=== PATIENT | male | born 1940 | race Caucasian/White ===

== ENCOUNTER → 2018-03-09 11:28 | Outpatient (CLI) | payer MEDICARE, OTHER, SELFPAY ==
--- NOTE | 2018-03-09 | DI.CT.S_ITS ---
PROCEDURE: CT LUMBAR SPINE WO CON INDICATIONS: LOW BACK PAIN TECHNIQUE: Noncontrast 3 mm thick sections acquired from the T12 level to the sacrum. Sagittal and coronal reformats were constructed. For radiation dose reduction, the following was used: automated exposure control. COMPARISON: [facility], CR, CHEST 2 VIEW, 05/06/2017, 9:57. [facility], CT, IVP (ABD & PEL WWO CONTRAST), 02/16/2016, 11:33. [facility], CT, ABDOMEN/PELVIS WITHOUT CONTRAST, 02/20/2009, 19:28. [facility], CR, L-SPINE 2-3 VIEWS, 02/20/2009, 16:19. FINDINGS: Image quality: Excellent. Bones: No acute vertebral body compression fractures. No suspicious lytic or blastic bony lesions. No pars defects. Mild retrolisthesis is seen at the L1-L2 level and at the L2-L3 level. There is minimal anterolisthesis seen at L4-L5. T12-L1: The disc height is relatively well-preserved. Bridging anterior osteophytes are seen anteriorly. Mild generalized disc bulge is seen. No significant neural foraminal or central canal narrowing are seen. L1-L2: Moderate loss of disc height is seen. Endplate irregularity and sclerosis can be seen. Bridging osteophytes are seen anteriorly. Moderate disc bulge is seen at this level. There is moderate to severe bilateral neural foraminal narrowing seen and moderate to severe central canal narrowing present. L2-L3: Mild to moderate loss of disc height is seen. Moderate disc bulge is seen, which is eccentric to the right. Mild facet joint hypertrophy is seen. There is moderate to severe bilateral neural foraminal narrowing seen and moderate to severe central canal narrowing present. L3-L4: The disc height is relatively well-preserved. Moderate disc bulge is seen, which is eccentric to the right. Bridging anterior osteophytes can be seen. Mild facet joint hypertrophy is seen. Moderate to severe bilateral neural foraminal narrowing is seen. Moderate to severe central canal narrowing is seen at this level. L4-L5: The disc height is relatively well-preserved. Bridging anterior osteophytes are seen. Moderate disc bulge is seen, which is eccentric to the left. Prominent facet hypertrophy is seen. There is at least moderate bilateral neural foraminal narrowing seen. Moderate to severe central canal narrowing is seen at this level. L5-S1: Moderate to severe loss of disc height is seen at this level. Mild disc bulge is seen. Moderate facet joint hypertrophy is seen. [id number] bilateral neural foraminal narrowing is seen. The central canal is widely patent. Soft tissues: No retroperitoneal masses or hematomas. Visualized aorta is normal in caliber. A pacer lead can be seen on the director of operations for therapy image. IMPRESSION: Prominent degenerative changes are seen, including moderate to severe central canal narrowing at L1-L2, L2-L3, L3-L4, and L4-L5. Moderate to severe bilateral neural foraminal narrowing is seen at L1-L2, L2-L3, and L3-L4. Dictated by: Chay Jones M.D. on 03/09/2018 at 11:53 Approved by: Chay Jones M.D. on 03/09/2018 at 12:01
== END ==
PROVIDERS: Family Provider Family Medicine; PCP Family Medicine; Visit Provider Physical Medicine & Rehabilitation Pain Medicine
DX: M48.061 Spinal stenosis, lumbar region without neurogenic claudication (principal); M99.73 Connective tissue and disc stenosis of intervertebral foramina of lumbar region
CPT/HCPCS: 72131

== ENCOUNTER 2018-07-14 17:53 | Emergency (ER) | payer MEDICARE, OTHER, SELFPAY ==
[2018-07-14 17:58] VITALS: BP 165/90; PULSE 65; RESP 12; O2SAT 96
--- NOTE | 2018-07-14 18:25 | ED_ITS ---
HPI - Male Genitourinary <Ellie Gunn PA-C - Last Filed: 07/14/18 21:35> General Chief complaint: Urogenital-Male Stated complaint: BLOOD IN URINE Time Seen by Provider: 07/14/18 18:05 Source: patient Mode of arrival: ambulatory Limitations: no limitations History of Present Illness HPI Narrative: This 77 year old gentleman comes to ED with complaints of hematuria today. He states that this has happened 3 times today. 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 He states that when this occurs, he will pass some clots, then the urine clears. Last happened 6 months ago. Today however, he went to urinate and felt like micturition was slow and he had to strain a little bit, then able to urinate but it turned from yellow to red tinged to pure red at the end of the stream. He states that he feels otherwise normal. He denies any dysuria, frequency, or urgency. He denies any flank pain. He denies any nausea, vomiting, or fever. He does take warfarin and denies any other new bleeding or bruising or any other acute symptoms today. He states last INR was 2.8 a couple of weeks ago Related Data Home Medications Medication Instructions Recorded Confirmed omega 5-sws-nmf-fish oil [Fish Oil] 3,000 mg PO BID #0 05/05/17 Previous Rx's Medication Instructions Recorded cephalexin [Keflex] 500 mg PO QID 5 Days #0 cap 07/23/16 tamsulosin [Flomax] 0.4 mg PO QDAY 7 Days #0 cap 07/23/16 dibucaine [Nupercainal] 56.7 gm RC PRN PRN #1 tube 12/22/16 hydrocodone-acetaminophen [[place]] 1 tab PO Q6HP PRN #14 tab 12/22/16 ciprofloxacin HCl 250 mg PO Q12H #6 tab 07/14/18 Allergies Allergy/AdvReac Type Severity Reaction Status Date / Time No Known Allergies Allergy Verified 07/14/18 18:01 Exam <Ellie Gunn PA-C - Last Filed: 07/14/18 21:35> Narrative Exam Narrative: GENERAL APPEARANCE: Patient sitting comfortably, in no distress. LUNGS: Clear to auscultation bilaterally. HEART: Rate and rhythm regular without murmur, normal S1 and S2, no S3 or S4. ABDOMEN: Soft, NT, ND, +BS x 4 quadrants, no CVAT. EXTREMITIES: Mild pitting noted with venous stasis skin changes bilaterally DERM: No eccymoses noted Initial Vital Signs Initial Vital Signs: Vital Signs Pulse Rate 65 07/14/18 17:58 Respiratory Rate 12 07/14/18 17:58 Blood Pressure 165/90 H 07/14/18 17:58 Pulse Oximetry 96 07/14/18 17:58 <Eliu Lawrence MD - Last Filed: 07/14/18 23:21> Initial Vital Signs Initial Vital Signs: Vital Signs Pulse Rate 65 07/14/18 17:58 Respiratory Rate 12 07/14/18 17:58 Blood Pressure 165/90 H 07/14/18 17:58 Pulse Oximetry 96 07/14/18 17:58 Course <Ellie Gunn PA-C - Last Filed: 07/14/18 21:35> Additional Information: Patient is feeling well. We discussed treating for infection (he has taken Cipro multiple times previously for his urology procedures and no SEs) while awaiting urine cx results. Discussed importance of f/u even if gross hematuria resolves and he is agreeable (will f/u with urology or PCP for repeat UA, advised imaging and repeat cystoscopy may be indicated as well). He will return if any acute changes in the interim Orders Ordered: ED Orders 07/14/18 18:40 Urinalysis and Microscopic Stat Urine Culture Stat 07/14/18 19:00 Hemoglobin and Hematocrit Stat Prothrombin Time INR Stat Vital Signs - 8 hr 07/14/18 17:58 07/14/18 19:47 Pulse Rate 65 68 Respiratory Rate 12 22 Blood Pressure 165/90 H 178/89 H Pulse Oximetry 96 97 <Eliu Lawrence MD - Last Filed: 07/14/18 23:21> Orders Ordered: ED Orders 07/14/18 18:40 Urinalysis and Microscopic Stat Urine Culture Stat 07/14/18 19:00 Hemoglobin and Hematocrit Stat Prothrombin Time INR Stat Vital Signs - 8 hr 07/14/18 17:58 07/14/18 19:47 Pulse Rate 65 68 Respiratory Rate 12 22 Blood Pressure 165/90 H 178/89 H Pulse Oximetry 96 97 MDM - Male Genitourinary <Ellie Gunn PA-C - Last Filed: 07/14/18 21:35> Lab Data Attestation: I reviewed the patient's lab results. Result diagrams: 07/14/18 19:00 Lab Results 07/14/18 07/14/18 07/14/18 Range/Units 18:40 19:00 19:00 Hgb 14.5 (13.5-17.5) g/dL Hct 42.5 (41-53) % PT 25.6 H (10.1-12.7) SECONDS INR 2.3 H (0.9-1.3) Urine Color Red Urine Appearance Turbid Urine pH 7.0 (4.5-8.0) Ur Specific [place] 1.015 (1.000-1.035) Urine Protein 3+ H (Negative) Urine Glucose (UA) Negative (Normal) g/dL Urine Ketones Negative (NEGATIVE) Urine Occult Blood 3+ H (Negative) Urine Nitrate Negative (Negative) Urine Bilirubin Negative (NEGATIVE) Urine Urobilinogen 1.0 (0.2) E.U./dL Ur Leukocyte Esterase Trace H (NEGATIVE) Urine RBC >100/hpf (0-5/HPF) Urine WBC 5-10/hpf H (0-5/HPF) Urine Bacteria None seen (None) Ur Culture Indicated? Specimen cultured Micro UA Comment Not Reportable <Eliu Lawrence MD - Last Filed: 07/14/18 23:21> Lab Data Lab Results 07/14/18 07/14/18 07/14/18 Range/Units 18:40 19:00 19:00 Hgb 14.5 (13.5-17.5) g/dL Hct 42.5 (41-53) % PT 25.6 H (10.1-12.7) SECONDS INR 2.3 H (0.9-1.3) Urine Color Red Urine Appearance Turbid Urine pH 7.0 (4.5-8.0) Ur Specific [place] 1.015 (1.000-1.035) Urine Protein 3+ H (Negative) Urine Glucose (UA) Negative (Normal) g/dL Urine Ketones Negative (NEGATIVE) Urine Occult Blood 3+ H (Negative) Urine Nitrate Negative (Negative) Urine Bilirubin Negative (NEGATIVE) Urine Urobilinogen 1.0 (0.2) E.U./dL Ur Leukocyte Esterase Trace H (NEGATIVE) Urine RBC >100/hpf (0-5/HPF) Urine WBC 5-10/hpf H (0-5/HPF) Urine Bacteria None seen (None) Ur Culture Indicated? Specimen cultured Micro UA Comment Not Reportable Discharge Plan Departure Patient Disposition: Home Clinical Impression: Hematuria Discharge Date/Time: 07/14/18 19:50 Interventions: ED Discharge Assessment Last Done: 07/14/18 19:47 Instructions: DI for Hematuria Activity Restrictions/Additional Instructions: please return as we talked about if you have any acutely worsening symptoms such as pain, fever, nausea or vomiting, or feeling weak or dizzy. Otherwise, please start the antibiotic as it will take 2 or 3 days for your final urine cultures to come back and we want to treat you for infection in the interim in case that is the cause of your bleeding.. Please follow-up with your urologist or PCP next week to recheck this as he will need further testing if the bleeding has not resolved. Prescriptions: New ciprofloxacin HCl 250 mg tablet 250 mg PO Q12H Qty: 6 RF: 0 No Action tamsulosin [Flomax] 0.4 MG capsule,extended release 24hr 0.4 mg PO QDAY 7 Days Qty: 0 RF: 0 cephalexin [Keflex] 500 MG capsule 500 mg PO QID 5 Days Qty: 0 RF: 0 hydrocodone-acetaminophen [[place]] 10 MG/325 MG tablet 1 tab PO Q6HP PRNQty: 14 RF: 0 dibucaine [Nupercainal] 56.7 GM ointment 56.7 gm RC PRN PRNQty: 1 RF: 0 omega 9-obg-qms-fish oil [Fish Oil] 1,000 MG capsule 3,000 mg PO BID Qty: 0 RF: 0 Referrals: Rosa Isela Connors MD [Non-Staff] - Eliu Guzman MD [Primary Care Provider] - <Eliu Lawrence MD - Last Filed: 07/14/18 23:21> Cosign ED Attending Cosscoobyature Attestation: I was present in the ER at the time of this patient's evaluation. I was available for verbal consultation or to see the patient directly if needed. I agree with the assessment and treatment plan.
[2018-07-14 18:48] LABS: Bacteria Urine None Seen
[2018-07-14 18:58] LABS: Appearance Urine UA TURBID; Bilirubin Urine UA NEGATIVE (NEGATIVE); Color Urine UA RED; Glucose Urine UA NEGATIVE (Normal); Ketones Urine UA NEGATIVE (NEGATIVE); Leukocyte Esterase Urine UA TRACE (NEGATIVE); Nitrite Urine UA Negative (Negative); Occult Blood Urine UA 3+ (Negative); Protein Urine UA 3+ (Negative); Specific Gravity Urine UA 1.015 (1.000-1.035)
[2018-07-14 19:07] LABS: Culture Indicated Urine Specimen Cultured; RBC Urine >100/HPF (0-5/HPF); WBC Urine 5-10/HPF (0-5/HPF)
[2018-07-14 19:20] LABS: Hematocrit 42.5 % (41-53); Hemoglobin 14.5 g/dL (13.5-17.5); INR 2.3 (0.9-1.3); Prothrombin Time 25.6 SECONDS (10.1-12.7)
[2018-07-14 19:47] VITALS: BP 178/89; PULSE 68; RESP 22; O2SAT 97
== END 2018-07-14 19:50 | disposition home or self-care (01) ==
PROVIDERS: Emergency Provider Internal Medicine; Family Provider Family Medicine; PCP Family Medicine
DX: R31.9 Hematuria, unspecified (principal)
CPT/HCPCS: 36415; 51798; 81001; 85014; 85018; 85610; 87086; 99283

== ENCOUNTER → 2018-11-09 10:18 | Outpatient (CLI) | payer MEDICARE, OTHER, SELFPAY ==
[2018-11-09 10:54] LABS: Appearance Urine UA TURBID; Color Urine UA RED
[2018-11-09 10:55] LABS: Bacteria Urine Occasional (0-1); RBC Urine >100/HPF (0-5/HPF); WBC Urine 10-30/HPF (0-5/HPF)
[2018-11-09 10:56] LABS: Culture Indicated Urine Specimen Cultured
== END ==
PROVIDERS: Family Provider Family Medicine; PCP Family Medicine; Visit Provider Urology
DX: R31.0 Gross hematuria (principal)
CPT/HCPCS: 81001; 87086

== ENCOUNTER → 2019-01-01 12:21 | Outpatient (CLI) | payer MEDICARE, OTHER, SELFPAY ==
[2019-01-01 13:02] LABS: Alanine Aminotransferase 25 IU/L (21-72); Albumin 4.2 g/dL (3.5-5.0); Albumin Globulin Ratio 1.1 (1.0-2.8); Alkaline Phosphatase 122 U/L (38-126); Aspartate Aminotransferase 24 IU/L (17-59); BUN Creatinine Ratio 15.6 (6-22); Bilirubin Total 0.6 mg/dL (0.2-1.3); Blood Urea Nitrogen 14 mg/dL (9-20); Calcium 9.2 mg/dL (8.4-10.2); Carbon Dioxide 31 mmol/L (22-32); Chloride 101 mmol/L (98-107); Cholesterol 137 mg/dL (140-199); Estimated Glomerular Filt Rate > 60.0 mL/min (>60); Globulin 3.8 g/dL (1.7-4.1); Glucose 82 mg/dL (80-110); HDL Cholesterol 34 mg/dL (40-60); HEMOLYSIS < 15 (0-50); LDL Cholesterol Calculated 72 mg/dL (<100); Magnesium 2.3 mg/dL (1.6-2.3); Potassium 4.4 mmol/L (3.4-5.1); Sodium 140 mmol/L (137-145); Triglycerides 157 mg/dL (35-150)
[2019-01-01 13:41] LABS: Digoxin 0.8 ng/mL (0.8-2.0)
== END ==
PROVIDERS: Family Provider Family Medicine; PCP Family Medicine; Visit Provider Specialist
DX: E78.2 Mixed hyperlipidemia (principal); I48.2 Chronic atrial fibrillation
CPT/HCPCS: 36415; 80053; 80061; 80162; 83735

== ENCOUNTER → 2019-10-02 08:03 | Outpatient (CLI) | payer MEDICARE, OTHER, SELFPAY ==
[2019-10-02 09:24] LABS: Digoxin 0.9 ng/mL (0.8-2.0)
[2019-10-02 09:26] LABS: Alanine Aminotransferase 23 IU/L (<50); Albumin 4.3 g/dL (3.5-5.0); Albumin Globulin Ratio 1.4 (1.0-2.8); Alkaline Phosphatase 81 U/L (38-126); Aspartate Aminotransferase 29 IU/L (17-59); BUN Creatinine Ratio 18.9 (6-22); Bilirubin Total 0.7 mg/dL (0.2-1.3); Blood Urea Nitrogen 17 mg/dL (9-20); Calcium 9.4 mg/dL (8.4-10.2); Carbon Dioxide 30 mmol/L (22-32); Chloride 103 mmol/L (98-107); Estimated Glomerular Filt Rate > 60.0 mL/min (>60); Globulin 3.1 g/dL (1.7-4.1); Glucose 105 mg/dL (80-110); HEMOLYSIS < 15 (0-50); Magnesium 2.3 mg/dL (1.6-2.3); Potassium 4.7 mmol/L (3.4-5.1); Sodium 139 mmol/L (137-145); Total Protein 7.4 g/dL (6.3-8.2)
[2019-10-05 09:46] LABS: Lipoprofile NMR SEE SEPERATE REPORT
== END ==
PROVIDERS: Family Provider Family Medicine; PCP Family Medicine; Visit Provider Specialist
DX: I48.20 Chronic atrial fibrillation, unspecified (principal); E78.2 Mixed hyperlipidemia
CPT/HCPCS: 36415; 80053; 80162; 83704; 83735

== ENCOUNTER → 2020-04-02 08:31 | Outpatient (CLI) | payer MEDICARE, OTHER, SELFPAY ==
--- NOTE | 2020-04-02 | DI.ECHO.S_ITS ---
[place]---------+ [facility] +---------+ : : [address] : : : : [id number] : : : : Phone: [phone]+ Echocardiogram Report + + :Name: EDIE BARNES Study Date: 04/02/2020 Height: 74 in : :[facility] Weight: 304 lb : : Gender: Male BSA: 2.6 m2 : :: 1940 Age: 79 yrs BP: 118/74 mmHg: :Reason For Study: Disorders of arteries and arteriols : :Ordering Physician: Albaro : :Berto Performed By: Ana Lilia Miller : :Referring: ALBARO PHAM : + + Interpretation Summary Left ventricular systolic function remains normal with an estimated ejection fraction of 60 to 65% without any obvious focal abnormalities and appears unchanged from previous. There continues to be mild LVH, more prominent in the interventricular septum. Diastolic function cannot be assessed but there is no obvious significant change from the previous exam. The right ventricle grossly appears normal and unchanged. Right ventricular systolic pressures cannot be estimated but CVP is likely around 3 mmHg. There is severe biatrial enlargement although the left atrium has decreased in size while the right atrium has significantly increased in size. There is no significant valvular abnormality identified. The aortic root is mildly dilated and the ascending aorta is moderately enlarged but both are unchanged from the previous exam when they measured 4.4 cm, and 4.2 cm, respectively. The patient was in atrial fibrillation with heart rates in the 75-95 bpm range which is considerably faster compared to the previous study. Procedure: A two-dimensional transthoracic echocardiogram with color flow and Doppler was performed. Images from the parasternal window were difficult to obtain and are suboptimal in quality. The study quality was technically difficult. The patient was in atrial fibrillation with heart rates between 74- 93 bpm during the exam. The patient had occasional PVCs during the exam. This is considerably faster compared to the previous study. Left Ventricle: The estimated left ventricular end diastolic volume is 93 ml. The left ventricle is grossly normal size. There is mild-moderate concentric left ventricular hypertrophy. There is moderate proximal septal thickening noted. Left ventricular systolic function is normal without focal wall motion abnormalities. The ejection fraction is estimated to be 60-65%. Diastolic function could not be accurately assessed due to atrial fibrillation. There has been no significant change since the previous study. Right Ventricle: The right ventricle is not well visualized. The right ventricle grossly appears normal in size with probable normal systolic function. This is unchanged compared to the previous study. There is a pacemaker lead in the right ventricle. Atria: There is severe biatrial enlargement. The left atrium has significantly decreased in size since the prior echo exam. The right atrium has significantly increased in size since the prior echo exam. There is no Doppler evidence for an interatrial shunt. Mitral Valve: There is mild mitral annular calcification. The mitral valve leaflets appear mildly thickened, but open well. There is trace mitral regurgitation. This is unchanged compared to the previous study. Aortic Valve: The aortic valve is trileaflet. The aortic valve is slightly calcified. The aortic valve opens well. There is no aortic valve stenosis. No aortic regurgitation is present. Tricuspid Valve: The tricuspid valve is not well visualized, but is grossly normal. There is trace tricuspid regurgitation. Pulmonary artery pressures cannot be estimated because of the lack of a measurable TR jet velocity but the IVC suggests a CVP of around 3 mmHg. There has been no significant change since the previous study. Pulmonic Valve: The pulmonic valve is not well visualized. There is no pulmonic valvular regurgitation. There is no significant valvular heart disease. Great Vessels: The aortic root is mildly dilated. The ascending aorta is moderately enlarged. This is unchanged compared to the previous study. The IVC is of normal diameter and collapses greater than 50% with a sniff. This suggests a low right atrial pressure of 3 mm Hg. Pericardium/ Pleura There is no pericardial effusion. There is no pleural effusion. MMode/2D Measurements & Calculations LVIDd: 5.7 cm LVOT diam: 2.3 cm LVIDs: 3.7 cm Ao root diam: 4.3 cm FS: 34.2 % asc Aorta Diam: 4.2 cm EPSS: 0.64 cm IVSd: 1.4 cm LVPWd: 1.2 cm LV finnegan. diameter/BSA (cm/m^2): 2.2 LV sys. diameter/BSA (cm/m^2): 1.4 LA A2 area: 35.9 cm2 RA long axis: 7.8 cm LA A4 area: 37.6 cm2 RA area: 38.1 cm2 LA length (vol): 7.9 cm RA vol: 158.4 ml LA vol: 145.2 ml RA : 61.0 ml/m2 LA vol index: 55.9 ml/m2 IVC diam: 2.1 cm RVD1 (basal): 3.6 cm TAPSE: 2.8 cm Doppler Measurements & Calculations Ao V2 max: 122.4 cm/sec LVOT Max Jose: 105.3 cm/sec Ao V2 mean: 78.2 cm/sec LV V1 max P.4 mmHg Ao max P.0 mmHg LV V1 VTI: 19.2 cm Ao mean P.9 mmHg JACINDA(I,D): 3.7 cm2 Ao V2 VTI: 21.6 cm JACINDA(V,D): 3.6 cm2 sev ratio: 0.89 JACINDA indexed to BSA (cm^2/m^2): 1.4 MV E max jose: 101.9 cm/sec SV(LVOT): 79.4 ml MV A max jose: 0.57 cm/sec MV E/A: 177.9 Med Peak E' Jose: 6.1 cm/sec E/E' med: 16.7 Lat Peak E' Jose: 12.1 cm/sec E/E' lat: 8.4 E/e' average: 12.6 MV dec time: 0.18 sec Reading Physician:PM
[2020-04-02 09:39] LABS: Alanine Aminotransferase 13 IU/L (<50); Albumin 4.1 g/dL (3.5-5.0); Albumin Globulin Ratio 1.3 (1.0-2.8); Alkaline Phosphatase 95 U/L (38-126); Aspartate Aminotransferase 24 IU/L (17-59); BUN Creatinine Ratio 16.7 (6-22); Bilirubin Total 0.5 mg/dL (0.2-1.3); Blood Urea Nitrogen 15 mg/dL (9-20); Carbon Dioxide 32 mmol/L (22-32); Chloride 100 mmol/L (98-107); Estimated Glomerular Filt Rate > 60.0 mL/min (>60); Globulin 3.1 g/dL (1.7-4.1); Glucose 90 mg/dL (80-110); HEMOLYSIS < 15 (0-50); Magnesium 2.2 mg/dL (1.6-2.3); Potassium 4.2 mmol/L (3.4-5.1); Sodium 137 mmol/L (137-145); Total Protein 7.2 g/dL (6.3-8.2)
[2020-04-06 08:36] LABS: Cholesterol, Total 126 mg/dL (100-199); HDL-Cholesterol 52 mg/dL (>39); HDL-Particle (Total) 23.7 umol/L (>=30.5); Historical Reading Comment: (.); LDL Particle 602 nmol/L (<1000); LDL Size 20.9 nm (>20.5); LDL-Cholsterol 54 mg/dL (0-99); LP-IR Score 43 (<=45); Small LDL- Particle <90 nmol/L (<=527); Triglycerides 102 mg/dL (0-149)
== END ==
PROVIDERS: Family Provider Family Medicine; PCP Family Medicine; Referring Provider Specialist; Visit Provider Specialist
DX: I77.810 Thoracic aortic ectasia (principal); I77.89 Other specified disorders of arteries and arterioles; I48.20 Chronic atrial fibrillation, unspecified; E78.2 Mixed hyperlipidemia; Z95.0 Presence of cardiac pacemaker
CPT/HCPCS: 36415; 80053; 80061; 83704; 83735; 93306

== ENCOUNTER 2020-10-25 08:29 | Emergency (ER) | payer MEDICARE, OTHER, SELFPAY ==
[2020-10-25 09:00] VITALS: BP 137/90; PULSE 59; RESP 18; TEMP 36.7; O2SAT 99
--- NOTE | 2020-10-25 09:15 | ED_ITS ---
HPI - Male Genitourinary General Chief complaint: Urogenital-Male Stated complaint: catheter placed yesterday is clogged Time Seen by Provider: 10/25/20 09:00 Source: patient Mode of arrival: Family Vehicle Limitations: no limitations History of Present Illness HPI Narrative: The patient is a 80-year-old male who had a urology procedure yesterday with Dr. Escobedo, he is unsure what procedure it was, presents today has his catheter was clogged. He appears to have some serosanguineous fluid and multiple blood clots in his Baez catheter bag. He has no abdominal pain. He denies any blood thinners or antiplatelet medications. He states that it has never been clear and has been bloody since yesterday. He denies any dizziness lightheadedness or shortness of breath Onset (ago): day(s) Duration: constant Related Data Home Medications Medication Instructions Recorded Confirmed omega 8-tbu-cxa-fish oil [Fish Oil] 3,000 mg PO BID #0 05/05/17 05/02/19 Respironics Dreamstation CPAP #1 ea 05/02/19 05/02/19 Previous Rx's Medication Instructions Recorded cephalexin [Keflex] 500 mg PO QID 5 Days #0 cap 07/23/16 tamsulosin [Flomax] 0.4 mg PO QDAY 7 Days #0 cap 07/23/16 dibucaine [Nupercainal] 56.7 gm RC PRN PRN #1 tube 12/22/16 hydrocodone-acetaminophen [[place]] 1 tab PO Q6HP PRN #14 tab 12/22/16 ciprofloxacin HCl 250 mg PO Q12H #6 tab 07/14/18 Allergies Allergy/AdvReac Type Severity Reaction Status Date / Time No Known Allergies Allergy Verified 10/25/20 09:06 Review of Systems Review of Systems Narrative: GENERAL: Denies chills,fever HEENT: Denies throat pain RESPIRATORY: Denies dyspnea, cough, wheezing CARDIOVASCULAR: Denies chest pain, palpitations GASTROINTESTINAL: Denies nausea, vomiting : See HPI MUSCULOSKELETAL: Denies extremity pain, injury SKIN: No rash, no laceration, no pruritus NEUROLOGIC: Denies weakness, dizziness, headache, numbness 8 point review of systems is negative except for those stated above and HPI Patient History Social History (Reviewed 12/19/20 @ 09:30 by FISH Spence Smoking Status: Former smoker alcohol intake: current Smoking Status: Former smoker Substance Use Type: marijuana Exam Initial Vital Signs Initial Vital Signs: Vital Signs Temperature 98.1 F 10/25/20 09:00 Pulse Rate 59 L 10/25/20 09:00 Respiratory Rate 18 10/25/20 09:00 Blood Pressure 137/90 10/25/20 09:00 Pulse Oximetry 99 10/25/20 09:00 GENERAL: Alert well-appearing 80-year-old male CARDIOVASCULAR: peripheral pulses in tact, cap refill <2 sec RESPIRATORY: No respiratory distress, speaks in full sentences without difficulty : Serosanguineous dark blood in Baez catheter with multiple blood clots noted EXTREMITIES: Normal range of motion, no clubbing or edema. Neurovascularly intact NEUROLOGICAL: Cranial nerves II through XII grossly intact. Normal gait and speech. SKIN: Warm, dry, no petechiae, no rashes or lesions. Course Orders Ordered: ED Orders 10/25/20 10:00 Complete Blood Count AUTO DIFF Stat 10/25/20 10:10 UA Complete [Urinalysis and Microscopic] Stat Urine Culture Stat Vital Signs Vital signs: Vital Signs - 8 hr 10/25/20 09:00 10/25/20 11:40 Temperature 98.1 F Pulse Rate 59 L 62 Respiratory Rate 18 Blood Pressure 137/90 133/80 Pulse Oximetry 99 99 MDM - Male Genitourinary Lab Data Attestation: I reviewed the patient's lab results. Result diagrams: 10/25/20 10:00 Labs: Lab Results 10/25/20 10/25/20 Range/Units 10:00 10:10 WBC 6.0 (4.5-11.0) X10^3/uL RBC 4.56 (4.5-5.9) X10^6/uL Hgb 14.5 (13.5-17.5) g/dL Hct 44.1 (41-53) % MCV 96.8 (80-100) fL MCH 31.9 (26-34) PG MCHC 33.0 (30-36) % RDW 15.2 H (11.6-14.8) % Plt Count 110 L (150-400) X10^3/uL Neut % (Auto) 76.6 H (50-75) % Lymph % (Auto) 13.8 L (25-40) % [place] % (Auto) 9.2 (3-14) % Eos % (Auto) 0.0 L (2-4) % Baso % (Auto) 0.4 (0-2) % Neut # (Auto) 4600 (0113-5250) /uL Lymph # (Auto) 800 L (4551-0451) /uL [place] # (Auto) 600 (0-900) /uL Eos # (Auto) 0 (0-450) /uL Baso # (Auto) 0 (0-100) /uL Urine Color Red Urine Appearance Cloudy Urine pH 6.5 (4.5-8.0) Ur Specific [place] 1.015 (1.000-1.035) Urine Protein 3+ H (Negative) Urine Glucose (UA) Trace H (Negative) g/dL Urine Ketones Trace H (NEGATIVE) Urine Occult Blood 3+ H (Negative) Urine Nitrate Positive (Negative) Urine Bilirubin Negative (NEGATIVE) Urine Urobilinogen 1.0 (0.2) E.U./dL Ur Leukocyte Esterase 1+ H (NEGATIVE) Urine RBC >100/hpf H (0-5/HPF) Urine WBC 10-30/hpf H (0-5/HPF) Amorphous Sediment 1+ Urine Bacteria Moderate (10-30) H (None) Urine Mucus 1+ H (Negative) Ur Culture Indicated? Specimen cultured MDM Narrative Medical decision making narrative: 10:15am Dr. Hopper, states patient actually had a your asked P and Baez catheter was placed for urinary retention postoperatively. Is aware that there is serosanguineous fluid and multiple blood clots recommends removing the Baez catheter to see if he can urinate. Baez catheter removed patient urinated afterwards. Return as needed. Discharge Plan Departure Patient Disposition: Home Clinical Impression: Hematuria Qualifiers: Hematuria type: gross Qualified Code(s): R31.0 - Gross hematuria Instructions: DI for Hematuria Activity Restrictions/Additional Instructions: *You have been diagnosed with hematuria *What to do: You will continue to urinate out blood clots and blood. If you are unable to urinate or have increasing abdominal pain and not urinating please return to the ER *Continue to take medications as directed *Follow up with your primary care provider in 2-3 days *Return to ER if you should have inability to urinate, gross or dark blood or any new, worsening or concerning symptoms Prescriptions: No Action tamsulosin [Flomax] 0.4 MG capsule,extended release 24hr 0.4 mg PO QDAY 7 Days Qty: 0 RF: 0 cephalexin [Keflex] 500 MG capsule 500 mg PO QID 5 Days Qty: 0 RF: 0 hydrocodone-acetaminophen [[place]] 10 MG/325 MG tablet 1 tab PO Q6HP PRNQty: 14 RF: 0 dibucaine [Nupercainal] 56.7 GM ointment 56.7 gm RC PRN PRNQty: 1 RF: 0 omega 1-xxt-jqi-fish oil [Fish Oil] 1,000 MG capsule 3,000 mg PO BID Qty: 0 RF: 0 ciprofloxacin HCl 250 mg tablet 250 mg PO Q12H Qty: 6 RF: 0 (DME) Respironics Dreamstation CPAP Qty: 1 RF: 0 Referrals: Rosa Isela Connors MD [Non-Staff] - Eliu Guzman MD [Primary Care Provider] -
--- NOTE | 2020-10-25 09:49 | PC.NURSE ---
reports catheter bag drain is clogged and is backing up to his bladder. Bag drain squeezed, flexed and tapped on to dislodge a clot. 1000ml bloody urine removed from bag. catheter flushed with sterile water, patient stated he can feel the cold water going into his bladder. 100ml infused and freely drains right back out. several flushes were made, urine remains red tinged. Provider aware. Lab in route to draw CBC.
[2020-10-25 10:12] LABS: Add Manual Diff / Slide Review NO; Basophils Absolute Auto 0 /uL (0-100); Basophils Percent Auto 0.4 % (0-2); Eosinophils Absolute Auto 0 /uL (0-450); Hematocrit 44.1 % (41-53); Hemoglobin 14.5 g/dL (13.5-17.5); Lymphocytes Absolute Auto 800 /uL (1100-4500); Lymphocytes Percent Auto 13.8 % (25-40); Mean Corpuscular Hemoglobin 31.9 PG (26-34); Mean Corpuscular Volume 96.8 fL (80-100); Monocytes Absolute Auto 600 /uL (0-900); Monocytes Percent Auto 9.2 % (3-14); Neutrophils Absolute Auto 4600 /uL (1500-7000); Neutrophils Percent Auto 76.6 % (50-75); Platelet Count 110 X10^3/uL (150-400); Red Blood Cell Count 4.56 X10^6/uL (4.5-5.9); Red Cell Distribution Width 15.2 % (11.6-14.8)
[2020-10-25 10:30] LABS: Appearance Urine UA CLOUDY; Bilirubin Urine UA NEGATIVE (NEGATIVE); Color Urine UA RED; Glucose Urine UA TRACE g/dL (Negative); Ketones Urine UA TRACE (NEGATIVE); Leukocyte Esterase Urine UA 1+ (NEGATIVE); Nitrite Urine UA POSITIVE (Negative); Occult Blood Urine UA 3+ (Negative); Protein Urine UA 3+ (Negative); Specific Gravity Urine UA 1.015 (1.000-1.035); pH Urine UA 6.5 (4.5-8.0)
[2020-10-25 10:34] LABS: Amorphous Sediment Urine 1+; Bacteria Urine Moderate (10-30); RBC Urine >100/HPF (0-5/HPF); WBC Urine 10-30/HPF (0-5/HPF)
[2020-10-25 10:35] LABS: Culture Indicated Urine Specimen Cultured; Mucus Urine 1+ (Negative)
--- NOTE | 2020-10-25 11:12 | PC.NURSE ---
srivastava catheter removed. Patient tolerated well. Patient provided ice water.
--- NOTE | 2020-10-25 11:39 | PC.NURSE ---
patient drank 1L icewater. 200ml urine output, pink tinged.
[2020-10-25 11:40] VITALS: BP 133/80; PULSE 62; O2SAT 99
== END 2020-10-25 11:41 | disposition home or self-care (01) ==
PROVIDERS: Emergency Provider Emergency Medicine; Family Provider Family Medicine; PCP Family Medicine
DX: R31.0 Gross hematuria (principal); T85.9XXA Unspecified complication of internal prosthetic device, implant and graft, initial encounter
CPT/HCPCS: 36415; 81001; 85025; 87086; 99282

== ENCOUNTER → 2021-05-06 08:03 | Outpatient (CLI) | payer MEDICARE, OTHER, SELFPAY ==
[2021-05-06 10:01] LABS: Alanine Aminotransferase 11 IU/L (<50); Albumin 3.8 g/dL (3.5-5.0); Albumin Globulin Ratio 1.3 (1.0-2.8); Alkaline Phosphatase 151 U/L (38-126); Aspartate Aminotransferase 22 IU/L (17-59); BUN Creatinine Ratio 18.8 (6-22); Bilirubin Total 0.7 mg/dL (0.2-1.3); Blood Urea Nitrogen 16 mg/dL (9-20); Carbon Dioxide 30 mmol/L (22-32); Chloride 103 mmol/L (98-107); Estimated Glomerular Filt Rate > 60.0 mL/min (>60); Globulin 2.9 g/dL (1.7-4.1); Glucose 85 mg/dL (80-110); HEMOLYSIS < 15 (0-50); Magnesium 2.1 mg/dL (1.6-2.3); Potassium 4.2 mmol/L (3.4-5.1); Sodium 139 mmol/L (137-145); Total Protein 6.7 g/dL (6.3-8.2)
[2021-05-08 16:07] LABS: Cholesterol, Total 116 mg/dL (100-199); HDL-Cholesterol 43 mg/dL (>39); LDL Particle 515 nmol/L (<1000); LDL Size 21.1 nm (>20.5); LDL-Cholsterol 53 mg/dL (0-99); LP-IR Score <25 (<=45); Small LDL- Particle <90 nmol/L (<=527); Triglycerides 108 mg/dL (0-149)
== END ==
PROVIDERS: Family Provider Family Medicine; PCP Family Medicine; Referring Provider Specialist; Visit Provider Specialist
DX: E78.2 Mixed hyperlipidemia (principal); I48.20 Chronic atrial fibrillation, unspecified
CPT/HCPCS: 36415; 80053; 80061; 83704; 83735

== ENCOUNTER 2021-05-27 14:32 | Emergency (ER) | payer MEDICARE, OTHER, SELFPAY ==
[2021-05-27] VITALS (37 sets, daily range): BP systolic 89–211; BP diastolic 60–121; PULSE 77–109; RESP 10–24; TEMP 36.4; O2SAT 90–99; BMI 38.2
--- NOTE | 2021-05-27 15:20 | DI.CT.S_ITS ---
PROCEDURE: CT CERVICAL SPINE WO CON INDICATIONS: fall TECHNIQUE: Noncontrast 3 mm thick sections acquired from the skull base to the T4 level. Sagittal and coronal reformats were then constructed. For radiation dose reduction, the following was used: automated exposure control, adjustment of mA and/or kV according to patient size. COMPARISON: None. FINDINGS: Image quality: Excellent. Bones: No fractures or dislocations. Visualized superior ribs are intact. Severe cervical spondylosis. Multilevel disc height loss and uncovertebral joint hypertrophy. Bilateral bony foraminal narrowing at C4-C5 and C5-C6. Reversal of normal lordotic curve of the cervical spine is likely chronic. Soft tissues: Prevertebral soft tissues are normal in thickness. No paravertebral hematomas. No apical pneumothoraces. IMPRESSION: 1. No evidence of acute cervical fracture or dislocation. 2. Severe cervical spondylosis. Dictated by: Evan Phipps M.D. on 05/27/2021 at 15:22 Approved by: Evan Phipps M.D. on 05/27/2021 at 15:25
--- NOTE | 2021-05-27 15:20 | DI.CT.S_ITS ---
PROCEDURE: CT HEAD/BRAIN WO CON INDICATIONS: fall on coumadin TECHNIQUE: Noncontrast 4.5 mm thick angled axial sections acquired from the foramen magnum to the vertex, with coronal and sagittal reformats. For radiation dose reduction, the following was used: automated exposure control, adjustment of mA and/or kV according to patient size. COMPARISON: None. FINDINGS: Image quality: Excellent. CSF spaces: Basal cisterns are patent. No extra-axial fluid collections. The ventricles are symmetric in size and shape. Brain: No intracranial bleeds or masses. There is cerebral volume loss for age, with resultant ventricular and sulcal prominence. There are periventricular and deep white matter chronic small vessel ischemic changes. There is intracranial internal carotid artery atherosclerosis. Skull and face: Right posterior parietal scalp hematoma and swelling is seen. Calvarium and visualized facial bones appear intact, without suspicious lesions. Sinuses: Visualized sinuses and mastoids are clear. IMPRESSION: 1. No CT evidence of acute intracranial bleed, midline shift or mass effect. 2. Right posterior parietal scalp hematoma and swelling. No acute skull fracture. 3. Parenchymal volume loss and moderate white matter chronic small vessel ischemic changes. Dictated by: Santiago Waters M.D. on 05/27/2021 at 15:25 Approved by: Santiago Waters M.D. on 05/27/2021 at 15:26
--- NOTE | 2021-05-27 15:20 | DI.CT.S_ITS ---
PROCEDURE: CT PEL WO CON INDICATIONS: right hip pain TECHNIQUE: Noncontrast 3 mm axial sections acquired through the bony pelvis, with coronal and sagittal reformatting. COMPARISON: None. FINDINGS: Image quality: Excellent. Bones: Patient is status post right total hip arthroplasty. Acute comminuted periprosthetic fracture adjacent to femoral stem of the right hip prosthesis is seen with anterior and posterior displacement of fractured fragments. Patient is status post right total knee arthroplasty without evidence of fracture or dislocation. No evidence of right knee hardware loosening or failure. Pelvic ring is intact. Left hip joint osteoarthritic changes are seen. No evidence of avascular necrosis of femoral head. Soft tissues: Asymmetric enlargement of right iliacus muscle is seen. Asymmetrically enlarged left pelvic floor muscles as well as anterior right upper thigh muscle is seen surrounding femoral shaft. Finding is suggestive of intramuscular hematoma. IMPRESSION: 1. Acute comminuted periprosthetic fracture involving proximal right femoral shaft as above. 2. Large intramuscular hematoma involving left iliacus muscle, left pelvic floor muscle and anterior left upper to mid thigh muscles. Dictated by: Santiago Waters M.D. on 05/27/2021 at 15:32 Approved by: Santiago Waters M.D. on 05/27/2021 at 15:38
[2021-05-27 15:24] LABS: Add Manual Diff / Slide Review NO; Basophils Absolute Auto 0 /uL (0-100); Basophils Percent Auto 0.6 % (0-2); Eosinophils Absolute Auto 100 /uL (0-450); Eosinophils Percent Auto 2.5 % (2-4); Hematocrit 43.8 % (41-53); Hemoglobin 14.4 g/dL (13.5-17.5); Lymphocytes Absolute Auto 1400 /uL (1100-4500); Lymphocytes Percent Auto 27.1 % (25-40); Mean Corpuscular HGB Conc 32.9 % (30-36); Mean Corpuscular Hemoglobin 30.4 PG (26-34); Mean Corpuscular Volume 92.6 fL (80-100); Monocytes Absolute Auto 500 /uL (0-900); Monocytes Percent Auto 10.1 % (3-14); Neutrophils Absolute Auto 3100 /uL (1500-7000); Neutrophils Percent Auto 59.7 % (50-75); Platelet Count 133 X10^3/uL (150-400); Red Blood Cell Count 4.73 X10^6/uL (4.5-5.9); Red Cell Distribution Width 15.4 % (11.6-14.8); White Blood Cell Count 5.2 X10^3/uL (4.5-11.0)
[2021-05-27 15:25] LABS: INR 4.1 (0.9-1.3); Prothrombin Time 48.3 SECONDS (10.1-12.7)
[2021-05-27] MEDS: HYDROMORPHONE 0.5 MG INJ IV (15:27)
[2021-05-27 15:32] LABS: Alanine Aminotransferase 14 IU/L (<50); Albumin 3.9 g/dL (3.5-5.0); Albumin Globulin Ratio 1.1 (1.0-2.8); Alkaline Phosphatase 157 U/L (38-126); Aspartate Aminotransferase 26 IU/L (17-59); BUN Creatinine Ratio 23.1 (6-22); Bilirubin Total 0.6 mg/dL (0.2-1.3); Blood Urea Nitrogen 18 mg/dL (9-20); Calcium 9.3 mg/dL (8.4-10.2); Carbon Dioxide 29 mmol/L (22-32); Chloride 104 mmol/L (98-107); Estimated Glomerular Filt Rate > 60.0 mL/min (>60); Globulin 3.4 g/dL (1.7-4.1); Glucose 115 mg/dL (80-110); HEMOLYSIS < 15 (0-50); Potassium 4.4 mmol/L (3.4-5.1); Sodium 137 mmol/L (137-145); Total Protein 7.3 g/dL (6.3-8.2)
--- NOTE | 2021-05-27 16:08 | ED_ITS ---
HPI - Fall <Genevieve Torres DO - Last Filed: 05/29/21 06:58> General Chief Complaint: Fall Stated Complaint: Modified Trauma Time Seen by Provider: 05/27/21 14:39 Source: patient and EMS Mode of arrival: EMS History of Present Illness HPI Narrative: Patient is an 80-year-old male who has a history of atrial fibrillation sleep apnea is my hypertension hyperlipidemia presenting with ground level fall. He states that he was walking from his porch to the inside of his house when he felt his right hip go out and fell to the ground. He did hit his head he has an obvious head laceration and hematoma with bleeding. He does not think that he lost consciousness is. He denies any nausea vomiting numbness tingling or weakness. His biggest complaint is his right leg. It hurts extremely bad to move it. He is able to move his toes. He was given ketamine by EMS. He denies any neck pain or any other injuries. Related Data Home Medications Medication Instructions Recorded Confirmed Respironics Dreamstation CPAP #1 ea 05/02/19 05/27/21 carvedilol 25 mg tablet 25 mg PO BID 05/27/21 05/27/21 duloxetine 60 mg capsule,delayed 60 mg PO DAILY 05/27/21 05/27/21 release rosuvastatin 20 mg tablet (Crestor) 20 mg PO DAILY 05/27/21 05/27/21 warfarin 10 mg tablet 10 mg PO DAILY 05/27/21 05/27/21 Previous Rx's Medication Instructions Recorded tamsulosin 0.4 mg capsule (Flomax) 0.4 mg PO QDAY 7 Days #0 cap 07/23/16 Allergies Allergy/AdvReac Type Severity Reaction Status Date / Time No Known Allergies Allergy Verified 10/25/20 09:06 Review of Systems <Genevieve Torres DO - Last Filed: 05/29/21 06:58> Review of Systems Narrative: GENERAL: Denies chills, fatigue, malaise, fever, sweats, travel HEENT: Denies sinus pain, ear pain, sore throat, difficulty swallowing, neck pain RESPIRATORY: Denies dyspnea, cough, wheezing, hemoptysis, sputum. CARDIOVASCULAR: Denies chest pain, palpitations, orthopnea, edema GASTROINTESTINAL: Denies nausea, vomiting, abdominal pain, diarrhea, constipation, melena. : Denies dysuria, frequency, incontinence, hematuria, urinary retention, flank pain. MUSCULOSKELETAL: See HPI SKIN: Head laceration, hematoma NEUROLOGIC: Denies weakness, dizziness, headache, numbness, change in speech, confusion PSYCHIATRIC: No concerning psychosocial issues. 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 Social History Smoking Status: Former smoker alcohol intake: current (2 glasses wine nightly with dinner) Smoking Status: Former smoker Substance Use Type: marijuana Exam <Genevieve Torres DO - Last Filed: 05/29/21 06:58> Initial Vital Signs Initial Vital Signs: Vital Signs Temperature 97.6 F 05/27/21 14:40 Pulse Rate 89 05/27/21 14:40 Respiratory Rate 16 05/27/21 14:40 Blood Pressure 133/97 H 05/27/21 14:40 Pulse Oximetry 92 05/27/21 14:40 GENERAL: Alert 80-year-old male HEENT: Head right posterior hematoma with 4 cm laceration,EOMI, pupils reactive, face symmetric, [moist] mucous membranes NECK: No vertebral tenderness or step-offs full range of motion CARDIOVASCULAR: Regular rate and rhythm without murmurs, rubs or gallops. RESPIRATORY: Breath sounds equal bilaterally, no wheezes rales or rhonchi. ABDOMEN: Soft, nontender. Normoactive bowel sounds all 4 quadrants. No guarding or rebound. EXTREMITIES: Normal range of motion, no clubbing or edema. Neurovascularly i ntact Right hip itself is actually non tender complaining of knee and mid thigh pain. Currently right knee is flexed he has extreme pain while straightening but distal pedal pulse is intact. Once pain medication is given patient is able to straighten out leg but thigh continues to her. NEUROLOGICAL: Alert and oriented x4.Normal gait and speech. Cranial nerves II through XII grossly intact. [Good [id number], good [id number], strength equal bilaterally, no dysarthria or aphasia, sensation in tact to soft touch bilaterally, no visual changes, no facial droop] SKIN: Warm, dry, no laceration, no petechiae, no rashes or lesions. <Radha Montalvo DO - Last Filed: 06/08/21 08:54> Initial Vital Signs Initial Vital Signs: Vital Signs Temperature 97.6 F 05/27/21 14:40 Pulse Rate 89 05/27/21 14:40 Respiratory Rate 16 05/27/21 14:40 Blood Pressure 133/97 H 05/27/21 14:40 Pulse Oximetry 92 05/27/21 14:40 <Suzanna Correa MD - Last Filed: 05/28/21 20:27> Initial Vital Signs Initial Vital Signs: Vital Signs Temperature 97.6 F 05/27/21 14:40 Pulse Rate 89 05/27/21 14:40 Respiratory Rate 16 05/27/21 14:40 Blood Pressure 133/97 H 05/27/21 14:40 Pulse Oximetry 92 05/27/21 14:40 Course <Genevieve Torres DO - Last Filed: 05/29/21 06:58> Orders Ordered: Discontinued Medications Carvedilol (Carvedilol 12.5 Mg Tablet) 25 mg PO NOW ONE Stop: 05/27/21 19:38 Last Admin: 05/27/21 20:17 Dose: 25 mg Documented by: BECKY Carvedilol (Carvedilol 12.5 Mg Tablet) 25 mg PO BID [facility] Last Admin: 05/28/21 10:22 Dose: 25 mg Documented by: LANCE Carvedilol (Carvedilol 12.5 Mg Tablet) 25 mg PO BID [facility] Last Admin: 05/28/21 14:44 Dose: Not Given Documented by: DEEDEE Docusate Sodium (Docusate 100 Mg Capsule) 100 mg PO DAILY [facility] Last Admin: 05/28/21 08:42 Dose: 100 mg Documented by: BTONER Hydromorphone HCl (Hydromorphone 0.5 Mg Inj) 0.5 mg IV NOW ONE Stop: 05/27/21 15:20 Last Admin: 05/27/21 15:27 Dose: 0.5 mg Documented by: BECKY Hydromorphone HCl (Hydromorphone 1 Mg Inj) 1 mg IV NOW ONE Stop: 05/27/21 16:39 Last Admin: 05/27/21 16:44 Dose: 1 mg Documented by: MICHAEL Hydromorphone HCl (Hydromorphone 1 Mg Inj) 1 mg IV NOW ONE Stop: 05/27/21 18:40 Last Admin: 05/27/21 18:50 Dose: 1 mg Documented by: SONIAOR Hydromorphone HCl (Hydromorphone 1 Mg Inj) 1 mg IV Q2HR PRN PRN Reason: Pain, Severe (7-10) Last Admin: 05/28/21 13:03 Dose: 1 mg Documented by: PAWAN Hydromorphone HCl (Hydromorphone 1 Mg Inj) 1 mg IV NOW ONE Stop: 05/28/21 14:29 Last Admin: 05/28/21 14:58 Dose: 1 mg Documented by: DEEDEE Oxycodone HCl (Oxycodone Ir 5 Mg Tablet) 10 mg PO Q4HR PRN PRN Reason: pain Last Admin: 05/27/21 23:32 Dose: 10 mg Documented by: SUDHIR Oxycodone/Acetaminophen (Oxycodone/Acetaminophen 5/325 Tablet) 1 tab PO Q4HR PRN PRN Reason: pain Last Admin: 05/28/21 08:42 Dose: 1 tab Documented by: PAWAN Oxycodone/Acetaminophen (Oxycodone/Acetaminophen 5/325 Tablet) 2 tab PO NOW ONE Stop: 05/28/21 14:29 Last Admin: 05/28/21 14:57 Dose: 2 tab Documented by: DEEDEE Phytonadione (Phytonadione (Vit K1) 5 Mg Tablet) 5 mg PO NOW ONE Stop: 05/27/21 18:41 Last Admin: 05/27/21 18:51 Dose: 5 mg Documented by: BECKY Phytonadione (Phytonadione (Vit K1) 5 Mg Tablet) 5 mg PO NOW ONE Stop: 05/28/21 12:55 Last Admin: 05/28/21 13:16 Dose: 5 mg Documented by: PAWAN Tamsulosin HCl (Tamsulosin 0.4 Mg Capsule) 0.4 mg PO DAILY [facility] Last Admin: 05/28/21 13:03 Dose: 0.4 mg Documented by: PAWAN Vital Signs Vital signs: Vital Signs - 8 hr 05/28/21 12:30 05/28/21 12:49 05/28/21 13:00 Pulse Rate 96 H 90 104 H Respiratory Rate 16 17 34 H Blood Pressure 105/68 Pulse Oximetry 94 94 87 L 05/28/21 13:30 05/28/21 14:00 05/28/21 14:30 Pulse Rate 96 H 101 H 113 H Respiratory Rate 15 25 H 19 Blood Pressure Pulse Oximetry 92 05/28/21 14:54 05/28/21 15:00 05/28/21 15:01 Pulse Rate 102 H 93 H 97 H Respiratory Rate 18 14 32 H Blood Pressure 83/51 L 85/68 L Pulse Oximetry 05/28/21 15:03 Pulse Rate 96 H Respiratory Rate 14 Blood Pressure 96/75 Pulse Oximetry <Radha Montalvo, - Last Filed: 06/08/21 08:54> Orders Ordered: Discontinued Medications Carvedilol (Carvedilol 12.5 Mg Tablet) 25 mg PO NOW ONE Stop: 05/27/21 19:38 Last Admin: 05/27/21 20:17 Dose: 25 mg Documented by: BECKY Carvedilol (Carvedilol 12.5 Mg Tablet) 25 mg PO BID [facility] Last Admin: 05/28/21 10:22 Dose: 25 mg Documented by: LANCE Carvedilol (Carvedilol 12.5 Mg Tablet) 25 mg PO BID [facility] Last Admin: 05/28/21 14:44 Dose: Not Given Documented by: DEEDEE Docusate Sodium (Docusate 100 Mg Capsule) 100 mg PO DAILY [facility] Last Admin: 05/28/21 08:42 Dose: 100 mg Documented by: PAWAN Hydromorphone HCl (Hydromorphone 0.5 Mg Inj) 0.5 mg IV NOW ONE Stop: 05/27/21 15:20 Last Admin: 05/27/21 15:27 Dose: 0.5 mg Documented by: BECKY Hydromorphone HCl (Hydromorphone 1 Mg Inj) 1 mg IV NOW ONE Stop: 05/27/21 16:39 Last Admin: 05/27/21 16:44 Dose: 1 mg Documented by: MICHAEL Hydromorphone HCl (Hydromorphone 1 Mg Inj) 1 mg IV NOW ONE Stop: 05/27/21 18:40 Last Admin: 05/27/21 18:50 Dose: 1 mg Documented by: BECKY Hydromorphone HCl (Hydromorphone 1 Mg Inj) 1 mg IV Q2HR PRN PRN Reason: Pain, Severe (7-10) Last Admin: 05/28/21 13:03 Dose: 1 mg Documented by: PAWAN Hydromorphone HCl (Hydromorphone 1 Mg Inj) 1 mg IV NOW ONE Stop: 05/28/21 14:29 Last Admin: 05/28/21 14:58 Dose: 1 mg Documented by: DEEDEE Oxycodone HCl (Oxycodone Ir 5 Mg Tablet) 10 mg PO Q4HR PRN PRN Reason: pain Last Admin: 05/27/21 23:32 Dose: 10 mg Documented by: SUDHIR Oxycodone/Acetaminophen (Oxycodone/Acetaminophen 5/325 Tablet) 1 tab PO Q4HR PRN PRN Reason: pain Last Admin: 05/28/21 08:42 Dose: 1 tab Documented by: PAWAN Oxycodone/Acetaminophen (Oxycodone/Acetaminophen 5/325 Tablet) 2 tab PO NOW ONE Stop: 05/28/21 14:29 Last Admin: 05/28/21 14:57 Dose: 2 tab Documented by: DEEDEE Phytonadione (Phytonadione (Vit K1) 5 Mg Tablet) 5 mg PO NOW ONE Stop: 05/27/21 18:41 Last Admin: 05/27/21 18:51 Dose: 5 mg Documented by: BECKY Phytonadione (Phytonadione (Vit K1) 5 Mg Tablet) 5 mg PO NOW ONE Stop: 05/28/21 12:55 Last Admin: 05/28/21 13:16 Dose: 5 mg Documented by: PAWAN Tamsulosin HCl (Tamsulosin 0.4 Mg Capsule) 0.4 mg PO DAILY [facility] Last Admin: 05/28/21 13:03 Dose: 0.4 mg Documented by: BTONER Reevaluation(s) Reevaluation #1: Patient seen and evaluated by myself. Overnight patient had 1 episode where he was mildly confused at about 4:00 a.m. in the morning. He thought he heard his family outside the room. After turning on lytes and having discussion with patient he seems alert and oriented. He has his CPAP with nasal cannula in place. Patient fairly well pain controlled at this time. He does have a little bit of a headache. He denies any other issues currently. Patient's INR was supratherapeutic at 4.1 and he received vitamin K. Patient has repeat CBC, BMP and INR ordered for the morning. Patient head CT was negative, he does have a periprosthetic fracture this was reviewed with Orthopedic surgery by Dr. Torres with Dr. Weber. Patient will need some specialty orthopedic care we are unable to provide and [facility] was contacted. They did speak with Orthopedic surgery, Dr. Kingsley who was going to discuss with orthopedic group to verify if they can take the patient, and we are waiting for possible bed placement. Patient signed out to Dr. Correa this morning while working on disposition/placement. Vital Signs Vital signs: Vital Signs - 8 hr 05/28/21 12:30 05/28/21 12:49 05/28/21 13:00 Pulse Rate 96 H 90 104 H Respiratory Rate 16 17 34 H Blood Pressure 105/68 Pulse Oximetry 94 94 87 L 05/28/21 13:30 05/28/21 14:00 05/28/21 14:30 Pulse Rate 96 H 101 H 113 H Respiratory Rate 15 25 H 19 Blood Pressure Pulse Oximetry 92 05/28/21 14:54 05/28/21 15:00 05/28/21 15:01 Pulse Rate 102 H 93 H 97 H Respiratory Rate 18 14 32 H Blood Pressure 83/51 L 85/68 L Pulse Oximetry 05/28/21 15:03 Pulse Rate 96 H Respiratory Rate 14 Blood Pressure 96/75 Pulse Oximetry <Suzanna Correa MD - Last Filed: 05/28/21 20:27> Orders Ordered: Discontinued Medications Carvedilol (Carvedilol 12.5 Mg Tablet) 25 mg PO NOW ONE Stop: 05/27/21 19:38 Last Admin: 05/27/21 20:17 Dose: 25 mg Documented by: BECKY Carvedilol (Carvedilol 12.5 Mg Tablet) 25 mg PO BID [facility] Last Admin: 05/28/21 10:22 Dose: 25 mg Documented by: LANCE Carvedilol (Carvedilol 12.5 Mg Tablet) 25 mg PO BID [facility] Last Admin: 05/28/21 14:44 Dose: Not Given Documented by: DEEDEE Docusate Sodium (Docusate 100 Mg Capsule) 100 mg PO DAILY [facility] Last Admin: 05/28/21 08:42 Dose: 100 mg Documented by: PAWAN Hydromorphone HCl (Hydromorphone 0.5 Mg Inj) 0.5 mg IV NOW ONE Stop: 05/27/21 15:20 Last Admin: 05/27/21 15:27 Dose: 0.5 mg Documented by: BECKY Hydromorphone HCl (Hydromorphone 1 Mg Inj) 1 mg IV NOW ONE Stop: 05/27/21 16:39 Last Admin: 05/27/21 16:44 Dose: 1 mg Documented by: MICHAEL Hydromorphone HCl (Hydromorphone 1 Mg Inj) 1 mg IV NOW ONE Stop: 05/27/21 18:40 Last Admin: 05/27/21 18:50 Dose: 1 mg Documented by: BECKY Hydromorphone HCl (Hydromorphone 1 Mg Inj) 1 mg IV Q2HR PRN PRN Reason: Pain, Severe (7-10) Last Admin: 05/28/21 13:03 Dose: 1 mg Documented by: DIMASONESebastián Hydromorphone HCl (Hydromorphone 1 Mg Inj) 1 mg IV NOW ONE Stop: 05/28/21 14:29 Last Admin: 05/28/21 14:58 Dose: 1 mg Documented by: DEEDEE Oxycodone HCl (Oxycodone Ir 5 Mg Tablet) 10 mg PO Q4HR PRN PRN Reason: pain Last Admin: 05/27/21 23:32 Dose: 10 mg Documented by: SUDHIR Oxycodone/Acetaminophen (Oxycodone/Acetaminophen 5/325 Tablet) 1 tab PO Q4HR PRN PRN Reason: pain Last Admin: 05/28/21 08:42 Dose: 1 tab Documented by: PAWAN Oxycodone/Acetaminophen (Oxycodone/Acetaminophen 5/325 Tablet) 2 tab PO NOW ONE Stop: 05/28/21 14:29 Last Admin: 05/28/21 14:57 Dose: 2 tab Documented by: DEEDEE Phytonadione (Phytonadione (Vit K1) 5 Mg Tablet) 5 mg PO NOW ONE Stop: 05/27/21 18:41 Last Admin: 05/27/21 18:51 Dose: 5 mg Documented by: BECKY Phytonadione (Phytonadione (Vit K1) 5 Mg Tablet) 5 mg PO NOW ONE Stop: 05/28/21 12:55 Last Admin: 05/28/21 13:16 Dose: 5 mg Documented by: PAWAN Tamsulosin HCl (Tamsulosin 0.4 Mg Capsule) 0.4 mg PO DAILY [facility] Last Admin: 05/28/21 13:03 Dose: 0.4 mg Documented by: PAWAN Vital Signs Vital signs: Vital Signs - 8 hr 05/28/21 12:30 05/28/21 12:49 05/28/21 13:00 Pulse Rate 96 H 90 104 H Respiratory Rate 16 17 34 H Blood Pressure 105/68 Pulse Oximetry 94 94 87 L 05/28/21 13:30 05/28/21 14:00 05/28/21 14:30 Pulse Rate 96 H 101 H 113 H Respiratory Rate 15 25 H 19 Blood Pressure Pulse Oximetry 92 05/28/21 14:54 05/28/21 15:00 05/28/21 15:01 Pulse Rate 102 H 93 H 97 H Respiratory Rate 18 14 32 H Blood Pressure 83/51 L 85/68 L Pulse Oximetry 05/28/21 15:03 Pulse Rate 96 H Respiratory Rate 14 Blood Pressure 96/75 Pulse Oximetry MDM - Fall <Genevieve Torres DO - Last Filed: 05/29/21 06:58> Lab Data Result diagrams: 05/28/21 07:01 05/28/21 07:01 Labs: Lab Results 05/27/21 05/27/21 05/27/21 Range/Units 14:30 14:30 14:30 WBC 5.2 (4.5-11.0) X10^3/uL RBC 4.73 (4.5-5.9) X10^6/uL Hgb 14.4 (13.5-17.5) g/dL Hct 43.8 (41-53) % MCV 92.6 (80-100) fL MCH 30.4 (26-34) PG MCHC 32.9 (30-36) % RDW 15.4 H (11.6-14.8) % Plt Count 133 L (150-400) X10^3/uL Neut % (Auto) 59.7 (50-75) % Lymph % (Auto) 27.1 (25-40) % [place] % (Auto) 10.1 (3-14) % Eos % (Auto) 2.5 (2-4) % Baso % (Auto) 0.6 (0-2) % Neut # (Auto) 3100 (1536-9380) /uL Lymph # (Auto) 1400 (9558-2239) /uL [place] # (Auto) 500 (0-900) /uL Eos # (Auto) 100 (0-450) /uL Baso # (Auto) 0 (0-100) /uL PT 48.3 H (10.1-12.7) SECONDS INR 4.1 H (0.9-1.3) Sodium 137 (137-145) mmol/L Potassium 4.4 (3.4-5.1) mmol/L Chloride 104 (98-107) mmol/L Carbon Dioxide 29 (22-32) mmol/L BUN 18 (9-20) mg/dL Creatinine 0.78 (0.66-1.25) mg/dL Estimated GFR > 60.0 (>60) mL/min BUN/Creatinine Ratio 23.1 H (6-22) Glucose 115 H (80-110) mg/dL Calcium 9.3 (8.4-10.2) mg/dL Total Bilirubin 0.6 (0.2-1.3) mg/dL AST 26 (17-59) IU/L ALT 14 (<50) IU/L Alkaline Phosphatase 157 H (38-126) U/L Total Protein 7.3 (6.3-8.2) g/dL Albumin 3.9 (3.5-5.0) g/dL Globulin 3.4 (1.7-4.1) g/dL Albumin/Globulin Ratio 1.1 (1.0-2.8) SARS-CoV-2 (PCR) (Negative) Hep Bs Antigen (NEGATIVE) s/c Hep Bs Antibody (.) Hepatitis C Antibody (NEGATIVE) s/c HIV 1&2 Ab/P24 Ag 4thGn (NEGATIVE) Blood Type Antibody Screen 05/27/21 05/27/21 05/27/21 Range/Units 14:30 14:30 14:30 WBC (4.5-11.0) X10^3/uL RBC (4.5-5.9) X10^6/uL Hgb (13.5-17.5) g/dL Hct (41-53) % MCV (80-100) fL MCH (26-34) PG MCHC (30-36) % RDW (11.6-14.8) % Plt Count (150-400) X10^3/uL Neut % (Auto) (50-75) % Lymph % (Auto) (25-40) % [place] % (Auto) (3-14) % Eos % (Auto) (2-4) % Baso % (Auto) (0-2) % Neut # (Auto) (2811-4687) /uL Lymph # (Auto) (2951-1817) /uL [place] # (Auto) (0-900) /uL Eos # (Auto) (0-450) /uL Baso # (Auto) (0-100) /uL PT (10.1-12.7) SECONDS INR (0.9-1.3) Sodium (137-145) mmol/L Potassium (3.4-5.1) mmol/L Chloride (98-107) mmol/L Carbon Dioxide (22-32) mmol/L BUN (9-20) mg/dL Creatinine (0.66-1.25) mg/dL Estimated GFR (>60) mL/min BUN/Creatinine Ratio (6-22) Glucose (80-110) mg/dL Calcium (8.4-10.2) mg/dL Total Bilirubin (0.2-1.3) mg/dL AST (17-59) IU/L ALT 14 (<50) IU/L Alkaline Phosphatase (38-126) U/L Total Protein (6.3-8.2) g/dL Albumin (3.5-5.0) g/dL Globulin (1.7-4.1) g/dL Albumin/Globulin Ratio (1.0-2.8) SARS-CoV-2 (PCR) (Negative) Hep Bs Antigen Negative (NEGATIVE) s/c Hep Bs Antibody Non reactive (.) Hepatitis C Antibody Negative (NEGATIVE) s/c HIV 1&2 Ab/P24 Ag 4thGn Negative (NEGATIVE) Blood Type Antibody Screen 05/27/21 05/27/21 05/27/21 Range/Units 16:30 16:30 16:32 WBC (4.5-11.0) X10^3/uL RBC (4.5-5.9) X10^6/uL Hgb (13.5-17.5) g/dL Hct (41-53) % MCV (80-100) fL MCH (26-34) PG MCHC (30-36) % RDW (11.6-14.8) % Plt Count (150-400) X10^3/uL Neut % (Auto) (50-75) % Lymph % (Auto) (25-40) % [place] % (Auto) (3-14) % Eos % (Auto) (2-4) % Baso % (Auto) (0-2) % Neut # (Auto) (5823-0071) /uL Lymph # (Auto) (1101-8193) /uL [place] # (Auto) (0-900) /uL Eos # (Auto) (0-450) /uL Baso # (Auto) (0-100) /uL PT (10.1-12.7) SECONDS INR (0.9-1.3) Sodium (137-145) mmol/L Potassium (3.4-5.1) mmol/L Chloride (98-107) mmol/L Carbon Dioxide (22-32) mmol/L BUN (9-20) mg/dL Creatinine (0.66-1.25) mg/dL Estimated GFR (>60) mL/min BUN/Creatinine Ratio (6-22) Glucose (80-110) mg/dL Calcium (8.4-10.2) mg/dL Total Bilirubin (0.2-1.3) mg/dL AST (17-59) IU/L ALT (<50) IU/L Alkaline Phosphatase (38-126) U/L Total Protein (6.3-8.2) g/dL Albumin (3.5-5.0) g/dL Globulin (1.7-4.1) g/dL Albumin/Globulin Ratio (1.0-2.8) SARS-CoV-2 (PCR) Negative Negative (Negative) Hep Bs Antigen (NEGATIVE) s/c Hep Bs Antibody (.) Hepatitis C Antibody (NEGATIVE) s/c HIV 1&2 Ab/P24 Ag 4thGn (NEGATIVE) Blood Type B Positive Antibody Screen Negative 05/28/21 05/28/21 05/28/21 Range/Units 07:01 07:01 07:01 WBC 7.7 (4.5-11.0) X10^3/uL RBC 3.73 L (4.5-5.9) X10^6/uL Hgb 11.3 L (13.5-17.5) g/dL Hct 34.6 L (41-53) % MCV 92.6 (80-100) fL MCH 30.4 (26-34) PG MCHC 32.8 (30-36) % RDW 15.2 H (11.6-14.8) % Plt Count 127 L (150-400) X10^3/uL Neut % (Auto) 63.5 (50-75) % Lymph % (Auto) 21.0 L (25-40) % [place] % (Auto) 14.1 H (3-14) % Eos % (Auto) 0.6 L (2-4) % Baso % (Auto) 0.8 (0-2) % Neut # (Auto) 4900 (5826-1040) /uL Lymph # (Auto) 1600 (7708-2100) /uL [place] # (Auto) 1100 H (0-900) /uL Eos # (Auto) 0 (0-450) /uL Baso # (Auto) 100 (0-100) /uL PT 47.9 H (10.1-12.7) SECONDS INR 4.1 H (0.9-1.3) Sodium 135 L (137-145) mmol/L Potassium 4.6 (3.4-5.1) mmol/L Chloride 104 (98-107) mmol/L Carbon Dioxide 26 (22-32) mmol/L BUN 21 H (9-20) mg/dL Creatinine 0.91 (0.66-1.25) mg/dL Estimated GFR > 60.0 (>60) mL/min BUN/Creatinine Ratio 23.1 H (6-22) Glucose 111 H (80-110) mg/dL Calcium 8.6 (8.4-10.2) mg/dL Total Bilirubin (0.2-1.3) mg/dL AST (17-59) IU/L ALT (<50) IU/L Alkaline Phosphatase (38-126) U/L Total Protein (6.3-8.2) g/dL Albumin (3.5-5.0) g/dL Globulin (1.7-4.1) g/dL Albumin/Globulin Ratio (1.0-2.8) SARS-CoV-2 (PCR) (Negative) Hep Bs Antigen (NEGATIVE) s/c Hep Bs Antibody (.) Hepatitis C Antibody (NEGATIVE) s/c HIV 1&2 Ab/P24 Ag 4thGn (NEGATIVE) Blood Type Antibody Screen Imaging Data CT scan - head: Radiologist's Impression: PROCEDURE: CT HEAD/BRAIN WO CON INDICATIONS: fall on coumadin TECHNIQUE: Noncontrast 4.5 mm thick angled axial sections acquired from the foramen magnum to the vertex, with coronal and sagittal reformats. For radiation dose reduction, the following was used: automated exposure control, adjustment of mA and/or kV according to patient size. COMPARISON: None. FINDINGS: Image quality: Excellent. CSF spaces: Basal cisterns are patent. No extra-axial fluid collections. The ventricles are symmetric in size and shape. Brain: No intracranial bleeds or masses. There is cerebral volume loss for age, with resultant ventricular and sulcal prominence. There are periventricular and deep white matter chronic small vessel ischemic changes. There is intracranial internal carotid artery atherosclerosis. Skull and face: Right posterior parietal scalp hematoma and swelling is seen. Calvarium and visualized facial bones appear intact, without suspicious lesions. Sinuses: Visualized sinuses and mastoids are clear. IMPRESSION: 1. No CT evidence of acute intracranial bleed, midline shift or mass effect. 2. Right posterior parietal scalp hematoma and swelling. No acute skull fracture. 3. Parenchymal volume loss and moderate white matter chronic small vessel ischemic changes. Dictated by: Santiago Waters M.D. on 05/27/2021 at 15:25 CT - cervical spine: Radiologist's Impression: PROCEDURE: CT CERVICAL SPINE WO CON INDICATIONS: fall TECHNIQUE: Noncontrast 3 mm thick sections acquired from the skull base to the T4 level. Sagittal and coronal reformats were then constructed. For radiation dose reduction, the following was used: automated exposure control, adjustment of mA and/or kV according to patient size. COMPARISON: None. FINDINGS: Image quality: Excellent. Bones: No fractures or dislocations. Visualized superior ribs are intact. Severe cervical spondylosis. Multilevel disc height loss and uncovertebral joint hypertrophy. Bilateral bony foraminal narrowing at C4-C5 and C5-C6. Reversal of normal lordotic curve of the cervical spine is likely chronic. Soft tissues: Prevertebral soft tissues are normal in thickness. No paravertebral hematomas. No apical pneumothoraces. IMPRESSION: 1. No evidence of acute cervical fracture or dislocation. 2. Severe cervical spondylosis. Dictated by: Evan Phipps M.D. on 05/27/2021 at 15:22 CT pelvis: Radiologist's Impression: PROCEDURE: CT PEL WO CON INDICATIONS: right hip pain TECHNIQUE: Noncontrast 3 mm axial sections acquired through the bony pelvis, with coronal and sagittal reformatting. COMPARISON: None. FINDINGS: Image quality: Excellent. Bones: Patient is status post right total hip arthroplasty. Acute comminuted periprosthetic fracture adjacent to femoral stem of the right hip prosthesis is seen with anterior and posterior displacement of fractured fragments. Patient is status post right total knee arthroplasty without evidence of fracture or dislocation. No evidence of right knee hardware loosening or failure. Pelvic ring is intact. Left hip joint osteoarthritic changes are seen. No evidence of avascular necrosis of femoral head. Soft tissues: Asymmetric enlargement of right iliacus muscle is seen. Asymmetrically enlarged left pelvic floor muscles as well as anterior right upper thigh muscle is seen surrounding femoral shaft. Finding is suggestive of intramuscular hematoma. IMPRESSION: 1. Acute comminuted periprosthetic fracture involving proximal right femoral shaft as above. 2. Large intramuscular hematoma involving left iliacus muscle, left pelvic floor muscle and anterior left upper to mid thigh muscles. Dictated by: Santiago Waters M.D. on 05/27/2021 at 15:32 Extremity x-ray #1: Radiologist's Impression: PROCEDURE: XR FEMUR RT MIN 2V INDICATIONS: fracture TECHNIQUE: Two views of the femur were acquired. COMPARISON: None. FINDINGS: Bones: Moderately displaced spiral fracture around the femoral component of the right hip prosthesis. The visible portions of the right pelvis appear intact. The hip joint is congruent. There is a knee arthroplasty and the knee joint is grossly congruent. Soft tissues: No suspicious soft tissue calcifications or masses. IMPRESSION: 1. Spiral periprosthetic fracture of the proximal femur. 2. No hip or knee joint dislocation. Dictated by: Liz Irwin M.D. on 05/27/2021 at 20:35 Extremity x-ray #2: Radiologist's Impression: PROCEDURE: XR KNEE RT 1TO2V INDICATIONS: femur fracture TECHNIQUE: Two views of the knee were acquired. COMPARISON: [facility], , KNEE 3V RIGHT, 12/25/2009, 10:03. FINDINGS: Bones: On the two given views, right knee arthroplasty components appear in grossly appropriate location. The joint is relatively congruent. Soft tissues:. No suspicious soft tissue calcifications. IMPRESSION: 1. No definite periprosthetic fracture. 2. Grossly congruent knee joint given two suboptimally positioned views. Dictated by: Liz Irwin M.D. on 05/27/2021 at 20:34 Approved by: Liz Irwin M.D. on 05/27/2021 at 20:35 [place] Narrative Medical decision making narrative: Patient initially and quite a bit of pain is to get x-rays already on CT table for his head so CT of his pelvis and right lower extremity were done. Confirmation of periprosthetic fracture. 1608 Dr. Franks, at this time he will check with all of his partners to see if anyone is available for repair however he is unable to repair it. 1800-Dr. Weber returned call, unfortunately no partners are agreeable or able to repair the fracture recommends transfer [facility] and [facility] had been consulted 192 Dr. Kingsley, updated on patient's symptoms test results and orthopedic recommendations at our facility. At this time he would like to speak personally with Orthopedics to come up with an appropriate plan for the patient. 2010 orthopedic surgeons have discussed. Unfortunately I do not believe the [facility] is going to have an available bed soon. The the entire [facility] is very tight on bedside. Dr. Weber continues to state that he is unable to repair it at this hospital. will be checking with his partners to see if they are able to repair it as he is unable to repair himself as well. Waiting to hear back from [facility] to see if anyone is there to repair this patient's fracture. Patient's pain is currently controlled by dilaudid. He has been given vitamin K to help reverse his INR. I suspect patient will be boarding in the emergency department for some time. Significant bed shortage in the entire [facility] all surrounding hospitals are currently full. Patient signed out to Dr. Montalvo for further management 1250pm 05/28/01 Returned call from [facility] double [facility] transfer center. Dr Kingsley has confirmation that 1 of his partners is able to operate on this gentleman with surgery anticipated on Tuesday. He will need to be transferred to [facility] in [place]. We are currently waiting for bed availability there. If there is a moderate weight, will admit to our hospitalist service for medical management with transfer once bed is available again in anticipation of surgery on Tuesday. Pain is adequately controlled at this point. INR is 4.1. Additional vitamin K will be given. Will make sure all of his regular medications are ordered at this point Patient is updated on all plans and questions are answered 2:20pm Norberto Sands has agreed to a trauma/ER to ER transfer for this gentleman. I have spoken with Dr. Gonzalez, trauma surgeon and , orthopedic surgeon has reviewed films and has agreed that he can help with surgical intervention. Care is reviewed with ER Dr. Anita Koo and transfer will be arranged. Patient has been in the emergency department over 24 hours due to bed availability at accepting facilities. He has been receiving his home medications including carvedilol and tamsulosin. Duloxetine and Crestor have been held. Coumadin has not been given and he has received 2 doses of oral rigo min K. Initial INR was 4.1 and is unchanged this morning. Initial hemoglobin is 14.4 and currently is 11.3 with a involving the left iliacus muscle, left pelvic floor muscle and anterior left upper to mid thigh muscles. He remains hemodynamically stable with significant pain in the leg and hip with any movement. Will arrange for ALS transfer from [facility] to [facility] ER with anticipation of admission for orthopedic intervention. <Radha Montalvo, DO - Last Filed: 06/08/21 08:54> Lab Data Labs: Lab Results 05/27/21 05/27/21 05/27/21 Range/Units 14:30 14:30 14:30 WBC 5.2 (4.5-11.0) X10^3/uL RBC 4.73 (4.5-5.9) X10^6/uL Hgb 14.4 (13.5-17.5) g/dL Hct 43.8 (41-53) % MCV 92.6 (80-100) fL MCH 30.4 (26-34) PG MCHC 32.9 (30-36) % RDW 15.4 H (11.6-14.8) % Plt Count 133 L (150-400) X10^3/uL Neut % (Auto) 59.7 (50-75) % Lymph % (Auto) 27.1 (25-40) % [place] % (Auto) 10.1 (3-14) % Eos % (Auto) 2.5 (2-4) % Baso % (Auto) 0.6 (0-2) % Neut # (Auto) 3100 (4541-7689) /uL Lymph # (Auto) 1400 (7789-2134) /uL [place] # (Auto) 500 (0-900) /uL Eos # (Auto) 100 (0-450) /uL Baso # (Auto) 0 (0-100) /uL PT 48.3 H (10.1-12.7) SECONDS INR 4.1 H (0.9-1.3) Sodium 137 (137-145) mmol/L Potassium 4.4 (3.4-5.1) mmol/L Chloride 104 (98-107) mmol/L Carbon Dioxide 29 (22-32) mmol/L BUN 18 (9-20) mg/dL Creatinine 0.78 (0.66-1.25) mg/dL Estimated GFR > 60.0 (>60) mL/min BUN/Creatinine Ratio 23.1 H (6-22) Glucose 115 H (80-110) mg/dL Calcium 9.3 (8.4-10.2) mg/dL Total Bilirubin 0.6 (0.2-1.3) mg/dL AST 26 (17-59) IU/L ALT 14 (<50) IU/L Alkaline Phosphatase 157 H (38-126) U/L Total Protein 7.3 (6.3-8.2) g/dL Albumin 3.9 (3.5-5.0) g/dL Globulin 3.4 (1.7-4.1) g/dL Albumin/Globulin Ratio 1.1 (1.0-2.8) SARS-CoV-2 (PCR) (Negative) Hep Bs Antigen (NEGATIVE) s/c Hep Bs Antibody (.) Hepatitis C Antibody (NEGATIVE) s/c HIV 1&2 Ab/P24 Ag 4thGn (NEGATIVE) Blood Type Antibody Screen 05/27/21 05/27/21 05/27/21 Range/Units 14:30 14:30 14:30 WBC (4.5-11.0) X10^3/uL RBC (4.5-5.9) X10^6/uL Hgb (13.5-17.5) g/dL Hct (41-53) % MCV (80-100) fL MCH (26-34) PG MCHC (30-36) % RDW (11.6-14.8) % Plt Count (150-400) X10^3/uL Neut % (Auto) (50-75) % Lymph % (Auto) (25-40) % [place] % (Auto) (3-14) % Eos % (Auto) (2-4) % Baso % (Auto) (0-2) % Neut # (Auto) (7465-4428) /uL Lymph # (Auto) (3080-5260) /uL [place] # (Auto) (0-900) /uL Eos # (Auto) (0-450) /uL Baso # (Auto) (0-100) /uL PT (10.1-12.7) SECONDS INR (0.9-1.3) Sodium (137-145) mmol/L Potassium (3.4-5.1) mmol/L Chloride (98-107) mmol/L Carbon Dioxide (22-32) mmol/L BUN (9-20) mg/dL Creatinine (0.66-1.25) mg/dL Estimated GFR (>60) mL/min BUN/Creatinine Ratio (6-22) Glucose (80-110) mg/dL Calcium (8.4-10.2) mg/dL Total Bilirubin (0.2-1.3) mg/dL AST (17-59) IU/L ALT 14 (<50) IU/L Alkaline Phosphatase (38-126) U/L Total Protein (6.3-8.2) g/dL Albumin (3.5-5.0) g/dL Globulin (1.7-4.1) g/dL Albumin/Globulin Ratio (1.0-2.8) SARS-CoV-2 (PCR) (Negative) Hep Bs Antigen Negative (NEGATIVE) s/c Hep Bs Antibody Non reactive (.) Hepatitis C Antibody Negative (NEGATIVE) s/c HIV 1&2 Ab/P24 Ag 4thGn Negative (NEGATIVE) Blood Type Antibody Screen 05/27/21 05/27/21 05/27/21 Range/Units 16:30 16:30 16:32 WBC (4.5-11.0) X10^3/uL RBC (4.5-5.9) X10^6/uL Hgb (13.5-17.5) g/dL Hct (41-53) % MCV (80-100) fL MCH (26-34) PG MCHC (30-36) % RDW (11.6-14.8) % Plt Count (150-400) X10^3/uL Neut % (Auto) (50-75) % Lymph % (Auto) (25-40) % [place] % (Auto) (3-14) % Eos % (Auto) (2-4) % Baso % (Auto) (0-2) % Neut # (Auto) (2406-5408) /uL Lymph # (Auto) (9646-5030) /uL [place] # (Auto) (0-900) /uL Eos # (Auto) (0-450) /uL Baso # (Auto) (0-100) /uL PT (10.1-12.7) SECONDS INR (0.9-1.3) Sodium (137-145) mmol/L Potassium (3.4-5.1) mmol/L Chloride (98-107) mmol/L Carbon Dioxide (22-32) mmol/L BUN (9-20) mg/dL Creatinine (0.66-1.25) mg/dL Estimated GFR (>60) mL/min BUN/Creatinine Ratio (6-22) Glucose (80-110) mg/dL Calcium (8.4-10.2) mg/dL Total Bilirubin (0.2-1.3) mg/dL AST (17-59) IU/L ALT (<50) IU/L Alkaline Phosphatase (38-126) U/L Total Protein (6.3-8.2) g/dL Albumin (3.5-5.0) g/dL Globulin (1.7-4.1) g/dL Albumin/Globulin Ratio (1.0-2.8) SARS-CoV-2 (PCR) Negative Negative (Negative) Hep Bs Antigen (NEGATIVE) s/c Hep Bs Antibody (.) Hepatitis C Antibody (NEGATIVE) s/c HIV 1&2 Ab/P24 Ag 4thGn (NEGATIVE) Blood Type B Positive Antibody Screen Negative 05/28/21 05/28/21 05/28/21 Range/Units 07:01 07:01 07:01 WBC 7.7 (4.5-11.0) X10^3/uL RBC 3.73 L (4.5-5.9) X10^6/uL Hgb 11.3 L (13.5-17.5) g/dL Hct 34.6 L (41-53) % MCV 92.6 (80-100) fL MCH 30.4 (26-34) PG MCHC 32.8 (30-36) % RDW 15.2 H (11.6-14.8) % Plt Count 127 L (150-400) X10^3/uL Neut % (Auto) 63.5 (50-75) % Lymph % (Auto) 21.0 L (25-40) % [place] % (Auto) 14.1 H (3-14) % Eos % (Auto) 0.6 L (2-4) % Baso % (Auto) 0.8 (0-2) % Neut # (Auto) 4900 (5325-0760) /uL Lymph # (Auto) 1600 (1067-0064) /uL [place] # (Auto) 1100 H (0-900) /uL Eos # (Auto) 0 (0-450) /uL Baso # (Auto) 100 (0-100) /uL PT 47.9 H (10.1-12.7) SECONDS INR 4.1 H (0.9-1.3) Sodium 135 L (137-145) mmol/L Potassium 4.6 (3.4-5.1) mmol/L Chloride 104 (98-107) mmol/L Carbon Dioxide 26 (22-32) mmol/L BUN 21 H (9-20) mg/dL Creatinine 0.91 (0.66-1.25) mg/dL Estimated GFR > 60.0 (>60) mL/min BUN/Creatinine Ratio 23.1 H (6-22) Glucose 111 H (80-110) mg/dL Calcium 8.6 (8.4-10.2) mg/dL Total Bilirubin (0.2-1.3) mg/dL AST (17-59) IU/L ALT (<50) IU/L Alkaline Phosphatase (38-126) U/L Total Protein (6.3-8.2) g/dL Albumin (3.5-5.0) g/dL Globulin (1.7-4.1) g/dL Albumin/Globulin Ratio (1.0-2.8) SARS-CoV-2 (PCR) (Negative) Hep Bs Antigen (NEGATIVE) s/c Hep Bs Antibody (.) Hepatitis C Antibody (NEGATIVE) s/c HIV 1&2 Ab/P24 Ag 4thGn (NEGATIVE) Blood Type Antibody Screen <Suzanna Correa MD - Last Filed: 05/28/21 20:27> Lab Data Labs: Lab Results 05/27/21 05/27/21 05/27/21 Range/Units 14:30 14:30 14:30 WBC 5.2 (4.5-11.0) X10^3/uL RBC 4.73 (4.5-5.9) X10^6/uL Hgb 14.4 (13.5-17.5) g/dL Hct 43.8 (41-53) % MCV 92.6 (80-100) fL MCH 30.4 (26-34) PG MCHC 32.9 (30-36) % RDW 15.4 H (11.6-14.8) % Plt Count 133 L (150-400) X10^3/uL Neut % (Auto) 59.7 (50-75) % Lymph % (Auto) 27.1 (25-40) % [place] % (Auto) 10.1 (3-14) % Eos % (Auto) 2.5 (2-4) % Baso % (Auto) 0.6 (0-2) % Neut # (Auto) 3100 (1436-1223) /uL Lymph # (Auto) 1400 (2880-6284) /uL [place] # (Auto) 500 (0-900) /uL Eos # (Auto) 100 (0-450) /uL Baso # (Auto) 0 (0-100) /uL PT 48.3 H (10.1-12.7) SECONDS INR 4.1 H (0.9-1.3) Sodium 137 (137-145) mmol/L Potassium 4.4 (3.4-5.1) mmol/L Chloride 104 (98-107) mmol/L Carbon Dioxide 29 (22-32) mmol/L BUN 18 (9-20) mg/dL Creatinine 0.78 (0.66-1.25) mg/dL Estimated GFR > 60.0 (>60) mL/min BUN/Creatinine Ratio 23.1 H (6-22) Glucose 115 H (80-110) mg/dL Calcium 9.3 (8.4-10.2) mg/dL Total Bilirubin 0.6 (0.2-1.3) mg/dL AST 26 (17-59) IU/L ALT 14 (<50) IU/L Alkaline Phosphatase 157 H (38-126) U/L Total Protein 7.3 (6.3-8.2) g/dL Albumin 3.9 (3.5-5.0) g/dL Globulin 3.4 (1.7-4.1) g/dL Albumin/Globulin Ratio 1.1 (1.0-2.8) SARS-CoV-2 (PCR) (Negative) Hep Bs Antigen (NEGATIVE) s/c Hep Bs Antibody (.) Hepatitis C Antibody (NEGATIVE) s/c HIV 1&2 Ab/P24 Ag 4thGn (NEGATIVE) Blood Type Antibody Screen 05/27/21 05/27/21 05/27/21 Range/Units 14:30 14:30 14:30 WBC (4.5-11.0) X10^3/uL RBC (4.5-5.9) X10^6/uL Hgb (13.5-17.5) g/dL Hct (41-53) % MCV (80-100) fL MCH (26-34) PG MCHC (30-36) % RDW (11.6-14.8) % Plt Count (150-400) X10^3/uL Neut % (Auto) (50-75) % Lymph % (Auto) (25-40) % [place] % (Auto) (3-14) % Eos % (Auto) (2-4) % Baso % (Auto) (0-2) % Neut # (Auto) (5808-3920) /uL Lymph # (Auto) (4970-9323) /uL [place] # (Auto) (0-900) /uL Eos # (Auto) (0-450) /uL Baso # (Auto) (0-100) /uL PT (10.1-12.7) SECONDS INR (0.9-1.3) Sodium (137-145) mmol/L Potassium (3.4-5.1) mmol/L Chloride (98-107) mmol/L Carbon Dioxide (22-32) mmol/L BUN (9-20) mg/dL Creatinine (0.66-1.25) mg/dL Estimated GFR (>60) mL/min BUN/Creatinine Ratio (6-22) Glucose (80-110) mg/dL Calcium (8.4-10.2) mg/dL Total Bilirubin (0.2-1.3) mg/dL AST (17-59) IU/L ALT 14 (<50) IU/L Alkaline Phosphatase (38-126) U/L Total Protein (6.3-8.2) g/dL Albumin (3.5-5.0) g/dL Globulin (1.7-4.1) g/dL Albumin/Globulin Ratio (1.0-2.8) SARS-CoV-2 (PCR) (Negative) Hep Bs Antigen Negative (NEGATIVE) s/c Hep Bs Antibody Non reactive (.) Hepatitis C Antibody Negative (NEGATIVE) s/c HIV 1&2 Ab/P24 Ag 4thGn Negative (NEGATIVE) Blood Type Antibody Screen 05/27/21 05/27/21 05/27/21 Range/Units 16:30 16:30 16:32 WBC (4.5-11.0) X10^3/uL RBC (4.5-5.9) X10^6/uL Hgb (13.5-17.5) g/dL Hct (41-53) % MCV (80-100) fL MCH (26-34) PG MCHC (30-36) % RDW (11.6-14.8) % Plt Count (150-400) X10^3/uL Neut % (Auto) (50-75) % Lymph % (Auto) (25-40) % [place] % (Auto) (3-14) % Eos % (Auto) (2-4) % Baso % (Auto) (0-2) % Neut # (Auto) (5027-7547) /uL Lymph # (Auto) (8641-7611) /uL [place] # (Auto) (0-900) /uL Eos # (Auto) (0-450) /uL Baso # (Auto) (0-100) /uL PT (10.1-12.7) SECONDS INR (0.9-1.3) Sodium (137-145) mmol/L Potassium (3.4-5.1) mmol/L Chloride (98-107) mmol/L Carbon Dioxide (22-32) mmol/L BUN (9-20) mg/dL Creatinine (0.66-1.25) mg/dL Estimated GFR (>60) mL/min BUN/Creatinine Ratio (6-22) Glucose (80-110) mg/dL Calcium (8.4-10.2) mg/dL Total Bilirubin (0.2-1.3) mg/dL AST (17-59) IU/L ALT (<50) IU/L Alkaline Phosphatase (38-126) U/L Total Protein (6.3-8.2) g/dL Albumin (3.5-5.0) g/dL Globulin (1.7-4.1) g/dL Albumin/Globulin Ratio (1.0-2.8) SARS-CoV-2 (PCR) Negative Negative (Negative) Hep Bs Antigen (NEGATIVE) s/c Hep Bs Antibody (.) Hepatitis C Antibody (NEGATIVE) s/c HIV 1&2 Ab/P24 Ag 4thGn (NEGATIVE) Blood Type B Positive Antibody Screen Negative 05/28/21 05/28/21 05/28/21 Range/Units 07:01 07:01 07:01 WBC 7.7 (4.5-11.0) X10^3/uL RBC 3.73 L (4.5-5.9) X10^6/uL Hgb 11.3 L (13.5-17.5) g/dL Hct 34.6 L (41-53) % MCV 92.6 (80-100) fL MCH 30.4 (26-34) PG MCHC 32.8 (30-36) % RDW 15.2 H (11.6-14.8) % Plt Count 127 L (150-400) X10^3/uL Neut % (Auto) 63.5 (50-75) % Lymph % (Auto) 21.0 L (25-40) % [place] % (Auto) 14.1 H (3-14) % Eos % (Auto) 0.6 L (2-4) % Baso % (Auto) 0.8 (0-2) % Neut # (Auto) 4900 (1876-5360) /uL Lymph # (Auto) 1600 (2856-2109) /uL [place] # (Auto) 1100 H (0-900) /uL Eos # (Auto) 0 (0-450) /uL Baso # (Auto) 100 (0-100) /uL PT 47.9 H (10.1-12.7) SECONDS INR 4.1 H (0.9-1.3) Sodium 135 L (137-145) mmol/L Potassium 4.6 (3.4-5.1) mmol/L Chloride 104 (98-107) mmol/L Carbon Dioxide 26 (22-32) mmol/L BUN 21 H (9-20) mg/dL Creatinine 0.91 (0.66-1.25) mg/dL Estimated GFR > 60.0 (>60) mL/min BUN/Creatinine Ratio 23.1 H (6-22) Glucose 111 H (80-110) mg/dL Calcium 8.6 (8.4-10.2) mg/dL Total Bilirubin (0.2-1.3) mg/dL AST (17-59) IU/L ALT (<50) IU/L Alkaline Phosphatase (38-126) U/L Total Protein (6.3-8.2) g/dL Albumin (3.5-5.0) g/dL Globulin (1.7-4.1) g/dL Albumin/Globulin Ratio (1.0-2.8) SARS-CoV-2 (PCR) (Negative) Hep Bs Antigen (NEGATIVE) s/c Hep Bs Antibody (.) Hepatitis C Antibody (NEGATIVE) s/c HIV 1&2 Ab/P24 Ag 4thGn (NEGATIVE) Blood Type Antibody Screen MDM Narrative Medical decision making narrative: Patient initially and quite a bit of pain is to get x-rays already on CT table for his head so CT of his pelvis and right low er extremity were done. Confirmation of periprosthetic fracture. 1608 Dr. Franks, at this time he will check with all of his partners to see if anyone is available for repair however he is unable to repair it. 1800-Dr. Weber returned call, unfortunately no partners are agreeable or able to repair the fracture recommends transfer [facility] had been consulted 1922 Dr. Kingsley, updated on patient's symptoms test results and orthopedic recommendations at our facility. At this time he would like to speak personally with Orthopedics to come up with an appropriate plan for the patient. 2009 orthopedic surgeons have discussed. Unfortunately I do not believe the [facility] is going to have an available bed soon. The the entire [facility] is very tight on bedside. Dr. Weber continues to state that he is unable to repair it at this hospital. will be checking with his partners to see if they are able to repair it as he is unable to repair himself as well. Waiting to hear back from [facility] to see if anyone is there to repair this patient's fracture. Patient's pain is currently controlled by dilaudid. He has been given vitamin K to help reverse his INR. I suspect patient will be boarding in the emergency department for some time. Patient signed out to Dr. Montalvo for further management 1250pm 05/28/01 Returned call from [facility] transfer center. Dr Kingsley has confirmation that 1 of his partners is able to operate on this gentleman with surgery anticipated on Tuesday. He will need to be transferred to [facility] in [place]. We are currently waiting for bed availability there. If there is a moderate weight, will admit to our hospitalist service for medical management with transfer once bed is available again in anticipation of surgery on Tuesday. Pain is adequately controlled at this point. INR is 4.1. Additional vitamin K will be given. Will make sure all of his regular medications are ordered at this point Patient is updated on all plans and questions are answered 2:20pm Dallas Wicho has agreed to a trauma/ER to ER transfer for this gentleman. I have spoken with Dr. Gonzalez, trauma surgeon and , orthopedic surgeon has reviewed films and has agreed that he can help with surgical intervention. Care is reviewed with ER Dr. Anita Koo and transfer will be arranged. Patient has been in the emergency department over 24 hours due to bed availability at accepting facilities. He has been receiving his home medications including carvedilol and tamsulosin. Duloxetine and Crestor have been held. Coumadin has not been given and he has received 2 doses of oral vitamin K. Initial INR was 4.1 and is unchanged this morning. Initial hem oglobin is 14.4 and currently is 11.3 with a involving the left iliacus muscle, left pelvic floor muscle and anterior left upper to mid thigh muscles. He remains hemodynamically stable with significant pain in the leg and hip with any movement. Will arrange for ALS transfer from [facility] to [facility] ER with anticipation of admission for orthopedic intervention. Discharge Plan Departure Patient Disposition: [facility] Clinical Impression: Anticoagulant effect, Acute blood loss anemia Vidya-prosthetic fracture around prosthetic hip Qualifiers: Encounter type: initial encounter Qualified Code(s): M97.8XXA - Periprosthetic fracture around other internal prosthetic joint, initial encounter Hematoma of right hip Qualifiers: Encounter type: initial encounter Qualified Code(s): S70.01XA - Contusion of right hip, initial encounter Prescriptions: No Action tamsulosin [Flomax] 0.4 MG capsule,extended release 24hr 0.4 mg PO QDAY 7 Days Qty: 0 RF: 0 carvedilol 25 mg tablet 25 mg PO BID RF: 0 warfarin 10 mg tablet 10 mg PO DAILY RF: 0 rosuvastatin [Crestor] 20 mg tablet 20 mg PO DAILY RF: 0 duloxetine 60 mg capsule,delayed release(DR/EC) 60 mg PO DAILY RF: 0 (DME) Respironics Dreamstation CPAP Qty: 1 RF: 0 Referrals: Eliu Guzman MD [Primary Care Provider] -
[2021-05-27] MEDS: HYDROMORPHONE 1 MG INJ IV ×2 (16:44→18:50)
[2021-05-27] MEDS: LIDOCAINE 1% W/EPI 30 ML (16:45)
[2021-05-27 17:04] LABS: COVID19 -Nasal RAPID Negative (Negative)
[2021-05-27 17:37] LABS: COVID19 - ADMIT (NP swab/PCR) Negative (Negative)
[2021-05-27 17:59] LABS: Alanine Aminotransferase 14 IU/L (<50)
[2021-05-27] MEDS: PHYTONADIONE (VIT K1) 5 MG TABLET PO (18:51)
[2021-05-27 19:09] LABS: HIV 1 & 2 Ab/Ag 4th Gen Combo NEGATIVE (NEGATIVE); Hep C Virus Ab w/Reflex Quant NEGATIVE s/c (NEGATIVE); Hepatitis B Surface Antigen NEGATIVE s/c (NEGATIVE)
--- NOTE | 2021-05-27 19:22 | DI.RAD.S_ITS ---
PROCEDURE: XR FEMUR RT MIN 2V INDICATIONS: fracture TECHNIQUE: Two views of the femur were acquired. COMPARISON: None. FINDINGS: Bones: Moderately displaced spiral fracture around the femoral component of the right hip prosthesis. The visible portions of the right pelvis appear intact. The hip joint is congruent. There is a knee arthroplasty and the knee joint is grossly congruent. Soft tissues: No suspicious soft tissue calcifications or masses. IMPRESSION: 1. Spiral periprosthetic fracture of the proximal femur. 2. No hip or knee joint dislocation. Dictated by: Liz Irwin M.D. on 05/27/2021 at 20:35 Approved by: Liz Irwin M.D. on 05/27/2021 at 20:37
--- NOTE | 2021-05-27 19:22 | DI.RAD.S_ITS ---
PROCEDURE: XR KNEE RT 1TO2V INDICATIONS: femur fracture TECHNIQUE: Two views of the knee were acquired. COMPARISON: [facility], , KNEE 3V RIGHT, 12/25/2009, 10:03. FINDINGS: Bones: On the two given views, right knee arthroplasty components appear in grossly appropriate location. The joint is relatively congruent. Soft tissues:. No suspicious soft tissue calcifications. IMPRESSION: 1. No definite periprosthetic fracture. 2. Grossly congruent knee joint given two suboptimally positioned views. Dictated by: Liz Irwin M.D. on 05/27/2021 at 20:34 Approved by: Liz Irwin M.D. on 05/27/2021 at 20:35
[2021-05-27] MEDS: carvediloL 12.5 MG TABLET 25 MG PO (20:17)
[2021-05-27] MEDS: OXYCODONE IR 5 MG TABLET 10 MG PO (23:32)
--- NOTE | 2021-05-27 23:46 | PC.NURSE ---
His right foot is warm and pink with distal CMS intact,cap. refill is less than 2 seconds on his right foot.
[2021-05-28] VITALS (44 sets, daily range): BP systolic 83–154; BP diastolic 51–94; PULSE 81–113; RESP 7–34; O2SAT 87–100
--- NOTE | 2021-05-28 01:09 | PC.NURSE ---
His pulse ox was on his finger,which was cold to touch,and reading in 80,s.when placed on his ear it increased to upper 90's.
--- NOTE | 2021-05-28 04:10 | PC.NURSE ---
I again asked him if he wanted or would let me place him from the gurney he was on to a more comfortable floor bed but he refused.I was however,able to convince him to let me move his hips with the lift he was on into a slightly different position.After I did this he thanked me and said that his buttocks felt a lot better now.
--- NOTE | 2021-05-28 04:34 | PC.NURSE ---
HIS RIGHT FOOT HAS CMS INTACT,DP PULSE IS STRONG.
--- NOTE | 2021-05-28 06:10 | PC.NURSE ---
Her pain came back,a #1 or #2,second nitro sl given,b/p stable.
[2021-05-28 07:12] LABS: Add Manual Diff / Slide Review NO; Basophils Absolute Auto 100 /uL (0-100); Basophils Percent Auto 0.8 % (0-2); Eosinophils Absolute Auto 0 /uL (0-450); Eosinophils Percent Auto 0.6 % (2-4); Hematocrit 34.6 % (41-53); Hemoglobin 11.3 g/dL (13.5-17.5); Lymphocytes Absolute Auto 1600 /uL (1100-4500); Mean Corpuscular HGB Conc 32.8 % (30-36); Mean Corpuscular Hemoglobin 30.4 PG (26-34); Mean Corpuscular Volume 92.6 fL (80-100); Monocytes Absolute Auto 1100 /uL (0-900); Monocytes Percent Auto 14.1 % (3-14); Neutrophils Absolute Auto 4900 /uL (1500-7000); Neutrophils Percent Auto 63.5 % (50-75); Platelet Count 127 X10^3/uL (150-400); Red Blood Cell Count 3.73 X10^6/uL (4.5-5.9); Red Cell Distribution Width 15.2 % (11.6-14.8); White Blood Cell Count 7.7 X10^3/uL (4.5-11.0)
[2021-05-28 07:21] LABS: INR 4.1 (0.9-1.3); Prothrombin Time 47.9 SECONDS (10.1-12.7)
[2021-05-28 07:51] LABS: BUN Creatinine Ratio 23.1 (6-22); Blood Urea Nitrogen 21 mg/dL (9-20); Calcium 8.6 mg/dL (8.4-10.2); Carbon Dioxide 26 mmol/L (22-32); Chloride 104 mmol/L (98-107); Estimated Glomerular Filt Rate > 60.0 mL/min (>60); Glucose 111 mg/dL (80-110); HEMOLYSIS < 15 (0-50); Potassium 4.6 mmol/L (3.4-5.1); Sodium 135 mmol/L (137-145)
[2021-05-28] MEDS: DOCUSATE 100 MG CAPSULE PO (08:42)
[2021-05-28] MEDS: OXYCODONE/ACETAMINOPHEN 5/325 TABLET 1 TAB PO (08:42)
[2021-05-28] MEDS: carvediloL 12.5 MG TABLET 25 MG PO (10:22)
--- NOTE | 2021-05-28 10:23 | PC.NURSE ---
Pt and his inquiring about the wait. i informed her that we are attempting to find a facility to transfer him to. Dr Correa aware pt/ want to speak to her.
[2021-05-28] MEDS: HYDROMORPHONE 1 MG INJ IV ×2 (13:03→14:58)
[2021-05-28] MEDS: TAMSULOSIN 0.4 MG CAPSULE PO (13:03)
[2021-05-28] MEDS: PHYTONADIONE (VIT K1) 5 MG TABLET PO (13:16)
--- NOTE | 2021-05-28 13:24 | PC.NURSE ---
received pt with cold feet. mottled toes on left foot. Excellent pedal pulse on right foot. marked pulse. palpable. head wound with lucila intact . small amount of bleeding noted. pt having severe pain in his right leg. .dilaudid given.
[2021-05-28] MEDS: OXYCODONE/ACETAMINOPHEN 5/325 TABLET 2 TAB PO (14:57)
[2021-05-29 00:07] LABS: Hepatitis B Surf Ab Qualitativ Non Reactive (.)
== END 2021-05-28 15:20 | disposition short-term general hospital (02) ==
PROVIDERS: Emergency Medicine; Emergency Provider Emergency Medicine; Family Provider Family Medicine; PCP Family Medicine
DX: M97.8XXA Periprosthetic fracture around other internal prosthetic joint, initial encounter (principal); S70.01XA Contusion of right hip, initial encounter; D62 Acute posthemorrhagic anemia; Z79.01 Long term (current) use of anticoagulants; W19.XXXA Unspecified fall, initial encounter; R51.9 Headache, unspecified; Z20.822 Contact with and (suspected) exposure to COVID-19
CPT/HCPCS: 36415; 70450; 72125; 72192; 73552; 73560; 80048; 80053; 85025; 85610; 86850; 86900; 86901; 87635; 96374; 96376; 99285; C9803; J1170

== ENCOUNTER → 2021-07-15 11:43 | Outpatient (ROUT) | payer MEDICARE, OTHER, SELFPAY ==
[2021-07-15 12:43] LABS: INR 2.2 (0.9-1.3); Prothrombin Time 24.7 SECONDS (10.1-12.7)
== END ==
PROVIDERS: Family Provider Family Medicine; PCP Family Medicine; Visit Provider Family Medicine
DX: I48.91 Unspecified atrial fibrillation (principal)
CPT/HCPCS: 85610

== ENCOUNTER → 2022-01-15 08:36 | Outpatient (CLI) | payer MEDICARE, OTHER, SELFPAY ==
[2022-01-15 10:38] LABS: Alanine Aminotransferase 20 IU/L (<50); Albumin 4.2 g/dL (3.5-5.0); Albumin Globulin Ratio 1.6 (1.0-2.8); Alkaline Phosphatase 101 U/L (38-126); Aspartate Aminotransferase 26 IU/L (17-59); BUN Creatinine Ratio 22.5 (6-22); Bilirubin Total 0.6 mg/dL (0.2-1.3); Blood Urea Nitrogen 20 mg/dL (9-20); Calcium 9.4 mg/dL (8.4-10.2); Carbon Dioxide 35 mmol/L (22-32); Chloride 103 mmol/L (98-107); Estimated Glomerular Filt Rate > 60.0 mL/min (>60); Globulin 2.7 g/dL (1.7-4.1); Glucose 90 mg/dL (80-110); HEMOLYSIS < 15 (0-50); Magnesium 2.2 mg/dL (1.6-2.3); Potassium 5.2 mmol/L (3.4-5.1); Sodium 141 mmol/L (137-145); Total Protein 6.9 g/dL (6.3-8.2)
[2022-01-17 12:08] LABS: Cholesterol, Total 144 mg/dL (100-199); HDL-Cholesterol 73 mg/dL (>39); HDL-Particle (Total) 31.3 umol/L (>=30.5); LDL Particle 649 nmol/L (<1000); LDL Size 21.6 nm (>20.5); LDL-Cholsterol 57 mg/dL (0-99); LP-IR Score 25 (<=45); Small LDL- Particle <90 nmol/L (<=527); Triglycerides 74 mg/dL (0-149)
== END ==
PROVIDERS: Family Provider Family Medicine; PCP Family Medicine; Visit Provider Specialist
DX: I48.20 Chronic atrial fibrillation, unspecified (principal); I10 Essential (primary) hypertension; E78.00 Pure hypercholesterolemia, unspecified
CPT/HCPCS: 36415; 80053; 80061; 83704; 83735

== ENCOUNTER → 2022-01-18 13:33 | Outpatient (CLI) | payer MEDICARE, OTHER, SELFPAY ==
--- NOTE | 2022-01-18 | DI.ECHO.S_ITS ---
[facility]---------+ [facility] +---------+ : : [address] [place] : : : : [id number] : : : : Phone: [phone]---------+ Echocardiogram Report + + :Name: EDIE BARNES Study Date: 01/18/2022 Height: 74.5 in: :[facility] ReadingLocation: Weight: 285 lb : : Gender: Male BSA: 2.5 m2 : :: 1940 Age: 81 yrs BP: 158/89 mmHg: :Reason For Study: HYPERTENSIVE HEART DISEASE : :Ordering Physician: VERO, : :ALBARO Performed By: Ana Lilia Miller : :Referring: ALBARO PHAM : + + Interpretation Summary Left ventricular systolic function remains normal with an estimated ejection fraction of 60 to 65% without any focal wall motion abnormality and appears unchanged from the previous exam. There continues to be mild to moderate left ventricular hypertrophy, more notable in the proximal septum which may be slightly progressive since the previous study. Left ventricular size remains normal and unchanged. Diastolic function remains challenging to assess in the setting of atrial fibrillation but is likely unchanged from the previous exam. The right ventricle appears normal in size with systolic function at the lower limits of normal and appears slightly less dynamic compared to the previous study. Right ventricular systolic pressure is estimated at 37 mmHg with a CVP of 8 mmHg which may be slightly higher compared to the previous exam. There is severe biatrial enlargement with the left atrium measuring slightly larger and the right atrium measuring slightly smaller compared to the previous study. There is mild mitral regurgitation that is slightly more prominent compared to the previous study but no other significant functional valvular abnormality. The aortic root and ascending aorta are moderately enlarged but unchanged from the previous exam. The patient remains in atrial fibrillation at 75 to 100 bpm, similar to the previous study. Procedure: A two-dimensional transthoracic echocardiogram with color flow and Doppler was performed. The study quality was technically adequate. Comparison is made with the echocardiogram of 04/02/2020. The patient was in atrial fibrillation with heart rates between 75-101 bpm during the exam. Left Ventricle: The left ventricle is normal in size. The estimated left ventricular end diastolic volume is 94 ml. There is mild-moderate concentric left ventricular hypertrophy. There is moderate proximal septal thickening noted. The ejection fraction is estimated to be 60-65%. Left ventricular systolic function appears normal without focal wall motion abnormalities. Diastolic function could not be accurately assessed due to atrial fibrillation. Right Ventricle: The right ventricle is normal size. Right ventricular systolic function is at the lower limits of normal. This is slightly less dynamic compared to the previous study. Atria: Both atria are severely dilated. The left atrium has mildly increased in size since the prior echo exam. The right atrium has mildly decreased in size since the prior echo exam. There is no Doppler evidence for an interatrial shunt. Mitral Valve: There is mild mitral annular calcification. There is mild mitral regurgitation. This is more prominent compared to the previous study. Aortic Valve: The aortic valve is not well visualized. The aortic valve is slightly calcified. There is minimally reduced leaflet mobility. There is no aortic valve stenosis. No aortic regurgitation is present. Tricuspid Valve: The tricuspid valve is normal in structure and function. There is trace tricuspid regurgitation. The right ventricular systolic pressure is estimated to be at least 37 mmHg based on an estimated right atrial pressure of 8 mm Hg. This is possibly higher compared to the previous study. Pulmonic Valve: The pulmonic valve leaflets are thin and pliable; valve motion is normal. There is trace pulmonic regurgitation. Great Vessels: The aortic root is moderately dilated. The ascending aorta is moderately enlarged. This is unchanged compared to the previous study. The IVC is dilated (diameter is greater than 2.1 cm) yet it collapses greater than 50% with a sniff. This suggests a right atrial pressure of 8 mm Hg. Pericardium/ Pleura There is no pericardial effusion. There is no pleural effusion. MMode/2D Measurements & Calculations LVIDd: 4.8 cm LVOT diam: 2.4 cm LVIDs: 3.6 cm Ao root diam: 4.4 cm FS: 26.2 % asc Aorta Diam: 4.3 cm IVSd: 1.4 cm Ao Arch Diam (Prox Trans): 2.8 cm LVPWd: 1.7 cm LV finnegan. diameter/BSA (cm/m^2): 1.9 LV sys. diameter/BSA (cm/m^2): 1.4 LA A2 area: 46.9 cm2 RA long axis: 9.1 cm LA A4 area: 46.6 cm2 RA area: 36.7 cm2 LA length (vol): 8.2 cm RA vol: 125.0 ml LA vol: 226.2 ml RA : 49.2 ml/m2 LA vol index: 89.1 ml/m2 IVC diam: 3.1 cm RVD1 (basal): 3.9 cm TAPSE: 1.7 cm Doppler Measurements & Calculations Ao V2 max: 121.7 cm/sec LVOT Max Jose: 92.7 cm/sec Ao V2 mean: 89.4 cm/sec LV V1 max P.4 mmHg Ao max P.9 mmHg LV V1 VTI: 17.6 cm Ao mean P.5 mmHg JACINDA(I,D): 3.3 cm2 Ao V2 VTI: 24.1 cm JACINDA(V,D): 3.5 cm2 sev ratio: 0.73 JACINDA indexed to BSA (cm^2/m^2): 1.3 MV E max jose: 115.6 cm/sec TR max jose: 269.8 cm/sec MV A max jose: 1.3 cm/sec TR max P.1 mmHg MV E/A: 88.7 PA V2 max: 95.3 cm/sec Med Peak E' Jose: 7.2 cm/sec PA V2 mean: 66.9 cm/sec E/E' med: 16.0 PA mean P.0 mmHg Lat Peak E' Jose: 8.9 cm/sec PA pr(Accel): 44.7 mmHg E/E' lat: 13.0 E/e' average: 14.5 MV dec time: 0.17 sec SV(LVOT): 80.3 ml Reading Physician:05:[id number] PM
== END ==
PROVIDERS: Family Provider Family Medicine; PCP Family Medicine; Referring Provider Specialist; Visit Provider Specialist
DX: I34.0 Nonrheumatic mitral (valve) insufficiency (principal); I77.810 Thoracic aortic ectasia; I77.89 Other specified disorders of arteries and arterioles; I11.9 Hypertensive heart disease without heart failure
CPT/HCPCS: 93306

== ENCOUNTER → 2022-02-08 14:06 | Outpatient (CLI) | payer MEDICARE, OTHER, SELFPAY ==
[2022-02-08 16:37] LABS: Alanine Aminotransferase 15 IU/L (<50); Albumin 3.8 g/dL (3.5-5.0); Albumin Globulin Ratio 1.3 (1.0-2.8); Alkaline Phosphatase 102 U/L (38-126); Aspartate Aminotransferase 24 IU/L (17-59); BUN Creatinine Ratio 31.4 (6-22); Blood Urea Nitrogen 27 mg/dL (9-20); Carbon Dioxide 34 mmol/L (22-32); Chloride 101 mmol/L (98-107); Estimated Glomerular Filt Rate > 60.0 mL/min (>60); Glucose 99 mg/dL (80-110); HEMOLYSIS < 15 (0-50); Magnesium 2.2 mg/dL (1.6-2.3); Sodium 140 mmol/L (137-145); Total Protein 6.8 g/dL (6.3-8.2)
== END ==
PROVIDERS: Family Provider Family Medicine; PCP Family Medicine; Referring Provider Specialist; Visit Provider Specialist
DX: I10 Essential (primary) hypertension (principal); I48.20 Chronic atrial fibrillation, unspecified; G47.33 Obstructive sleep apnea (adult) (pediatric)
CPT/HCPCS: 36415; 80053; 83735; 99213

== ENCOUNTER → 2022-04-27 11:32 | Outpatient (CLI) | payer MEDICARE, OTHER, SELFPAY ==
[2022-04-27 14:19] LABS: Alanine Aminotransferase 11 IU/L (<50); Albumin 3.7 g/dL (3.5-5.0); Albumin Globulin Ratio 1.5 (1.0-2.8); Alkaline Phosphatase 95 U/L (38-126); Aspartate Aminotransferase 19 IU/L (17-59); Bilirubin Total 0.4 mg/dL (0.2-1.3); Blood Urea Nitrogen 26 mg/dL (9-20); Calcium 8.8 mg/dL (8.4-10.2); Carbon Dioxide 33 mmol/L (22-32); Chloride 101 mmol/L (98-107); Estimated Glomerular Filt Rate > 60 mL/min (>60); Globulin 2.4 g/dL (1.7-4.1); Glucose 84 mg/dL (80-110); HEMOLYSIS < 15 (0-50); Magnesium 2.1 mg/dL (1.6-2.3); Potassium 4.2 mmol/L (3.4-5.1); Sodium 139 mmol/L (137-145); Total Protein 6.1 g/dL (6.3-8.2)
== END ==
PROVIDERS: Family Provider Family Medicine; PCP Family Medicine; Referring Provider Specialist; Visit Provider Specialist
DX: I10 Essential (primary) hypertension (principal); I48.20 Chronic atrial fibrillation, unspecified
CPT/HCPCS: 36415; 80053; 83735

== ENCOUNTER → 2022-07-14 12:19 | Outpatient (CLI) | payer MEDICARE, OTHER, SELFPAY ==
[2022-07-14 14:38] LABS: Alanine Aminotransferase 15 IU/L (<50); Albumin 4.1 g/dL (3.5-5.0); Albumin Globulin Ratio 1.2 (1.0-2.8); Alkaline Phosphatase 98 U/L (38-126); Aspartate Aminotransferase 24 IU/L (17-59); Bilirubin Total 0.7 mg/dL (0.2-1.3); Blood Urea Nitrogen 33 mg/dL (9-20); Calcium 9.2 mg/dL (8.4-10.2); Carbon Dioxide 35 mmol/L (22-32); Chloride 101 mmol/L (98-107); Cholesterol 134 mg/dL (140-199); Estimated Glomerular Filt Rate > 60 mL/min (>60); Globulin 3.3 g/dL (1.7-4.1); Glucose 89 mg/dL (80-110); HDL Cholesterol 48 mg/dL (40-60); HEMOLYSIS < 15 (0-50); LDL Cholesterol Calculated 68 mg/dL (<100); Magnesium 2.1 mg/dL (1.6-2.3); Potassium 4.3 mmol/L (3.4-5.1); Sodium 140 mmol/L (137-145); Total Protein 7.4 g/dL (6.3-8.2); Triglycerides 91 mg/dL (35-150)
== END ==
PROVIDERS: Family Provider Family Medicine; PCP Family Medicine; Referring Provider Specialist; Visit Provider Specialist
DX: I48.21 Permanent atrial fibrillation (principal); I11.9 Hypertensive heart disease without heart failure; I10 Essential (primary) hypertension; E78.00 Pure hypercholesterolemia, unspecified
CPT/HCPCS: 36415; 80053; 80061; 83735

== ENCOUNTER → 2022-09-09 16:07 | Outpatient (CLI) | payer MEDICARE, OTHER, SELFPAY ==
--- NOTE | 2022-09-09 16:10 | DI.RAD.S_ITS ---
PROCEDURE: XR CHEST 2V INDICATIONS: Acute Cough TECHNIQUE: 2 views of the chest were acquired. COMPARISON: [facility], , CHEST 2 VIEW, 05/06/2017, 9:57. FINDINGS: Surgical changes and devices: Stable appearance and positioning of single lead left cardiac pacemaker. Lungs and pleura: Lungs are clear. No pleural effusions or pneumothorax. Mediastinum: Mediastinal contours are normal. Heart size is enlarged. Bones and chest wall: Several right posterior lateral rib fractures redemonstrated. No suspicious bony abnormalities. Soft tissues appear unremarkable. IMPRESSION: No acute cardiopulmonary disease. Dictated by: Zay Ruiz [facility] Interpreted: Lauren Bedolla MD on 09/09/2022 at 16:41 Transcribed by: MIKE on 09/09/2022 at 16:42 Approved by: Lauren Bedolla M.D. on 09/09/2022 at 21:17
== END ==
PROVIDERS: Family Provider Family Medicine; PCP Family Medicine; Referring Provider Family Medicine; Visit Provider Family Medicine
DX: R05.1 Acute cough (principal)
CPT/HCPCS: 71046

== ENCOUNTER → 2022-11-15 11:22 | Outpatient (CLI) | payer MEDICARE, OTHER, SELFPAY ==
[2022-11-15 12:06] LABS: Add Manual Diff / Slide Review NO; Basophils Absolute Auto 0 /uL (0-100); Basophils Percent Auto 0.7 % (0-2); Eosinophils Absolute Auto 100 /uL (0-450); Eosinophils Percent Auto 1.5 % (2-4); Hematocrit 41.8 % (41-53); Lymphocytes Absolute Auto 900 /uL (1100-4500); Lymphocytes Percent Auto 16.2 % (25-40); Mean Corpuscular HGB Conc 33.6 % (30-36); Mean Corpuscular Hemoglobin 31.3 PG (26-34); Mean Corpuscular Volume 93.3 fL (80-100); Monocytes Absolute Auto 600 /uL (0-900); Monocytes Percent Auto 10.5 % (3-14); Neutrophils Absolute Auto 3900 /uL (1500-7000); Neutrophils Percent Auto 71.1 % (50-75); Platelet Count 113 X10^3/uL (150-400); Red Blood Cell Count 4.48 X10^6/uL (4.5-5.9); Red Cell Distribution Width 14.1 % (11.6-14.8); White Blood Cell Count 5.5 X10^3/uL (4.5-11.0)
[2022-11-15 12:17] LABS: Alanine Aminotransferase 16 IU/L (<50); Albumin 3.8 g/dL (3.5-5.0); Albumin Globulin Ratio 1.2 (1.0-2.8); Alkaline Phosphatase 111 U/L (38-126); Aspartate Aminotransferase 21 IU/L (17-59); BUN Creatinine Ratio 19.6 (6-22); Bilirubin Total 0.7 mg/dL (0.2-1.3); Blood Urea Nitrogen 20 mg/dL (9-20); Calcium 8.9 mg/dL (8.4-10.2); Carbon Dioxide 33 mmol/L (22-32); Chloride 97 mmol/L (98-107); Estimated Glomerular Filt Rate > 60 mL/min (>60); Globulin 3.2 g/dL (1.7-4.1); Glucose 104 mg/dL (80-110); HEMOLYSIS < 15 (0-50); Sodium 138 mmol/L (137-145)
[2022-11-18 08:13] LABS: Cholesterol, Total 118 mg/dL (100-199); HDL-Cholesterol 45 mg/dL (>39); HDL-Particle (Total) 23.1 umol/L (>=30.5); LDL Particle 606 nmol/L (<1000); LDL Size 20.7 nm (>20.5); LDL-Cholsterol 54 mg/dL (0-99); LP-IR Score 37 (<=45); Small LDL- Particle 261 nmol/L (<=527); Triglycerides 105 mg/dL (0-149)
== END ==
PROVIDERS: Family Provider Family Medicine; PCP Family Medicine; Referring Provider Specialist; Visit Provider Specialist
DX: I48.21 Permanent atrial fibrillation (principal); E78.00 Pure hypercholesterolemia, unspecified; I10 Essential (primary) hypertension; Z79.01 Long term (current) use of anticoagulants
CPT/HCPCS: 36415; 80053; 80061; 83704; 83735; 85025

== ENCOUNTER → 2022-11-19 14:10 | Outpatient (CLI) | payer MEDICARE, OTHER, SELFPAY | PROVIDERS: Family Provider Family Medicine; PCP Family Medicine; Referring Provider Family Medicine; Visit Provider Nurse Practitioner Family | DX: L89.893 Pressure ulcer of other site, stage 3 (principal); L53.9 Erythematous condition, unspecified; Z79.01 Long term (current) use of anticoagulants; Z74.09 Other reduced mobility | CPT/HCPCS: 11042; 99203; 99213 ==

== ENCOUNTER → 2022-11-26 09:25 | Outpatient (CLI) | payer MEDICARE, OTHER, SELFPAY | PROVIDERS: Family Provider Family Medicine; PCP Family Medicine; Referring Provider Family Medicine; Visit Provider Nurse Practitioner Family | DX: I87.2 Venous insufficiency (chronic) (peripheral) (principal); L97.522 Non-pressure chronic ulcer of other part of left foot with fat layer exposed; R60.9 Edema, unspecified; Z79.01 Long term (current) use of anticoagulants; Z99.3 Dependence on wheelchair | CPT/HCPCS: 11042 ==

== ENCOUNTER → 2022-12-03 14:01 | Outpatient (CLI) | payer MEDICARE, OTHER, SELFPAY | PROVIDERS: Family Provider Family Medicine; PCP Family Medicine; Referring Provider Family Medicine; Visit Provider Nurse Practitioner Family | DX: L97.522 Non-pressure chronic ulcer of other part of left foot with fat layer exposed (principal); I87.2 Venous insufficiency (chronic) (peripheral); Z74.09 Other reduced mobility; Z99.3 Dependence on wheelchair; Z79.01 Long term (current) use of anticoagulants; L53.9 Erythematous condition, unspecified | CPT/HCPCS: 11042 ==

== ENCOUNTER → 2022-12-10 14:08 | Outpatient (CLI) | payer MEDICARE, OTHER, SELFPAY | PROVIDERS: Family Provider Family Medicine; PCP Family Medicine; Referring Provider Family Medicine; Visit Provider Nurse Practitioner Family | DX: I87.2 Venous insufficiency (chronic) (peripheral) (principal); L97.522 Non-pressure chronic ulcer of other part of left foot with fat layer exposed; Z74.09 Other reduced mobility; R60.9 Edema, unspecified | CPT/HCPCS: 97597 ==

== ENCOUNTER → 2022-12-24 11:45 | Outpatient (CLI) | payer MEDICARE, OTHER, SELFPAY | PROVIDERS: Family Provider Family Medicine; PCP Family Medicine; Referring Provider Family Medicine; Visit Provider Nurse Practitioner Family | DX: I87.2 Venous insufficiency (chronic) (peripheral) (principal); L97.522 Non-pressure chronic ulcer of other part of left foot with fat layer exposed; R60.0 Localized edema; R23.0 Cyanosis; L53.9 Erythematous condition, unspecified; Z74.09 Other reduced mobility; Z79.01 Long term (current) use of anticoagulants | CPT/HCPCS: 11042; 99213 ==

== ENCOUNTER 2023-01-18 11:27 | Inpatient (IN) | payer MEDICARE, OTHER, SELFPAY ==
[2023-01-18] VITALS (40 sets, daily range): BP systolic 91–169; BP diastolic 53–108; PULSE 62–106; RESP 14–27; TEMP 35.9–37.4; O2SAT 87–100; BMI 42.1
--- NOTE | 2023-01-18 11:33 | DI.RAD.S_ITS ---
PROCEDURE: XR CHEST 1V INDICATIONS: suspected sepsis TECHNIQUE: One view of the chest was acquired. COMPARISON: [facility], CR, XR CHEST 2V, 09/09/2022, 16:20. FINDINGS: Surgical changes and devices: Pacemaker. Lungs and pleura: Lungs are clear. No pleural effusions or pneumothorax. Mediastinum: Mediastinal contours appear normal. Heart size is enlarged. Bones and chest wall: No suspicious bony lesions. Overlying soft tissues appear unremarkable. IMPRESSION: No acute pulmonary process. Dictated by: Lauren Bedolla M.D. on 01/18/2023 at 12:43 Approved by: Lauren Bedolla M.D. on 01/18/2023 at 12:44
[2023-01-18] MEDS: SODIUM CHLORIDE 0.9% 1,000 ML 1000 ML IV (11:59)
[2023-01-18 12:02] LABS: Add Manual Diff / Slide Review NO; Basophils Absolute Auto 0 /uL (0-100); Basophils Percent Auto 0.9 % (0-2); Eosinophils Absolute Auto 0 /uL (0-450); Eosinophils Percent Auto 0.9 % (2-4); Hematocrit 40.2 % (41-53); Hemoglobin 13.5 g/dL (13.5-17.5); Lymphocytes Absolute Auto 800 /uL (1100-4500); Lymphocytes Percent Auto 18.4 % (25-40); Mean Corpuscular HGB Conc 33.6 % (30-36); Mean Corpuscular Hemoglobin 30.7 PG (26-34); Mean Corpuscular Volume 91.5 fL (80-100); Monocytes Absolute Auto 800 /uL (0-900); Monocytes Percent Auto 18.2 % (3-14); Neutrophils Absolute Auto 2600 /uL (1500-7000); Neutrophils Percent Auto 61.6 % (50-75); Platelet Count 83 X10^3/uL (150-400); Red Blood Cell Count 4.39 X10^6/uL (4.5-5.9); Red Cell Distribution Width 15.6 % (11.6-14.8); White Blood Cell Count 4.3 X10^3/uL (4.5-11.0)
[2023-01-18 12:04] LABS: INR 1.8 (0.9-1.3); Prothrombin Time 20.3 SECONDS (10.1-12.7)
--- NOTE | 2023-01-18 12:06 | ED_ITS ---
HPI - Weakness General Chief complaint: Fever Stated complaint: Fever, SOB, Dizziness Time Seen by Provider: 01/18/23 11:59 Source: EMS Mode of arrival: EMS History of Present Illness HPI Narrative: Patient brought in by ambulance from home for complains of weakness and fever for the past couple of days. Tylenol given prior to arrival. History of atrial fibrillation on warfarin. Patient denies any pain. Discoloration of feet not new according the patient. Patient uses wheelchair to get around at home. No fall or injury. Has had a cough. Blood pressure and heart rate noted. EKG does show atrial fibrillation. Rate 67. Sepsis workup started. Antibiotics and IV fluids started. Patient primary care is Dr. Eliu Guzman. Patient denies any chest pain abdominal pain or back pain. No urinary complaints Related Data Home Medications Medication Instructions Recorded Confirmed Respironics Dreamstation CPAP #1 ea 05/02/19 01/23/23 carvedilol 25 mg tablet 37.5 mg PO BID 05/27/21 01/23/23 duloxetine 60 mg capsule,delayed 60 mg PO DAILY 05/27/21 01/23/23 release rosuvastatin 20 mg tablet (Crestor) 20 mg PO DAILY 05/27/21 01/23/23 warfarin 10 mg tablet 10 mg PO DAILY 05/27/21 01/23/23 gabapentin 300 mg capsule 300 mg PO TID 04/21/22 01/23/23 furosemide 40 mg tablet 40 mg PO DAILY 01/18/23 01/23/23 risperidone 2 mg tablet 2 mg PO BID 01/18/23 01/23/23 Previous Rx's Medication Instructions Recorded tamsulosin 0.4 mg capsule (Flomax) 0.4 mg PO QDAY 7 days #0 caps 07/23/16 cefuroxime axetil 500 mg tablet 500 mg PO BID #14 tabs 01/21/23 furosemide 20 mg tablet (Lasix) 20 mg PO DAILY #30 tabs 01/26/23 guaifenesin 600 mg tablet, 600 mg PO Q12HR PRN Cough #60 tabs 01/26/23 extended release 12 hr (Mucus Relief ER) potassium chloride 20 mEq 40 meq PO DAILYCC #30 tabs 01/26/23 tablet,extended release(part/cryst) (Klor-Con M) Allergies Allergy/AdvReac Type Severity Reaction Status Date / Time No Known Allergies Allergy Verified 10/14/22 13:44 Review of Systems Review of Systems Narrative: GENERAL: Positive chills, fatigue, malaise, fever, sweats. HEENT: negative sinus pain, ear pain, sore throat RESPIRATORY: negative dyspnea, cough CARDIOVASCULAR: negative chest pain, palpitations GASTROINTESTINAL: negative nausea, vomiting, abdominal pain : negative dysuria, frequency, hematuria MUSCULOSKELETAL: negative muscle or bony pain SKIN: negative rash, skin lesions NEUROLOGIC: negative weakness, numbness ROS Unobtainable: All systems reviewed & are unremarkable except as noted in HPI and below 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 Social History household members: spouse Smoking Status: Former smoker alcohol intake: current Smoking Status: Former smoker Substance Use Type: marijuana Exam Narrative Exam Narrative: GENERAL: in no distress, not toxic not dyspneic HEAD: Normocephalic. EYES: Pupils equal round ENT: Mucous membranes moist. NECK: Trachea midline. CARDIOVASCULAR: Irregular regular, strong bilateral carotid pulses and radial pulses RESPIRATORY: Clear to auscultation. Breath sounds equal bilaterally. No wheezes, rales, or rhonchi. GASTROINTESTINAL: Abdomen soft, non-tender abdomen soft nontender no peritoneal signs bowel sounds are present EXTREMITIES: No gross deformities. NEURO: Patient is awake alert oriented to self/name and date of . Answers appropriately.. SKIN: Warm and dry, there is chronic dusky cyanotic discoloration of the lower leg and feet bilaterally. However feet are warm and soft. PSYCH: Not anxious, is cooperative Initial Vital Signs Initial Vital Signs: Vital Signs Temperature 96.8 F L 01/18/23 11:27 Pulse Rate 106 H 01/18/23 11:27 Respiratory Rate 24 01/18/23 11:27 Blood Pressure 99/56 L 01/18/23 11:27 Pulse Oximetry 90 L 01/18/23 11:27 Oxygen Delivery Method Room Air 01/18/23 11:27 Course Orders Ordered: Discontinued Medications Acetaminophen (Acetaminophen 325 Mg Tablet) 650 mg PO Q6H PRN PRN Reason: Fever/Mild Pain (1-3) Al Hydrox/Mg Hydrox/Simethicone (Mag Hydrox/Alum/Simeth 30 Ml Udc) 30 ml PO Q6HR PRN PRN Reason: Dyspepsia Atorvastatin Calcium (Atorvastatin 20 Mg Tablet) 40 mg PO DAILY [facility] Last Admin: 01/21/23 08:56 Dose: 40 mg Documented By: Admin: 01/20/23 08:40 Dose: 40 mg Documented By: Admin: 01/19/23 09:11 Dose: 40 mg Documented By: NEVIN Bumetanide (Bumetanide 1 Mg/4 Ml Vial) 2 mg IV NOW ONE Stop: 01/20/23 09:53 Last Admin: 01/21/23 05:12 Dose: Not Given Documented By: BREA Bumetanide (Bumetanide 1 Mg/4 Ml Vial) 1 mg IV NOW ONE Stop: 01/20/23 09:53 Last Admin: 01/20/23 12:02 Dose: 1 mg Documented By: SUYAPA Carvedilol (Carvedilol 12.5 Mg Tablet) 37.5 mg PO BID [facility] Last Admin: 01/21/23 08:56 Dose: 37.5 mg Documented By: Admin: 01/20/23 20:26 Dose: 37.5 mg Documented By: Admin: 01/20/23 08:40 Dose: 37.5 mg Documented By: Admin: 01/19/23 20:27 Dose: 37.5 mg Documented By: Admin: 01/19/23 09:11 Dose: 37.5 mg Documented By: Admin: 01/18/23 20:23 Dose: 37.5 mg Documented By: TRAVIS Duloxetine HCl (Duloxetine 30 Mg Capsule) 60 mg PO DAILY [facility] Last Admin: 01/21/23 08:56 Dose: 60 mg Documented By: Admin: 01/20/23 08:40 Dose: 60 mg Documented By: Admin: 01/19/23 09:12 Dose: 60 mg Documented By: NEVIN Gabapentin (Gabapentin 300 Mg Capsule) 300 mg PO TID JOEY Last Admin: 01/21/23 08:56 Dose: 300 mg Documented By: Admin: 01/20/23 20:27 Dose: 300 mg Documented By: Admin: 01/20/23 16:37 Dose: 300 mg Documented By: Admin: 01/20/23 08:41 Dose: 300 mg Documented By: Admin: 01/19/23 20:27 Dose: 300 mg Documented By: Admin: 01/19/23 14:46 Dose: 300 mg Documented By: Admin: 01/19/23 09:12 Dose: 300 mg Documented By: Admin: 01/18/23 20:12 Dose: 300 mg Documented By: CS Sodium Chloride (Normal Saline 0.9%) 1,000 mls @ 1,000 mls/hr IV BOLUS ONE Stop: 01/18/23 12:32 Last Infusion: 01/18/23 13:04 Dose: 0 mls/hr Documented By: Admin: 01/18/23 11:59 Dose: 1,000 mls/hr Documented By: SRIKANTH Ceftriaxone Sodium 2,000 mg/ (Sodium Chloride) 100 mls @ 200 mls/hr IV NOW ONE Stop: 01/18/23 12:07 Last Infusion: 01/18/23 12:39 Dose: 0 mls/hr Documented By: Admin: 01/18/23 12:09 Dose: 200 mls/hr Documented By: SRIKANTH Sodium Chloride (Normal Saline 0.9%) 1,000 mls @ 100 mls/hr IV CONT JOEY Last Infusion: 01/20/23 06:15 Dose: 100 mls/hr Documented By: Admin: 01/20/23 06:14 Dose: 100 mls/hr Documented By: Infusion: 01/20/23 06:14 Dose: 100 mls/hr Documented By: Infusion: 01/19/23 20:30 Dose: 100 mls/hr Documented By: Admin: 01/19/23 20:27 Dose: 100 mls/hr Documented By: Infusion: 01/19/23 05:04 Dose: 100 mls/hr Documented By: Admin: 01/18/23 19:04 Dose: 100 mls/hr Documented By: NEVIN Ceftriaxone Sodium 2,000 mg/ (Sodium Chloride) 100 mls @ 200 mls/hr IV Q24H [facility] Last Infusion: 01/20/23 12:40 Dose: 200 mls/hr Documented By: Admin: 01/20/23 12:05 Dose: 200 mls/hr Documented By: Infusion: 01/19/23 12:20 Dose: 0 mls/hr Documented By: Admin: 01/19/23 11:50 Dose: 200 mls/hr Documented By: NEVIN Azithromycin 500 mg/ Dextrose 250 mls @ 250 mls/hr IV Q24H [facility] Last Admin: 01/20/23 18:24 Dose: 250 mls/hr Documented By: Infusion: 01/19/23 20:29 Dose: 0 mls/hr Documented By: Admin: 01/19/23 17:57 Dose: 250 mls/hr Documented By: Infusion: 01/19/23 00:10 Dose: 0 mls/hr Documented By: Admin: 01/18/23 20:07 Dose: 250 mls/hr Documented By: TRAVIS Lidocaine HCl (Lidocaine 2% (Glydo) 6 Ml Gel) 6 ml TOP NOW ONE Stop: 01/18/23 13:07 Last Admin: 01/18/23 13:09 Dose: 6 ml Documented By: SRIKANTH Magnesium Hydroxide (Magnesium Hydroxide 30 Ml Udc) 30 ml PO DAILY PRN PRN Reason: Constipation Naloxone HCl (Naloxone 0.4 Mg/Ml Vial) 0.2 mg IV Q2MIN PRN PRN Reason: Opiate Reversal Ondansetron HCl (Ondansetron 4 Mg Odt) 4 mg SL NOW PRN PRN Reason: Nausea And Vomiting Ondansetron HCl (Ondansetron 4 Mg/2 Ml Inj) 4 mg IV NOW PRN PRN Reason: Nausea And Vomiting Ondansetron HCl (Ondansetron 4 Mg/2 Ml Inj) 4 mg IV Q4HR PRN PRN Reason: Nausea And Vomiting Ondansetron HCl (Ondansetron 4 Mg/2 Ml Inj) 4 mg IV Q8HR PRN PRN Reason: Nausea And Vomiting Risperidone (Risperidone 1 Mg Tablet) 2 mg PO BID [facility] Last Admin: 01/21/23 08:56 Dose: 2 mg Documented By: Admin: 01/20/23 20:26 Dose: 2 mg Documented By: Admin: 01/20/23 08:41 Dose: 2 mg Documented By: Admin: 01/19/23 20:27 Dose: 2 mg Documented By: Admin: 01/19/23 09:11 Dose: 2 mg Documented By: Admin: 01/18/23 20:12 Dose: 2 mg Documented By: TRAVIS Tamsulosin HCl (Tamsulosin 0.4 Mg Capsule) 0.4 mg PO DAILY [facility] Last Admin: 01/21/23 08:56 Dose: 0.4 mg Documented By: Admin: 01/20/23 08:40 Dose: 0.4 mg Documented By: Admin: 01/19/23 09:12 Dose: 0.4 mg Documented By: NVEIN Warfarin Sodium (Warfarin 5 Mg Tablet) 10 mg PO DAILY@1700 [facility] Last Admin: 01/20/23 16:37 Dose: 10 mg Documented By: Admin: 01/19/23 17:56 Dose: 10 mg Documented By: NIK Vital Signs Vital signs: Vital Signs - 8 hr 01/18/23 11:27 01/18/23 11:38 01/18/23 11:40 Temperature 96.8 F L Pulse Rate 106 H 82 Respiratory Rate 24 22 Blood Pressure 99/56 L 91/53 L Pulse Oximetry 90 L 91 Oxygen Delivery Method Room Air Oxygen Flow Rate 01/18/23 11:40 01/18/23 11:45 01/18/23 11:46 Temperature Pulse Rate 79 64 Respiratory Rate 19 20 Blood Pressure 105/64 Pulse Oximetry 91 87 L Oxygen Delivery Method Room Air Room Air Oxygen Flow Rate 01/18/23 11:46 01/18/23 11:50 01/18/23 11:50 Temperature Pulse Rate 67 70 Respiratory Rate 20 17 Blood Pressure 101/58 L Pulse Oximetry 91 91 Oxygen Delivery Method Nasal Cannula Nasal Cannula Oxygen Flow Rate 2 2 01/18/23 11:55 01/18/23 11:55 01/18/23 12:00 Temperature Pulse Rate 74 Respiratory Rate 19 Blood Pressure 105/70 121/59 L Pulse Oximetry 91 Oxygen Delivery Method Nasal Cannula Oxygen Flow Rate 2 01/18/23 12:00 01/18/23 12:05 01/18/23 12:05 Temperature Pulse Rate 67 68 Respiratory Rate 19 20 Blood Pressure 117/56 L Pulse Oximetry 99 100 Oxygen Delivery Method Nasal Cannula Oxygen Flow Rate 3 01/18/23 12:10 01/18/23 12:10 01/18/23 12:15 Temperature Pulse Rate 65 Respiratory Rate 18 Blood Pressure 113/59 L 112/65 Pulse Oximetry 100 Oxygen Delivery Method Oxygen Flow Rate 01/18/23 12:15 01/18/23 12:20 01/18/23 12:20 Temperature 99.1 F Pulse Rate 71 68 Respiratory Rate 18 17 Blood Pressure 120/57 L Pulse Oximetry 99 98 Oxygen Delivery Method Oxygen Flow Rate 01/18/23 12:25 01/18/23 12:25 01/18/23 12:30 Temperature 99.3 F Pulse Rate 71 Respiratory Rate 17 Blood Pressure 114/57 L 113/61 Pulse Oximetry 98 Oxygen Delivery Method Oxygen Flow Rate 01/18/23 12:30 01/18/23 12:35 01/18/23 12:36 Temperature 99.3 F 99.3 F Pulse Rate 67 66 Respiratory Rate 16 16 Blood Pressure 126/58 L Pulse Oximetry 99 98 Oxygen Delivery Method Oxygen Flow Rate 01/18/23 12:36 01/18/23 12:40 01/18/23 12:40 Temperature 99.3 F 99.3 F Pulse Rate 71 71 Respiratory Rate 15 15 Blood Pressure 122/56 L Pulse Oximetry 98 98 Oxygen Delivery Method Nasal Cannula Oxygen Flow Rate 2 01/18/23 12:45 01/18/23 12:45 01/18/23 12:50 Temperature 99.3 F Pulse Rate 68 Respiratory Rate 15 Blood Pressure 107/57 L 118/57 L Pulse Oximetry 97 Oxygen Delivery Method Nasal Cannula Oxygen Flow Rate 1 01/18/23 12:50 01/18/23 12:55 01/18/23 12:55 Temperature 99.3 F 99.1 F Pulse Rate 66 69 Respiratory Rate 16 14 Blood Pressure 119/57 L Pulse Oximetry 96 96 Oxygen Delivery Method Oxygen Flow Rate 01/18/23 13:00 01/18/23 13:00 01/18/23 13:05 Temperature 99.1 F Pulse Rate 68 Respiratory Rate 16 Blood Pressure 113/56 L 120/59 L Pulse Oximetry 95 Oxygen Delivery Method Oxygen Flow Rate 01/18/23 13:05 01/18/23 13:10 01/18/23 13:10 Temperature 99.1 F 99.1 F Pulse Rate 71 70 Respiratory Rate 17 15 Blood Pressure 119/59 L Pulse Oximetry 96 96 Oxygen Delivery Method Oxygen Flow Rate 01/18/23 13:15 01/18/23 13:15 01/18/23 13:30 Temperature Pulse Rate 71 Respiratory Rate 16 Blood Pressure 127/58 L 119/60 Pulse Oximetry 95 Oxygen Delivery Method Room Air Oxygen Flow Rate 01/18/23 13:30 01/18/23 14:27 01/18/23 13:45 Temperature Pulse Rate 68 Respiratory Rate 16 Blood Pressure 136/65 Pulse Oximetry 90 L 92 Oxygen Delivery Method Nasal Cannula Oxygen Flow Rate 1 01/18/23 13:45 01/18/23 14:00 01/18/23 14:00 Temperature Pulse Rate 70 68 Respiratory Rate 15 16 Blood Pressure 131/68 Pulse Oximetry 92 92 Oxygen Delivery Method Oxygen Flow Rate 01/18/23 14:15 01/18/23 14:15 01/18/23 14:30 Temperature Pulse Rate 67 Respiratory Rate 19 Blood Pressure 142/65 H 141/70 H Pulse Oximetry 93 Oxygen Delivery Method Oxygen Flow Rate 01/18/23 14:30 Temperature Pulse Rate 65 Respiratory Rate 17 Blood Pressure Pulse Oximetry 95 Oxygen Delivery Method Nasal Cannula Oxygen Flow Rate 3 MDM - Weakness Lab Data 01/20/23 05:21 01/20/23 05:21 Labs: Lab Results 01/18/23 01/18/23 01/18/23 Range/Units 11:41 11:50 11:50 WBC 4.3 L (4.5-11.0) X10^3/uL RBC 4.39 L (4.5-5.9) X10^6/uL Hgb 13.5 (13.5-17.5) g/dL Hct 40.2 L (41-53) % MCV 91.5 (80-100) fL MCH 30.7 (26-34) PG MCHC 33.6 (30-36) % RDW 15.6 H (11.6-14.8) % Plt Count 83 L (150-400) X10^3/uL Neut % (Auto) 61.6 (50-75) % Lymph % (Auto) 18.4 L (25-40) % [place] % (Auto) 18.2 H (3-14) % Eos % (Auto) 0.9 L (2-4) % Baso % (Auto) 0.9 (0-2) % Neut # (Auto) 2600 (3011-8031) /uL Lymph # (Auto) 800 L (4586-9719) /uL [place] # (Auto) 800 (0-900) /uL Eos # (Auto) 0 (0-450) /uL Baso # (Auto) 0 (0-100) /uL PT 20.3 H (10.1-12.7) SECONDS INR 1.8 H (0.9-1.3) APTT 37 H (26-36) SECONDS ABG pH (7.35-7.45) ABG pCO2 (35-45) mmHg ABG pO2 (80-100) mmHg ABG HCO3 (23-27) mmol/L ABG Total CO2 (23-27) mmol/L ABG O2 Saturation (95-100) % ABG Base Excess (-2-3) mmol/L FiO2 Sodium (137-145) mmol/L Potassium (3.4-5.1) mmol/L Chloride (98-107) mmol/L Carbon Dioxide (22-32) mmol/L BUN (9-20) mg/dL Creatinine (0.66-1.25) mg/dL Estimated GFR (>60) mL/min BUN/Creatinine Ratio (6-22) Glucose (80-110) mg/dL Lactate (0.7-2.1) mmol/L Calcium (8.4-10.2) mg/dL Total Bilirubin (0.2-1.3) mg/dL AST (17-59) IU/L ALT (<50) IU/L Alkaline Phosphatase (38-126) U/L Total Creatine Kinase (55-170) U/L CK-MB (CK-2) CK-MB (CK-2) Rel Index Troponin I (0.01-0.034) ng/mL NT-Pro-B Natriuret Pep (<450) pg/mL Total Protein (6.3-8.2) g/dL Albumin (3.5-5.0) g/dL Globulin (1.7-4.1) g/dL Albumin/Globulin Ratio (1.0-2.8) Lipase (23-300) U/L Procalcitonin (<0.5) ng/mL Urine Color Urine Appearance Urine pH (4.5-8.0) Ur Specific [place] (1.000-1.035) Urine Protein (Negative) Urine Glucose (UA) (Negative) g/dL Urine Ketones (NEGATIVE) Urine Occult Blood (Negative) Urine Nitrate (Negative) Urine Bilirubin (NEGATIVE) Urine Urobilinogen (0.2) E.U./dL Ur Leukocyte Esterase (NEGATIVE) Urine RBC (0-5/HPF) Urine WBC (0-5/HPF) Ur Squamous Epith Cells (0-5/HPF) Urine Bacteria (None) Ur Culture Indicated? Chlamy pneumoniae PCR Not detected (Not Detect) Adenovirus (PCR) Not detected (Not Detect) B. pertussis DNA (PCR) Not detected (Not Detecte) B.parapertussis DNA PCR Not detected (Not Detecte) Coronavirus OC43 (PCR) Not detected (Not Detect) Coronavirus HKU1 (PCR) Not detected (Not Detect) Coronavirus 229E (PCR) Not detected (Not Detect) SARS-CoV-2 (PCR) Not detected (Not Detecte) Coronavirus NL63 (PCR) Not detected (Not Detect) Human Metapneumovir PCR Detected H (Not Detect) Influenza Type A (PCR) Not detected (Not Detect) Influenza Type B (PCR) Not detected (Not Detect) M. pneumoniae (PCR) Not detected (Not Detect) Parainfluenza 1 (PCR) Not detected (Not Detect) Parainfluenza 2 (PCR) Not detected (Not Detect) Parainfluenza 3 (PCR) Not detected (Not Detect) Parainfluenza 4 (PCR) Not detected (Not Detect) RSV (PCR) Not detected (Not Detect) Entero/Rhino (PCR) Not detected (Not Detect) 01/18/23 01/18/23 01/18/23 Range/Units 11:50 11:50 12:03 WBC (4.5-11.0) X10^3/uL RBC (4.5-5.9) X10^6/uL Hgb (13.5-17.5) g/dL Hct (41-53) % MCV (80-100) fL MCH (26-34) PG MCHC (30-36) % RDW (11.6-14.8) % Plt Count (150-400) X10^3/uL Neut % (Auto) (50-75) % Lymph % (Auto) (25-40) % [place] % (Auto) (3-14) % Eos % (Auto) (2-4) % Baso % (Auto) (0-2) % Neut # (Auto) (0650-5535) /uL Lymph # (Auto) (2397-0578) /uL [place] # (Auto) (0-900) /uL Eos # (Auto) (0-450) /uL Baso # (Auto) (0-100) /uL PT (10.1-12.7) SECONDS INR (0.9-1.3) APTT (26-36) SECONDS ABG pH (7.35-7.45) ABG pCO2 (35-45) mmHg ABG pO2 (80-100) mmHg ABG HCO3 (23-27) mmol/L ABG Total CO2 (23-27) mmol/L ABG O2 Saturation (95-100) % ABG Base Excess (-2-3) mmol/L FiO2 Sodium 137 (137-145) mmol/L Potassium 3.8 (3.4-5.1) mmol/L Chloride 101 (98-107) mmol/L Carbon Dioxide 30 (22-32) mmol/L BUN 22 H (9-20) mg/dL Creatinine 1.03 (0.66-1.25) mg/dL Estimated GFR > 60 (>60) mL/min BUN/Creatinine Ratio 21.4 (6-22) Glucose 99 (80-110) mg/dL Lactate 1.2 (0.7-2.1) mmol/L Calcium 8.4 (8.4-10.2) mg/dL Total Bilirubin 0.8 (0.2-1.3) mg/dL AST 22 (17-59) IU/L ALT 17 (<50) IU/L Alkaline Phosphatase 96 (38-126) U/L Total Creatine Kinase 40 L (55-170) U/L CK-MB (CK-2) TNP CK-MB (CK-2) Rel Index TNP Troponin I 0.032 (0.01-0.034) ng/mL NT-Pro-B Natriuret Pep 2950 H (<450) pg/mL Total Protein 6.6 (6.3-8.2) g/dL Albumin 3.6 (3.5-5.0) g/dL Globulin 3.0 (1.7-4.1) g/dL Albumin/Globulin Ratio 1.2 (1.0-2.8) Lipase 78 (23-300) U/L Procalcitonin 0.07 (<0.5) ng/mL Urine Color Urine Appearance Urine pH (4.5-8.0) Ur Specific [place] (1.000-1.035) Urine Protein (Negative) Urine Glucose (UA) (Negative) g/dL Urine Ketones (NEGATIVE) Urine Occult Blood (Negative) Urine Nitrate (Negative) Urine Bilirubin (NEGATIVE) Urine Urobilinogen (0.2) E.U./dL Ur Leukocyte Esterase (NEGATIVE) Urine RBC (0-5/HPF) Urine WBC (0-5/HPF) Ur Squamous Epith Cells (0-5/HPF) Urine Bacteria (None) Ur Culture Indicated? Chlamy pneumoniae PCR (Not Detect) Adenovirus (PCR) (Not Detect) B. pertussis DNA (PCR) (Not Detecte) B.parapertussis DNA PCR (Not Detecte) Coronavirus OC43 (PCR) (Not Detect) Coronavirus HKU1 (PCR) (Not Detect) Coronavirus 229E (PCR) (Not Detect) SARS-CoV-2 (PCR) (Not Detecte) Coronavirus NL63 (PCR) (Not Detect) Human Metapneumovir PCR (Not Detect) Influenza Type A (PCR) (Not Detect) Influenza Type B (PCR) (Not Detect) M. pneumoniae (PCR) (Not Detect) Parainfluenza 1 (PCR) (Not Detect) Parainfluenza 2 (PCR) (Not Detect) Parainfluenza 3 (PCR) (Not Detect) Parainfluenza 4 (PCR) (Not Detect) RSV (PCR) (Not Detect) Entero/Rhino (PCR) (Not Detect) 01/18/23 01/18/23 Range/Units 13:30 14:17 WBC (4.5-11.0) X10^3/uL RBC (4.5-5.9) X10^6/uL Hgb (13.5-17.5) g/dL Hct (41-53) % MCV (80-100) fL MCH (26-34) PG MCHC (30-36) % RDW (11.6-14.8) % Plt Count (150-400) X10^3/uL Neut % (Auto) (50-75) % Lymph % (Auto) (25-40) % [place] % (Auto) (3-14) % Eos % (Auto) (2-4) % Baso % (Auto) (0-2) % Neut # (Auto) (9690-0936) /uL Lymph # (Auto) (2527-2477) /uL [place] # (Auto) (0-900) /uL Eos # (Auto) (0-450) /uL Baso # (Auto) (0-100) /uL PT (10.1-12.7) SECONDS INR (0.9-1.3) APTT (26-36) SECONDS ABG pH 7.37 (7.35-7.45) ABG pCO2 48.7 H (35-45) mmHg ABG pO2 68 L (80-100) mmHg ABG HCO3 28 H (23-27) mmol/L ABG Total CO2 30 H (23-27) mmol/L ABG O2 Saturation 93 L (95-100) % ABG Base Excess 3.0 (-2-3) mmol/L FiO2 24 Sodium (137-145) mmol/L Potassium (3.4-5.1) mmol/L Chloride (98-107) mmol/L Carbon Dioxide (22-32) mmol/L BUN (9-20) mg/dL Creatinine (0.66-1.25) mg/dL Estimated GFR (>60) mL/min BUN/Creatinine Ratio (6-22) Glucose (80-110) mg/dL Lactate (0.7-2.1) mmol/L Calcium (8.4-10.2) mg/dL Total Bilirubin (0.2-1.3) mg/dL AST (17-59) IU/L ALT (<50) IU/L Alkaline Phosphatase (38-126) U/L Total Creatine Kinase (55-170) U/L CK-MB (CK-2) CK-MB (CK-2) Rel Index Troponin I (0.01-0.034) ng/mL NT-Pro-B Natriuret Pep (<450) pg/mL Total Protein (6.3-8.2) g/dL Albumin (3.5-5.0) g/dL Globulin (1.7-4.1) g/dL Albumin/Globulin Ratio (1.0-2.8) Lipase (23-300) U/L Procalcitonin (<0.5) ng/mL Urine Color Red Urine Appearance Sl cloudy Urine pH 6.5 (4.5-8.0) Ur Specific [place] 1.020 (1.000-1.035) Urine Protein 3+ H (Negative) Urine Glucose (UA) Negative (Negative) g/dL Urine Ketones Negative (NEGATIVE) Urine Occult Blood 3+ H (Negative) Urine Nitrate Negative (Negative) Urine Bilirubin Negative (NEGATIVE) Urine Urobilinogen 0.2 (0.2) E.U./dL Ur Leukocyte Esterase Negative (NEGATIVE) Urine RBC >100/hpf H (0-5/HPF) Urine WBC 0-1/hpf (0-5/HPF) Ur Squamous Epith Cells None seen (0-5/HPF) Urine Bacteria None seen (None) Ur Culture Indicated? Cult not indicated Chlamy pneumoniae PCR (Not Detect) Adenovirus (PCR) (Not Detect) B. pertussis DNA (PCR) (Not Detecte) B.parapertussis DNA PCR (Not Detecte) Coronavirus OC43 (PCR) (Not Detect) Coronavirus HKU1 (PCR) (Not Detect) Coronavirus 229E (PCR) (Not Detect) SARS-CoV-2 (PCR) (Not Detecte) Coronavirus NL63 (PCR) (Not Detect) Human Metapneumovir PCR (Not Detect) Influenza Type A (PCR) (Not Detect) Influenza Type B (PCR) (Not Detect) M. pneumoniae (PCR) (Not Detect) Parainfluenza 1 (PCR) (Not Detect) Parainfluenza 2 (PCR) (Not Detect) Parainfluenza 3 (PCR) (Not Detect) Parainfluenza 4 (PCR) (Not Detect) RSV (PCR) (Not Detect) Entero/Rhino (PCR) (Not Detect) Imaging Data Chest x-ray: Radiologist Impression: PROCEDURE:? XR CHEST 1V ? INDICATIONS:? suspected sepsis ? TECHNIQUE:? One view of the chest was acquired.? ? COMPARISON:? [facility], CR, XR CHEST 2V, 09/09/2022, 16:20. ? FINDINGS:? ? Surgical changes and devices:? Pacemaker. ? Lungs and pleura:? Lungs are clear.? No pleural effusions or pneumothorax.? ? Mediastinum:? Mediastinal contours appear normal.? Heart size is enlarged. ? Bones and chest wall:? No suspicious bony lesions.? Overlying soft tissues appear unremarkable.? ? IMPRESSION:? No acute pulmonary process. ? ? Dictated by: Lauren Bedolla M.D. on 01/18/2023 at 12:43 ? ? Approved by: Lauren Bedolla M.D. on 01/18/2023 at 12:44 ? MDM Narrative Medical decision making narrative: Patient brought in by ambulance from home for complains of weakness and fever for the past couple of days. Tylenol given prior to arrival. History of atrial fibrillation on warfarin. Patient denies any pain. Discoloration of feet not new according the patient. Patient uses wheelchair to get around at home. No fall or injury. Has had a cough. Blood pressure and heart rate noted. EKG does show atrial fibrillation. Rate 67. Sepsis workup started. Antibiotics and IV fluids started. Patient primary care is Dr. Eliu Guzman. Patient denies any chest pain abdominal pain or back pain. No urinary complaints After history and exam sepsis workup started CBC CMP lactic acid procalcitonin blood culture chest x-ray urinalysis Baez catheter normal saline Rocephin EKG troponin BNP [facility] CC: Weakness fever Complicating co-morbidities: CHF atrial fibrillation Data collected from: Patient Medical records reviewed: Patient not seen recently here in the past for sepsis Differential considered: Includes but not limited to sepsis UTI COVID pneumonia bacteremia Exam documented above, pertinent findings include: Clear lung sounds, awake alert oriented itself Lab Test results independently reviewed as above. Pertinent findings: WBC 4.3 hemoglobin 13 hematocrit 40 platelets 83 INR 1.8 Independently reviewed EKG as above atrial fibrillation rate [address] elevation or depression Imaging studies independently reviewed: Chest x-ray no acute process PROCEDURE:? XR CHEST 1V ? INDICATIONS:? suspected sepsis ? TECHNIQUE:? One view of the chest was acquired.? ? COMPARISON:? [facility], , XR CHEST 2V, 09/09/2022, 16:20. ? FINDINGS:? ? Surgical changes and devices:? Pacemaker. ? Lungs and pleura:? Lungs are clear.? No pleural effusions or pneumothorax.? ? Mediastinum:? Mediastinal contours appear normal.? Heart size is enlarged. ? Bones and chest wall:? No suspicious bony lesions.? Overlying soft tissues appear unremarkable.? ? IMPRESSION:? No acute pulmonary process. ? ? Dictated by: Lauren Bedolla M.D. on 01/18/2023 at 12:43 ? ? Approved by: Lauren Bedolla M.D. on 01/18/2023 at 12:44 ? Consultations: 2:[address] Guzman, primary care physician, he will admit patient. ABG is pending and understands may need ICU for BiPAP pending results Treatments: Zosyn normal saline Re-evaluations: Patient requiring 1 L nasal cannula but in no respiratory distress. Patient does agree and understand for admission. Discussion: Appropriate for admission. Patient requiring observation for probably early sepsis. Will need supplemental oxygen as well. He is protecting airway at this time. No intubation required or vasopressors. Patient did respond to IV fluids. ABG reviewed and appropriate for acute tele bed Diagnosis: Viral infection Discharge Plan Departure Patient Disposition: Admitted As Inpatient Clinical Impression: Viral infection Admit Date/Time: 01/18/23 14:31 Admit Provider: Eliu Guzman
[2023-01-18 12:07] LABS: PTT Partial Thromboplastin Tim 37 SECONDS (26-36)
[2023-01-18] MEDS: cefTRIAXone 2,000 MG in SODIUM CHLORIDE 0.9% 100 ML 200 MG IV (12:09)
[2023-01-18 12:11] LABS: Lactate (Lactic Acid) 1.2 mmol/L (0.7-2.1)
[2023-01-18 12:13] LABS: Alanine Aminotransferase 17 IU/L (<50); Albumin 3.6 g/dL (3.5-5.0); Albumin Globulin Ratio 1.2 (1.0-2.8); Alkaline Phosphatase 96 U/L (38-126); Aspartate Aminotransferase 22 IU/L (17-59); BUN Creatinine Ratio 21.4 (6-22); Bilirubin Total 0.8 mg/dL (0.2-1.3); Blood Urea Nitrogen 22 mg/dL (9-20); Calcium 8.4 mg/dL (8.4-10.2); Carbon Dioxide 30 mmol/L (22-32); Chloride 101 mmol/L (98-107); Estimated Glomerular Filt Rate > 60 mL/min (>60); Glucose 99 mg/dL (80-110); HEMOLYSIS < 15 (0-50); Lipase 78 U/L (23-300); Potassium 3.8 mmol/L (3.4-5.1); Sodium 137 mmol/L (137-145); Total Protein 6.6 g/dL (6.3-8.2)
[2023-01-18 12:26] LABS: Creatine Kinase 40 U/L (55-170)
[2023-01-18 12:31] LABS: Procalcitonin 0.07 ng/mL (<0.5)
[2023-01-18 12:40] LABS: NT-proBNP (BNP-Adult 18+) 2950 pg/mL (<450); Troponin I 0.032 ng/mL (0.01-0.034)
--- NOTE | 2023-01-18 12:49 | PC.NURSE ---
Provider aware of no urine output. No new orders.
[2023-01-18] MEDS: LIDOCAINE 2% (GLYDO) 6 ML GEL TOP (13:09)
[2023-01-18 13:16] LABS: Adenovirus Not Detected (Not Detect); B. parapertussis Not Detected (Not Detecte); Bordetella pertussis Not Detected (Not Detecte); Chlamydophila pneumoniae Not Detected (Not Detect); Coronavirus 229E Not Detected (Not Detect); Coronavirus HKU1 Not Detected (Not Detect); Coronavirus NL 63 Not Detected (Not Detect); Coronavirus OC43 Not Detected (Not Detect); Human Metapneumovirus Detected (Not Detect); Human Rhinovirus/Enterovirus Not Detected (Not Detect); Influenza A Not Detected (Not Detect); Influenza B Not Detected (Not Detect); Mycoplasma pneumoniae Not Detected (Not Detect); Parainfluenza Virus 1 Not Detected (Not Detect); Parainfluenza Virus 2 Not Detected (Not Detect); Parainfluenza Virus 3 Not Detected (Not Detect); Parainfluenza Virus 4 Not Detected (Not Detect); Respiratory Syncytial Virus Not Detected (Not Detect); SARS- CoV-2 Not Detected (Not Detecte)
--- NOTE | 2023-01-18 13:35 | PC.NURSE ---
Pt 16 fr catheter not draining, discontinued and changed to 3 way 20 fr catheter. Irrigated however continued to drain slowly. No overt clots noted. Irrigated w/ 150 cc saline and 150 cc return noted. Bladder scan noted @350 cc in bladder but draining slowly. Urine color went from bright red to light yellow / tea color. Dr. Silva and primary RN aware.
--- NOTE | 2023-01-18 13:51 | PC.NURSE ---
pt arrived to [facility] with mottled toes. 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 Reports he has had mottled toes and legs for 30 years. decrease cap. refill. confusion. Dr. Silva aware and in to evaluate patient.
[2023-01-18 14:07] LABS: Appearance Urine UA SL CLOUDY; Bilirubin Urine UA NEGATIVE (NEGATIVE); Color Urine UA RED; Glucose Urine UA NEGATIVE (Negative); Ketones Urine UA NEGATIVE (NEGATIVE); Leukocyte Esterase Urine UA NEGATIVE (NEGATIVE); Nitrite Urine UA NEGATIVE (Negative); Occult Blood Urine UA 3+ (Negative); Protein Urine UA 3+ (Negative); Urobilinogen Urine UA 0.2 E.U./dL (0.2); pH Urine UA 6.5 (4.5-8.0)
[2023-01-18 14:10] LABS: RBC Urine >100/HPF (0-5/HPF); WBC Urine 0-1/HPF (0-5/HPF)
[2023-01-18 14:11] LABS: Bacteria Urine None Seen; Culture Indicated Urine Cult Not Indicated; Squamous Epithelial Cell Urine None Seen (0-5/HPF)
[2023-01-18 14:59] LABS: PCO2 ABG 48.7 mmHg (35-45); PO2 ABG 68 mmHg (80-100); pH ABG 7.37 (7.35-7.45)
[2023-01-18 15:00] LABS: Fractionated Inspired Oxygen 24; HCO3 ABG 28 mmol/L (23-27); Oxygen Saturation ABG 93 % (95-100); TCO2 ABG 30 mmol/L (23-27)
--- NOTE | 2023-01-18 18:38 | PM.HP.1 ---
History of Present Illness History of Present Illness Date Patient Seen: 01/18/23 Time Patient Seen: 18:38 Date of Onset of Symptoms: 01/17/23 Chief complaint: Fever, SOB, Dizziness Narrative: Patient is a 82-year-old male well known to me who presents with 24 hours of fatigue and cough. Cough has been productive with green to yellow sputum. Today woke up just feeling incredibly weak. He is had no chest pain. Has had a low-grade fever. Took some Tylenol today. Had no other significant change. He is had no nausea no vomiting but has not had a really great appetite. He is had no abdominal pain. No change in urine. Patient has had a history of hematuria and does not feel like that is really been a change. Has not seen a urologist for that. Otherwise no change. Apparently has been sick recently. Otherwise no change. 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 Family & Social History Social History: household members spouse Prior Living Arrangements House Safety & Behavioral: Feels Safe in Current Yes Environment Been Physically Hurt or No Threatened By a Person Tobacco & Substance use: Smoking Status Former smoker alcohol intake current Substance Use Type marijuana Meds Home Medications and Allergies Home Medications Medication Instructions Recorded Confirmed Type tamsulosin 0.4 mg capsule (Flomax) 0.4 mg PO QDAY 7 days #0 caps 07/23/16 01/18/23 Rx Respironics Dreamstation CPAP #1 ea 05/02/19 01/18/23 History carvedilol 25 mg tablet 37.5 mg PO BID 05/27/21 01/18/23 History duloxetine 60 mg capsule,delayed 60 mg PO DAILY 05/27/21 01/18/23 History release rosuvastatin 20 mg tablet (Crestor) 20 mg PO DAILY 05/27/21 01/18/23 History warfarin 10 mg tablet 10 mg PO DAILY 05/27/21 01/18/23 History gabapentin 300 mg capsule 300 mg PO TID 04/21/22 01/18/23 History furosemide 40 mg tablet 40 mg PO DAILY 01/18/23 01/18/23 History risperidone 2 mg tablet 2 mg PO BID 01/18/23 01/18/23 History Allergies Allergy/AdvReac Type Severity Reaction Status Date / Time No Known Allergies Allergy Verified 10/14/22 13:44 Review of Systems Review of Systems Narrative: Negative except as above Exam Vital Signs (past 8 hours): - 01/18/23 11:27 01/18/23 11:38 01/18/23 11:40 Temperature 96.8 F L Pulse Rate 106 H 82 Respiratory Rate 24 22 Blood Pressure 99/56 L 91/53 L Pulse Oximetry 90 L 91 Oxygen Delivery Method Room Air Oxygen Flow Rate 01/18/23 11:40 01/18/23 11:45 01/18/23 11:46 Temperature Pulse Rate 79 64 Respiratory Rate 19 20 Blood Pressure 105/64 Pulse Oximetry 91 87 L Oxygen Delivery Method Room Air Room Air Oxygen Flow Rate 01/18/23 11:46 01/18/23 11:50 01/18/23 11:50 Temperature Pulse Rate 67 70 Respiratory Rate 20 17 Blood Pressure 101/58 L Pulse Oximetry 91 91 Oxygen Delivery Method Nasal Cannula Nasal Cannula Oxygen Flow Rate 2 2 01/18/23 11:55 01/18/23 11:55 01/18/23 12:00 Temperature Pulse Rate 74 Respiratory Rate 19 Blood Pressure 105/70 121/59 L Pulse Oximetry 91 Oxygen Delivery Method Nasal Cannula Oxygen Flow Rate 2 01/18/23 12:00 01/18/23 12:05 01/18/23 12:05 Temperature Pulse Rate 67 68 Respiratory Rate 19 20 Blood Pressure 117/56 L Pulse Oximetry 99 100 Oxygen Delivery Method Nasal Cannula Oxygen Flow Rate 3 01/18/23 12:10 01/18/23 12:10 01/18/23 12:15 Temperature Pulse Rate 65 Respiratory Rate 18 Blood Pressure 113/59 L 112/65 Pulse Oximetry 100 Oxygen Delivery Method Oxygen Flow Rate 01/18/23 12:15 01/18/23 12:20 01/18/23 12:20 Temperature 99.1 F Pulse Rate 71 68 Respiratory Rate 18 17 Blood Pressure 120/57 L Pulse Oximetry 99 98 Oxygen Delivery Method Oxygen Flow Rate 01/18/23 12:25 01/18/23 12:25 01/18/23 12:30 Temperature 99.3 F Pulse Rate 71 Respiratory Rate 17 Blood Pressure 114/57 L 113/61 Pulse Oximetry 98 Oxygen Delivery Method Oxygen Flow Rate 01/18/23 12:30 01/18/23 12:35 01/18/23 12:36 Temperature 99.3 F 99.3 F Pulse Rate 67 66 Respiratory Rate 16 16 Blood Pressure 126/58 L Pulse Oximetry 99 98 Oxygen Delivery Method Oxygen Flow Rate 01/18/23 12:36 01/18/23 12:40 01/18/23 12:40 Temperature 99.3 F 99.3 F Pulse Rate 71 71 Respiratory Rate 15 15 Blood Pressure 122/56 L Pulse Oximetry 98 98 Oxygen Delivery Method Nasal Cannula Oxygen Flow Rate 2 01/18/23 12:45 01/18/23 12:45 01/18/23 12:50 Temperature 99.3 F Pulse Rate 68 Respiratory Rate 15 Blood Pressure 107/57 L 118/57 L Pulse Oximetry 97 Oxygen Delivery Method Nasal Cannula Oxygen Flow Rate 1 01/18/23 12:50 01/18/23 12:55 01/18/23 12:55 Temperature 99.3 F 99.1 F Pulse Rate 66 69 Respiratory Rate 16 14 Blood Pressure 119/57 L Pulse Oximetry 96 96 Oxygen Delivery Method Oxygen Flow Rate 01/18/23 13:00 01/18/23 13:00 01/18/23 13:05 Temperature 99.1 F Pulse Rate 68 Respiratory Rate 16 Blood Pressure 113/56 L 120/59 L Pulse Oximetry 95 Oxygen Delivery Method Oxygen Flow Rate 01/18/23 13:05 01/18/23 13:10 01/18/23 13:10 Temperature 99.1 F 99.1 F Pulse Rate 71 70 Respiratory Rate 17 15 Blood Pressure 119/59 L Pulse Oximetry 96 96 Oxygen Delivery Method Oxygen Flow Rate 01/18/23 13:15 01/18/23 13:15 01/18/23 13:30 Temperature Pulse Rate 71 Respiratory Rate 16 Blood Pressure 127/58 L 119/60 Pulse Oximetry 95 Oxygen Delivery Method Room Air Oxygen Flow Rate 01/18/23 13:30 01/18/23 14:27 01/18/23 13:45 Temperature Pulse Rate 68 Respiratory Rate 16 Blood Pressure 136/65 Pulse Oximetry 90 L 92 Oxygen Delivery Method Nasal Cannula Oxygen Flow Rate 1 01/18/23 13:45 01/18/23 14:00 01/18/23 14:00 Temperature Pulse Rate 70 68 Respiratory Rate 15 16 Blood Pressure 131/68 Pulse Oximetry 92 92 Oxygen Delivery Method Oxygen Flow Rate 01/18/23 14:15 01/18/23 14:15 01/18/23 14:32 Temperature Pulse Rate 67 Respiratory Rate 19 Blood Pressure 142/65 H Pulse Oximetry 93 Oxygen Delivery Method Nasal Cannula Oxygen Flow Rate 3 01/18/23 14:30 01/18/23 14:30 01/18/23 14:45 Temperature Pulse Rate 65 Respiratory Rate 17 Blood Pressure 141/70 H 142/71 H Pulse Oximetry 95 Oxygen Delivery Method Nasal Cannula Oxygen Flow Rate 3 01/18/23 14:45 01/18/23 15:00 01/18/23 15:00 Temperature Pulse Rate 65 76 Respiratory Rate 18 24 Blood Pressure 153/72 H Pulse Oximetry 97 98 Oxygen Delivery Method Nasal Cannula Oxygen Flow Rate 3 01/18/23 15:15 01/18/23 15:15 01/18/23 15:30 Temperature Pulse Rate 62 Respiratory Rate 19 Blood Pressure 150/64 H 165/73 H Pulse Oximetry 97 Oxygen Delivery Method Oxygen Flow Rate 01/18/23 15:30 01/18/23 15:45 01/18/23 15:46 Temperature Pulse Rate 64 67 Respiratory Rate 17 25 H Blood Pressure 143/108 H Pulse Oximetry 98 98 Oxygen Delivery Method Oxygen Flow Rate 01/18/23 15:46 01/18/23 16:47 Temperature 96.7 F L Pulse Rate 89 76 Respiratory Rate 27 H 19 Blood Pressure 147/87 H Pulse Oximetry 98 96 Oxygen Delivery Method Oxygen Flow Rate Oxygen Delivery Method Nasal Cannula Oxygen Flow Rate 3 Narrative Exam Narrative: Sleeping but arousable elderly male lying in bed no acute respiratory distress with oxygen HEENT exam shows mucous membranes mildly dry. Neck supple without adenopathy lungs seem to be clear. Heart is irregular rhythm with normal rate. Abdomen is soft positive bowel sounds nontender. Extremities are +1 edema. They are purplish in color. But good pulses. Capillary refills difficult. Neurologic exam seems normal Objective ECG Impression: Atrial fibrillation with no acute change Labs 01/18/23 11:50 01/18/23 11:50 Labs: Laboratory Results - last 24 hr 01/18/23 01/18/23 01/18/23 11:41 11:50 11:50 WBC 4.3 L RBC 4.39 L Hgb 13.5 Hct 40.2 L MCV 91.5 MCH 30.7 MCHC 33.6 RDW 15.6 H Plt Count 83 L Neut % (Auto) 61.6 Lymph % (Auto) 18.4 L [place] % (Auto) 18.2 H Eos % (Auto) 0.9 L Baso % (Auto) 0.9 Neut # (Auto) 2600 Lymph # (Auto) 800 L [place] # (Auto) 800 Eos # (Auto) 0 Baso # (Auto) 0 PT 20.3 H INR 1.8 H APTT 37 H ABG pH ABG pCO2 ABG pO2 ABG HCO3 ABG Total CO2 ABG O2 Saturation ABG Base Excess FiO2 Sodium Potassium Chloride Carbon Dioxide BUN Creatinine Estimated GFR BUN/Creatinine Ratio Glucose Lactate Calcium Total Bilirubin AST ALT Alkaline Phosphatase Total Creatine Kinase CK-MB (CK-2) CK-MB (CK-2) Rel Index Troponin I NT-Pro-B Natriuret Pep Total Protein Albumin Globulin Albumin/Globulin Ratio Lipase Procalcitonin Urine Color Urine Appearance Urine pH Ur Specific [place] Urine Protein Urine Glucose (UA) Urine Ketones Urine Occult Blood Urine Nitrate Urine Bilirubin Urine Urobilinogen Ur Leukocyte Esterase Urine RBC Urine WBC Ur Squamous Epith Cells Urine Bacteria Ur Culture Indicated? Chlamy pneumoniae PCR Not detected Adenovirus (PCR) Not detected B. pertussis DNA (PCR) Not detected B.parapertussis DNA PCR Not detected Coronavirus OC43 (PCR) Not detected Coronavirus HKU1 (PCR) Not detected Coronavirus 229E (PCR) Not detected SARS-CoV-2 (PCR) Not detected Coronavirus NL63 (PCR) Not detected Human Metapneumovir PCR Detected H Influenza Type A (PCR) Not detected Influenza Type B (PCR) Not detected M. pneumoniae (PCR) Not detected Parainfluenza 1 (PCR) Not detected Parainfluenza 2 (PCR) Not detected Parainfluenza 3 (PCR) Not detected Parainfluenza 4 (PCR) Not detected RSV (PCR) Not detected Entero/Rhino (PCR) Not detected 01/18/23 01/18/23 01/18/23 11:50 11:50 12:03 WBC RBC Hgb Hct MCV MCH MCHC RDW Plt Count Neut % (Auto) Lymph % (Auto) [place] % (Auto) Eos % (Auto) Baso % (Auto) Neut # (Auto) Lymph # (Auto) [place] # (Auto) Eos # (Auto) Baso # (Auto) PT INR APTT ABG pH ABG pCO2 ABG pO2 ABG HCO3 ABG Total CO2 ABG O2 Saturation ABG Base Excess FiO2 Sodium 137 Potassium 3.8 Chloride 101 Carbon Dioxide 30 BUN 22 H Creatinine 1.03 Estimated GFR > 60 BUN/Creatinine Ratio 21.4 Glucose 99 Lactate 1.2 Calcium 8.4 Total Bilirubin 0.8 AST 22 ALT 17 Alkaline Phosphatase 96 Total Creatine Kinase 40 L CK-MB (CK-2) TNP CK-MB (CK-2) Rel Index TNP Troponin I 0.032 NT-Pro-B Natriuret Pep 2950 H Total Protein 6.6 Albumin 3.6 Globulin 3.0 Albumin/Globulin Ratio 1.2 Lipase 78 Procalcitonin 0.07 Urine Color Urine Appearance Urine pH Ur Specific [place] Urine Protein Urine Glucose (UA) Urine Ketones Urine Occult Blood Urine Nitrate Urine Bilirubin Urine Urobilinogen Ur Leukocyte Esterase Urine RBC Urine WBC Ur Squamous Epith Cells Urine Bacteria Ur Culture Indicated? Chlamy pneumoniae PCR Adenovirus (PCR) B. pertussis DNA (PCR) B.parapertussis DNA PCR Coronavirus OC43 (PCR) Coronavirus HKU1 (PCR) Coronavirus 229E (PCR) SARS-CoV-2 (PCR) Coronavirus NL63 (PCR) Human Metapneumovir PCR Influenza Type A (PCR) Influenza Type B (PCR) M. pneumoniae (PCR) Parainfluenza 1 (PCR) Parainfluenza 2 (PCR) Parainfluenza 3 (PCR) Parainfluenza 4 (PCR) RSV (PCR) Entero/Rhino (PCR) 01/18/23 01/18/23 13:30 14:17 WBC RBC Hgb Hct MCV MCH MCHC RDW Plt Count Neut % (Auto) Lymph % (Auto) [place] % (Auto) Eos % (Auto) Baso % (Auto) Neut # (Auto) Lymph # (Auto) [place] # (Auto) Eos # (Auto) Baso # (Auto) PT INR APTT ABG pH 7.37 ABG pCO2 48.7 H ABG pO2 68 L ABG HCO3 28 H ABG Total CO2 30 H ABG O2 Saturation 93 L ABG Base Excess 3.0 FiO2 24 Sodium Potassium Chloride Carbon Dioxide BUN Creatinine Estimated GFR BUN/Creatinine Ratio Glucose Lactate Calcium Total Bilirubin AST ALT Alkaline Phosphatase Total Creatine Kinase CK-MB (CK-2) CK-MB (CK-2) Rel Index Troponin I NT-Pro-B Natriuret Pep Total Protein Albumin Globulin Albumin/Globulin Ratio Lipase Procalcitonin Urine Color Red Urine Appearance Sl cloudy Urine pH 6.5 Ur Specific [place] 1.020 Urine Protein 3+ H Urine Glucose (UA) Negative Urine Ketones Negative Urine Occult Blood 3+ H Urine Nitrate Negative Urine Bilirubin Negative Urine Urobilinogen 0.2 Ur Leukocyte Esterase Negative Urine RBC >100/hpf H Urine WBC 0-1/hpf Ur Squamous Epith Cells None seen Urine Bacteria None seen Ur Culture Indicated? Cult not indicated Chlamy pneumoniae PCR Adenovirus (PCR) B. pertussis DNA (PCR) B.parapertussis DNA PCR Coronavirus OC43 (PCR) Coronavirus HKU1 (PCR) Coronavirus 229E (PCR) SARS-CoV-2 (PCR) Coronavirus NL63 (PCR) Human Metapneumovir PCR Influenza Type A (PCR) Influenza Type B (PCR) M. pneumoniae (PCR) Parainfluenza 1 (PCR) Parainfluenza 2 (PCR) Parainfluenza 3 (PCR) Parainfluenza 4 (PCR) RSV (PCR) Entero/Rhino (PCR) Assessment & Plan Assessment & Plan narrative: Acute Respiratory failure. Possibly secondary to virus certainly positive on screen. But no other changes. Certainly I think the patient is dry and will give some fluids. Will be judicious with this. I think could be early pneumonia with nothing showing on x-ray because of dehydration. Will begin IV antibiotics and follow from there. Re-evaluate after that. Dehydration. Otherwise I think the patient is dry. Minimal urine output. Otherwise no change. Will give fluids and follow I&Os. And re-evaluate in a.m.. Gross hematuria. Patient has not had a workup for this. Will consider CT scan once we get him stabilized. Probably tomorrow. And then will need a further follow-up depending on that.. Patient does have a history of bladder cancer could be related to that and his bleeding but needs workup. Will make sure that is related it had been in the past not been followed closely recently. Memory/cognitive changes. Been some question about early dementia. Has not been definitive diagnosed. Seems to be pretty clear today. Will follow. history of anger and we will have to follow. Has been given Risperdal as outpatient will hold for now. With his illness. Polymyalgia rheumatica. Not on treatment will follow. History of atrial fibrillation. Will continue on usual medicine and Coumadin. Obstructive sleep apnea usual treatment. Hyperlipidemia stable continue usual meds. Code status patient wishes no code. DVT prophylaxis on Coumadin Disposition. I imagine he will be here a couple days. Will have to see what happens with his O2 requirement. Hopefully that will improve over time. At this point will be happy to get him home by Tuesday 45 minutes spent total time with patient dictation evaluation of data. Time Spent With Patient Critical Care time: I spent a total of [] minutes of critical care time on this patient's care today; this time is exclusive of procedural time. Quality VTE Deep Vein Thrombosis/Pulmonary Embolism Present on Admission: No
[2023-01-18] MEDS: SODIUM CHLORIDE 0.9% 1,000 ML 100 ML IV (19:04)
[2023-01-18] MEDS: AZITHROMYCIN 500 MG in DEXTROSE 5% IN WATER 250 ML 250 MG IV (20:07)
[2023-01-18] MEDS: GABAPENTIN 300 MG CAPSULE PO (20:12)
[2023-01-18] MEDS: risperiDONE 1 MG TABLET 2 MG PO (20:12)
[2023-01-18] MEDS: carvediloL 12.5 MG TABLET 37.5 MG PO (20:23)
[2023-01-19] VITALS (11 sets, daily range): BP systolic 99–126; BP diastolic 57–72; PULSE 65–83; RESP 16–20; TEMP 35.9–37.3; O2SAT 92–98
[2023-01-19 06:26] LABS: Add Manual Diff / Slide Review NO; Basophils Absolute Auto 0 /uL (0-100); Basophils Percent Auto 0.8 % (0-2); Eosinophils Absolute Auto 0 /uL (0-450); Hematocrit 38.3 % (41-53); Hemoglobin 12.8 g/dL (13.5-17.5); Lymphocytes Absolute Auto 1000 /uL (1100-4500); Lymphocytes Percent Auto 23.2 % (25-40); Mean Corpuscular HGB Conc 33.4 % (30-36); Mean Corpuscular Hemoglobin 30.8 PG (26-34); Mean Corpuscular Volume 92.1 fL (80-100); Monocytes Absolute Auto 900 /uL (0-900); Monocytes Percent Auto 20.3 % (3-14); Neutrophils Absolute Auto 2300 /uL (1500-7000); Neutrophils Percent Auto 54.7 % (50-75); Platelet Count 83 X10^3/uL (150-400); Red Blood Cell Count 4.16 X10^6/uL (4.5-5.9); Red Cell Distribution Width 15.5 % (11.6-14.8); White Blood Cell Count 4.2 X10^3/uL (4.5-11.0)
[2023-01-19 06:28] LABS: INR 1.7 (0.9-1.3); Prothrombin Time 19.1 SECONDS (10.1-12.7)
[2023-01-19 06:55] LABS: Alanine Aminotransferase 15 IU/L (<50); Albumin 3.3 g/dL (3.5-5.0); Albumin Globulin Ratio 1.2 (1.0-2.8); Alkaline Phosphatase 91 U/L (38-126); Aspartate Aminotransferase 22 IU/L (17-59); BUN Creatinine Ratio 20.7 (6-22); Bilirubin Total 0.7 mg/dL (0.2-1.3); Blood Urea Nitrogen 19 mg/dL (9-20); Carbon Dioxide 27 mmol/L (22-32); Chloride 104 mmol/L (98-107); Estimated Glomerular Filt Rate > 60 mL/min (>60); Globulin 2.7 g/dL (1.7-4.1); Glucose 84 mg/dL (80-110); HEMOLYSIS < 15 (0-50); Potassium 3.7 mmol/L (3.4-5.1); Sodium 139 mmol/L (137-145)
[2023-01-19 07:03] LABS: NT-proBNP (BNP-Adult 18+) 2210 pg/mL (<450)
--- NOTE | 2023-01-19 08:51 | PM.PN.1 ---
Subjective Subjective Date Patient Seen: 01/19/23 Time Patient Seen: 08:52 Interval history: Patient seen in follow-up of respiratory failure. Confused this morning. Oxygen off. Sats in the 80s mid 80s 85-86. No respiratory distress no complaints no complaints of pain. Did not like having his legs in SCDs. Exam Vital Signs (past 8 hours): - 01/19/23 06:00 Temperature 97.6 F Pulse Rate 81 Respiratory Rate 20 Blood Pressure 118/57 L Pulse Oximetry 92 Oxygen Flow Rate 4 Oxygen Delivery Method Nasal Cannula Oxygen Flow Rate 4 Narrative Exam Narrative: Alert male confused in no acute distress Lungs are clear heart is regular rate and rhythm extremities without change actually look a little less red. Good pulses no tenderness neurologic exam nonfocal Objective Labs 01/19/23 05:53 01/19/23 05:53 Labs: Laboratory Results - last 24 hr 01/18/23 01/18/23 01/18/23 11:41 11:50 11:50 WBC 4.3 L RBC 4.39 L Hgb 13.5 Hct 40.2 L MCV 91.5 MCH 30.7 MCHC 33.6 RDW 15.6 H Plt Count 83 L Neut % (Auto) 61.6 Lymph % (Auto) 18.4 L Randolph % (Auto) 18.2 H Eos % (Auto) 0.9 L Baso % (Auto) 0.9 Neut # (Auto) 2600 Lymph # (Auto) 800 L Randolph # (Auto) 800 Eos # (Auto) 0 Baso # (Auto) 0 PT 20.3 H INR 1.8 H APTT 37 H ABG pH ABG pCO2 ABG pO2 ABG HCO3 ABG Total CO2 ABG O2 Saturation ABG Base Excess FiO2 Sodium Potassium Chloride Carbon Dioxide BUN Creatinine Estimated GFR BUN/Creatinine Ratio Glucose Lactate Calcium Total Bilirubin AST ALT Alkaline Phosphatase Total Creatine Kinase CK-MB (CK-2) CK-MB (CK-2) Rel Index Troponin I NT-Pro-B Natriuret Pep Total Protein Albumin Globulin Albumin/Globulin Ratio Lipase Procalcitonin Urine Color Urine Appearance Urine pH Ur Specific [place] Urine Protein Urine Glucose (UA) Urine Ketones Urine Occult Blood Urine Nitrate Urine Bilirubin Urine Urobilinogen Ur Leukocyte Esterase Urine RBC Urine WBC Ur Squamous Epith Cells Urine Bacteria Ur Culture Indicated? Chlamy pneumoniae PCR Not detected Adenovirus (PCR) Not detected B. pertussis DNA (PCR) Not detected B.parapertussis DNA PCR Not detected Coronavirus OC43 (PCR) Not detected Coronavirus HKU1 (PCR) Not detected Coronavirus 229E (PCR) Not detected SARS-CoV-2 (PCR) Not detected Coronavirus NL63 (PCR) Not detected Human Metapneumovir PCR Detected H Influenza Type A (PCR) Not detected Influenza Type B (PCR) Not detected M. pneumoniae (PCR) Not detected Parainfluenza 1 (PCR) Not detected Parainfluenza 2 (PCR) Not detected Parainfluenza 3 (PCR) Not detected Parainfluenza 4 (PCR) Not detected RSV (PCR) Not detected Entero/Rhino (PCR) Not detected 01/18/23 01/18/23 01/18/23 11:50 11:50 12:03 WBC RBC Hgb Hct MCV MCH MCHC RDW Plt Count Neut % (Auto) Lymph % (Auto) Randolph % (Auto) Eos % (Auto) Baso % (Auto) Neut # (Auto) Lymph # (Auto) Randolph # (Auto) Eos # (Auto) Baso # (Auto) PT INR APTT ABG pH ABG pCO2 ABG pO2 ABG HCO3 ABG Total CO2 ABG O2 Saturation ABG Base Excess FiO2 Sodium 137 Potassium 3.8 Chloride 101 Carbon Dioxide 30 BUN 22 H Creatinine 1.03 Estimated GFR > 60 BUN/Creatinine Ratio 21.4 Glucose 99 Lactate 1.2 Calcium 8.4 Total Bilirubin 0.8 AST 22 ALT 17 Alkaline Phosphatase 96 Total Creatine Kinase 40 L CK-MB (CK-2) TNP CK-MB (CK-2) Rel Index TNP Troponin I 0.032 NT-Pro-B Natriuret Pep 2950 H Total Protein 6.6 Albumin 3.6 Globulin 3.0 Albumin/Globulin Ratio 1.2 Lipase 78 Procalcitonin 0.07 Urine Color Urine Appearance Urine pH Ur Specific [place] Urine Protein Urine Glucose (UA) Urine Ketones Urine Occult Blood Urine Nitrate Urine Bilirubin Urine Urobilinogen Ur Leukocyte Esterase Urine RBC Urine WBC Ur Squamous Epith Cells Urine Bacteria Ur Culture Indicated? Chlamy pneumoniae PCR Adenovirus (PCR) B. pertussis DNA (PCR) B.parapertussis DNA PCR Coronavirus OC43 (PCR) Coronavirus HKU1 (PCR) Coronavirus 229E (PCR) SARS-CoV-2 (PCR) Coronavirus NL63 (PCR) Human Metapneumovir PCR Influenza Type A (PCR) Influenza Type B (PCR) M. pneumoniae (PCR) Parainfluenza 1 (PCR) Parainfluenza 2 (PCR) Parainfluenza 3 (PCR) Parainfluenza 4 (PCR) RSV (PCR) Entero/Rhino (PCR) 01/18/23 01/18/23 01/19/23 13:30 14:17 05:53 WBC 4.2 L RBC 4.16 L Hgb 12.8 L Hct 38.3 L MCV 92.1 MCH 30.8 MCHC 33.4 RDW 15.5 H Plt Count 83 L Neut % (Auto) 54.7 Lymph % (Auto) 23.2 L Randolph % (Auto) 20.3 H Eos % (Auto) 1.0 L Baso % (Auto) 0.8 Neut # (Auto) 2300 Lymph # (Auto) 1000 L Randolph # (Auto) 900 Eos # (Auto) 0 Baso # (Auto) 0 PT INR APTT ABG pH 7.37 ABG pCO2 48.7 H ABG pO2 68 L ABG HCO3 28 H ABG Total CO2 30 H ABG O2 Saturation 93 L ABG Base Excess 3.0 FiO2 24 Sodium Potassium Chloride Carbon Dioxide BUN Creatinine Estimated GFR BUN/Creatinine Ratio Glucose Lactate Calcium Total Bilirubin AST ALT Alkaline Phosphatase Total Creatine Kinase CK-MB (CK-2) CK-MB (CK-2) Rel Index Troponin I NT-Pro-B Natriuret Pep Total Protein Albumin Globulin Albumin/Globulin Ratio Lipase Procalcitonin Urine Color Red Urine Appearance Sl cloudy Urine pH 6.5 Ur Specific [place] 1.020 Urine Protein 3+ H Urine Glucose (UA) Negative Urine Ketones Negative Urine Occult Blood 3+ H Urine Nitrate Negative Urine Bilirubin Negative Urine Urobilinogen 0.2 Ur Leukocyte Esterase Negative Urine RBC >100/hpf H Urine WBC 0-1/hpf Ur Squamous Epith Cells None seen Urine Bacteria None seen Ur Culture Indicated? Cult not indicated Chlamy pneumoniae PCR Adenovirus (PCR) B. pertussis DNA (PCR) B.parapertussis DNA PCR Coronavirus OC43 (PCR) Coronavirus HKU1 (PCR) Coronavirus 229E (PCR) SARS-CoV-2 (PCR) Coronavirus NL63 (PCR) Human Metapneumovir PCR Influenza Type A (PCR) Influenza Type B (PCR) M. pneumoniae (PCR) Parainfluenza 1 (PCR) Parainfluenza 2 (PCR) Parainfluenza 3 (PCR) Parainfluenza 4 (PCR) RSV (PCR) Entero/Rhino (PCR) 01/19/23 01/19/23 05:53 05:53 WBC RBC Hgb Hct MCV MCH MCHC RDW Plt Count Neut % (Auto) Lymph % (Auto) [place] % (Auto) Eos % (Auto) Baso % (Auto) Neut # (Auto) Lymph # (Auto) Randolph # (Auto) Eos # (Auto) Baso # (Auto) PT 19.1 H INR 1.7 H APTT ABG pH ABG pCO2 ABG pO2 ABG HCO3 ABG Total CO2 ABG O2 Saturation ABG Base Excess FiO2 Sodium 139 Potassium 3.7 Chloride 104 Carbon Dioxide 27 BUN 19 Creatinine 0.92 Estimated GFR > 60 BUN/Creatinine Ratio 20.7 Glucose 84 Lactate Calcium 8.0 L Total Bilirubin 0.7 AST 22 ALT 15 Alkaline Phosphatase 91 Total Creatine Kinase CK-MB (CK-2) CK-MB (CK-2) Rel Index Troponin I NT-Pro-B Natriuret Pep 2210 H Total Protein 6.0 L Albumin 3.3 L Globulin 2.7 Albumin/Globulin Ratio 1.2 Lipase Procalcitonin Urine Color Urine Appearance Urine pH Ur Specific [place] Urine Protein Urine Glucose (UA) Urine Ketones Urine Occult Blood Urine Nitrate Urine Bilirubin Urine Urobilinogen Ur Leukocyte Esterase Urine RBC Urine WBC Ur Squamous Epith Cells Urine Bacteria Ur Culture Indicated? Chlamy pneumoniae PCR Adenovirus (PCR) B. pertussis DNA (PCR) B.parapertussis DNA PCR Coronavirus OC43 (PCR) Coronavirus HKU1 (PCR) Coronavirus 229E (PCR) SARS-CoV-2 (PCR) Coronavirus NL63 (PCR) Human Metapneumovir PCR Influenza Type A (PCR) Influenza Type B (PCR) M. pneumoniae (PCR) Parainfluenza 1 (PCR) Parainfluenza 2 (PCR) Parainfluenza 3 (PCR) Parainfluenza 4 (PCR) RSV (PCR) Entero/Rhino (PCR) [facility] Medical History Atrial fibrillation (Unknown) DDD (degenerative disc disease), lumbar (~2018) DJD (degenerative joint disease), lumbosacral (~2018) Hematuria Hip dislocation, right History of colon polyps Obesity (BMI 30-39.9) (Unknown) Obstructive sleep apnea of adult (~2006) Rectal bleeding Urinary retention UTI (urinary tract infection) Surgical History 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 Social History household members: spouse Smoking Status: Former smoker alcohol intake: current Assessment & Plan Assessment & Plan narrative: Positive blood cultures. Bacteremia versus sepsis. Patient did have acute respiratory failure, low blood pressure. Other parameters were negative for sepsis. Probable pneumonia. Should have adequate coverage at this time. Will continue current antibiotics and wait for sensitivities. Only positive in 1 blood culture. Acute respiratory failure. Still significantly low. Expect this secondary to pneumonia. On antibiotics. Will see how things recover over time. If not improving will need CT scan. Hematuria with history of bladder cancer. Will need follow-up with his urologist. At this time he seems to be doing well. Dehydration. Still I think moderately dehydrated. BNP is improved will continue mild hydration and follow. Expect discontinuation maybe tomorrow. Memory changes. Patient has progressive memory changes expect has eversion of dementia. Continue Risperdal. Seems to be stable. Atrial fibrillation stable continue Coumadin recheck INR tomorrow. Borderline. Due to medication he is on would like to hold dose current without changes. Continue SCDs. Obstructive sleep apnea no change. Code status. No code. DVT prophylaxis on Coumadin. Disposition. Will be here at least a couple more days. Have to sort out his positive go cultures. Need to get his hypoxia improved am hoping this all improves with treatment. If not will need CT scan to define make sure there isn't any other abnormality of his chest. Time Spent With Patient Critical Care time: I spent a total of [] minutes of critical care time on this patient's care today; this time is exclusive of procedural time. Quality VTE Deep Vein Thrombosis/Pulmonary Embolism Present on Admission: No
--- NOTE | 2023-01-19 09:05 | CM.DANOTE ---
Addendum entered by Camila White R.N. 01/19/23 16:00: Found out late in the day that patient is max assist of two. Spouse is opened to skilled if needed, but is willing to take him home if needed as well. Started initial referral with [facility], asked Dolores, she is in admissions today, to pass this on to April on . He is Medicare, would be eligible by Tuesday for discharge. Will pass on to meet with tomorrow to look at other facilities, or could pursue [facility]. Original Note: DCP: Case received, EMR reviewed. Did not enter room due to isolation precautions, but was able to obtain information from patient's spouse, Karen, via phone, regarding patient's baseline activity level at home. DCP assessment completed with information currently available. Patient is an 82 year old male who admitted yesterday afternoon to the care of the hospitalist team. PCP: Dr. Guzman. Payer: confirmed: Medicare/[facility]. Patient came to the hospital via ambulance secondary to having increased weakness. Notes indicate that patient uses wheel-chair per his baseline for mobility. Patient also has history of afib, and is on Warfarin. Patient was also noted to have a productive cough with green to yellow sputum. He does see a urologist for chronic hematuria. Patient was diagnosed with acute respiratory failure secondary to virus. Notes also indicate that patient has memory/cognitive changes, mantilla been question about early dementia. Spoke to patient's daughter, Karen, over the phone. Confirmed that patient and spouse both reside on [address], here in [place]. Patient is mostly in his wheel-chair. Stated that he does have some assist with showers, has a shower bench, and she assists him with dressing. She drives him to any needed appointments. Asked her if patient had ever had any home health services, and she mentioned that when he was discharged from [facility], had home health, which is the only one that goes to [facility], which [facility]. Guzman had seen patient today, indicated, positive blood cultures, bacteremia versus sepsis. Patient is continuing with Risperdal for his memory impairment. P: DCP to continue to follow. Provider did place P.T. orders, will see how he does. Patient most likely will go home when stable, can offer home health. Spouse will be here about mid day to see patient. Camila White RN/Truck Loader Discharge Planning/Care Management Advanced directive, confirm from FAMILY Start: 01/18/23 16:42 Freq: Q24H Status: Active Protocol: Document 01/18/23 16:42 CM (Rec: 01/18/23 16:44 CM [id number]) Advance Directive, confirm on record Time 16:43 Person contacted Pt Copy received No CM Discharge Assessment Start: 01/19/23 09:02 Freq: Status: Active Protocol: Document 01/19/23 09:02 VM (Rec: 01/19/23 09:05 VM [id number]) Discharge Planning Assessment Assigned Water Sponger Camila White RN/Truck Loader Advance Directives? Yes Advance Directives on File No History Provided By Patient,Medical Record Prior Living Arrangements House Household Members spouse Type of transporation used prior to Relies on Others admit Independent with ADL's No Is patient alert and oriented? To self and place Needs Assistance With Bathing,Meal Prep,Managing Medications,Home Chores / Shopping Caregiver for Another No DME Already Rented / Owned Wheelchair Comment Patient has had home health before, lives on [facility] [facility] , so [facility] be the only option. Barriers to Discharge Yes Comment Weakness and dementia Discharge Plan Home Transportation Arrangement Family Referrals Initiated Other Additional Comment Will monitor closely, does not yet have P.T. orders as of yet If patient plan is home with home health No : Has signed face to face form been completed? If patient plan is SNF: Has PASSR been No: Due to dementia, may not completed? be a skilled candidate Whiteboard Updated in Patient Room with No name and ext. # of Water Sponger Comment Patient in isolation for virus , did not enter room. Review Status In Process Next Review Type Continued Stay Review
[2023-01-19] MEDS: carvediloL 12.5 MG TABLET 37.5 MG PO ×2 (09:11→20:27)
[2023-01-19] MEDS: risperiDONE 1 MG TABLET 2 MG PO ×2 (09:11→20:27)
[2023-01-19] MEDS: ATORVASTATIN 20 MG TABLET 40 MG PO (09:11)
[2023-01-19] MEDS: DULOXETINE 30 MG CAPSULE 60 MG PO (09:12)
[2023-01-19] MEDS: GABAPENTIN 300 MG CAPSULE PO ×3 (09:12→20:27)
[2023-01-19] MEDS: TAMSULOSIN 0.4 MG CAPSULE PO (09:12)
[2023-01-19] MEDS: cefTRIAXone 2,000 MG in SODIUM CHLORIDE 0.9% 100 ML 200 MG IV (11:50)
--- NOTE | 2023-01-19 14:55 | PT.IIE ---
Current Diagnoses Acute respiratory failure, unspecified whether with hypoxia or hypercapnia (01/18/23) Surgical History (Last Reviewed 01/18/23 @ 18:40 by Eliu Guzman MD) 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 Medical History (Last Reviewed 01/18/23 @ 18:40 by Eliu Guzman MD) Atrial fibrillation (Unknown) DDD (degenerative disc disease), lumbar (~2017) DJD (degenerative joint disease), lumbosacral (~2018) Hematuria Hip dislocation, right History of colon polyps Obesity (BMI 30-39.9) (Unknown) Obstructive sleep apnea of adult (~2006) Rectal bleeding Urinary retention UTI (urinary tract infection) Physical Therapy Inpatient Evaluation/Re-Eval M1 PT/OT-IP Prior Functional Status Start: 01/19/23 13:42 Freq: NEEDED Status: Active Protocol: Document 01/19/23 14:55 DLM (Rec: 01/19/23 15:47 DL [id number]) Medical Review Prior Functional Status Medical History Reviewed Yes Diet/Fluid Consistency Regular Communication WFL, impaired memory Mobility and Gait ambulates short distances house to car with FWW, has been using the wheelchair more often at home, he has been able to transfer wheelchair to toilet using grab bar, he has an adjustable bed Activities of Daily Living and IADL's home CPAP, getting on/off toilet on his own, he also uses a urinal, he needs assist for dressing and showers, his uses a transfer assist device like the imelda steady to wheel him into the shower Prior Functional Level (Other details) his reports they have an order for a gilles but have not used one yet Social History Household Members spouse Living Arrangements House Number of Floors (Floors) One Floor Number of Stairs To Enter/Railing? ramp Home Environment Standard Height Toilet,Walk in Shower Home Equipment Front Wheel Walker,Manual Wheelchair,Shower Seat without Backrest,Hospital Bed,Grab Bars Near Toilet,Grab Bars In Shower Employment Status Retired M2 PT-IP Current Condition Start: 01/19/23 13:42 Freq: NEEDED Status: Active Protocol: Document 01/19/23 14:55 DLM (Rec: 01/19/23 15:47 DL [id number]) Physical Therapy Current Condition Current Condition Evaluation Date 01/19/23 Treatment Diagnosis PNA, metapneumovirus, weakness and gait impairment Onset Date 01/18/23 M3 PT-IP Subjective Start: 01/19/23 13:42 Freq: NEEDED Status: Active Protocol: Document 01/19/23 14:55 DLM (Rec: 01/19/23 15:47 DLM [id number]) Subjective Physical Therapy Visit Type Type Initial Evaluation Visit Start Time 14:00 Visit Stop Time 14:55 Total Visit Minutes 55 Number of OCCUPATIONAL THER Visits 0 Physical Therapy Visit Comments Patient Comments His is worried about him getting his strength back from being sick. She wants to keep him home but is open to SNF rehab if needed at discharge. Patient Goals get stronger and be able to return home Therapy Pain Assessment Pain When Pain Assessed During Mobility Pain Present Pain Present Denied Pain M4 PT-IP Mobility and Gait Start: 01/19/23 13:42 Freq: NEEDED Status: Active Protocol: Document 01/19/23 14:55 DLM (Rec: 01/19/23 15:47 DLM [id number]) PT-Bed Mobility Assessment Supine to Sit Supine to Sit Moderate Assistance,Maximum Assistance,Head of Bed Elevated,Bedrails Scooting Scooting to Edge of Bed Minimal Assistance,Moderate Assistance Scooting Up and Down in Bed Dependent PT-Transfer Assessment Sit to and From Stand Sit to and from Stand Maximum Assistance,Use of Upper Extremities Equipment Transfer Assistive Device Gait Belt,Front Wheeled Walker Transfers Transfer Destination Bedside Commode Transfer Technique Stand Pivot Transfer Ability Level of Assist 2 Person Assistance,Use of Upper Extremities Comments Mobility Comments Pt has great difficulty pushing up to standing from sitting with LE weakness. Once on his feet he can bear weight on his LE's but fatigues quickly. His trunk is very flexed in standing and he can not achieve an erect position (his reports this has been a problem at baseline). He has difficulty taking steps to complete a transfer bed to bedside commode. He had a BM on the BSC. He stood 3 times to complete getting cleaned up then the recliner was pulled up behind him. Pt left sitting up in the recliner with call light close. Pt is on 4 LPM oxygen with n.c. Gait Assessment Comments Gait Comments He was not able to progress to gait due to LE weakness and shortness of breath. Stair Climbing Assessment Comments Stair Climbing Comments no stairs at home PT-Balance Assessment Sitting Balance and Reactions Static Sitting Balance Ability Fair Dynamic Sitting Balance Ability Fair Standing Balance and Reactions Static Standing Balance Ability Fair Dynamic Standing Balance Ability Fair Device Used FWW M5 PT-IP Objective Assessments Start: 01/19/23 13:42 Freq: NEEDED Status: Active Protocol: Document 01/19/23 14:55 DLM (Rec: 01/19/23 15:47 DLM [id number]) Orientation Orientation/Cognition Level of Alertness Alert Orientation Name,Place,Situation Language Function Ability No Deficits Noted Safety Awareness Understands Safety Issues Memory Description Short Term Impaired Comments noted slow mental processing, he got confused between the bed remote vs the remote for the call button Gross Range of Motion Upper Extremity ROM Assessment Within Functional Limits Lower Extremity ROM Assessment Within Functional Limits Impairments LE edema Strength Upper Extremity Strength Assessment Bilaterally Impaired Lower Extremity Strength Assessment Bilaterally Impaired Hip needs assist to lift LE off bed Knee functional weakness sit-stand Ankle DF 4/5 Comments Strength Comments generalized weakness throughout Coordination Assessment Gross Coordination Gross Coordination WNL Sensation Assessment Sensation Gross Sensation Right LE Impaired,Left LE Impaired Sensation Description Numbness Comments Sensation Comments LE edema Muscle Tone Muscle Tone WNL Yes M6 PT-IP Treatment Start: 01/19/23 13:42 Freq: NEEDED Status: Active Protocol: Document 01/19/23 14:55 DLM (Rec: 01/19/23 15:47 DLM [id number]) Physical Therapy Treatment Exercises Exercises Ankle Pumps Education Education Provided Safety M7 PT-IP Assessment and Plan Start: 01/19/23 13:42 Freq: NEEDED Status: Active Protocol: Document 01/19/23 14:55 DLM (Rec: 01/19/23 15:47 DL [id number]) PT Summary Assessment and Plan Potential Rehabilitation Potential Good Status of Condition at Evaluation Evolving Summary Impairments ROM,Strength,Balance,Sensation ,Bed Mobility,Transfers,Gait, Activity Tolerance Assessment Summary Vinicio is alert and reports he needs to get up to have a BM. Pt needs a bariatric commode so coordinated with nursing to get him equipment. Pt was incontinent of stool while getting up. He has great difficulty getting to standing and taking steps to transfer to the bedside commode. He fatigues quickly with light activity with shortness of breath. He is on supplemental oxygen with nasal cannula. Pt left up in recliner. His arrived at the end of this visit and is open to SNF rehab at discharge if needed. She has been caring for him at home but understands he is much weaker than he was at baseline. Based on the treatment today I anticipate he will need SNF rehab to assist with his functional recovery. Will continue to assess for discharge and if he regains enough strength than he can discharge home with his and home health.Recommend OT consult. Goals Bed Mobility Goal Standby Assistance Transfer Goal Standby Assistance,Front Wheeled Walker Gait Goal Standby Assistance,Front Wheel Walker Gait Distance 50 feet Days to Meet Goals 10 Frequency of Treatment Frequency Of Treatment Once a Day Treatment Plan Physical Therapy Treatment Plan Bed Mobility Training,Transfer Training,Gait Training, Therapeutic Exercise,Balance Retraining,Discharge Planning, Neuromuscular Re-ed Precautions Other Precautions high fall risk CPAP New oxygen needs Recommendations To Nursing Amount of Assist Needed 2 Person Assist Discharge Recommendations PT Discharge Recommendations SNF Rehab Transportation Needs at Discharge Wheelchair/Cabulance
[2023-01-19] MEDS: WARFARIN 5 MG TABLET 10 MG PO (17:56)
[2023-01-19] MEDS: AZITHROMYCIN 500 MG in DEXTROSE 5% IN WATER 250 ML 250 MG IV (17:57)
[2023-01-19] MEDS: SODIUM CHLORIDE 0.9% 1,000 ML 100 ML IV (20:27)
[2023-01-20] VITALS (10 sets, daily range): BP systolic 116–144; BP diastolic 64–87; PULSE 60–72; RESP 19–22; TEMP 36.1–36.9; O2SAT 95–100; BMI 41.5
--- NOTE | 2023-01-20 02:29 | PC.NURSE ---
4 liters 02/NC 100 %, turned 02 down to 3 liters SPO2 95%. Will monitor.
[2023-01-20 05:43] LABS: Add Manual Diff / Slide Review NO; Basophils Absolute Auto 0 /uL (0-100); Basophils Percent Auto 0.5 % (0-2); Eosinophils Absolute Auto 100 /uL (0-450); Eosinophils Percent Auto 2.4 % (2-4); Hematocrit 36.7 % (41-53); Hemoglobin 12.3 g/dL (13.5-17.5); Lymphocytes Absolute Auto 1100 /uL (1100-4500); Lymphocytes Percent Auto 25.4 % (25-40); Mean Corpuscular HGB Conc 33.5 % (30-36); Mean Corpuscular Hemoglobin 30.6 PG (26-34); Mean Corpuscular Volume 91.6 fL (80-100); Monocytes Absolute Auto 800 /uL (0-900); Monocytes Percent Auto 17.9 % (3-14); Neutrophils Absolute Auto 2300 /uL (1500-7000); Neutrophils Percent Auto 53.8 % (50-75); Platelet Count 77 X10^3/uL (150-400); Red Cell Distribution Width 15.7 % (11.6-14.8); White Blood Cell Count 4.3 X10^3/uL (4.5-11.0)
[2023-01-20 05:52] LABS: Alanine Aminotransferase 17 IU/L (<50); Albumin 3.1 g/dL (3.5-5.0); Albumin Globulin Ratio 1.2 (1.0-2.8); Alkaline Phosphatase 84 U/L (38-126); Aspartate Aminotransferase 29 IU/L (17-59); BUN Creatinine Ratio 21.1 (6-22); Bilirubin Total 0.6 mg/dL (0.2-1.3); Blood Urea Nitrogen 19 mg/dL (9-20); Calcium 7.9 mg/dL (8.4-10.2); Carbon Dioxide 27 mmol/L (22-32); Chloride 104 mmol/L (98-107); Estimated Glomerular Filt Rate > 60 mL/min (>60); Globulin 2.6 g/dL (1.7-4.1); Glucose 85 mg/dL (80-110); HEMOLYSIS < 15 (0-50); Potassium 3.6 mmol/L (3.4-5.1); Sodium 135 mmol/L (137-145); Total Protein 5.7 g/dL (6.3-8.2)
[2023-01-20] MEDS: SODIUM CHLORIDE 0.9% 1,000 ML 100 ML IV (06:14)
[2023-01-20] MEDS: TAMSULOSIN 0.4 MG CAPSULE PO (08:40)
[2023-01-20] MEDS: ATORVASTATIN 20 MG TABLET 40 MG PO (08:40)
[2023-01-20] MEDS: DULOXETINE 30 MG CAPSULE 60 MG PO (08:40)
[2023-01-20] MEDS: carvediloL 12.5 MG TABLET 37.5 MG PO ×2 (08:40→20:26)
[2023-01-20] MEDS: GABAPENTIN 300 MG CAPSULE PO ×3 (08:41→20:27)
[2023-01-20] MEDS: risperiDONE 1 MG TABLET 2 MG PO ×2 (08:41→20:26)
--- NOTE | 2023-01-20 09:54 | DI.CT.S_ITS ---
PROCEDURE: CT ANGIO CHEST PE PROTOCOL INDICATIONS: acute shortness of breath TECHNIQUE: After the administration of intravenous contrast, 2 mm thick sections acquired from the pulmonary apices to the posterior costophrenic angles. 3-dimensional maximum intensity projection (MIP) coronal and sagittal reformats were then acquired through the thorax. For radiation dose reduction, the following was used: automated exposure control, adjustment of mA and/or kV according to patient size. COMPARISON: [facility], CR, XR CHEST 1V, 01/18/2023, 11:32. FINDINGS: Image quality: Good Lungs and pleura: Bilateral consolidations in the posterior segments. No drainable effusion. Scattered scarring/atelectasis Mediastinum, heart, and esophagus: No pulmonary embolism identified. Cardiomegaly and biatrial enlargement. Annular calcifications around the valves. A left chest wall pulse generator is in place, within electrode lead in right ventricle. No hiatal hernia. Prominent, non-specific lymph nodes are present that are not enlarged by size criteria. Chest wall and thyroid: Left hemithyroidectomy. Chest wall is otherwise unremarkable. Upper abdomen: Possible hepatic steatosis. Cholelithiasis. There is partially visualized air in the right collecting system, along with atrophic appearance of the right kidney. Bones: Nonacute appearing rib fractures. IMPRESSION: No pulmonary embolism. Suspected bibasilar right greater than left pneumonia, with superimposed atelectasis. In this clinical context, borderline enlarged mediastinal hilar lymph nodes may be reactive. Consider future imaging surveillance to assess for resolution. Partially visualized scarring in the right kidney, along with air in the collecting system. Correlate with any recent procedure. This is not well evaluated and only partially seen. Other findings as above. Dictated by: Daljit Handley M.D. on 01/20/2023 at 10:21 Approved by: Daljit Handley M.D. on 01/20/2023 at 10:26
--- NOTE | 2023-01-20 09:55 | P.PN_ITS ---
Subjective Subjective Interval history: CC: short of breath tachycardic with no appetite. totally wiped out no energy. requesting more oxygen up to 4L. moderate UOP last night per nursing, he looks fluid overloaded today, lung generally clear Reports he felt fine at home 4 days ago then had sudden precipitous decline - per hew spends most time in wheelchair although he is capable of ambulation Exam Vital Signs (past 8 hours): - 01/20/23 02:31 01/20/23 02:31 01/20/23 03:59 Temperature 97 F L Pulse Rate 60 Respiratory Rate 20 Blood Pressure 116/67 Pulse Oximetry 100 95 96 Oxygen Delivery Method Nasal Cannula Nasal Cannula Oxygen Flow Rate 4 3 3 01/20/23 08:00 01/20/23 08:40 01/20/23 08:42 Temperature 96.9 F L Pulse Rate 68 68 Respiratory Rate 19 Blood Pressure 134/79 134/79 Pulse Oximetry 96 95 Oxygen Delivery Method Nasal Cannula Oxygen Flow Rate 4 4 Fraction of Inspired Oxygen 36 SaO2/FiO2 Ratio 269 Oxygen Delivery Method Nasal Cannula Oxygen Flow Rate 4 Narrative Exam Narrative: exhausted alert obese male laying in bed with tv off blinds drawn Const General: well developed Nutritional Appearance: obese Resp Other: moving air ok, grossly clear to auscultation no wheezing Cardio Other: fast rate with regular rhythm dropping beats looks puffy pitting edema 2+ in ankles GI Other: soft nontender nondistended normal bowel sounds Skin Other: healing old surgical orthopedic wounds on R knee do not look infected, ROM ok Neuro General: patient alert, patient awake and patient oriented x3 Objective Labs 01/20/23 05:21 01/20/23 05:21 Labs: Laboratory Results - last 24 hr 01/20/23 01/20/23 05:21 05:21 WBC 4.3 L RBC 4.00 L Hgb 12.3 L Hct 36.7 L MCV 91.6 MCH 30.6 MCHC 33.5 RDW 15.7 H Plt Count 77 L Neut % (Auto) 53.8 Lymph % (Auto) 25.4 [place] % (Auto) 17.9 H Eos % (Auto) 2.4 Baso % (Auto) 0.5 Neut # (Auto) 2300 Lymph # (Auto) 1100 [place] # (Auto) 800 Eos # (Auto) 100 Baso # (Auto) 0 Sodium 135 L Potassium 3.6 Chloride 104 Carbon Dioxide 27 BUN 19 Creatinine 0.90 Estimated GFR > 60 BUN/Creatinine Ratio 21.1 Glucose 85 Calcium 7.9 L Total Bilirubin 0.6 AST 29 ALT 17 Alkaline Phosphatase 84 Total Protein 5.7 L Albumin 3.1 L Globulin 2.6 Albumin/Globulin Ratio 1.2 PFSH Medical History Atrial fibrillation (Unknown) DDD (degenerative disc disease), lumbar (~2018) DJD (degenerative joint disease), lumbosacral (~2018) Hematuria Hip dislocation, right History of colon polyps Obesity (BMI 30-39.9) (Unknown) Obstructive sleep apnea of adult (~2006) Rectal bleeding Urinary retention UTI (urinary tract infection) Surgical History 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 not improving will get CTA chest today looks overloaded has srivastava kidney function good let's diurese continue antibiotics roceph and zithro #hematuria in srivastava bag, hx of bladder cancer look for outpt f/u with urology seems stable kidney function good #dehydration balance hydration against diuresis #memory changes grossly oriented to day and situation today continue home meds #atrial fibrillation on coumadin continue SCDs checking INR was subtherapeutic yesterday #ELIJAH RT to manage dispo: complex patient with multiple issues requiring serious treatment. still requiring O2, maybe a little more, getting CT today, will likely be here a couple more days Code status:? No code MDM: Karen [phone] - spoke with her DVT prophylaxis: on Coumadin w/ SCDs time spent: 55 minutes Time Spent With Patient Critical Care time: I spent a total of [55] minutes of critical care time on this patient's care today; this time is exclusive of procedural time. Quality VTE Deep Vein Thrombosis/Pulmonary Embolism Present on Admission: No
--- NOTE | 2023-01-20 10:23 | PT-IP ANOTE ---
Holding physical therapy treatment this morning. Pt just back from CT. Discussed with his nurse and will wait for CT results to rule out PE before proceeding with physical therapy treatment.
--- NOTE | 2023-01-20 10:25 | OT.IPNOTE ---
Pt getting CT scan to check for possible PE and therefore to await results prior to doing OT eval.
--- NOTE | 2023-01-20 10:58 | OT.IP.EVAL ---
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 Occupational Therapy Inpatient Evaluation/Re-Eval M1 PT/OT-IP Prior Functional Status Start: 01/19/23 13:42 Freq: NEEDED Status: Active Protocol: Document 01/20/23 10:58 [facility] (Rec: 01/20/23 14:45 [facility] [id number]) Medical Review Prior Functional Status Medical History Reviewed Yes Diet/Fluid Consistency Regular Communication WFL, impaired memory Mobility and Gait ambulates short distances house to car with FWW, has been using the wheelchair more often at home, he has been able to transfer wheelchair to toilet using grab bar, he has an adjustable bed Activities of Daily Living and IADL's home CPAP, getting on/off toilet on his own, he also uses a urinal, he needs assist for mostlt lower body dressing needs and showers, his uses a transfer assist device like the imelda steady to wheel him into the shower Prior Functional Level (Other details) his reports they have an order for a gilles but have not used one yet Social History Household Members spouse Living Arrangements House Number of Floors (Floors) One Floor Number of Stairs To Enter/Railing? 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 M2 OT-IP Current Condition Start: 01/20/23 13:49 Freq: Status: Active Protocol: Document 01/20/23 10:58 [facility] (Rec: 01/20/23 14:45 [facility] [id number]) Occupational Therapy Current Condition Current Condition Evaluation Date 01/20/23 Treatment Diagnosis Acute respiratory failure Diagnosis Onset Date 01/18/23 M3 OT- IP Subjective and Pain Start: 01/20/23 13:49 Freq: Status: Active Protocol: Document 01/20/23 10:58 [facility] (Rec: 01/20/23 14:45 [facility] [id number]) OT- Subjective Occupational Therapy Visit Type Type Initial Evaluation Visit Start Time 10:58 Visit Stop Time 11:55 Total Visit Minutes 57 Occupational Therapy Visit Comments Patient Comments PT present for part of OT session , in additin to nursing. Patient/Caregiver Goals TO get better. OT Pain Assessment Pain When Pain Assessed At Rest Pain Present Pain Present Pain Reported M4 OT- IP ADL's Start: 01/20/23 13:49 Freq: Status: Active Protocol: Document 01/20/23 10:58 [facility] (Rec: 01/20/23 14:45 [facility] [id number]) OT [id number] Comments OT Self-Feeding Comments Not at meal time. OT ADL-Grooming General Evaluation Grooming Ability Standby Assistance Areas Needing Assistance Retrieving/Set-up of Grooming Items Comments OT Grooming Comments set-up of wash cloth so pt able to wash his face OT ADL-Oral Care General Eval Oral Care Ability Standby Assistance Areas of Assistance Retrieving/Set-Up of Items Comments Oral Care Comments Pt able to do while seated with BSC. OT ADL-Dressing General Eval Upper Body Dressing Ability Moderate Assistance Lower Body Dressing Ability Maximum Assistance Comments OT Dressing Comments MODA to help marimar his gown. OT ADL-Toileting General Evaluation Toileting Ability Maximum Assistance Areas Needing Assistance Manage Clothing,Perform Perineal Hygiene Comments OT Toileting Comments BSC hole opening too small for pt to be able to do in addition due to fatigue as well, pt needing MAXA/total assist for hygiene needs. OT ADL-Bathing Comments OT Bathing Comments Sponge bath more appropriate at this time. M5 OT- IP IADL's Start: 01/20/23 13:49 Freq: Status: Active Protocol: Document 01/20/23 10:58 [facility] (Rec: 01/20/23 14:45 [facility] [id number]) OT-Instrumental Activities of Daily Living Deficits IADL Deficits Identified Deficits Home Safety Awareness Awareness of Need for Assistance at Home Good Awareness Medication Management Medication Management Caregiver Administers Money Management Money Management Caregiver Provides Assistance Meal Preparation Meal Preparation Caregiver Provides Assist Stove Polisher Stove Polisher Caregiver Provides Assist M6 OT- IP Functional Cognition Start: 01/20/23 13:49 Freq: Status: Active Protocol: Document 01/20/23 10:58 [facility] (Rec: 01/20/23 14:45 [facility] [id number]) Cognitive Factors Limiting Selfcare Function Cognitive Ability Level of Alertness Alert Patient Orientation Name Attention Span Ability Capable of Focused Attention, Capable of Sustained Attention Ability to Follow Commands Able to Follow One Step Commands with Increased Time, Able to Follow One Step Commands with Repetition Memory Description Short Term Impaired Cognitive Comments Cognitive Assessment Comments Pt is pleasant and able to follow commands for ADL and mobility needs. pt a little slow to process directions and follow commands. OT- Vision and Hearing OT- Vision Assessment Visual Acuity Glasses For Reading M7 OT- IP Mobility and Balance Start: 01/20/23 13:49 Freq: Status: Active Protocol: Document 01/20/23 10:58 [facility] (Rec: 01/20/23 14:45 [facility] [id number]) OT- Bed Mobility Assessment Supine to Sit Supine to Sit Assist Moderate Assistance Sit to Supine Sit to Supine Assist Moderate Assistance OT-Transfer Assessment Sit to and From Stand Sit to and from Stand Minimal Assistance,Moderate Assistance,2 Person Assistance Transfers Transfer Ability Minimal Assistance,2 Person Assistance Technique Transfer Destination Bed,Bedside Commode,Chair Transfer Technique Stand Step Pivot Devices Transfer Assistive Devices Gait Belt,Front Wheeled Walker Comments Mobility Comments Pt needing two person assist for transfers, vc for safety, hand and feet placement and occasional assist to keep the FWW closer to him. OT- Balance Assessment Sitting Balance and Reactions Static Sitting Balance Ability Fair Dynamic Sitting Balance Ability Fair Standing Balance and Reactions Static Standing Balance Ability Fair Dynamic Standing Balance Ability Fair M8 OT- IP Objective Assessments Start: 01/20/23 13:49 Freq: Status: Active Protocol: Document 01/20/23 10:58 [facility] (Rec: 01/20/23 14:45 [facility] [id number]) OT Gross Range of Motion Upper Extremity Range of Motion Assessment Bilaterally Impaired ROM Impairments Pt has flexed posture and decreased AROM for his shoulders. OT Strength Comments Strength Comments BUE elbow to distal 4/5 OT- Coordination Assessment Upper Extremity Finger to Nose Test Within Functional Limits M9 OT- IP Assessment and Plan Start: 01/20/23 13:49 Freq: Status: Active Protocol: Document 01/20/23 10:58 [facility] (Rec: 01/20/23 14:45 [facility] [id number]) OT Summary Assessment and Plan Potential Rehabilitation Potential Good Analytic Complexity at Evaluation Moderate Summary OT Impairments Strength,Balance,Functional Cognition,Functional Mobility, Self-Feeding,Grooming, Toileting,Toilet Transfers, Shower Transfers,Activity Tolerance Progress Towards Goals Slow Progress due to Medical Issues,Slow Progress due to Activity Tolerance Assessment Summary Pt MOD complexity and main barriers are decreased balance , activity tolerance and now needing two person assist for ADL and mobility needs. Pt will greatly benefit from skilled rehab. Goals Self-Feeding Goal Independent Grooming Goal Independent Toileting Goal Minimal Assistance Toilet Transfer Goal Minimal Assistance Shower Transfer Goal Minimal Assistance Days to Meet Goals 20 Frequency of Treatment Frequency Of Treatment Once a Day Treatment Plan OT Treatment Plan ADL Training,Functional Mobility,Patient/Family Education,Discharge Planning Discharge Recommendations OT Discharge Recommendations SNF Rehab Transportation Needs at Discharge Wheelchair/Cabulance
--- NOTE | 2023-01-20 10:58 | OT.IP.EVAL ---
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 Occupational Therapy Inpatient Evaluation/Re-Eval M1 PT/OT-IP Prior Functional Status Start: 01/19/23 13:42 Freq: NEEDED Status: Active Protocol: Document 01/20/23 10:58 [facility] (Rec: 01/20/23 14:45 [facility] [id number]) Medical Review Prior Functional Status Medical History Reviewed Yes Diet/Fluid Consistency Regular Communication WFL, impaired memory Mobility and Gait ambulates short distances house to car with FWW, has been using the wheelchair more often at home, he has been able to transfer wheelchair to toilet using grab bar, he has an adjustable bed Activities of Daily Living and IADL's home CPAP, getting on/off toilet on his own, he also uses a urinal, he needs assist for mostly lower body dressing needs and showers, his uses a transfer assist device like the imelda steady to wheel him into the shower Prior Functional Level (Other details) his reports they have an order for a gilles but have not used one yet Social History Household Members spouse Living Arrangements House Number of Floors (Floors) One Floor Number of Stairs To Enter/Railing? 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 M2 OT-IP Current Condition Start: 01/20/23 13:49 Freq: Status: Active Protocol: Document 01/20/23 10:58 [facility] (Rec: 01/20/23 14:45 [facility] [id number]) Occupational Therapy Current Condition Current Condition Evaluation Date 01/20/23 Treatment Diagnosis Acute respiratory failure Diagnosis Onset Date 01/18/23 M3 OT- IP Subjective and Pain Start: 01/20/23 13:49 Freq: Status: Active Protocol: Document 01/20/23 10:58 [facility] (Rec: 01/20/23 14:45 [facility] [id number]) OT- Subjective Occupational Therapy Visit Type Type Initial Evaluation Visit Start Time 10:58 Visit Stop Time 11:55 Total Visit Minutes 57 Occupational Therapy Visit Comments Patient Comments PT present for part of OT session , in addition to nursing. Patient/Caregiver Goals TO get better. OT Pain Assessment Pain When Pain Assessed At Rest Pain Present Pain Present Pain Reported M4 OT- IP ADL's Start: 01/20/23 13:49 Freq: Status: Active Protocol: Document 01/20/23 10:58 [facility] (Rec: 01/20/23 14:45 [facility] [id number]) OT [id number] Comments OT Self-Feeding Comments Not at meal time. OT ADL-Grooming General Evaluation Grooming Ability Standby Assistance Areas Needing Assistance Retrieving/Set-up of Grooming Items Comments OT Grooming Comments set-up of wash cloth so pt able to wash his face OT ADL-Oral Care General Eval Oral Care Ability Standby Assistance Areas of Assistance Retrieving/Set-Up of Items Comments Oral Care Comments Pt able to do while seated with BSC. OT ADL-Dressing General Eval Upper Body Dressing Ability Moderate Assistance Lower Body Dressing Ability Maximum Assistance Comments OT Dressing Comments MODA to help marimar his gown. OT ADL-Toileting General Evaluation Toileting Ability Maximum Assistance Areas Needing Assistance Manage Clothing,Perform Perineal Hygiene Comments OT Toileting Comments BSC hole opening too small for pt to be able to do in addition due to fatigue as well, pt needing MAXA/total assist for hygiene needs. OT ADL-Bathing Comments OT Bathing Comments Sponge bath more appropriate at this time. M5 OT- IP IADL's Start: 01/20/23 13:49 Freq: Status: Active Protocol: Document 01/20/23 10:58 [facility] (Rec: 01/20/23 14:45 [facility] [id number]) OT-Instrumental Activities of Daily Living Deficits IADL Deficits Identified Deficits Home Safety Awareness Awareness of Need for Assistance at Home Good Awareness Medication Management Medication Management Caregiver Administers Money Management Money Management Caregiver Provides Assistance Meal Preparation Meal Preparation Caregiver Provides Assist Enamel Shader Enamel Shader Caregiver Provides Assist M6 OT- IP Functional Cognition Start: 01/20/23 13:49 Freq: Status: Active Protocol: Document 01/20/23 10:58 [facility] (Rec: 01/20/23 14:45 [facility] [id number]) Cognitive Factors Limiting Selfcare Function Cognitive Ability Level of Alertness Alert Patient Orientation Name Attention Span Ability Capable of Focused Attention, Capable of Sustained Attention Ability to Follow Commands Able to Follow One Step Commands with Increased Time, Able to Follow One Step Commands with Repetition Memory Description Short Term Impaired Cognitive Comments Cognitive Assessment Comments Pt is pleasant and able to follow commands for ADL and mobility needs. pt a little slow to process directions and follow commands. OT- Vision and Hearing OT- Vision Assessment Visual Acuity Glasses For Reading M7 OT- IP Mobility and Balance Start: 01/20/23 13:49 Freq: Status: Active Protocol: Document 01/20/23 10:58 [facility] (Rec: 01/20/23 14:45 [facility] [id number]) OT- Bed Mobility Assessment Supine to Sit Supine to Sit Assist Moderate Assistance Sit to Supine Sit to Supine Assist Moderate Assistance OT-Transfer Assessment Sit to and From Stand Sit to and from Stand Minimal Assistance,Moderate Assistance,2 Person Assistance Transfers Transfer Ability Minimal Assistance,2 Person Assistance Technique Transfer Destination Bed,Bedside Commode,Chair Transfer Technique Stand Step Pivot Devices Transfer Assistive Devices Gait Belt,Front Wheeled Walker Comments Mobility Comments Pt needing two person assist for transfers, vc for safety, hand and feet placement and occasional assist to keep the FWW closer to him. OT- Balance Assessment Sitting Balance and Reactions Static Sitting Balance Ability Fair Dynamic Sitting Balance Ability Fair Standing Balance and Reactions Static Standing Balance Ability Fair Dynamic Standing Balance Ability Fair M8 OT- IP Objective Assessments Start: 01/20/23 13:49 Freq: Status: Active Protocol: Document 01/20/23 10:58 [facility] (Rec: 01/20/23 14:45 [facility] [id number]) OT Gross Range of Motion Upper Extremity Range of Motion Assessment Bilaterally Impaired ROM Impairments Pt has flexed posture and decreased AROM for his shoulders. OT Strength Comments Strength Comments BUE elbow to distal 4/5 OT- Coordination Assessment Upper Extremity Finger to Nose Test Within Functional Limits M9 OT- IP Assessment and Plan Start: 01/20/23 13:49 Freq: Status: Active Protocol: Document 01/20/23 10:58 [facility] (Rec: 01/20/23 14:45 [facility] [id number]) OT Summary Assessment and Plan Potential Rehabilitation Potential Good Analytic Complexity at Evaluation Moderate Summary OT Impairments Strength,Balance,Functional Cognition,Functional Mobility, Self-Feeding,Grooming, Toileting,Toilet Transfers, Shower Transfers,Activity Tolerance Progress Towards Goals Slow Progress due to Medical Issues,Slow Progress due to Activity Tolerance Assessment Summary Pt MOD complexity and main barriers are decreased balance , activity tolerance and now needing two person assist for ADL and mobility needs. Pt will greatly benefit from skilled rehab. Goals Self-Feeding Goal Independent Grooming Goal Independent Toileting Goal Minimal Assistance Toilet Transfer Goal Minimal Assistance Shower Transfer Goal Minimal Assistance Days to Meet Goals 20 Frequency of Treatment Frequency Of Treatment Once a Day Treatment Plan OT Treatment Plan ADL Training,Functional Mobility,Patient/Family Education,Discharge Planning Discharge Recommendations OT Discharge Recommendations SNF Rehab Transportation Needs at Discharge Wheelchair/Cabulance
[2023-01-20 11:39] LABS: INR 1.5 (0.9-1.3); Prothrombin Time 17.1 SECONDS (10.1-12.7)
--- NOTE | 2023-01-20 12:00 | PT.IPTN ---
Current Diagnoses Acute respiratory failure, unspecified whether with hypoxia or hypercapnia (01/18/23) Physical Therapy Treatment Note M2 PT-IP Current Condition Start: 01/19/23 13:42 Freq: NEEDED Status: Active Protocol: Document 01/19/23 14:55 DLM (Rec: 01/19/23 15:47 DLM [id number]) Physical Therapy Current Condition Current Condition Evaluation Date 01/19/23 Treatment Diagnosis PNA, metapneumovirus, weakness and gait impairment Onset Date 01/18/23 M3 PT-IP Subjective Start: 01/19/23 13:42 Freq: NEEDED Status: Active Protocol: Document 01/20/23 12:00 DLM (Rec: 01/20/23 13:40 DLM [id number]) Subjective Physical Therapy Visit Type Type Treatment Note Visit Start Time 11:00 Visit Stop Time 12:00 Total Visit Minutes 60 Notes co-treated with OT for ADL issues while up so will divide the time for billing Number of SPECIAL COLLECTIONS LIBRARIAN Visits 0 Physical Therapy Visit Comments Patient Comments He reports is went okay sitting up in the recliner yesterday. Therapy Pain Assessment Pain When Pain Assessed During Mobility Pain Present Pain Present Pain Reported Location Right Hip Intensity 7 Scale Used Numeric (0 - 10) Description Aching,With Movement Pain Behaviors Guarding M4 PT-IP Mobility and Gait Start: 01/19/23 13:42 Freq: NEEDED Status: Active Protocol: Document 01/20/23 12:00 DLM (Rec: 01/20/23 13:40 DLM [id number]) PT-Bed Mobility Assessment Rolling Level of Assist Moderate Assistance Supine to Sit Supine to Sit Moderate Assistance,Head of Bed Elevated,Bedrails Scooting Scooting to Edge of Bed Moderate Assistance,Maximum Assistance PT-Transfer Assessment Sit to and From Stand Sit to and from Stand Minimal Assistance,Moderate Assistance,2 Person Assistance ,Use of Upper Extremities Equipment Transfer Assistive Device Gait Belt,Front Wheeled Walker Transfers Transfer Destination Chair,Bedside Commode Transfer Technique Stand Step Pivot Transfer Ability Level of Assist Minimal Assistance,2 Person Assistance,Use of Upper Extremities Comments Mobility Comments Pt able to stand more erect today with the FWW. His ability to take small functional steps for the transfer is also better today. Pt up to bedside commode for BM. He stood x 3 to be cleaned then he transfered to the recliner to stay up for lunch. Gait Assessment Comments Gait Comments pt not able to progress to gait this visit, fatigue and pain limited him to a few steps for transfers only, he moves slowly and with increased effort in standing, significant UE support used on fWW to manage right hip area pain with weight bearing Stair Climbing Assessment Comments Stair Climbing Comments no stairs at home PT-Balance Assessment Sitting Balance and Reactions Static Sitting Balance Ability Fair Dynamic Sitting Balance Ability Fair Standing Balance and Reactions Static Standing Balance Ability Fair Dynamic Standing Balance Ability Fair Device Used FWW M5 PT-IP Objective Assessments Start: 01/19/23 13:42 Freq: NEEDED Status: Active Protocol: Document 01/20/23 12:00 DLM (Rec: 01/20/23 13:40 DLM [id number]) Orientation Orientation/Cognition Level of Alertness Alert Orientation Name,Birthday,Month,Situation Language Function Ability No Deficits Noted Safety Awareness Understands Safety Issues Memory Description Short Term Impaired Comments he is able to follow instructions for mobility, he can verbalize his needs, he is accurate in his reports of when he needs to have BM, he gave the year as 2021 when asked, he knows he is not home M6 PT-IP Treatment Start: 01/19/23 13:42 Freq: NEEDED Status: Active Protocol: Document 01/20/23 12:00 DLM (Rec: 01/20/23 13:40 DLM [id number]) Physical Therapy Treatment Exercises Exercises Ankle Pumps,Seated Knee Flexion/Extension Education Education Provided Safety Other Treatments Other Treatment Performed weight shifting in sitting for balance training, static standing with the FWW with pt trying to stand more erect M7 PT-IP Assessment and Plan Start: 01/19/23 13:42 Freq: NEEDED Status: Active Protocol: Document 01/20/23 12:00 DLM (Rec: 01/20/23 13:40 DLM [id number]) PT Summary Assessment and Plan Summary Impairments ROM,Strength,Balance,Sensation ,Bed Mobility,Transfers,Gait, Activity Tolerance Progress Towards Goals Slow Progress due to Activity Tolerance Assessment Summary Flako is alert and shows good effort with physical therapy. He tends to hold his breath when using a lot of effort and his face turns very red. He needs reminders to breath during mobility. Pt incontinent of stool during this visit of which he was aware but could not get to the bedside commode fast enough to prevent. He fatigues quickly with light activity including standing but it is better than yesterday. He shows improved standing posture with the FWW and improved ability to take functional steps for transfers . He was left up in the recliner for lunch. He needs two person assist for transfers and may need a mechanical lift if he gets very fatigued being up to go back to bed. He is cooperative and verbalizes his needs during this visit. Continue to recommend SNF rehab to assist with his functional recovery before returning home with his . He continues to be below his baseline for mobility and shows good potential to improve. He is using 4 LPM oxygen this visit. Goals Bed Mobility Goal Standby Assistance Transfer Goal Standby Assistance,Front Wheeled Walker Gait Goal Standby Assistance,Front Wheel Walker Gait Distance 50 feet Days to Meet Goals 10 Frequency of Treatment Frequency Of Treatment Once a Day Treatment Plan Physical Therapy Treatment Plan Bed Mobility Training,Transfer Training,Gait Training, Therapeutic Exercise,Balance Retraining,Discharge Planning, Neuromuscular Re-ed Other Recommendations and Next Treatment he has an adjustable bed at [facility] Precautions Other Precautions high fall risk CPAP New oxygen needs nursing to use mechanical lift when pt fatigued to decreased fall risks Recommendations To Nursing Amount of Assist Needed 2 Person Assist,Mechanical Lift Discharge Recommendations PT Discharge Recommendations SNF Rehab Transportation Needs at Discharge Wheelchair/Cabulance
[2023-01-20] MEDS: BUMETANIDE 1 MG/4 ML VIAL IV (12:02)
[2023-01-20] MEDS: cefTRIAXone 2,000 MG in SODIUM CHLORIDE 0.9% 100 ML 200 MG IV (12:05)
--- NOTE | 2023-01-20 16:11 | CM.DPC ---
DCP Continued: CM called krystle at [facility] who agreed to accept the patient when he is medically stable for Discharge. patient is currently on 4L of oxygen and has IV Abx at this time. CM team will follow up with MD in the morning to determine if patient is ready for dc or if he will need more time. Cm called patients Karen and let her know that [facility] can accept the patient when he is medically ready for DC. She agreed with this plan and is planning on following up in AM to determine if patient will be ready for DC tomorrow or not. CM team will also follow up with patients with plan after rounds in AM. MEHDI needed Gabriela Lou RNgolf course manager
[2023-01-20] MEDS: WARFARIN 5 MG TABLET 10 MG PO (16:37)
[2023-01-20] MEDS: AZITHROMYCIN 500 MG in DEXTROSE 5% IN WATER 250 ML 250 MG IV (18:24)
[2023-01-21 00:22] VITALS: BP 125/77; PULSE 64; RESP 22; TEMP 36.6; O2SAT 95
[2023-01-21 04:58] VITALS: BP 146/88; PULSE 73; RESP 22; TEMP 36; O2SAT 97
[2023-01-21 07:00] VITALS: O2SAT 96
[2023-01-21 08:00] VITALS: BP 132/69; PULSE 77; RESP 20; TEMP 36.3; O2SAT 94
--- NOTE | 2023-01-21 08:31 | PM.PN.1 ---
Subjective Subjective Date Patient Seen: 01/21/23 Time Patient Seen: 08:31 Interval history: Patient seen in follow-up of pneumonia and respiratory failure. Feeling better today. He is off his oxygen. Do well. Physical therapy did get him up and moving around but he was a 2 person assist. No other changes. Still has Baez. Exam Vital Signs (past 8 hours): - 01/21/23 04:58 Temperature 96.8 F L Pulse Rate 73 Respiratory Rate 22 Blood Pressure 146/88 H Pulse Oximetry 97 Oxygen Flow Rate 0 Fraction of Inspired Oxygen 36 SaO2/FiO2 Ratio 269 Oxygen Delivery Method Room Air Oxygen Flow Rate 0 Narrative Exam Narrative: Alert male in no acute distress Lungs are clear heart is regular rate and rhythm extremities look good Objective Labs 01/20/23 05:21 01/20/23 05:21 Labs: Laboratory Results - last 24 hr 01/20/23 11:10 PT 17.1 H INR 1.5 H PFSH Medical History Atrial fibrillation (Unknown) DDD (degenerative disc disease), lumbar (~2017) DJD (degenerative joint disease), lumbosacral (~2018) Hematuria Hip dislocation, right History of colon polyps Obesity (BMI 30-39.9) (Unknown) Obstructive sleep apnea of adult (~2006) Rectal bleeding Urinary retention UTI (urinary tract infection) Surgical History 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 Stable. Much improved. Off of oxygen. Seems to be doing well. Probably secondary to pneumonia. Hematuria. Will need follow-up with his usual urologist. Discontinue Baez. Pneumonia. On antibiotics. Will continue IV until discharge. Time Spent With Patient Critical Care time: I spent a total of [] minutes of critical care time on this patient's care today; this time is exclusive of procedural time. Quality VTE Deep Vein Thrombosis/Pulmonary Embolism Present on Admission: No
--- NOTE | 2023-01-21 08:43 | P.DS_ITS ---
History of Present Illness History of Present Illness Date Patient Seen: 01/21/23 Time Patient Seen: 08:44 Date of Onset of Symptoms: 01/18/23 Chief complaint: Fever, SOB, Dizziness Narrative: Patient is a 82-year-old male well known to me who presents with 24 hours of fatigue and cough. Cough has been productive with green to yellow sputum. Today woke up just feeling incredibly weak. He is had no chest pain. Has had a low-grade fever. Took some Tylenol today. Had no other significant change. He is had no nausea no vomiting but has not had a really great appetite. He is had no abdominal pain. No change in urine. Patient has had a history of hematuria and does not feel like that is really been a change. Has not seen a urologist for that. Otherwise no change. Apparently has been sick recently. Otherwise no change. Discharge Providers Provider Date of admission: 01/18/23 14:31 Discharge Date: 01/21/23 Primary care physician: Eliu Guzman MD Consults: 01/19/23 08:50 Consult to Physical Therapy Evaluate & Treat Comment: Physician Instructions: Evaluate and Treat 01/20/23 08:20 Consult to Occupational Therapy Evaluate & Treat Comment: Physician Instructions: Evaluate and treat Discharge provider: Eliu Guzman MD Summary Hospital Course Discharge Diagnosis: Acute respiratory failure Pneumonia Hematuria with history of bladder cancer Dehydration Memory changes Atrial fibrillation Sleep apnea Hospital Course: Patient was admitted the hospital and was requiring 4 L of O2. That rapidly decreased to. It was felt it was secondary to pneumonia but patient was not improving and CT scan was obtained to rule out DVT or PE. None was found. CT s howed pneumonia. Patient continued to improve. Was off on oxygen on day of discharge. Pneumonia. Patient was found to have an O2 requirement x-ray did not show anything but CT scan did. Responded well to Rocephin and Zithromax. Blood culture was positive for Gram-positive cocci which probably was contaminant. Doubt was septicemic. No other changes. Patient responded well. Was off oxyge n. Had no white count or fever during his stay. Will continue on Ceftin for 7 days. Discontinue Zithromax. Hematuria. Patient has history of bladder cancer. It was not obstructive. His Baez was discontinued and has been doing well otherwise. I suspect will need outpatient Urology evaluation. Dehydration. Patient was gently hydrated over the 1st 48 hours. He is done well since and has no problems. Memory changes. Patient has early dementia. Has had longstanding issues is on antipsychotic which does well for him. No other changes. Weakness. Patient is markedly weak. Probably secondary to his infection. Will need rehab. Will [facility] to [facility]. Atrial fibrillation. Patient with well-controlled rate. INR has been low. May need extra Coumadin support. Would follow closely as outpatient. Sleep apnea stable Exam Vital Signs (past 8 hours): - 01/21/23 04:58 Temperature 96.8 F L Pulse Rate 73 Respiratory Rate 22 Blood Pressure 146/88 H Pulse Oximetry 97 Oxygen Flow Rate 0 Fraction of Inspired Oxygen 36 SaO2/FiO2 Ratio 269 Oxygen Delivery Method Room Air Oxygen Flow Rate 0 Narrative Exam Narrative: Alert elderly male in no acute distress Lungs are clear heart regular rate and rhythm extremities are with mild edema bu t no other changes. 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 Social History household members: spouse Smoking Status: Former smoker alcohol intake: current Discharge Assessment & Plan Assessment and Plan Assessment: Discharge Plan of Treatment: Transferred to rehab Discharge Plan Discharge Plan Patient Disposition: SNF Transfer to: [facility] Under care of provider: facility provider Consult as needed: Mental health and Podiatry Discharge orders & Medications Prescriptions: New cefuroxime axetil 500 mg tablet 500 mg PO BID Qty: 14 0RF Continued tamsulosin [Flomax] 0.4 MG capsule,extended release 24hr 0.4 mg PO QDAY 7 Days Qty: 0 0RF carvedilol 25 mg tablet 37.5 mg PO BID warfarin 10 mg tablet 10 mg PO DAILY rosuvastatin [Crestor] 20 mg tablet 20 mg PO DAILY Patient Comments: Take one by mouth every day duloxetine 60 mg capsule,delayed release(DR/EC) 60 mg PO DAILY Patient Comments: TAKE ONE CAPSULE BY MOUTH ONE TIME DAILY FOR DEPRESSION OR CHRONIC PAIN furosemide 40 mg tablet 40 mg PO DAILY Patient Comments: TAKE ONE TABLET BY MOUTH ONE TIME DAILY risperidone 2 mg tablet 2 mg PO BID Patient Comments: TAKE ONE TABLET BY MOUTH TWICE DAILY (DME) Respironics Dreamstation CPAP Qty: 1 Dose Instruction: As directed Patient Comments: Pressure: 10-15 cmH2O DME: [facility] Instructions: As directed gabapentin 300 mg capsule 300 mg PO TID Follow up/Referrals: Eliu Guzman MD [Primary Care Provider] - (after rehab when finished) Discharge Health Status Multidrug resistant organism: No MDRO Precautions: [place] Diet/Activity/Treatments Diet: Diet as Tolerated Liquid consistency: Normal/Thin Food texture: Regular Activity: as tolerated Skin/Wound/Dressing Care Report to your healthcare provider any signs of infection, such as:: chills, fever and night sweats Visit Report/Discharge Packet Instructions: Human Metapneumovirus Infection Stand Alone Forms: Patient Portal/API Discharge Data Primary Care Provider: Eliu Guzman Quality VTE Deep Vein Thrombosis/Pulmonary Embolism Present on Admission: No
--- NOTE | 2023-01-21 08:55 | PT.IPTN ---
Current Diagnoses Acute respiratory failure, unspecified whether with hypoxia or hypercapnia (01/18/23) Physical Therapy Treatment Note M2 PT-IP Current Condition Start: 01/19/23 13:42 Freq: NEEDED Status: Active Protocol: Document 01/19/23 14:55 DLM (Rec: 01/19/23 15:47 DLM [id number]) Physical Therapy Current Condition Current Condition Evaluation Date 01/19/23 Treatment Diagnosis PNA, metapneumovirus, weakness and gait impairment Onset Date 01/18/23 M3 PT-IP Subjective Start: 01/19/23 13:42 Freq: NEEDED Status: Active Protocol: Document 01/21/23 09:35 TS (Rec: 01/21/23 10:07 TS [id number]) Subjective Physical Therapy Visit Type Type Treatment Note Visit Start Time 08:55 Visit Stop Time 09:30 Total Visit Minutes 35 Notes O2: 90 RA supine, 92 RA after mobilization, 93 RA bedside chair. Physical Therapy Visit Comments Patient Comments He reports he didn't sleep very well last night, did not report any pain during treatment, agreeable to PT session. M4 PT-IP Mobility and Gait Start: 01/19/23 13:42 Freq: NEEDED Status: Active Protocol: Document 01/21/23 09:35 TS (Rec: 01/21/23 10:07 TS [id number]) PT-Bed Mobility Assessment Rolling Type of Rolling Roll to Left Level of Assist Minimal Assistance Supine to Sit Supine to Sit Minimal Assistance,1 Person Assistance Scooting Scooting to Edge of Bed Standby Assistance PT-Transfer Assessment Sit to and From Stand Sit to and from Stand Minimal Assistance,2 Person Assistance Comments Mobility Comments Pt found resting in bed and agreeable to PT session. Pt performed rolling to left side Ceci requiring cues for BUE support on handrail. He performed supine to sit with Ceci for LE's and cues for use of BUE support on handrails and bed to assit trunk into upright position. He scooted EOB SBA requring cues for feet flat on floor and upright posture. He performed sit to stand MinAx2 with cues for BUE support pushing from bed. In standing he peformed january x2 ea LE with no signs of buckling. He progressed his ambulation x10' to toilet with flexed posture and decreased step length, demonstrated some labored breathing but O2 92% on RA. He required cues for FWW management in the bathroom and use of grab bars for eccentric control CGA. He performed another sit to stand Ceci x1 and cues for LUE on grab bars to come into standing. He mabulated x8' to bedside chair with continued flexed posture and decreased step length. He was left in bedside chair with call light nearby, O2 93% RA, chair alarm , and INFORMATION MANAGEMENT SPECIALIST in room. Gait Assessment Gait Gait Assistance Required: Minimum Assistance Distance (Feet) 18 Assistive Devices Assistive Device Gait Belt,Front Wheeled Walker Gait Deviations General Gait Pattern Decreased Stride Length, Decreased Feet Clearance, Flexed Trunk,Step-to Gait Factors Limiting Gait Function Factors Limiting Gait Function Decreased Activity Tolerance, Decreased Strength Comments Gait Comments See mobility comments Stair Climbing Assessment Comments Stair Climbing Comments no stairs at home PT-Balance Assessment Sitting Balance and Reactions Static Sitting Balance Ability Good Dynamic Sitting Balance Ability Fair Standing Balance and Reactions Static Standing Balance Ability Fair Dynamic Standing Balance Ability Fair Device Used FWW M5 PT-IP Objective Assessments Start: 01/19/23 13:42 Freq: NEEDED Status: Active Protocol: Document 01/20/23 12:00 DLM (Rec: 01/20/23 13:40 DLM [id number]) Orientation Orientation/Cognition Level of Alertness Alert Orientation Name,Birthday,Month,Situation Language Function Ability No Deficits Noted Safety Awareness Understands Safety Issues Memory Description Short Term Impaired Comments he is able to follow instructions for mobility, he can verbalize his needs, he is accurate in his reports of when he needs to have BM, he gave the year as 2021 when asked, he knows he is not home M6 PT-IP Treatment Start: 01/19/23 13:42 Freq: NEEDED Status: Active Protocol: Document 01/21/23 09:35 TS (Rec: 01/21/23 10:07 [id number]) Physical Therapy Treatment Education Education Provided Safety Other Treatments Other Treatment Performed Maintained good midline sitting balance with flexed posture and BUE support. In standing he performed marches x2 ea LE no signs of buckling but has flexed posture. M7 PT-IP Assessment and Plan Start: 01/19/23 13:42 Freq: NEEDED Status: Active Protocol: Document 01/21/23 09:35 TS (Rec: 03/17/23 10:07 TS [id number]) PT Summary Assessment and Plan Summary Impairments ROM,Strength,Balance,Sensation ,Bed Mobility,Transfers,Gait, Activity Tolerance Progress Towards Goals Slow Progress due to Activity Tolerance Assessment Summary Flako progressed his bed mobility this session to Ceci for LE's and could upright torse with HOB raised. He progressed his ambulation to 18' this session, requesting to use toilet not bedside commode. He remains x2 person assist due to weakness and large size. His O2 levels remained above 90% throughout session, had some labored breathing/fatigue after ambulation. PT continues to recommend SNF to improve strength, bed mobility, transfers and gait. Goals Bed Mobility Goal Standby Assistance Transfer Goal Standby Assistance,Front Wheeled Walker Gait Goal Standby Assistance,Front Wheel Walker Gait Distance 50 feet Days to Meet Goals 10 Frequency of Treatment Frequency Of Treatment Once a Day Treatment Plan Physical Therapy Treatment Plan Bed Mobility Training,Transfer Training,Gait Training, Therapeutic Exercise,Balance Retraining,Discharge Planning, Neuromuscular Re-ed Other Recommendations and Next Treatment he has an adjustable bed at [facility] Precautions Other Precautions high fall risk CPAP New oxygen needs (currently not on oxygen) nursing to use mechanical lift when pt fatigued to decreased fall risks Recommendations To Nursing Amount of Assist Needed Mechanical Lift Discharge Recommendations PT Discharge Recommendations SNF Rehab Transportation Needs at Discharge Wheelchair/Cabulance
[2023-01-21 08:56] VITALS: BP 132/69; PULSE 77
[2023-01-21] MEDS: risperiDONE 1 MG TABLET 2 MG PO (08:56)
[2023-01-21] MEDS: GABAPENTIN 300 MG CAPSULE PO (08:56)
[2023-01-21] MEDS: ATORVASTATIN 20 MG TABLET 40 MG PO (08:56)
[2023-01-21] MEDS: carvediloL 12.5 MG TABLET 37.5 MG PO (08:56)
[2023-01-21] MEDS: TAMSULOSIN 0.4 MG CAPSULE PO (08:56)
[2023-01-21] MEDS: DULOXETINE 30 MG CAPSULE 60 MG PO (08:56)
[2023-01-21 09:36] VITALS: BP 147/68; PULSE 85; RESP 18; TEMP 36.4; O2SAT 98
--- NOTE | 2023-01-21 11:24 | CM.DPNOTE ---
DC Note Patient discharged today to [facility] by Dr Guzman. An at [facility] is prepared and sets a transport time for 1100 p/u, no COVID PCR needed. PASRR completed by NEVIN De La Torre RN, DIRECTOR SPECIALTY, kindly agreed to coordinate the remainder of this DCP. All DC ppk faxed, RN alerted re time for p/u and report number Met w/patient to review plan, patient in good spirits, states agreeable to plan and requests this VASCULAR MANAGER update spouse Karen Placed call to spouse Karen, updated. Karen states concern that no one called me earlier than this, I live on [address]. Provided listening support to spouse; offered to get in touch w/Dr Guzman on her behalf and spouse denies need, says she has already left Dr Guzman a message at his clinic Spouse inevitably agreeable to plan and says she will attempt to get over to [place] [facility] Plan: Discharge to [facility] via w/c (gilles into w/c) JW
[2023-01-21 11:25] LABS: COVID19 -Nasal RAPID Negative (Negative)
--- NOTE | 2023-01-21 12:41 | PC.NURSE ---
Pt is A&Ox2, VSS, afebrile weaned to RA. Pt is a moderate assist x2 out of bed to bathroom. MD Guzman at bedside clearing patient for discharge to SNF today. Per orders patient's srivastava catheter is removed at 0930, 550 kindra colored urine output (noted x2 blood clots after srivastava removal) He is able to void a small amount in the toilet (uncollected) with large BM. Maris Smith notified of history of hematauria and to monitor for output, possible clotting with report called this a.m. He is transported via w/h this a.m. for transport with facility designee at approximately 1120 a.m. notified and states he is on her way in [facility]. All belongings including CPAP machine and shoes with patient.
== END 2023-01-21 11:20 | DRG 193 ==
LOC: ED 12:13 → AC 14:32
PROVIDERS: Family Medicine; Admitting Provider Family Medicine; Emergency Provider Emergency Medicine; Family Provider Family Medicine; PCP Family Medicine; Referring Provider Emergency Medicine; Visit Provider Family Medicine
DX: J18.9 Pneumonia, unspecified organism (principal); J96.00 Acute respiratory failure, unspecified whether with hypoxia or hypercapnia; E86.0 Dehydration; I48.91 Unspecified atrial fibrillation; E78.5 Hyperlipidemia, unspecified; R31.9 Hematuria, unspecified; F03.90 Unspecified dementia, unspecified severity, without behavioral disturbance, psychotic disturbance, mood disturbance, and anxiety; Z20.822 Contact with and (suspected) exposure to COVID-19; Z79.01 Long term (current) use of anticoagulants; Z87.891 Personal history of nicotine dependence
CPT/HCPCS: 36415; 36600; 51700; 71045; 71275; 80053; 81001; 82550; 82805; 83605; 83690; 83880; 84145; 84484; 85025; 85610; 85730; 87040; 87077; 87147; 87633; 87635; 93005; 93010; 94760; 96365; 97112; 97162; 97166; 97530; 99284; 99285; C9803; J0696; Q9967

== ENCOUNTER 2023-01-23 12:50 | Inpatient (IN) | payer MEDICARE, OTHER, SELFPAY ==
[2023-01-20 04:21] VITALS: BMI 41.5
[2023-01-23] VITALS (36 sets, daily range): BP systolic 99–179; BP diastolic 59–121; PULSE 61–94; RESP 14–26; TEMP 35.6–36.8; O2SAT 93–99; BMI 40.5
--- NOTE | 2023-01-23 13:02 | ED.SOB ---
HPI - SOB/Dyspnea <Romi Angela PA-C - Last Filed: 01/23/23 19:58> General Chief Complaint: Shortness of Breath/Dyspnea Stated Complaint: PNA cough SOB Time Seen by Provider: 01/23/23 12:50 History of Present Illness HPI Narrative: 82-year-old male history of cardiac pacemaker, AFib, morbid obesity, ELIJAH, mild dementia. Presents from [facility] brought in by EMS with concern for non improvement and suspected worsening in the setting of a pneumonia for which he was admitted here at [facility] for 4 days and then transferred to [facility] where he has been for 2 days. Patient endorses significant generalized weakness which has been persistent since becoming ill, feeling short of breath, crackles in his lungs, and generally feeling unimproved. Patient does state he feels his breathing is not any better than previously when he was in the hospital. He endorses that his lower extremity swelling and erythema is chronic for him. Patient's states that he sometimes uses a wheelchair and sometimes uses a walker at home but that 1 week ago he was still capable of getting up and walking around the house on his own without either of these aids she says he has taken a significant decline for the worse. He denies chest pain, nausea, vomiting, pain with inspiration, palpitations, abdominal pain, diarrhea, recent fevers or chills, loss of appetite or other symptoms. Related Data Home Medications Medication Instructions Recorded Confirmed Respironics Dreamstation CPAP #1 [id number] 05/02/19 01/23/23 carvedilol 25 mg tablet 37.5 mg PO BID 05/27/21 01/23/23 duloxetine 60 mg capsule,delayed 60 mg PO DAILY 05/27/21 01/23/23 release rosuvastatin 20 mg tablet (Crestor) 20 mg PO DAILY 05/27/21 01/23/23 warfarin 10 mg tablet 10 mg PO DAILY 05/27/21 01/23/23 gabapentin 300 mg capsule 300 mg PO TID 04/21/22 01/23/23 furosemide 40 mg tablet 40 mg PO DAILY 01/18/23 01/23/23 risperidone 2 mg tablet 2 mg PO BID 01/18/23 01/23/23 Previous Rx's Medication Instructions Recorded tamsulosin 0.4 mg capsule (Flomax) 0.4 mg PO QDAY 7 days #0 caps 07/23/16 cefuroxime axetil 500 mg tablet 500 mg PO BID #14 tabs 01/21/23 Allergies Allergy/AdvReac Type Severity Reaction Status Date / Time No Known Allergies Allergy Verified 10/14/22 13:44 Review of Systems <Romi Angela PA-C - Last Filed: 01/23/23 19:58> Review of Systems Narrative: Unremarkable except as noted in the HPI Patient History <Romi Angela PA-C - Last Filed: 01/23/23 19:58> Medical History Atrial fibrillation (Unknown) DDD (degenerative disc disease), lumbar (~2018) DJD (degenerative joint disease), lumbosacral (~2017) Hematuria Hip dislocation, right History of colon polyps Obesity (BMI 30-39.9) (Unknown) Obstructive sleep apnea of adult (~2006) Rectal bleeding Urinary retention UTI (urinary tract infection) Surgical History 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 Social History household members: spouse Smoking Status: Former smoker alcohol intake: current Smoking Status: Former smoker Substance Use Type: marijuana Exam <Romi Angela PA-C - Last Filed: 01/23/23 19:58> Narrative Exam Narrative: GENERAL: 82 year old patient appears stated age. Morbidly obese patient, in mild distress. HEAD: Atraumatic. Normocephalic. EYES: Pupils equal round and reactive 3 mm. Extraocular motions intact. No scleral icterus. No injection or drainage. ENT: Nose without bleeding, purulent drainage. Tongue is very dry, other oral mucous membranes appear moist. Throat without erythema, tonsillar hypertrophy or exudate. Airway patent. NECK: Trachea midline. Non tender CARDIOVASCULAR: Regular rate and rhythm without murmurs, gallops, or rubs. RESPIRATORY: Patient has gross bilateral rhonchi more prominent in the lower turner and most prominent on the left side. No wheezes, rales. GASTROINTESTINAL: Abdomen soft, very protuberant, non-tender, nondistended. EXTREMITIES: Bilateral lower extremity edema nonpitting with brownish erythematous generalized skin discoloration of shins calves and ankles as well as dorsum of feet baseline per patient consistent with chronic venous insufficiency. BACK: Nontender without deformity or crepitance. No flank tenderness. NEURO: AOx3, alert and interactive but slightly slow to respond, generalized weakness. SKIN: See extremities. No rash or erythema of visible areas Initial Vital Signs Initial Vital Signs: Vital Signs Pulse Rate 70 01/23/23 12:54 Pulse Oximetry 94 01/23/23 12:54 <Chaim Duncan DO - Last Filed: 01/24/23 07:55> Initial Vital Signs Initial Vital Signs: Vital Signs Pulse Rate 70 01/23/23 12:54 Pulse Oximetry 94 01/23/23 12:54 Course <Romi Angela PA-C - Last Filed: 01/23/23 19:58> Course Course Narrative: Per Dr. Guzman's note who cared for the patient as an inpatient when admitted, at time of admission Patient was found to have an O2 requirement x-ray did not show anything but CT scan did. Responded well to Rocephin and Zithromax. Blood culture was positive for Gram-positive cocci which probably was suspected to be a contaminant. Patient responded well to antibiotics and was taken off oxygen. Had no white count or fever during his stay. Had plan to continue on Ceftin for 7 days. Discontinue Zithromax. I reviewed the records from [facility] facility and note that the patient does have Ceftin as an active medication. Note that pt's BNP is over 1000 points higher than it was when last evaluated 4 days ago. Did speak with Dr. Cruz, attending physician about this patient, given this is a chronic problem of CHF and the patient does not appear to have a new oxygen requirement and is not short of breath, he does feel given that he is currently in a rehab facility is reasonable to send him back there an increased dose of Lasix for the next few days with follow-up from his regular provider who can see him there. I agree that this plan is reasonable. Patient is on 40 mg of Lasix daily, do order an additional 40 mg of Lasix IV today in the ER. 15:05 Trial of ambulation failed, nursing staff attempted to sit the patient up on the edge of the bed to see if he could urinate in that position and see how he did, he immediately became tachycardic and desaturated to 87%, they placed him on oxygen which brought his sats back up and returned him to reclining position. Given this instability I do feel that [facility] which is not a [place] [facility] facility per nursing staff here is not an appropriate location for this patient and he would be better served with getting further care here or transfer to another facility. Pt has returned and requesting update, will advise of plan to try admit 1611 Hospitalist called back and advised that this is a Dr Haley patient and we should call Dr. Guzman as he does not take call for them for inpatient care. [address] Guzman, patient's physician and noted to be on-call for the provider group per daily call schedule who advises that actually Dr. Aviles is on-call today. He seems agreeable to having this patient come in under their care but requests that we call Dr. Aviles regarding this as Dr. Aviles will have to put in orders. [address] Aviles regarding this patient, she agrees to accept the patient and will put in orders. 173 Decision to Admit Date: 01/23/23 Decision to Admit time: 16:11 Orders Ordered: Acetaminophen (Acetaminophen 325 Mg Tablet) 650 mg PO Q6H PRN PRN Reason: Fever/Mild Pain (1-3) Atorvastatin Calcium (Atorvastatin 20 Mg Tablet) 40 mg PO DAILY [facility] Carvedilol (Carvedilol 12.5 Mg Tablet) 37.5 mg PO BID [facility] Last Admin: 01/23/23 21:08 Dose: 37.5 mg Documented By: DL Cefuroxime Axetil (Cefuroxime 250 Mg Tablet) 500 mg PO BID [facility] Last Admin: 01/23/23 21:09 Dose: Not Given Documented By: DL Duloxetine HCl (Duloxetine 30 Mg Capsule) 60 mg PO DAILY JOEY Furosemide (Furosemide 40 Mg/4 Ml Vial) 40 mg IV Q12HR [facility] Gabapentin (Gabapentin 300 Mg Capsule) 300 mg PO TID [facility] Last Admin: 01/23/23 21:07 Dose: 300 mg Documented By: DL Naloxone HCl (Naloxone 0.4 Mg/Ml Vial) 0.2 mg IV Q2MIN PRN PRN Reason: Opiate Reversal Potassium Chloride (Potassium Chloride 20 Meq Tab) 40 meq PO BIDWM JOEY Risperidone (Risperidone 1 Mg Tablet) 2 mg PO BID JOEY Last Admin: 01/23/23 21:07 Dose: 2 mg Documented By: MERYL Tamsulosin HCl (Tamsulosin 0.4 Mg Capsule) 0.4 mg PO DAILY JOEY Warfarin Sodium (Warfarin 5 Mg Tablet) 10 mg PO DAILY JOEY Discontinued Medications Albuterol (Albuterol 2.5 Mg/3 Ml Neb (Adult)) 2.5 mg INH [id number] PRN PRN Reason: Shortness Of Breath Last Admin: 01/23/23 13:26 Dose: 2.5 mg Documented By: KAILEE Furosemide (Furosemide 40 Mg/4 Ml Vial) 40 mg IV NOW ONE Stop: 01/23/23 15:10 Last Admin: 01/23/23 15:25 Dose: 40 mg Documented By: ELIAS Furosemide (Furosemide 40 Mg/4 Ml Vial) 40 mg IV DAILY JOEY Sodium Chloride (Normal Saline 0.9%) 500 mls @ 16 mls/min IV BOLUS ONE Stop: 01/23/23 14:52 Last Admin: 01/23/23 15:00 Dose: 16 mls/min Documented By: ELIAS Vital Signs Vital signs: Vital Signs - 8 hr 01/23/23 13:07 01/23/23 12:54 01/23/23 12:55 Temperature 97.8 F Pulse Rate 83 70 68 Respiratory Rate 24 Blood Pressure 150/88 H Pulse Oximetry 99 94 95 Oxygen Delivery Method Room Air 01/23/23 12:55 01/23/23 13:00 01/23/23 13:00 Temperature Pulse Rate 84 Respiratory Rate Blood Pressure 179/105 H 150/88 H Pulse Oximetry 94 Oxygen Delivery Method 01/23/23 13:28 01/23/23 13:30 01/23/23 13:30 Temperature Pulse Rate 73 77 Respiratory Rate 18 Blood Pressure 151/107 H Pulse Oximetry 95 94 Oxygen Delivery Method Room Air 01/23/23 14:00 01/23/23 14:00 01/23/23 14:30 Temperature Pulse Rate 76 Respiratory Rate Blood Pressure 148/93 H 133/81 Pulse Oximetry 98 Oxygen Delivery Method 01/23/23 14:30 01/23/23 15:00 01/23/23 15:01 Temperature Pulse Rate 73 61 69 Respiratory Rate Blood Pressure Pulse Oximetry 97 97 97 Oxygen Delivery Method 01/23/23 15:01 01/23/23 15:30 01/23/23 15:30 Temperature Pulse Rate 86 Respiratory Rate Blood Pressure 99/78 149/92 H Pulse Oximetry 97 Oxygen Delivery Method 01/23/23 16:00 01/23/23 16:18 01/23/23 16:18 Temperature Pulse Rate 75 81 Respiratory Rate Blood Pressure 167/92 H Pulse Oximetry 93 96 Oxygen Delivery Method 01/23/23 16:30 01/23/23 16:30 01/23/23 17:00 Temperature Pulse Rate 80 90 Respiratory Rate Blood Pressure 169/97 H Pulse Oximetry 97 96 Oxygen Delivery Method 01/23/23 17:01 01/23/23 17:01 01/23/23 17:08 Temperature Pulse Rate 89 78 Respiratory Rate Blood Pressure 172/121 H Pulse Oximetry 96 96 Oxygen Delivery Method 01/23/23 17:08 01/23/23 17:15 01/23/23 17:15 Temperature Pulse Rate 77 Respiratory Rate Blood Pressure 151/94 H 171/103 H Pulse Oximetry 96 Oxygen Delivery Method 01/23/23 17:30 01/23/23 17:30 Temperature Pulse Rate 63 Respiratory Rate Blood Pressure 168/106 H Pulse Oximetry 95 Oxygen Delivery Method <Chaim Duncan, DO - Last Filed: 01/24/23 07:55> Orders Ordered: Acetaminophen (Acetaminophen 325 Mg Tablet) 650 mg PO Q6H PRN PRN Reason: Fever/Mild Pain (1-3) Atorvastatin Calcium (Atorvastatin 20 Mg Tablet) 40 mg PO DAILY [facility] Carvedilol (Carvedilol 12.5 Mg Tablet) 37.5 mg PO BID [facility] Last Admin: 01/23/23 21:08 Dose: 37.5 mg Documented By: DL Cefuroxime Axetil (Cefuroxime 250 Mg Tablet) 500 mg PO BID [facility] Last Admin: 01/23/23 21:09 Dose: Not Given Documented By: DL Duloxetine HCl (Duloxetine 30 Mg Capsule) 60 mg PO DAILY [facility] Furosemide (Furosemide 40 Mg/4 Ml Vial) 40 mg IV Q12HR [facility] Gabapentin (Gabapentin 300 Mg Capsule) 300 mg PO TID [facility] Last Admin: 01/23/23 21:07 Dose: 300 mg Documented By: DL Naloxone HCl (Naloxone 0.4 Mg/Ml Vial) 0.2 mg IV Q2MIN PRN PRN Reason: Opiate Reversal Potassium Chloride (Potassium Chloride 20 Meq Tab) 40 meq PO BIDWM [facility] Risperidone (Risperidone 1 Mg Tablet) 2 mg PO BID JOEY Last Admin: 01/23/23 21:07 Dose: 2 mg Documented By: MERYL Tamsulosin HCl (Tamsulosin 0.4 Mg Capsule) 0.4 mg PO DAILY JOEY Warfarin Sodium (Warfarin 5 Mg Tablet) 10 mg PO DAILY JOEY Discontinued Medications Albuterol (Albuterol 2.5 Mg/3 Ml Neb (Adult)) 2.5 mg INH [id number] PRN PRN Reason: Shortness Of Breath Last Admin: 01/23/23 13:26 Dose: 2.5 mg Documented By: KAILEE Furosemide (Furosemide 40 Mg/4 Ml Vial) 40 mg IV NOW ONE Stop: 01/23/23 15:10 Last Admin: 01/23/23 15:25 Dose: 40 mg Documented By: ELIAS Furosemide (Furosemide 40 Mg/4 Ml Vial) 40 mg IV DAILY JOEY Sodium Chloride (Normal Saline 0.9%) 500 mls @ 16 mls/min IV BOLUS ONE Stop: 01/23/23 14:52 Last Admin: 01/23/23 15:00 Dose: 16 mls/min Documented By: ELIAS Vital Signs Vital signs: Vital Signs - 8 hr 01/23/23 13:07 01/23/23 12:54 01/23/23 12:55 Temperature 97.8 F Pulse Rate 83 70 68 Respiratory Rate 24 Blood Pressure 150/88 H Pulse Oximetry 99 94 95 Oxygen Delivery Method Room Air 01/23/23 12:55 01/23/23 13:00 01/23/23 13:00 Temperature Pulse Rate 84 Respiratory Rate Blood Pressure 179/105 H 150/88 H Pulse Oximetry 94 Oxygen Delivery Method 01/23/23 13:28 01/23/23 13:30 01/23/23 13:30 Temperature Pulse Rate 73 77 Respiratory Rate 18 Blood Pressure 151/107 H Pulse Oximetry 95 94 Oxygen Delivery Method Room Air 01/23/23 14:00 01/23/23 14:00 01/23/23 14:30 Temperature Pulse Rate 76 Respiratory Rate Blood Pressure 148/93 H 133/81 Pulse Oximetry 98 Oxygen Delivery Method 01/23/23 14:30 01/23/23 15:00 01/23/23 15:01 Temperature Pulse Rate 73 61 69 Respiratory Rate Blood Pressure Pulse Oximetry 97 97 97 Oxygen Delivery Method 01/23/23 15:01 01/23/23 15:30 01/23/23 15:30 Temperature Pulse Rate 86 Respiratory Rate Blood Pressure 99/78 149/92 H Pulse Oximetry 97 Oxygen Delivery Method 01/23/23 16:00 01/23/23 16:18 01/23/23 16:18 Temperature Pulse Rate 75 81 Respiratory Rate Blood Pressure 167/92 H Pulse Oximetry 93 96 Oxygen Delivery Method 01/23/23 16:30 01/23/23 16:30 01/23/23 17:00 Temperature Pulse Rate 80 90 Respiratory Rate Blood Pressure 169/97 H Pulse Oximetry 97 96 Oxygen Delivery Method 01/23/23 17:01 01/23/23 17:01 01/23/23 17:08 Temperature Pulse Rate 89 78 Respiratory Rate Blood Pressure 172/121 H Pulse Oximetry 96 96 Oxygen Delivery Method 01/23/23 17:08 01/23/23 17:15 01/23/23 17:15 Temperature Pulse Rate 77 Respiratory Rate Blood Pressure 151/94 H 171/103 H Pulse Oximetry 96 Oxygen Delivery Method 01/23/23 17:30 01/23/23 17:30 Temperature Pulse Rate 63 Respiratory Rate Blood Pressure 168/106 H Pulse Oximetry 95 Oxygen Delivery Method MDM - SOB/Dyspnea <Romi Angela PA-C - Last Filed: 01/23/23 19:58> Differential Diagnosis Differential diagnosis: Likely congestive heart failure, community acquired pneumonia and other (viral pneumonia, generalized weakness) Medical Records Attestation: I reviewed the patient's medical records. Lab Data Attestation: I reviewed the patient's lab results. 01/24/23 04:18 01/24/23 04:18 Labs: Lab Results 01/23/23 01/23/23 01/23/23 Range/Units 13:03 13:03 13:03 WBC 4.2 L (4.5-11.0) X10^3/uL RBC 4.46 L (4.5-5.9) X10^6/uL Hgb 13.7 (13.5-17.5) g/dL Hct 40.3 L (41-53) % MCV 90.3 (80-100) fL MCH 30.7 (26-34) PG MCHC 34.1 (30-36) % RDW 15.3 H (11.6-14.8) % Plt Count 122 L (150-400) X10^3/uL Neut % (Auto) 60.8 (50-75) % Lymph % (Auto) 24.6 L (25-40) % [place] % (Auto) 11.3 (3-14) % Eos % (Auto) 2.3 (2-4) % Baso % (Auto) 1.0 (0-2) % Neut # (Auto) 2500 (8325-1610) /uL Lymph # (Auto) 1000 L (6074-3308) /uL [place] # (Auto) 500 (0-900) /uL Eos # (Auto) 100 (0-450) /uL Baso # (Auto) 0 (0-100) /uL Sodium 140 (137-145) mmol/L Potassium 3.9 (3.4-5.1) mmol/L Chloride 104 (98-107) mmol/L Carbon Dioxide 33 H (22-32) mmol/L BUN 16 (9-20) mg/dL Creatinine 0.78 (0.66-1.25) mg/dL Estimated GFR > 60 (>60) mL/min BUN/Creatinine Ratio 20.5 (6-22) Glucose 106 (80-110) mg/dL Lactate 1.0 (0.7-2.1) mmol/L Calcium 8.6 (8.4-10.2) mg/dL Total Bilirubin 0.8 (0.2-1.3) mg/dL AST 29 (17-59) IU/L ALT 21 (<50) IU/L Alkaline Phosphatase 102 (38-126) U/L Total Creatine Kinase 84 (55-170) U/L CK-MB (CK-2) TNP CK-MB (CK-2) Rel Index TNP Troponin I 0.026 (0.01-0.034) ng/mL NT-Pro-B Natriuret Pep (<450) pg/mL Total Protein 6.8 (6.3-8.2) g/dL Albumin 3.7 (3.5-5.0) g/dL Globulin 3.1 (1.7-4.1) g/dL Albumin/Globulin Ratio 1.2 (1.0-2.8) Procalcitonin 0.05 (<0.5) ng/mL 01/23/23 Range/Units 13:03 WBC (4.5-11.0) X10^3/uL RBC (4.5-5.9) X10^6/uL Hgb (13.5-17.5) g/dL Hct (41-53) % MCV (80-100) fL MCH (26-34) PG MCHC (30-36) % RDW (11.6-14.8) % Plt Count (150-400) X10^3/uL Neut % (Auto) (50-75) % Lymph % (Auto) (25-40) % [place] % (Auto) (3-14) % Eos % (Auto) (2-4) % Baso % (Auto) (0-2) % Neut # (Auto) (3720-0524) /uL Lymph # (Auto) (7280-0068) /uL [place] # (Auto) (0-900) /uL Eos # (Auto) (0-450) /uL Baso # (Auto) (0-100) /uL Sodium (137-145) mmol/L Potassium (3.4-5.1) mmol/L Chloride (98-107) mmol/L Carbon Dioxide (22-32) mmol/L BUN (9-20) mg/dL Creatinine (0.66-1.25) mg/dL Estimated GFR (>60) mL/min BUN/Creatinine Ratio (6-22) Glucose (80-110) mg/dL Lactate (0.7-2.1) mmol/L Calcium (8.4-10.2) mg/dL Total Bilirubin (0.2-1.3) mg/dL AST (17-59) IU/L ALT (<50) IU/L Alkaline Phosphatase (38-126) U/L Total Creatine Kinase (55-170) U/L CK-MB (CK-2) CK-MB (CK-2) Rel Index Troponin I (0.01-0.034) ng/mL NT-Pro-B Natriuret Pep 3370 H (<450) pg/mL Total Protein (6.3-8.2) g/dL Albumin (3.5-5.0) g/dL Globulin (1.7-4.1) g/dL Albumin/Globulin Ratio (1.0-2.8) Procalcitonin (<0.5) ng/mL Imaging Data Chest x-ray: My Impression: agree with radiologists interpretation Radiologist's Impression: [address] [address] XRay Report Signed Patient: Vinicio Sanchez MR#: [id number] : 1940 Acct:[id number] Age/Sex: 82 / M Date of Service: 01/23/23 Loc: ED Accession Number: [id number] ?? Procedure: XR chest 2V Ordering Provider: Romi Angela P.A-C PROCEDURE:? XR CHEST 2V ? INDICATIONS:? persistent SHOB, pneumonia ? TECHNIQUE:? 2 views of the chest were acquired.? ? COMPARISON:? [facility], CR, XR CHEST 1V, 01/18/2023, 11:32. ? FINDINGS:? ? Surgical changes and devices:? Left cardiac device with leads in the right atrium. ? Lungs and pleura:? Prominent interstitial markings with cephalization of flow no airspace consolidation.? No pleural effusions or pneumothorax.? ? Mediastinum:? Cardiomegaly.? ? Bones and chest wall:? No suspicious bony abnormalities.? Soft tissues appear unremarkable.? ? IMPRESSION:? Increased vascularity with cephalization of flow in the setting of cardiomegaly is suggestive of pulmonary edema. ? ? Dictated by: Ulises Eckert M.D. on 01/23/2023 at 13:03 ? ? Approved by: Ulises Eckert M.D. on 01/23/2023 at 13:05?? ECG Data Attestation: I personally reviewed and interpreted this ECG as follows: Interpretation: Heart rate 71, atrial fibrillation occasional paced complex no ST elevation or depression, T-wave inversions lead III AVF V1 and V3 Treatment and disposition Shared decision making:: Discussed the plan for evaluation with the patient and his , shared decision-making was use. MDM Narrative Medical decision making narrative: This is an 82-year-old male morbidly obese with history of atrial fibrillation, CHF, demand pacemaker and obstructive sleep apnea who presents by EMS brought in from [facility]. Patient was recently hospitalized here for suspected viral pneumonia, after a 4 day stay he was discharged to [facility] given his generalized weakness and inability to transition to home. Today he comes in with concern for worsening shortness of breath and feeling like he is overall not improving. Patient's vitals were actually okay with slightly low oxygen saturations but no oxygen requirement on presentation however notably any movement including attempting to sit up or exert himself caused desaturation and tachycardia. Patient is chronically on Lasix and did have an elevated BNP last week while in the hospital over 1999 today it is over 3000. His chest x-ray is also suggestive of pulmonary edema. Suspect that this patient may still be dealing with a viral or possibly bacterial pneumonia however labs today are not suggestive of a worsening bacterial infection, he has no elevated lactate and no leukocytosis. He is not had fever chills or other concerning symptoms for sepsis or worsening pneumonia. Patient is given 40 mg of Lasix IV in the emergency department. Fluids are not given although his mucous membranes are noted to be dry. Social work is also consulted to speak with the patient and his as she seemed frustrated with the situation and interested in discussing options for him when he gets out of the hospital again as far as possible rehab facilities or prison facilities. He is moderately hypertensive while in the emergency department but not tachycardic except with any exertion. He is afebrile. Given his oxygen requirement and shortness of breath with exertion as well as associated tachycardia and general immobility which is new for him, discussed with Dr. Guzman and Dr. Avilse bringing him into the hospital for management of his suspected CHF exacerbation. <Chaim Duncan DO - Last Filed: 01/24/23 07:55> Lab Data Labs: Lab Results 01/23/23 01/23/23 01/23/23 Range/Units 13:03 13:03 13:03 WBC 4.2 L (4.5-11.0) X10^3/uL RBC 4.46 L (4.5-5.9) X10^6/uL Hgb 13.7 (13.5-17.5) g/dL Hct 40.3 L (41-53) % MCV 90.3 (80-100) fL MCH 30.7 (26-34) PG MCHC 34.1 (30-36) % RDW 15.3 H (11.6-14.8) % Plt Count 122 L (150-400) X10^3/uL Neut % (Auto) 60.8 (50-75) % Lymph % (Auto) 24.6 L (25-40) % [place] % (Auto) 11.3 (3-14) % Eos % (Auto) 2.3 (2-4) % Baso % (Auto) 1.0 (0-2) % Neut # (Auto) 2500 (2637-9755) /uL Lymph # (Auto) 1000 L (5413-4285) /uL [place] # (Auto) 500 (0-900) /uL Eos # (Auto) 100 (0-450) /uL Baso # (Auto) 0 (0-100) /uL Sodium 140 (137-145) mmol/L Potassium 3.9 (3.4-5.1) mmol/L Chloride 104 (98-107) mmol/L Carbon Dioxide 33 H (22-32) mmol/L BUN 16 (9-20) mg/dL Creatinine 0.78 (0.66-1.25) mg/dL Estimated GFR > 60 (>60) mL/min BUN/Creatinine Ratio 20.5 (6-22) Glucose 106 (80-110) mg/dL Lactate 1.0 (0.7-2.1) mmol/L Calcium 8.6 (8.4-10.2) mg/dL Total Bilirubin 0.8 (0.2-1.3) mg/dL AST 29 (17-59) IU/L ALT 21 (<50) IU/L Alkaline Phosphatase 102 (38-126) U/L Total Creatine Kinase 84 (55-170) U/L CK-MB (CK-2) TNP CK-MB (CK-2) Rel Index TNP Troponin I 0.026 (0.01-0.034) ng/mL NT-Pro-B Natriuret Pep (<450) pg/mL Total Protein 6.8 (6.3-8.2) g/dL Albumin 3.7 (3.5-5.0) g/dL Globulin 3.1 (1.7-4.1) g/dL Albumin/Globulin Ratio 1.2 (1.0-2.8) Procalcitonin 0.05 (<0.5) ng/mL 01/23/23 Range/Units 13:03 WBC (4.5-11.0) X10^3/uL RBC (4.5-5.9) X10^6/uL Hgb (13.5-17.5) g/dL Hct (41-53) % MCV (80-100) fL MCH (26-34) PG MCHC (30-36) % RDW (11.6-14.8) % Plt Count (150-400) X10^3/uL Neut % (Auto) (50-75) % Lymph % (Auto) (25-40) % [place] % (Auto) (3-14) % Eos % (Auto) (2-4) % Baso % (Auto) (0-2) % Neut # (Auto) (1706-8549) /uL Lymph # (Auto) (6629-7466) /uL [place] # (Auto) (0-900) /uL Eos # (Auto) (0-450) /uL Baso # (Auto) (0-100) /uL Sodium (137-145) mmol/L Potassium (3.4-5.1) mmol/L Chloride (98-107) mmol/L Carbon Dioxide (22-32) mmol/L BUN (9-20) mg/dL Creatinine (0.66-1.25) mg/dL Estimated GFR (>60) mL/min BUN/Creatinine Ratio (6-22) Glucose (80-110) mg/dL Lactate (0.7-2.1) mmol/L Calcium (8.4-10.2) mg/dL Total Bilirubin (0.2-1.3) mg/dL AST (17-59) IU/L ALT (<50) IU/L Alkaline Phosphatase (38-126) U/L Total Creatine Kinase (55-170) U/L CK-MB (CK-2) CK-MB (CK-2) Rel Index Troponin I (0.01-0.034) ng/mL NT-Pro-B Natriuret Pep 3370 H (<450) pg/mL Total Protein (6.3-8.2) g/dL Albumin (3.5-5.0) g/dL Globulin (1.7-4.1) g/dL Albumin/Globulin Ratio (1.0-2.8) Procalcitonin (<0.5) ng/mL Discharge Plan Departure Patient Disposition: Admitted As Inpatient Clinical Impression: CHF (congestive heart failure), HALL (dyspnea on exertion), Requires oxygen therapy Admit Date/Time: 01/23/23 17:34 Admit Provider: Mansi Aviles <Chaim Duncan DO - Last Filed: 01/24/23 07:55> Cosign ED Attending Cosignature Attestation: I was immediately available in the department for consultation. This documentation has been reviewed and I agree with assessment and plan. Supervised by Chaim Duncan DO
--- NOTE | 2023-01-23 13:07 | DI.RAD.S_ITS ---
PROCEDURE: XR CHEST 2V INDICATIONS: persistent SHOB, pneumonia TECHNIQUE: 2 views of the chest were acquired. COMPARISON: [facility], CR, XR CHEST 1V, 01/18/2023, 11:32. FINDINGS: Surgical changes and devices: Left cardiac device with leads in the right atrium. Lungs and pleura: Prominent interstitial markings with cephalization of flow no airspace consolidation. No pleural effusions or pneumothorax. Mediastinum: Cardiomegaly. Bones and chest wall: No suspicious bony abnormalities. Soft tissues appear unremarkable. IMPRESSION: Increased vascularity with cephalization of flow in the setting of cardiomegaly is suggestive of pulmonary edema. Dictated by: Ulises Eckert M.D. on 01/23/2023 at 13:03 Approved by: Ulises Eckert M.D. on 01/23/2023 at 13:05
[2023-01-23 13:17] LABS: Add Manual Diff / Slide Review NO; Basophils Absolute Auto 0 /uL (0-100); Eosinophils Absolute Auto 100 /uL (0-450); Eosinophils Percent Auto 2.3 % (2-4); Hematocrit 40.3 % (41-53); Hemoglobin 13.7 g/dL (13.5-17.5); Lymphocytes Absolute Auto 1000 /uL (1100-4500); Lymphocytes Percent Auto 24.6 % (25-40); Mean Corpuscular HGB Conc 34.1 % (30-36); Mean Corpuscular Hemoglobin 30.7 PG (26-34); Mean Corpuscular Volume 90.3 fL (80-100); Monocytes Absolute Auto 500 /uL (0-900); Monocytes Percent Auto 11.3 % (3-14); Neutrophils Absolute Auto 2500 /uL (1500-7000); Neutrophils Percent Auto 60.8 % (50-75); Platelet Count 122 X10^3/uL (150-400); Red Blood Cell Count 4.46 X10^6/uL (4.5-5.9); Red Cell Distribution Width 15.3 % (11.6-14.8); White Blood Cell Count 4.2 X10^3/uL (4.5-11.0)
[2023-01-23 13:23] LABS: Alanine Aminotransferase 21 IU/L (<50); Albumin 3.7 g/dL (3.5-5.0); Albumin Globulin Ratio 1.2 (1.0-2.8); Alkaline Phosphatase 102 U/L (38-126); Aspartate Aminotransferase 29 IU/L (17-59); BUN Creatinine Ratio 20.5 (6-22); Bilirubin Total 0.8 mg/dL (0.2-1.3); Blood Urea Nitrogen 16 mg/dL (9-20); Calcium 8.6 mg/dL (8.4-10.2); Carbon Dioxide 33 mmol/L (22-32); Chloride 104 mmol/L (98-107); Creatine Kinase 84 U/L (55-170); Estimated Glomerular Filt Rate > 60 mL/min (>60); Globulin 3.1 g/dL (1.7-4.1); Glucose 106 mg/dL (80-110); HEMOLYSIS < 15 (0-50); Potassium 3.9 mmol/L (3.4-5.1); Sodium 140 mmol/L (137-145); Total Protein 6.8 g/dL (6.3-8.2)
[2023-01-23] MEDS: ALBUTEROL 2.5 MG/3 ML NEB (ADULT) INH (13:26)
[2023-01-23 13:35] LABS: Troponin I 0.026 ng/mL (0.01-0.034)
[2023-01-23 13:40] LABS: Procalcitonin 0.05 ng/mL (<0.5)
[2023-01-23 13:55] LABS: NT-proBNP (BNP-Adult 18+) 3370 pg/mL (<450)
[2023-01-23] MEDS: SODIUM CHLORIDE 0.9% 500 ML 16 ML IV (15:00)
[2023-01-23] MEDS: FUROSEMIDE 40 MG/4 ML VIAL IV (15:25)
--- NOTE | 2023-01-23 18:49 | PC.NURSE ---
Pt on 2L for comfort. Pt states he feels short of breath, his o2 is 94-96% on RA. Desat occurred when trying to get the patient to stand.
[2023-01-23 19:27] LABS: Influenza A - CEPHEID Flu A NEGATIVE (NEGATIVE); Influenza B - CEPHEID Flu B NEGATIVE (NEGATIVE); Respiratory Syncytial Virus Negative (Negative)
--- NOTE | 2023-01-23 19:27 | DI.ECHO.S_ITS ---
[facility] +---------+ : : [id number] : [place] : : : : [id number] : : : : Phone: [phone]+ Echocardiogram Report + + :Name: EDIE BARNES Study Date: 01/24/2023 Height: 75 in : :[facility] ReadingLocation: Weight: 324 lb : : Gender: Male BSA: 2.7 m2 : :: 1940 Age: 82 yrs BP: 122/59 mmHg: :Reason For Study: PULMONARY EDEMA : :Ordering Physician: OBED, : :BESSY Performed By: Ana Lilia Miller : :Referring: BESSY CLAY : + + Interpretation Summary The ejection fraction is estimated to be 50-55%. There are no obvious focal wall motion abnormalities noted but poor endocardial definition reduces the sensitivity for the detection of such. There is moderate concentric left ventricular hypertrophy. Right ventricular systolic function is mildly reduced. There is mild mitral regurgitation. There is mild aortic valve sclerosis. There is mild tricuspid regurgitation. Procedure: A two-dimensional transthoracic echocardiogram with color flow and Doppler was performed. The study quality was technically adequate. Comparison is made with the echocardiogram of 01/18/2022. The patient was in atrial fibrillation with heart rates between 67-115 bpm during the exam. Left Ventricle: The left ventricle is borderline dilated. There is moderate concentric left ventricular hypertrophy. Proximal septal thickening is noted. The ejection fraction is estimated to be 50-55%. There are no obvious focal wall motion abnormalities noted but poor endocardial definition reduces the sensitivity for the detection of such. Diastolic function could not be accurately assessed due to atrial fibrillation. Right Ventricle: The right ventricle is normal size. Right ventricular systolic function is mildly reduced. Atria: The left atrium is severely dilated. The right atrium is mildly dilated. There is no Doppler evidence for an interatrial shunt. Mitral Valve: There is mild mitral annular calcification. The mitral valve leaflets appear mildly thickened, but open well. There is mild mitral regurgitation. Aortic Valve: The aortic valve opens well. The aortic valve is mildly calcified. There is mild aortic valve sclerosis. There is no aortic valve stenosis. There is trace aortic regurgitation. Tricuspid Valve: The tricuspid valve is not well visualized, but is grossly normal. There is mild tricuspid regurgitation. Pulmonary artery pressures cannot be estimated because of the lack of a measurable TR jet velocity. Pulmonic Valve: The pulmonic valve is not well visualized. There is no pulmonic valvular regurgitation. Great Vessels: The aortic root is moderately dilated. The ascending aorta is moderately enlarged. The IVC is dilated (diameter is greater than 2.1 cm) yet it collapses greater than 50% with a sniff. This suggests a right atrial pressure of 8 mm Hg. Pericardium/ Pleura There is no pericardial effusion. There is no pleural effusion. MMode/2D Measurements & Calculations LVIDd: 5.3 cm LVOT diam: 2.1 cm LVIDs: 4.2 cm Ao root diam: 4.3 cm FS: 21.2 % asc Aorta Diam: 4.3 cm IVSd: 1.4 cm LVPWd: 1.8 cm LV finnegan. diameter/BSA (cm/m^2): 2.0 LV sys. diameter/BSA (cm/m^2): 1.5 LA A2 area: 42.3 cm2 RA long axis: 8.2 cm LA A4 area: 43.8 cm2 RA area: 32.2 cm2 LA length (vol): 7.9 cm RA vol: 107.9 ml LA vol: 198.8 ml RA : 40.1 ml/m2 LA vol index: 73.8 ml/m2 IVC diam: 2.1 cm RVD1 (basal): 3.7 cm RVD2 (mid): 3.3 cm TAPSE: 1.3 cm Doppler Measurements & Calculations Ao V2 max: 107.1 cm/sec LVOT Max Jose: 96.5 cm/sec Ao V2 mean: 84.1 cm/sec LV V1 max P.7 mmHg Ao max P.6 mmHg LV V1 VTI: 17.8 cm Ao mean P.0 mmHg JACINDA(I,D): 2.7 cm2 Ao V2 VTI: 21.8 cm JACINDA(V,D): 3.0 cm2 sev ratio: 0.82 JACINDA indexed to BSA (cm^2/m^2): 1.0 MV E max jose: 102.2 cm/sec PA V2 max: 62.8 cm/sec MV A max jose: 1.8 cm/sec PA V2 mean: 46.9 cm/sec MV E/A: 56.7 PA mean P.96 mmHg Med Peak E' Jose: 5.5 cm/sec PA pr(Accel): 41.3 mmHg E/E' med: 18.6 Lat Peak E' Jose: 8.4 cm/sec E/E' lat: 12.2 E/e' average: 15.4 MV dec time: 0.19 sec SV(LVOT): 58.9 ml Reading Physician:10:29 AM
[2023-01-23 19:28] LABS: COVID-19 CEPHEID 4-PLEX PCR Negative (Negative)
[2023-01-23] MEDS: GABAPENTIN 300 MG CAPSULE PO (21:07)
[2023-01-23] MEDS: risperiDONE 1 MG TABLET 2 MG PO (21:07)
[2023-01-23] MEDS: carvediloL 12.5 MG TABLET 37.5 MG PO (21:08)
[2023-01-23 21:21] LABS: Appearance Urine UA CLEAR; Bilirubin Urine UA NEGATIVE (NEGATIVE); Color Urine UA YELLOW; Glucose Urine UA NEGATIVE (Negative); Ketones Urine UA NEGATIVE (NEGATIVE); Leukocyte Esterase Urine UA NEGATIVE (NEGATIVE); Nitrite Urine UA NEGATIVE (Negative); Occult Blood Urine UA 1+ (Negative); Protein Urine UA NEGATIVE (Negative); Urobilinogen Urine UA 0.2 E.U./dL (0.2)
[2023-01-23 21:28] LABS: Bacteria Urine None Seen; Culture Indicated Urine Cult Not Indicated; RBC Urine 5-10/HPF (0-5/HPF); Squamous Epithelial Cell Urine 0-1 /HPF (0-5/HPF); WBC Urine None Seen (0-5/HPF)
--- NOTE | 2023-01-23 22:44 | PC.NURSE ---
Received patient from ED in no distress. Patient able to answer simple questions, but confused with more complicated answers. Patient on O2 with acceptable pulse ox results. At 2234 10 beat run of v-tach noted on telemetry. Dr. Aviles notified and new orders noted. Labs to b e checked. attempting to place on nightly cpap, but continually pulling it off. Patient finally placed back on 4L n/c.
[2023-01-23 23:18] LABS: HEMOLYSIS < 15 (0-50); Potassium 3.6 mmol/L (3.4-5.1)
[2023-01-24] VITALS (54 sets, daily range): BP systolic 122–178; BP diastolic 59–110; PULSE 67–83; RESP 17; TEMP 36.3; O2SAT 91–98
[2023-01-24 05:11] LABS: Add Manual Diff / Slide Review NO; Basophils Absolute Auto 0 /uL (0-100); Basophils Percent Auto 0.8 % (0-2); Eosinophils Absolute Auto 100 /uL (0-450); Eosinophils Percent Auto 2.8 % (2-4); Hematocrit 37.2 % (41-53); Hemoglobin 12.7 g/dL (13.5-17.5); Lymphocytes Absolute Auto 1400 /uL (1100-4500); Lymphocytes Percent Auto 31.7 % (25-40); Mean Corpuscular HGB Conc 34.2 % (30-36); Mean Corpuscular Hemoglobin 30.8 PG (26-34); Mean Corpuscular Volume 89.9 fL (80-100); Monocytes Absolute Auto 500 /uL (0-900); Monocytes Percent Auto 11.8 % (3-14); Neutrophils Absolute Auto 2400 /uL (1500-7000); Neutrophils Percent Auto 52.9 % (50-75); Platelet Count 127 X10^3/uL (150-400); Red Blood Cell Count 4.13 X10^6/uL (4.5-5.9); White Blood Cell Count 4.5 X10^3/uL (4.5-11.0)
[2023-01-24 05:21] LABS: BUN Creatinine Ratio 23.5 (6-22); Blood Urea Nitrogen 20 mg/dL (9-20); Calcium 8.4 mg/dL (8.4-10.2); Carbon Dioxide 36 mmol/L (22-32); Chloride 102 mmol/L (98-107); Estimated Glomerular Filt Rate > 60 mL/min (>60); Glucose 86 mg/dL (80-110); HEMOLYSIS < 15 (0-50); Potassium 3.5 mmol/L (3.4-5.1); Sodium 140 mmol/L (137-145)
--- NOTE | 2023-01-24 07:35 | PM.HP.1 ---
History of Present Illness History of Present Illness Date Patient Seen: 01/24/23 Time Patient Seen: 07:40 Date of Onset of Symptoms: 01/22/23 Chief complaint: PNA cough SOB Narrative: Patient is a poor historian. 82-year-old male well known to me recently discharged for pneumonia. Transferred to [facility]. Apparently over the last 24-48 hours he has been increasingly weak and short of breath. No fevers no chills no chest pain. Patient has been weak but had been week previously. There has really been no change. Nonfocal. He is had no increased heart rate or change in blood pressure. He otherwise feels as if his fine. Breathing more comfortably today. Was given Lasix yesterday and had 2 L diuresis. No evidence of significantly uncontrolled atrial fibrillation or no other changes. 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 Family & Social History Social History: household members spouse Safety & Behavioral: Feels Safe in Current Yes Environment Been Physically Hurt or No Threatened By a Person Tobacco & Substance use: Smoking Status Former smoker alcohol intake current Substance Use Type marijuana Meds Home Medications and Allergies Home Medications Medication Instructions Recorded Confirmed Type tamsulosin 0.4 mg capsule (Flomax) 0.4 mg PO QDAY 7 days #0 caps 07/23/16 01/23/23 Rx Respironics Dreamstation CPAP #1 ea 05/02/19 01/23/23 History carvedilol 25 mg tablet 37.5 mg PO BID 05/27/21 01/23/23 History duloxetine 60 mg capsule,delayed 60 mg PO DAILY 05/27/21 01/23/23 History release rosuvastatin 20 mg tablet (Crestor) 20 mg PO DAILY 05/27/21 01/23/23 History warfarin 10 mg tablet 10 mg PO DAILY 05/27/21 01/23/23 History gabapentin 300 mg capsule 300 mg PO TID 04/21/22 01/23/23 History furosemide 40 mg tablet 40 mg PO DAILY 01/18/23 01/23/23 History risperidone 2 mg tablet 2 mg PO BID 01/18/23 01/23/23 History cefuroxime axetil 500 mg tablet 500 mg PO BID #14 tabs 01/21/23 01/23/23 Rx Allergies Allergy/AdvReac Type Severity Reaction Status Date / Time No Known Allergies Allergy Verified 10/14/22 13:44 Review of Systems Review of Systems Narrative: No significant complaint or problem. All negative except above Exam Vital Signs (past 8 hours): - 01/24/23 00:00 01/24/23 00:30 01/24/23 01:00 Pulse Rate 76 76 75 Pulse Oximetry 95 96 95 01/24/23 01:30 01/24/23 02:00 01/24/23 02:30 Pulse Rate 74 73 72 Pulse Oximetry 94 95 95 01/24/23 03:00 01/24/23 03:30 01/24/23 04:00 Pulse Rate 73 72 74 Pulse Oximetry 96 95 95 Oxygen Delivery Method Nasal Cannula Oxygen Flow Rate 4 Narrative Exam Narrative: Elderly obese male lying in bed with oxygen in no acute respiratory distress. Mucous membranes moist. Neck supple without adenopathy maybe slight increase in JVD. Lungs are diffuse rhonchi heart is regular rate and rhythm abdomen is obese. Extremities with 2+ edema. Good pulses. Neurologic exam is nonfocal Objective Labs 01/24/23 04:18 01/24/23 04:18 Labs: Laboratory Results - last 24 hr 01/23/23 01/23/23 01/23/23 13:03 13:03 13:03 WBC 4.2 L RBC 4.46 L Hgb 13.7 Hct 40.3 L MCV 90.3 MCH 30.7 MCHC 34.1 RDW 15.3 H Plt Count 122 L Neut % (Auto) 60.8 Lymph % (Auto) 24.6 L Starke % (Auto) 11.3 Eos % (Auto) 2.3 Baso % (Auto) 1.0 Neut # (Auto) 2500 Lymph # (Auto) 1000 L Starke # (Auto) 500 Eos # (Auto) 100 Baso # (Auto) 0 Sodium 140 Potassium 3.9 Chloride 104 Carbon Dioxide 33 H BUN 16 Creatinine 0.78 Estimated GFR > 60 BUN/Creatinine Ratio 20.5 Glucose 106 Lactate 1.0 Calcium 8.6 Magnesium Total Bilirubin 0.8 AST 29 ALT 21 Alkaline Phosphatase 102 Total Creatine Kinase 84 CK-MB (CK-2) TNP CK-MB (CK-2) Rel Index TNP Troponin I 0.026 NT-Pro-B Natriuret Pep Total Protein 6.8 Albumin 3.7 Globulin 3.1 Albumin/Globulin Ratio 1.2 Procalcitonin 0.05 Urine Color Urine Appearance Urine pH Ur Specific Globe Urine Protein Urine Glucose (UA) Urine Ketones Urine Occult Blood Urine Nitrate Urine Bilirubin Urine Urobilinogen Ur Leukocyte Esterase Urine RBC Urine WBC Ur Squamous Epith Cells Urine Bacteria Ur Culture Indicated? SARS-CoV-2 (PCR) Influenza A (RT-PCR) Influenza B (RT-PCR) RSV (PCR) 01/23/23 01/23/23 01/23/23 13:03 18:47 21:15 WBC RBC Hgb Hct MCV MCH MCHC RDW Plt Count Neut % (Auto) Lymph % (Auto) Starke % (Auto) Eos % (Auto) Baso % (Auto) Neut # (Auto) Lymph # (Auto) Starke # (Auto) Eos # (Auto) Baso # (Auto) Sodium Potassium Chloride Carbon Dioxide BUN Creatinine Estimated GFR BUN/Creatinine Ratio Glucose Lactate Calcium Magnesium Total Bilirubin AST ALT Alkaline Phosphatase Total Creatine Kinase CK-MB (CK-2) CK-MB (CK-2) Rel Index Troponin I NT-Pro-B Natriuret Pep 3370 H Total Protein Albumin Globulin Albumin/Globulin Ratio Procalcitonin Urine Color Yellow Urine Appearance Clear Urine pH 7.0 Ur Specific Globe 1.010 Urine Protein Negative Urine Glucose (UA) Negative Urine Ketones Negative Urine Occult Blood 1+ H Urine Nitrate Negative Urine Bilirubin Negative Urine Urobilinogen 0.2 Ur Leukocyte Esterase Negative Urine RBC 5-10/hpf H Urine WBC None seen Ur Squamous Epith Cells 0-1 /hpf Urine Bacteria None seen Ur Culture Indicated? Cult not indicated SARS-CoV-2 (PCR) Negative Influenza A (RT-PCR) Flu a negative Influenza B (RT-PCR) Flu b negative RSV (PCR) Negative 01/23/23 01/23/23 01/24/23 23:00 23:00 04:18 WBC 4.5 RBC 4.13 L Hgb 12.7 L Hct 37.2 L MCV 89.9 MCH 30.8 MCHC 34.2 RDW 15.0 H Plt Count 127 L Neut % (Auto) 52.9 Lymph % (Auto) 31.7 Starke % (Auto) 11.8 Eos % (Auto) 2.8 Baso % (Auto) 0.8 Neut # (Auto) 2400 Lymph # (Auto) 1400 Starke # (Auto) 500 Eos # (Auto) 100 Baso # (Auto) 0 Sodium Potassium 3.6 Chloride Carbon Dioxide BUN Creatinine Estimated GFR BUN/Creatinine Ratio Glucose Lactate Calcium Magnesium 2.0 Total Bilirubin AST ALT Alkaline Phosphatase Total Creatine Kinase CK-MB (CK-2) CK-MB (CK-2) Rel Index Troponin I NT-Pro-B Natriuret Pep Total Protein Albumin Globulin Albumin/Globulin Ratio Procalcitonin Urine Color Urine Appearance Urine pH Ur Specific Globe Urine Protein Urine Glucose (UA) Urine Ketones Urine Occult Blood Urine Nitrate Urine Bilirubin Urine Urobilinogen Ur Leukocyte Esterase Urine RBC Urine WBC Ur Squamous Epith Cells Urine Bacteria Ur Culture Indicated? SARS-CoV-2 (PCR) Influenza A (RT-PCR) Influenza B (RT-PCR) RSV (PCR) 01/24/23 04:18 WBC RBC Hgb Hct MCV MCH MCHC RDW Plt Count Neut % (Auto) Lymph % (Auto) Starke % (Auto) Eos % (Auto) Baso % (Auto) Neut # (Auto) Lymph # (Auto) Starke # (Auto) Eos # (Auto) Baso # (Auto) Sodium 140 Potassium 3.5 Chloride 102 Carbon Dioxide 36 H BUN 20 Creatinine 0.85 Estimated GFR > 60 BUN/Creatinine Ratio 23.5 H Glucose 86 Lactate Calcium 8.4 Magnesium Total Bilirubin AST ALT Alkaline Phosphatase Total Creatine Kinase CK-MB (CK-2) CK-MB (CK-2) Rel Index Troponin I NT-Pro-B Natriuret Pep Total Protein Albumin Globulin Albumin/Globulin Ratio Procalcitonin Urine Color Urine Appearance Urine pH Ur Specific Globe Urine Protein Urine Glucose (UA) Urine Ketones Urine Occult Blood Urine Nitrate Urine Bilirubin Urine Urobilinogen Ur Leukocyte Esterase Urine RBC Urine WBC Ur Squamous Epith Cells Urine Bacteria Ur Culture Indicated? SARS-CoV-2 (PCR) Influenza A (RT-PCR) Influenza B (RT-PCR) RSV (PCR) Assessment & Plan Assessment & Plan narrative: Acute on chronic congestive heart failure. In setting of increased pulmonary markings on chest x-ray and increased BNP clearly this is congestive heart failure. Does not appear to be infective. Rate control seems good. No evidence of cardiac injury. Etiology is somewhat unclear. Certainly did not seem to be congestive heart failure during his admission. Will obtain echo to make sure there has been no change. Will aggressively diurese and hopefully transfer back to half-way tomorrow. Depending on how things go. Atrial fibrillation. Appears to be in control. No evidence of rapid response. This point no change in treatment. History of pneumonia. It does not appear to be the cause of his pulmonary edema. Seems to be well-controlled white count is normal chest x-ray shows no significant change may be that the infection set off his congestive heart failure. Hard to know. At this point. Will continue oral antibiotics and follow. Patient had been doing quite well. Acute respiratory failure. All secondary to congestive heart failure. Will aggressively manage and hopefully will be off oxygen soon. Gross hematuria. Stable. Workup as outpatient. Patient has a history of bladder cancer. Run of V-tach. Will manage potassium more aggressively will get him above 4. Magnesium seems okay. Will follow. Polymyalgia rheumatica. Stable. No treatment at this time. Obstructive sleep apnea. Stable. Hyperlipidemia. Stable no change in meds. Elevated blood pressure. Will follow. Has been doing well previously and will make no changes. DVT prophylaxis on Coumadin. Code status. No code. Disposition. Patient with significant respiratory failure but should respond to IV Lasix will see what his echo shows and hopefully will discharge tomorrow if not Tuesday. 35 minutes spent on patient. Dictation. Orders. Time Spent With Patient Critical Care time: I spent a total of [] minutes of critical care time on this patient's care today; this time is exclusive of procedural time. Quality VTE Deep Vein Thrombosis/Pulmonary Embolism Present on Admission: No
--- NOTE | 2023-01-24 09:23 | CM.DANOTE ---
Patient is an 82 yo male who was READMIT on 01/23/23 for SOB. Per MD, pt just discharged to [facility] SNF on 01/21/23 and readmitted due to possible worsening pneumonia and CHF exacerbation and possible d/c in 1-2 days pending progress. PCP: Dr. Guzman. Payer: confirmed: Medicare/[employer]. Spoke to patient's spouse, Karen, over the phone as pt sleeping soundly and somewhat confused. Confirmed that patient and spouse both reside on [facility]. Patient is mostly in his wheel-chair. Stated that he does have some assist with showers, has a shower bench, and she assists him with dressing. She drives him to any needed appointments. Pt has hx of [facility]. Spouse currently somewhat upset as she feels that she was not included in the discussion with MD while pt was last admitted a few days ago or the SNF discharge planning and SNF preferences. Spouse considering possible other SNF at d/c besides [facility] but spouse is unsure. SW discussed process of SNF referrals, need for bed availability, and therefore not always an option of 1st SNF preference. Spouse acknowledges understanding and will be bedside this morning and SW left MCR Choice list in room for her to review and had strongly encouraged her to tour or review SNF facilities as per MD pt could be stable for d/c in 1-2 days and spouse agreeable to begin considering now. SW called [facility] and confirmed they can accept him back at d/ if needed and they still have pt on precautions from when he tested positive 01/18 for human metapneumovirus. SW mentioned this to RN as pt currently not on precautions here at the hospital. SW updated [facility] admissions that spouse may consider another SNF vs return to [facility]. Plan: SW to follow closely for spouse review of SNF Choice list towards determining return to [facility] vs referral to another SNF at d/ but pt's size may be a barrier to SNF acceptance. 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 Yes Advance Directives on File No History Provided By Patient,Significant Other, Medical Record Has Patient been admitted in last 30 Yes days? Comment discharged to [facility] couple days ago Prior Living Arrangements House Household Members spouse Type of transporation used prior to Relies on Others admit Facility Name Admitted From: [facility] Willing to Return to Facility? maybe not Independent with ADL's No Is patient alert and oriented? Yes Needs Assistance With Meal Prep,Managing Medications ,Home Chores / Shopping Caregiver for Another No DME Already Rented / Owned Wheelchair,FWW / Walker Patient/Family Preference Custodial Facility Comment Weakness and dementia Discharge Plan Custodial Facility Transportation Arrangement Family Referrals Initiated Other Additional Comment Will monitor closely, does not yet have P.T. orders as of yet If patient plan is home with home health No : Has signed face to face form been completed? If patient plan is SNF: Has PASSR been No: Due to dementia, may not completed? be a skilled candidate Medicare Choice List Provided Yes Medicare choice list reviewed on family electronic tablet with Review Status In Process Please Provide Date Initial DC 01/24/23 Assessment Was Performed Next Review Type Continued Stay Review
[2023-01-24] MEDS: POTASSIUM CHLORIDE 20 MEQ TAB 40 MEQ PO ×2 (09:50→17:38)
[2023-01-24] MEDS: ATORVASTATIN 20 MG TABLET 40 MG PO (09:51)
[2023-01-24] MEDS: carvediloL 12.5 MG TABLET 37.5 MG PO ×2 (09:51→20:28)
[2023-01-24] MEDS: WARFARIN 5 MG TABLET 10 MG PO (09:51)
[2023-01-24] MEDS: GABAPENTIN 300 MG CAPSULE PO ×3 (09:51→20:30)
[2023-01-24] MEDS: cefUROXime 250 MG TABLET 500 MG PO ×2 (09:51→20:29)
[2023-01-24] MEDS: DULOXETINE 30 MG CAPSULE 60 MG PO (09:51)
[2023-01-24] MEDS: risperiDONE 1 MG TABLET 2 MG PO ×2 (09:51→20:29)
[2023-01-24] MEDS: ACETAMINOPHEN 325 MG TABLET 650 MG PO (09:51)
[2023-01-24] MEDS: TAMSULOSIN 0.4 MG CAPSULE PO (09:51)
--- NOTE | 2023-01-24 11:20 | CM.DPC ---
Addendum entered by Camila White R.N. 01/24/23 14:50: Spoke to Carla at [facility], she will review, they do have beds available, but there are no current P.T. notes since provider did not order. Had left Dr. Guzman a message asking for therapy, but have not yet heard back, and therapy has left for the day. Inna at [facility] indicated that they have no availabilities for patient's that are hoier, or bariatrics. Spoke to Jennifer at [facility], she called back. She indicated, it's hard for her to review without current P.T. notes. Let her know that this DC Rubber Stamp Die Inspector has left message with provider for P.T, but has not called back. She asked about discharge plan, let her know that spouse wants him home with [facility] as soon as he can transfer with walker. Jennifer did state that she can review with the P.T. notes from last hospital admission. Mary is faxing them over to her. She could possibly have a bed by tomorrow. Confirmed with An at [facility] that patient has been a hoier lift for them, and that he has been in a bariatric bed. Addendum entered by Camila White R.N. 01/24/23 12:15: Went back to meet with patient's spouse, [id number], and son. Spouse had indicated that she had spoken to someone that was at [facility] that had a very good experience there. She asked if referral could be sent there. Her mrkosari-ec-edc had been to [facility] to see someone, and stated that the facility seemed to be ok. Did mention to spouse that the barrier could be getting a facility that has a bariatric bed, as well. She is aware of this. Called over at Dr. Guzman's office to see if it would be appropriate to add P.T. orders. Senior Climate Advisor will give him a message, and will call back. Will follow up later today with the facilities. Original Note: DCP Cont: Met with patient's spouse, Karen, at bedside. She was upset, she did her own research, found out that [facility] was only 2 stars. Asked patient how he felt about the care at [facility], since he had originally consented to going there, but was unable to answer. Spouse is hoping that he can go to another facility with better ratings. Brought in ipad in her room, and went over the facilities. She does not want [facility], did some research on them, but would like [facility] in [place] as first choice, second, [facility], and third is [facility]. Did let her know that this will be based upon availabilities, but can start with referrals. Spouse is also upset, is worried that they may discharge him tomorrow and him not being medically ready. She is prepared to appeal if he does get discharged. Did explain the appeal process to her, letting her know that Dr. Guzman will need to discharge him first before the appeal process can be initiated, she is aware of this, she had been through this before. Asked her about patient going home with [facility], in case no facilities can be secured, and she stated, as long as he can stand and transfer, I can manage, but was informed that patient is currently a hoier lift. P: DCP to continue to work on plan. NEVIN Hernandez patient support assistant, is sending referrals to [facility], [facility], and [facility]. Also, will depend if they have bariatric beds available. Camila White, RN/Mechanical Engineering Teacher
[2023-01-24] MEDS: FUROSEMIDE 40 MG/4 ML VIAL IV (12:48)
[2023-01-24 16:31] LABS: BUN Creatinine Ratio 27.7 (6-22); Blood Urea Nitrogen 23 mg/dL (9-20); Calcium 8.8 mg/dL (8.4-10.2); Carbon Dioxide 34 mmol/L (22-32); Chloride 100 mmol/L (98-107); Estimated Glomerular Filt Rate > 60 mL/min (>60); Glucose 102 mg/dL (80-110); HEMOLYSIS < 15 (0-50); Potassium 4.1 mmol/L (3.4-5.1); Sodium 140 mmol/L (137-145)
[2023-01-25] VITALS (39 sets, daily range): BP systolic 125–133; BP diastolic 72–79; PULSE 63–80; RESP 16–20; TEMP 35.9–36.5; O2SAT 94–100
--- NOTE | 2023-01-25 06:09 | PC.NURSE ---
Patient more alert than previous shift, able to help roll himself from side to side. unable to given midnight lasix orally, pt. not awakening after evening meds. Awakened at 0400 for lab draw and responding to simple questions.
[2023-01-25 06:15] LABS: Alanine Aminotransferase 23 IU/L (<50); Albumin 3.6 g/dL (3.5-5.0); Albumin Globulin Ratio 1.1 (1.0-2.8); Alkaline Phosphatase 99 U/L (38-126); Aspartate Aminotransferase 32 IU/L (17-59); BUN Creatinine Ratio 35.1 (6-22); Bilirubin Total 0.7 mg/dL (0.2-1.3); Blood Urea Nitrogen 27 mg/dL (9-20); Calcium 8.8 mg/dL (8.4-10.2); Carbon Dioxide 35 mmol/L (22-32); Chloride 101 mmol/L (98-107); Estimated Glomerular Filt Rate > 60 mL/min (>60); Globulin 3.2 g/dL (1.7-4.1); Glucose 85 mg/dL (80-110); HEMOLYSIS 49 (0-50); Potassium 4.1 mmol/L (3.4-5.1); Sodium 140 mmol/L (137-145); Total Protein 6.8 g/dL (6.3-8.2)
--- NOTE | 2023-01-25 08:30 | P.PN_ITS ---
Subjective Subjective Date Patient Seen: 01/25/23 Time Patient Seen: 08:31 Interval history: Patient seen in follow-up of congestive heart failure. Acute respiratory failure. Patient looks better today. More awake. Feels like cough is maybe a little bit bothersome but otherwise has no complaints this morning. No chest pain. No abdominal pain. Eating this morning. Seems to be more alert. No other changes. Exam Vital Signs (past 8 hours): - 01/25/23 01:00 01/25/23 01:30 01/25/23 02:00 Temperature Pulse Rate 67 71 66 Respiratory Rate Blood Pressure Pulse Oximetry 97 94 95 01/25/23 02:30 01/25/23 03:00 01/25/23 03:30 Temperature Pulse Rate 65 63 65 Respiratory Rate Blood Pressure Pulse Oximetry 96 96 97 01/25/23 04:49 01/25/23 04:00 01/25/23 04:30 Temperature 97.7 F Pulse Rate 67 72 66 Respiratory Rate 20 Blood Pressure 133/74 Pulse Oximetry 98 96 98 01/25/23 04:47 01/25/23 04:47 Temperature Pulse Rate 73 Respiratory Rate Blood Pressure 133/74 Pulse Oximetry 98 Oxygen Delivery Method Nasal Cannula Oxygen Flow Rate 4 Narrative Exam Narrative: Alert male smiling interactive in no acute distress. HEENT exam mucous membranes moist neck supple without adenopathy no definitive JVD lungs are decreased rhonchi but no other change heart is regular rate and rhythm. Abdomen is soft positive bowel sounds nontender extremities 1+ edema. Good pulses. Patient is still confused. Objective Labs 01/24/23 04:18 01/25/23 04:30 Labs: Laboratory Results - last 24 hr 01/24/23 01/25/23 16:08 04:30 Sodium 140 140 Potassium 4.1 4.1 Chloride 100 101 Carbon Dioxide 34 H 35 H BUN 23 H 27 H Creatinine 0.83 0.77 Estimated GFR > 60 > 60 BUN/Creatinine Ratio 27.7 H 35.1 H Glucose 102 85 Calcium 8.8 8.8 Total Bilirubin 0.7 AST 32 ALT 23 Alkaline Phosphatase 99 Total Protein 6.8 Albumin 3.6 Globulin 3.2 Albumin/Globulin Ratio 1.1 [facility] Medical History Atrial fibrillation (Unknown) DDD (degenerative disc disease), lumbar (~2018) DJD (degenerative joint disease), lumbosacral (~2018) Hematuria Hip dislocation, right History of colon polyps Obesity (BMI 30-39.9) (Unknown) Obstructive sleep apnea of adult (~2006) Rectal bleeding Urinary retention UTI (urinary tract infection) Surgical History 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 Social History household members: spouse Smoking Status: Former smoker alcohol intake: current Assessment & Plan Assessment & Plan narrative: Acute on chronic congestive heart failure. Echo shows EF of 55%. With no focal wall abnormalities. Overall looks good. Patient certainly looks better. Still has some rhonchi. Whether this is his congestive heart failure or not he certainly seems improved. Will continue aggressive IV diuresis until tomorrow. Switch to orals tomorrow. Patient otherwise seems to be trending in the right direction. And will continue to follow. Still requiring oxygen. Hopefully that will be gone over the next 24-48 hours. Will check kidney and electrolytes tomorrow. History of pneumonia. Continue antibiotics. Do not think this is infective. Acute respiratory failure. Appears to be secondary to congestive heart failure. Hopefully this will be resolved over the next 24-48 hours. Would like him to have ox oxygen before he discharges. Patient has not required O2 in the past. Will see how things go. Gross hematuria. No active bleeding at this time. Will still need outpatient evaluation by urologist. Atrial fibrillation. Stable. Will check INR tomorrow. Weakness. Biggest issue right now for him. Need to get him back to be able to pivot and transfer before he goes home. Is going to require rehab. Discussing with . Dementia. Overall stable. No treatment at this time. Polymyalgia rheumatica stable. Run of V-tach. Off the monitor but controlling electrolytes. Potassium has been better. Hyperlipidemia stable Hypertension. Blood pressure seems to be leveling out. Will re-evaluate in the next 24 hours. But this point last 24 hours have been very good. Polymyalgia rheumatica. Stable. Sleep apnea stable. Code status DNR. DVT prophylaxis on Coumadin. Disposition. Patient here with respiratory failure. Probable discharge on but we will see how he looks tomorrow. Would like to make sure he is stable so we do not get a return to hospital. He understands questions answered Time Spent With Patient Critical Care time: I spent a total of [] minutes of critical care time on this patient's care today; this time is exclusive of procedural time. Quality VTE Deep Vein Thrombosis/Pulmonary Embolism Present on Admission: No
[2023-01-25] MEDS: GABAPENTIN 300 MG CAPSULE PO ×3 (08:40→20:26)
[2023-01-25] MEDS: DULOXETINE 30 MG CAPSULE 60 MG PO (08:41)
[2023-01-25] MEDS: carvediloL 12.5 MG TABLET 37.5 MG PO ×2 (08:41→20:26)
[2023-01-25] MEDS: WARFARIN 5 MG TABLET 10 MG PO (08:41)
[2023-01-25] MEDS: risperiDONE 1 MG TABLET 2 MG PO ×2 (08:42→20:26)
[2023-01-25] MEDS: POTASSIUM CHLORIDE 20 MEQ TAB 40 MEQ PO ×2 (08:42→18:22)
[2023-01-25] MEDS: cefUROXime 250 MG TABLET 500 MG PO ×2 (08:42→20:26)
[2023-01-25] MEDS: ATORVASTATIN 20 MG TABLET 40 MG PO (08:42)
[2023-01-25] MEDS: TAMSULOSIN 0.4 MG CAPSULE PO (08:42)
--- NOTE | 2023-01-25 09:03 | OT.IP.EVAL ---
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 Pt's also uses a patient transfer aid with the pt at times. Activities of Daily Living and IADL's Pt's assist with LB dressing and showering needs. Prior Functional Level (Other details) Pt has an adajustable bed at home. Social History Household Members spouse Living Arrangements House Number of Floors (Floors) One Floor Number of Stairs To Enter/Railing? ramp Home Environment Standard Height Toilet,Walk in Shower Home Equipment Front Wheel Walker,Manual Wheelchair,Shower Seat without Backrest,Grab Bars Near Toilet Additional Social History Comment Pt has an adjustable bed. M2 OT-IP Current Condition Start: 01/25/23 09:27 Freq: Status: Active Protocol: Document 01/25/23 09:28 [facility] (Rec: 01/25/23 09:42 [facility] [id number]) Occupational Therapy Current Condition Current Condition Evaluation Date 01/25/23 Treatment Diagnosis PNA, Acute on chronic CHF Diagnosis Onset Date 01/23/23 M3 OT- IP Subjective and Pain Start: 01/25/23 09:27 Freq: Status: Active Protocol: Document 01/25/23 09:28 [facility] (Rec: 01/25/23 09:42 [facility] [id number]) OT- Subjective Occupational Therapy Visit Type Type Initial Evaluation Visit Start Time 09:03 Visit Stop Time 09:25 Total Visit Minutes 22 Occupational Therapy Visit Comments Patient Comments Pt agreed to get up. Patient/Caregiver Goals To get better. OT Pain Assessment Pain When Pain Assessed At Rest Pain Present Pain Present Denied Pain M4 OT- IP ADL's Start: 01/25/23 09:27 Freq: Status: Active Protocol: Document 01/25/23 09:28 [facility] (Rec: 01/25/23 09:42 [facility] [id number]) OT [id number] Comments OT Self-Feeding Comments NOt at meal time. OT ADL-Grooming General Evaluation Grooming Ability Standby Assistance Areas Needing Assistance Retrieving/Set-up of Grooming Items Comments OT Grooming Comments while seated OT ADL-Oral Care General Eval Oral Care Ability Standby Assistance Areas of Assistance Retrieving/Set-Up of Items Comments Oral Care Comments while seated OT ADL-Dressing General Eval Lower Body Dressing Ability Maximum Assistance Comments OT Dressing Comments Prior pt's assist witih LB dressing needs. OT ADL-Toileting General Evaluation Toileting Ability Total Assistance Comments OT Toileting Comments External catheter in place OT ADL-Bathing Comments OT Bathing Comments Sponge bath more appropriate at this time. M5 OT- IP IADL's Start: 01/25/23 09:27 Freq: Status: Active Protocol: Document 01/25/23 09:28 [facility] (Rec: 01/25/23 09:42 [facility] [id number]) OT-Instrumental Activities of Daily Living Deficits IADL Deficits Identified Deficits Medication Management Medication Management Caregiver Administers Money Management Money Management Caregiver Provides Assistance Meal Preparation Meal Preparation Caregiver Provides Assist Metal Technician Metal Technician Caregiver Provides Assist M6 OT- IP Functional Cognition Start: 01/25/23 09:27 Freq: Status: Active Protocol: Document 01/25/23 09:28 [facility] (Rec: 01/25/23 09:42 [facility] [id number]) Cognitive Factors Limiting Selfcare Function Cognitive Ability Level of Alertness Alert Patient Orientation Name,Place Ability to Follow Commands Able to Follow One Step Commands Memory Description Short Term Impaired Cognitive Comments Cognitive Assessment Comments Pt needing increased time to process and follow commands. Pt needing vc for safety for FWW use, hand and foot placement as well. Pt is very cooperative. OT- Vision and Hearing OT- Hearing Assessment OT- Hearing Assessment WFL OT- Vision Assessment Visual Acuity Glasses For Reading M7 OT- IP Mobility and Balance Start: 01/25/23 09:27 Freq: Status: Active Protocol: Document 01/25/23 09:28 [facility] (Rec: 01/25/23 09:42 [facility] [id number]) OT- Bed Mobility Assessment Supine to Sit Supine to Sit Assist Moderate Assistance,Head of Bed Elevated,Bedrails OT-Transfer Assessment Sit to and From Stand Sit to and from Stand Minimal Assistance,2 Person Assistance Transfers Transfer Ability Minimal Assistance,2 Person Assistance Technique Transfer Destination Bed,Chair Transfer Technique Stand Step Pivot Devices Transfer Assistive Devices Gait Belt,Front Wheeled Walker Comments Mobility Comments MODA and cue to use bed rail to assist to get to the edge of the bed. SANCHEZ x2 to stand to the FWW. Assist for FWW guidance and for steadying at this time. OT- Balance Assessment Sitting Balance and Reactions Static Sitting Balance Ability Good Dynamic Sitting Balance Ability Fair Standing Balance and Reactions Static Standing Balance Ability Poor Dynamic Standing Balance Ability Poor M8 OT- IP Objective Assessments Start: 01/25/23 09:27 Freq: Status: Active Protocol: Document 01/25/23 09:28 [facility] (Rec: 01/25/23 09:42 [facility] [id number]) OT Gross Range of Motion Upper Extremity Range of Motion Assessment Bilaterally Impaired OT Strength Upper Extremity Strength Assessment Bilaterally Impaired Elbow 4 Forearm 4+ Wrist 5 Hand 5 Comments Strength Comments Pt has limited shoulder AROM due to flexed posture and stiffness. OT- Coordination Assessment Comments Coordination Comments Pt needing asisst for set-up to open package on toothbrush. OT-Muscle Tone Assessment Muscle Tone WNL Yes M9 OT- IP Assessment and Plan Start: 01/25/23 09:27 Freq: Status: Active Protocol: Document 01/25/23 09:28 [facility] (Rec: 01/25/23 09:42 [facility] [id number]) OT Summary Assessment and Plan Potential Rehabilitation Potential Good Analytic Complexity at Evaluation Moderate Summary OT Impairments Pain,Balance,Coordination, Functional Cognition, Functional Mobility,Grooming, Dressing,Toileting,Bathing, Toilet Transfers,Shower Transfers,Activity Tolerance Progress Towards Goals Slow Progress due to Medical Issues,Slow Progress due to Activity Tolerance Assessment Summary Pt MOD complexity and main barriers are decreased balance , activity tolerance and needing increased time to process and follow commands for ADL and mobilty needs. Pt is cooperative and motivated to get better. Pt has a supportive at home and equipment needs. Pt to go to skilled rehab when medically stable. Goals Grooming Goal Independent Dressing Goal Moderate Assistance Toileting Goal Standby Assistance Bathing Goal Moderate Assistance Toilet Transfer Goal Contact Guard Assistance Shower Transfer Goal Contact Guard Assistance Days to Meet Goals 15 Frequency of Treatment Frequency Of Treatment Once a Day Treatment Plan OT Treatment Plan ADL Training,Functional Cognition Training,Functional Mobility,Patient/Family Education,Discharge Planning Other Treatment Recommendations and Next Pt to be able to walk to the [facility] bathroom with FWW with MODA x1 and able to toilet himself with SANCHEZ for hygiene, MODA for clothing management needs. Discharge Recommendations OT Discharge Recommendations SNF Rehab Transportation Needs at Discharge Wheelchair/Cabulance
--- NOTE | 2023-01-25 09:03 | OT.IP.TRT ---
Current Diagnoses Heart failure, unspecified (01/23/23) Occupational Therapy Treatment Note M2 OT-IP Current Condition Start: 01/25/23 09:27 Freq: Status: Active Protocol: Document 01/25/23 09:28 [facility] (Rec: 01/25/23 09:42 [facility] [id number]) Occupational Therapy Current Condition Current Condition Evaluation Date 01/25/23 Treatment Diagnosis PNA, Acute on chronic CHF Diagnosis Onset Date 01/23/23 M3 OT- IP Subjective and Pain Start: 01/25/23 09:27 Freq: Status: Active Protocol: Document 01/25/23 09:28 [facility] (Rec: 01/25/23 09:42 [facility] [id number]) OT- Subjective Occupational Therapy Visit Type Type Initial Evaluation Visit Start Time 09:03 Visit Stop Time 09:25 Total Visit Minutes 22 Occupational Therapy Visit Comments Patient Comments Pt agreed to get up. Patient/Caregiver Goals To get better. OT Pain Assessment Pain When Pain Assessed At Rest Pain Present Pain Present Denied Pain M4 OT- IP ADL's Start: 01/25/23 09:27 Freq: Status: Active Protocol: Document 01/25/23 09:28 [facility] (Rec: 01/25/23 09:42 [facility] [id number]) OT [id number] Comments OT Self-Feeding Comments NOt at meal time. OT ADL-Grooming General Evaluation Grooming Ability Standby Assistance Areas Needing Assistance Retrieving/Set-up of Grooming Items Comments OT Grooming Comments while seated OT ADL-Oral Care General Eval Oral Care Ability Standby Assistance Areas of Assistance Retrieving/Set-Up of Items Comments Oral Care Comments while seated OT ADL-Dressing General Eval Lower Body Dressing Ability Maximum Assistance Comments OT Dressing Comments Prior pt's assist with LB dressing needs. OT ADL-Toileting General Evaluation Toileting Ability Total Assistance Comments OT Toileting Comments External catheter in place OT ADL-Bathing Comments OT Bathing Comments Sponge bath more appropriate at this time. M5 OT- IP IADL's Start: 01/25/23 09:27 Freq: Status: Active Protocol: Document 01/25/23 09:28 [facility] (Rec: 01/25/23 09:42 [facility] [id number]) OT-Instrumental Activities of Daily Living Deficits IADL Deficits Identified Deficits Medication Management Medication Management Caregiver Administers Money Management Money Management Caregiver Provides Assistance Meal Preparation Meal Preparation Caregiver Provides Assist Lead Recoverer Lead Recoverer Caregiver Provides Assist M6 OT- IP Functional Cognition Start: 01/25/23 09:27 Freq: Status: Active Protocol: Document 01/25/23 09:28 [facility] (Rec: 01/25/23 09:42 [facility] [id number]) Cognitive Factors Limiting Selfcare Function Cognitive Ability Level of Alertness Alert Patient Orientation Name,Place Ability to Follow Commands Able to Follow One Step Commands Memory Description Short Term Impaired Cognitive Comments Cognitive Assessment Comments Pt needing increased time to process and follow commands. Pt needing vc for safety for FWW use, hand and foot placement as well. Pt is very cooperative. OT- Vision and Hearing OT- Hearing Assessment OT- Hearing Assessment WFL OT- Vision Assessment Visual Acuity Glasses For Reading M7 OT- IP Mobility and Balance Start: 01/25/23 09:27 Freq: Status: Active Protocol: Document 01/25/23 09:28 [facility] (Rec: 01/25/23 09:42 [facility] [id number]) OT- Bed Mobility Assessment Supine to Sit Supine to Sit Assist Moderate Assistance,Head of Bed Elevated,Bedrails OT-Transfer Assessment Sit to and From Stand Sit to and from Stand Minimal Assistance,2 Person Assistance Transfers Transfer Ability Minimal Assistance,2 Person Assistance Technique Transfer Destination Bed,Chair Transfer Technique Stand Step Pivot Devices Transfer Assistive Devices Gait Belt,Front Wheeled Walker Comments Mobility Comments MODA and cue to use bed rail to assist to get to the edge of the bed. SANCHEZ x2 to stand to the FWW. Assist for FWW guidance and for steadying at this time. OT- Balance Assessment Sitting Balance and Reactions Static Sitting Balance Ability Good Dynamic Sitting Balance Ability Fair Standing Balance and Reactions Static Standing Balance Ability Poor Dynamic Standing Balance Ability Poor M8 OT- IP Objective Assessments Start: 01/25/23 09:27 Freq: Status: Active Protocol: Document 01/25/23 09:28 [facility] (Rec: 01/25/23 09:42 [facility] [id number]) OT Gross Range of Motion Upper Extremity Range of Motion Assessment Bilaterally Impaired OT Strength Upper Extremity Strength Assessment Bilaterally Impaired Shoulder Elbow 4 Forearm 4+ Wrist 5 Hand 5 OT-Muscle Tone Assessment Muscle Tone WNL Yes M9 OT- IP Assessment and Plan Pt MOD complexity and main barriers are decreased balance, activity tolerance and needing assist for ADl and mobility needs. Pt is cooperative however needing increased time to follow and process commands. Pt needing two person assist for transfer due to pt is a little unsteady on his feet and use of bariatric FWW. Pt has good potential to be able to meet OT goals and go back home to his supportive . Start: 01/25/23 09:27 Freq: Status: Active Protocol: Document 01/25/23 09:28 [facility] (Rec: 01/25/23 09:42 [facility] [id number]) OT Summary Assessment and Plan Potential Rehabilitation Potential Good Analytic Complexity at Evaluation Moderate Summary OT Impairments Pain,Balance,Coordination, Functional Cognition, Functional Mobility,Grooming, Dressing,Toileting,Bathing, Toilet Transfers,Shower Transfers,Activity Tolerance Progress Towards Goals Slow Progress due to Medical Issues,Slow Progress due to Activity Tolerance Goals Grooming Goal Independent Dressing Goal Moderate Assistance Toileting Goal Standby Assistance Bathing Goal Moderate Assistance Toilet Transfer Goal Contact Guard Assistance Shower Transfer Goal Contact Guard Assistance Days to Meet Goals 15 Frequency of Treatment Frequency Of Treatment Once a Day Treatment Plan OT Treatment Plan ADL Training,Functional Cognition Training,Functional Mobility,Patient/Family Education,Discharge Planning Discharge Recommendations OT Discharge Recommendations SNF Rehab Transportation Needs at Discharge Wheelchair/Cabulance
--- NOTE | 2023-01-25 09:20 | PT.IIE ---
Current Diagnoses Heart failure, unspecified (01/23/23) Surgical History (Last Reviewed 01/24/23 @ 07:42 by Eliu Guzman MD) 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 Medical History (Last Reviewed 01/24/23 @ 07:42 by Eliu Guzman MD) Atrial fibrillation (Unknown) DDD (degenerative disc disease), lumbar (~2017) DJD (degenerative joint disease), lumbosacral (~2018) Hematuria Hip dislocation, right History of colon polyps Obesity (BMI 30-39.9) (Unknown) Obstructive sleep apnea of adult (~2006) Rectal bleeding Urinary retention UTI (urinary tract infection) Physical Therapy Inpatient Evaluation/Re-Eval M1 PT/OT-IP Prior Functional Status Start: 01/25/23 09:23 Freq: NEEDED Status: Active Protocol: Document 01/25/23 09:28 CCC (Rec: 01/25/23 09:42 [facility] [id number]) Medical Review Prior Functional Status Communication independent but slow to process Mobility and Gait Pt uses a FWW at home and prior to recent hospitalization was using the wc to get to the toilet. Pt's also uses a patient transfer aid with the pt at times. Activities of Daily Living and IADL's Pt's assist with LB dressing and showering needs. Prior Functional Level (Other details) Pt has an adajustable bed at home. Social History Household Members spouse Living Arrangements House Number of Floors (Floors) One Floor Number of Stairs To Enter/Railing? ramp Home Environment Standard Height Toilet,Walk in Shower Home Equipment Front Wheel Walker,Manual Wheelchair,Shower Seat without Backrest,Grab Bars Near Toilet Additional Social History Comment Pt has an adjustable bed. M2 PT-IP Current Condition Start: 01/25/23 09:23 Freq: NEEDED Status: Active Protocol: Document 01/25/23 09:20 DLM (Rec: 01/25/23 09:42 DLM [id number]) Physical Therapy Current Condition Current Condition Evaluation Date 01/25/23 Treatment Diagnosis CHF/PNA, impaired mobility/ gait Onset Date 01/23/23 M3 PT-IP Subjective Start: 01/25/23 09:23 Freq: NEEDED Status: Active Protocol: Document 01/25/23 09:20 DLM (Rec: 01/25/23 09:42 DLM [id number]) Subjective Physical Therapy Visit Type Type Initial Evaluation Visit Start Time 09:00 Visit Stop Time 09:20 Total Visit Minutes 20 Notes co-eval with OT for patient safety Number of MOBILE DESIGNER Visits 0 Physical Therapy Visit Comments Patient Comments He reports he is feeling better Patient Goals Get better, his wants him to be able to go home Therapy Pain Assessment Pain When Pain Assessed During Mobility Pain Present Pain Present Pain Reported Location Right Thigh Intensity 4 Scale Used Numeric (0 - 10) Description Aching Pain Behaviors Guarding M4 PT-IP Mobility and Gait Start: 01/25/23 09:23 Freq: NEEDED Status: Active Protocol: Document 01/25/23 09:20 [facility] (Rec: 01/25/23 09:42 [facility] [id number]) PT-Bed Mobility Assessment Rolling Type of Rolling Roll to Left Level of Assist Minimal Assistance Supine to Sit Supine to Sit Moderate Assistance,Head of Bed Elevated,Bedrails Scooting Scooting to Edge of Bed Standby Assistance PT-Transfer Assessment Sit to and From Stand Sit to and from Stand Moderate Assistance,Use of Upper Extremities Equipment Transfer Assistive Device Gait Belt,Front Wheeled Walker Transfers Transfer Destination Chair Transfer Technique Stand Step Pivot Transfer Ability Level of Assist Minimal Assistance,2 Person Assistance,Use of Upper Extremities Comments Mobility Comments He has pain with weight bearing on right thigh/hip area due to history of right OBDULIA, dislocation and femur fracture. He needs UE support on FWW to manage his right LE pain. He is moving slowly with all mobility today but with extra time he can complete more of the tasks himself. He is using 3 LPM oxygen with sats 95%. He tends to hold his breath during bed mobility which causes his face to turn very red. He needs reminders to take deep breaths. He needs safety reminders to fully line up with the recliner before sitting. Obtained a bariatric bedside commode for pt to use in his room with nursing. Gait Assessment Gait Gait Assistance Required: Minimum Assistance,2 Person Assist Distance (Feet) 2 Assistive Devices Assistive Device Gait Belt,Front Wheeled Walker Gait Deviations General Gait Pattern Antalgic,Decreased Stride Length,Flexed Trunk,Wide Based Gait Factors Limiting Gait Function Factors Limiting Gait Function Decreased Activity Tolerance, Decreased Strength,Pain Comments Gait Comments Pt taking small functional steps to bed from bed to chair . He uses significant UE support on FWW to manage his right hip/thigh pain. Obtained a bariatric FWW for pt to use in his room. Pt left up in the recliner with call light close and nursing aware. Stair Climbing Assessment Comments Stair Climbing Comments ramp to enter house PT-Balance Assessment Sitting Balance and Reactions Static Sitting Balance Ability Good Dynamic Sitting Balance Ability Good Standing Balance and Reactions Static Standing Balance Ability Fair Dynamic Standing Balance Ability Fair Device Used FWW M5 PT-IP Objective Assessments Start: 01/25/23 09:23 Freq: NEEDED Status: Active Protocol: Document 01/25/23 09:20 DLM (Rec: 01/25/23 09:42 DL [id number]) Orientation Orientation/Cognition Level of Alertness Alert Orientation Name,Birthday,Place Language Function Ability No Deficits Noted Safety Awareness Decreased Safety Awareness Memory Description Short Term Impaired Comments He does not recall being at SNF rehab. He is able to follow simple instructions for mobility. He is pleasant and cooperative. His mental processing is slow but he can verbalize his needs. Gross Range of Motion Upper Extremity ROM Assessment Bilaterally Impaired Impairments end range stiffness, see OT eval for details Lower Extremity ROM Assessment Within Functional Limits Impairments pain right hip area with flexion Strength Upper Extremity Strength Assessment Bilaterally Impaired Shoulder see OT eval for details Lower Extremity Strength Assessment Right Impaired Hip flexion 3+/5 Knee 4/5 Ankle DF 5/5 Coordination Assessment Assessment Coordination Comments mild/mod bradykinetic, difficulty openning packages with hands Sensation Assessment Sensation Gross Sensation WNL Muscle Tone Muscle Tone WNL Yes M6 PT-IP Treatment Start: 01/25/23 09:23 Freq: NEEDED Status: Active Protocol: Document 01/25/23 09:20 DLM (Rec: 01/25/23 10:07 DL [id number]) Physical Therapy Treatment Education Education Provided Safety Other Treatments Other Treatment Performed no family present this visit M7 PT-IP Assessment and Plan Start: 01/25/23 09:23 Freq: NEEDED Status: Active Protocol: Document 01/25/23 09:20 DLM (Rec: 01/25/23 09:42 DL [id number]) PT Summary Assessment and Plan Potential Rehabilitation Potential Good Status of Condition at Evaluation Evolving Summary Impairments Pain,ROM,Strength,Balance, Coordination,Cognition,Bed Mobility,Transfers,Gait, Activity Tolerance Assessment Summary Flako was re-admitted to the hospital from [facility] rehab. Flako is alert and resting in bed. He has no complaints today. He is slow getting out of bed but given extra time he is able to more for himself. He has an adjustable bed at home so the head of the bed was left elevated and bed rails used to assist him. He was able to get up to the recliner today with min assist of two people. He as pain in right thigh/hip area with weight bearing that is chronic. He is using 3 LPM oxygen today. He needs reminders to breath deeply during mobility and avoid holding his breath. His face will turn very red when he holds his breath. Recommend he return to SNF rehab to continue his functional recovery before returning home with his . Goals Bed Mobility Goal Minimal Assistance Transfer Goal Contact Guard Assistance,Front Wheeled Walker Gait Goal Contact Guard Assistance,Front Wheel Walker Gait Distance 50 feet Days to Meet Goals 5 Frequency of Treatment Frequency Of Treatment Twice a Day Treatment Plan Physical Therapy Treatment Plan Bed Mobility Training,Transfer Training,Gait Training, Therapeutic Exercise,Balance Retraining,Discharge Planning, Neuromuscular Re-ed, Coordination Retraining Precautions Other Precautions fall risk due to cognitive impairments Recommendations To Nursing Amount of Assist Needed 2 Person Assist Discharge Recommendations PT Discharge Recommendations SNF Rehab Transportation Needs at Discharge Wheelchair/Cabulance
[2023-01-25] MEDS: FUROSEMIDE 40 MG/4 ML VIAL IV ×2 (11:17→23:28)
--- NOTE | 2023-01-25 11:17 | CM.DPC ---
Addendum entered by Nancy RiveramanSHERRY 01/25/23 13:57: Return call from Jennifer at [facility] and confirms transport tomorrow at 1330 works for them and confirms if pt not yet stable for d/c Wed they could still accept Thurs. BF Addendum entered by Nancy Robison, MESSENGER OFFICE 01/25/23 13:34: ADD: Return msg from [facility] and they do not feel they can accommodate pt at this time as they are low on male beds and especially alejandra beds. TYLER called spouse and updated and she is disappointed and might call [facility] but confirms her next preference is [facility] and agreeable to the private pay cabulance cost as well but might ask PT/OT to confirm tomorrow that pt is not safe for private vehicle. SW received a call from [facility] chalino Patel who states they could likely accept as well even if pt is stable for d/c tomorrow Wed but aware that pt's spouse might want him to go to another SNF but they will continue to follow in case they are needed at d/c. TYLER called [facility] and left msg stating likely d/c tomorrow and transport set up 1330 via cabulance. TYLER called [facility] transport and scheduled transport time for tomorrow 01/26/23 Wed for 1330 to be picked up from the room and provided spouse contact name and number and to provide a larger w/c and oxygen. TYLER called Dr. Guzman's office and left msg that spouse's SNF preference [facility] has an opening and can accept tomorrow Wed and transport scheduled for 1330. Nancy Robison, MESSENGER OFFICE Original Note: DCP SNF Planning: Per MD, pt not yet medically stable to d/c today but more appropriate to work with therapies and PT/OT ordered. PT/OT recommend SNF but state he has made some progress and no longer gilles for transfers but do not feel pt safe for transport via POV but recommend cabulance. TYLER received a call from [facility] stating they can accept pt and PT/OT notes were faxed for their review and confirm they have a bed tomorrow to accept pt but unsure if they would still have a bed if pt discharges after tomorrow. [facility] and [facility] faxed updated PT/OT notes as well for review. TYLER called pt's spouse Karen and updated on above and that [facility] confirms they can accept pt tomorrow but so far cannot guarantee acceptance after tomorrow Wed. SW also discussed that [facility] does not provide transport and recommendation of cabulance. Spouse agreeable with SW getting quote for cabulance for PP and spouse aware that Medicare does not cover transport and confirms pt does not have Medicaid or LTC insurance. SW called [facility] transport and they confirm they would be willing to provide cabulance from [facility] to [facility] and aware pt would need w/c and likely oxygen and quote is $213.01. Transport not yet scheduled. SW [place] [facility] [place] [facility] [place] requesting quote with specific destination and awaiting call back. SW called spouse and updated on cabulance quote. Spouse requests SW to contact [facility] admissions to see if they feel they can accept pt as spouse states pt's [employer] is also in [facility]. SW contacted [facility] and requested review and SKIP Hernandez sent updated clinicals from today to review and SW requested answer by today if they can accept or not so that if [facility] needed at d/c transport could be scheduled today for tomorrow. Spouse currently not sure if she wants [facility] as an option. PASRR completed in anticipation of SNF at d/c. If pt returns to [facility] at d/c, no PASRR needed. Plan: SW to follow closely today for [facility] review for determination if they can accept and then plan for [facility] if [facility] declines with [facility] private pay to be set up for [facility]. SHERRY Patel
--- NOTE | 2023-01-25 14:10 | PT.IPTN ---
Current Diagnoses Heart failure, unspecified (01/23/23) Physical Therapy Treatment Note M2 PT-IP Current Condition Start: 01/25/23 09:23 Freq: NEEDED Status: Active Protocol: Document 01/25/23 09:20 DLM (Rec: 01/25/23 09:42 DLM [id number]) Physical Therapy Current Condition Current Condition Evaluation Date 01/25/23 Treatment Diagnosis CHF/PNA, impaired mobility/ gait Onset Date 01/23/23 M3 PT-IP Subjective Start: 01/25/23 09:23 Freq: NEEDED Status: Active Protocol: Document 01/25/23 14:47 TS (Rec: 01/25/23 15:14 TS [id number]) Subjective Physical Therapy Visit Type Type Treatment Note Visit Start Time 14:10 Visit Stop Time 14:36 Total Visit Minutes 26 Notes Spo2: 96% on 2.5L O2. Number of MAIL SERVICE COORDINATOR Visits 1 Physical Therapy Visit Comments Patient Comments Pt found with nursing staff in room, agreeable to PT session . Patient Goals Get better, his wants him to be able to go home M4 PT-IP Mobility and Gait Start: 01/25/23 09:23 Freq: NEEDED Status: Active Protocol: Document 01/25/23 14:47 TS (Rec: 01/25/23 15:14 TS [id number]) PT-Bed Mobility Assessment Sit to Supine Sit to Supine Moderate Assistance,1 Person Assistance Scooting Scooting to Edge of Bed Standby Assistance PT-Transfer Assessment Sit to and From Stand Sit to and from Stand Maximum Assistance,1 Person Assistance Equipment Transfer Assistive Device Gait Belt,Front Wheeled Walker Transfers Transfer Destination Bed Transfer Technique Stand Pivot Transfer Ability Level of Assist Moderate Assistance,1 Person Assistance Comments Mobility Comments Vinicio performed sit to stand x3 MaxA w/FWW, no lift on first two attempts, third attempt came into standing, required cues for BUE support on arms of chair and weight forward. Once standing pt had flexed posture with posterior lean requiring ModA for upright posture and reported LE's being fatigued. He performed pivot transfer ModA w/FWW to bed requiring cues for FWW management and position of feet. In sitting he maintained midline with BUE support and cues for core activation. Sit to supine ModA for LE's back into bed and required cues for trunk positioning, log roll and PLB for SOB, O2 96%. He performed heel slides x5 and ankle pumps x5 ea LE. He was left with nursing and spouse in room tending to needs. Stair Climbing Assessment Comments Stair Climbing Comments ramp to enter house PT-Balance Assessment Sitting Balance and Reactions Static Sitting Balance Ability Good Dynamic Sitting Balance Ability Fair Standing Balance and Reactions Static Standing Balance Ability Fair Dynamic Standing Balance Ability Poor Device Used FWW M5 PT-IP Objective Assessments Start: 01/25/23 09:23 Freq: NEEDED Status: Active Protocol: Document 01/25/23 09:20 DLM (Rec: 01/25/23 09:42 DLM [id number]) Orientation Orientation/Cognition Level of Alertness Alert Orientation Name,Birthday,Place Language Function Ability No Deficits Noted Safety Awareness Decreased Safety Awareness Memory Description Short Term Impaired Comments He does not recall being at SNF rehab. He is able to follow simple instructions for mobility. He is pleasant and cooperative. His mental processing is slow but he can verbalize his needs. Gross Range of Motion Upper Extremity ROM Assessment Bilaterally Impaired Impairments end range stiffness, see OT eval for details Lower Extremity ROM Assessment Within Functional Limits Impairments pain right hip area with flexion Strength Upper Extremity Strength Assessment Bilaterally Impaired Shoulder see OT eval for details Lower Extremity Strength Assessment Right Impaired Hip flexion 3+/5 Knee 4/5 Ankle DF 5/5 Coordination Assessment Assessment Coordination Comments mild/mod bradykinetic, difficulty openning packages with hands Sensation Assessment Sensation Gross Sensation WNL Muscle Tone Muscle Tone WNL Yes M6 PT-IP Treatment Start: 01/25/23 09:23 Freq: NEEDED Status: Active Protocol: Document 01/25/23 14:47 TS (Rec: 01/25/23 15:14 TS [id number]) Physical Therapy Treatment Education Education Provided Safety Other Treatments Other Treatment Performed Spouse in room, providing motivation. M7 PT-IP Assessment and Plan Start: 01/25/23 09:23 Freq: NEEDED Status: Active Protocol: Document 01/25/23 14:47 TS (Rec: 01/25/23 15:14 TS [id number]) PT Summary Assessment and Plan Potential Rehabilitation Potential Good Status of Condition at Evaluation Evolving Summary Impairments Pain,ROM,Strength,Balance, Coordination,Cognition,Bed Mobility,Transfers,Gait, Activity Tolerance Assessment Summary Pt requiring increase assist into standing this afternoon, had difficulty getting lift from chair first two attempts and on third attempt came into standing MaxA. Despite feeling fatigued in standing, Vinicio was motivated to try pivot transfer to bed ModA. He did report some SOB with bed mobility(96% on 2.5L), required cues for PLB. PT recommends SNF to increase strength, transfers and gait. Goals Bed Mobility Goal Minimal Assistance Transfer Goal Contact Guard Assistance,Front Wheeled Walker Gait Goal Contact Guard Assistance,Front Wheel Walker Gait Distance 50 feet Days to Meet Goals 5 Frequency of Treatment Frequency Of Treatment Twice a Day Treatment Plan Physical Therapy Treatment Plan Bed Mobility Training,Transfer Training,Gait Training, Therapeutic Exercise,Balance Retraining,Discharge Planning, Neuromuscular Re-ed, Coordination Retraining Other Recommendations and Next Treatment he has an adjustable bed at [facility] Precautions Other Precautions fall risk due to cognitive impairments Recommendations To Nursing Amount of Assist Needed 2 Person Assist Discharge Recommendations PT Discharge Recommendations SNF Rehab Transportation Needs at Discharge Wheelchair/Cabulance
[2023-01-26 04:00] VITALS: BP 124/82; PULSE 66; RESP 17; TEMP 36.4; O2SAT 95
[2023-01-26 05:47] LABS: Prothrombin Time 35.2 SECONDS (10.1-12.7)
[2023-01-26 06:00] LABS: Add Manual Diff / Slide Review NO; Alanine Aminotransferase 30 IU/L (<50); Albumin 3.6 g/dL (3.5-5.0); Albumin Globulin Ratio 1.1 (1.0-2.8); Alkaline Phosphatase 109 U/L (38-126); Aspartate Aminotransferase 33 IU/L (17-59); BUN Creatinine Ratio 37.2 (6-22); Basophils Absolute Auto 0 /uL (0-100); Basophils Percent Auto 0.6 % (0-2); Bilirubin Total 0.5 mg/dL (0.2-1.3); Blood Urea Nitrogen 32 mg/dL (9-20); Carbon Dioxide 34 mmol/L (22-32); Chloride 100 mmol/L (98-107); Eosinophils Absolute Auto 200 /uL (0-450); Eosinophils Percent Auto 3.6 % (2-4); Estimated Glomerular Filt Rate > 60 mL/min (>60); Globulin 3.3 g/dL (1.7-4.1); Glucose 96 mg/dL (80-110); HEMOLYSIS < 15 (0-50); Hematocrit 41.6 % (41-53); Hemoglobin 13.7 g/dL (13.5-17.5); Lymphocytes Absolute Auto 1300 /uL (1100-4500); Lymphocytes Percent Auto 20.4 % (25-40); Mean Corpuscular HGB Conc 32.8 % (30-36); Mean Corpuscular Hemoglobin 30.4 PG (26-34); Mean Corpuscular Volume 92.5 fL (80-100); Monocytes Absolute Auto 700 /uL (0-900); Monocytes Percent Auto 11.3 % (3-14); Neutrophils Absolute Auto 4000 /uL (1500-7000); Neutrophils Percent Auto 64.1 % (50-75); Platelet Count 173 X10^3/uL (150-400); Red Cell Distribution Width 15.2 % (11.6-14.8); Sodium 139 mmol/L (137-145); Total Protein 6.9 g/dL (6.3-8.2); White Blood Cell Count 6.3 X10^3/uL (4.5-11.0)
[2023-01-26 06:08] LABS: NT-proBNP (BNP-Adult 18+) 868 pg/mL (<450)
[2023-01-26 08:00] VITALS: BP 126/73; PULSE 72; RESP 22; TEMP 35.8; O2SAT 96
[2023-01-26] MEDS: TAMSULOSIN 0.4 MG CAPSULE PO (08:19)
[2023-01-26] MEDS: POTASSIUM CHLORIDE 20 MEQ TAB 40 MEQ PO (08:19)
[2023-01-26] MEDS: DULOXETINE 30 MG CAPSULE 60 MG PO (08:20)
[2023-01-26] MEDS: cefUROXime 250 MG TABLET 500 MG PO (08:20)
[2023-01-26] MEDS: ATORVASTATIN 20 MG TABLET 40 MG PO (08:20)
[2023-01-26] MEDS: GABAPENTIN 300 MG CAPSULE PO (08:25)
[2023-01-26] MEDS: WARFARIN 5 MG TABLET 10 MG PO (08:25)
[2023-01-26] MEDS: risperiDONE 1 MG TABLET 2 MG PO (08:25)
[2023-01-26 08:33] VITALS: BP 126/73; PULSE 72
[2023-01-26] MEDS: carvediloL 12.5 MG TABLET 37.5 MG PO (08:33)
--- NOTE | 2023-01-26 09:06 | PM.DS.1 ---
History of Present Illness History of Present Illness Date Patient Seen: 01/26/23 Time Patient Seen: 09:06 Date of Onset of Symptoms: 01/26/23 Chief complaint: PNA cough SOB Narrative: Patient is a poor historian. 82-year-old male well known to me recently discharged for pneumonia. Transferred to [facility]. Apparently over the last 24-48 hours he has been increasingly weak and short of breath. No fevers no chills no chest pain. Patient has been weak but had been week previously. There has really been no change. Nonfocal. He is had no increased heart rate or change in blood pressure. He otherwise feels as if his fine. Breathing more comfortably today. Was given Lasix yesterday and had 2 L diuresis. No evidence of significantly uncontrolled atrial fibrillation or no other changes. Discharge Providers Provider Date of admission: 01/23/23 17:34 Discharge Date: 01/26/23 Primary care physician: Eliu Guzman MD Consults: 01/25/23 07:50 Consult to Occupational Therapy Evaluate & Treat Comment: Physician Instructions: Evaluate and treat Consult to Physical Therapy Evaluate & Treat Comment: Physician Instructions: Evaluate and Treat Discharge provider: Eliu Guzman MD Summary Hospital Course Discharge Diagnosis: Congestive heart failure acute on chronic Acute respiratory failure Gross hematuria History of atrial fibrillation History of pneumonia Weakness Dementia Polymyalgia rheumatica Brief run of V-tach Hyperlipidemia Hypertension Sleep apnea Hospital Course: Congestive heart failure. Patient was admitted after 2 days of discharge. Patient was noted to have a significantly elevated BNP. Chest x-ray showed no real change. O2 requirement was significantly increased. Patient was aggressively diuresed with IV Lasix BNP came down significantly his O2 requirement continued to improve and expected to be off at discharge. No other change. Potassium was mildly decreased and was replaced with p.o.. Will stable on day of discharge. Will continue oral Lasix for now. Reassess as outpatient. Kidney function remained stable. Echo showed good EF. No evidence of injury. Patient had no evidence of elevation of enzymes. No evidence of heart attack or injury Acute respiratory failure. [place] to be secondary to lungs which were already having struggle with history of pneumonia and now with congestive heart failure. Did well. With diuresis. And seem to respond. May require short course of O2 depending on how he responds for today. Gross hematuria. Patient has had history of bladder cancer currently doing well without significant issues. Has not had any recurrence. Will need follow-up with urologist as outpatient. Atrial fibrillation. INR was 3 today. Will continue on usual medication but will need INR checked in 1 week. History of pneumonia. Patient's x-ray was normal and no evidence of elevation white count or change in his x-ray. Would recommend 5 more days of Ceftin. Short course run of V-tach. Probably secondary to lower potassium. Would keep his potassium up and will send home on oral potassium on discontinues IV Lasix we can discontinue that. Polymyalgia rheumatica stable Hyperlipidemia stable. Hypertension. Actually was a little elevated when he came into the hospital but was stable afterwards. Will need to be followed as outpatient. Sleep apnea usual issues. Dementia. Patient's early on in the process. He has been quite angry. And Risperdal has been used to maintain that. Has done well with that and antidepressants. No other treatment. Exam Vital Signs (past 8 hours): - 01/26/23 04:00 01/26/23 08:33 01/26/23 08:00 Temperature 97.5 F L 96.4 F L Pulse Rate 66 72 72 Respiratory Rate 17 22 Blood Pressure 124/82 126/73 126/73 Pulse Oximetry 95 96 Oxygen Flow Rate 3.5 2 Oxygen Delivery Method Nasal Cannula Oxygen Flow Rate 2 Narrative Exam Narrative: Alert smiling male in no acute distress Mucous membranes moist neck supple without JVD lungs are clear heart is regular rate and rhythm extremities actually decreased edema and color is improved still has good pulses neurologic exam is stable still somewhat confused but overall doing well probably back to baseline Objective Labs 01/26/23 04:15 01/26/23 04:15 Labs: Laboratory Results - last 24 hr 01/26/23 01/26/23 01/26/23 04:15 04:15 04:15 WBC 6.3 RBC 4.50 Hgb 13.7 Hct 41.6 MCV 92.5 MCH 30.4 MCHC 32.8 RDW 15.2 H Plt Count 173 Neut % (Auto) 64.1 Lymph % (Auto) 20.4 L Turner % (Auto) 11.3 Eos % (Auto) 3.6 Baso % (Auto) 0.6 Neut # (Auto) 4000 Lymph # (Auto) 1300 Turner # (Auto) 700 Eos # (Auto) 200 Baso # (Auto) 0 PT INR Sodium 139 Potassium 4.0 Chloride 100 Carbon Dioxide 34 H BUN 32 H Creatinine 0.86 Estimated GFR > 60 BUN/Creatinine Ratio 37.2 H Glucose 96 Calcium 9.0 Total Bilirubin 0.5 AST 33 ALT 30 Alkaline Phosphatase 109 NT-Pro-B Natriuret Pep 868 H Total Protein 6.9 Albumin 3.6 Globulin 3.3 Albumin/Globulin Ratio 1.1 01/26/23 04:15 WBC RBC Hgb Hct MCV MCH MCHC RDW Plt Count Neut % (Auto) Lymph % (Auto) Turner % (Auto) Eos % (Auto) Baso % (Auto) Neut # (Auto) Lymph # (Auto) Turner # (Auto) Eos # (Auto) Baso # (Auto) PT 35.2 H D INR 3.0 H Sodium Potassium Chloride Carbon Dioxide BUN Creatinine Estimated GFR BUN/Creatinine Ratio Glucose Calcium Total Bilirubin AST ALT Alkaline Phosphatase NT-Pro-B Natriuret Pep Total Protein Albumin Globulin Albumin/Globulin Ratio PFSH Medical History Atrial fibrillation (Unknown) DDD (degenerative disc disease), lumbar (~2017) DJD (degenerative joint disease), lumbosacral (~2017) Hematuria Hip dislocation, right History of colon polyps Obesity (BMI 30-39.9) (Unknown) Obstructive sleep apnea of adult (~2006) Rectal bleeding Urinary retention UTI (urinary tract infection) Surgical History 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 Social History household members: spouse Smoking Status: Former smoker alcohol intake: current Discharge Assessment & Plan Assessment and Plan Assessment: Improved Plan of Treatment: Transfer to rehab center Discharge Plan Discharge Plan Patient Disposition: SNF Under care of provider: house md Consult as needed: Dental, Hearing, Mental health, Podiatry and Vision Discharge orders & Medications Prescriptions: New potassium chloride [Klor-Con M20] 20 mEq Tablet,Er Particles/Crystals 40 meq PO DAILYCC Qty: 30 0RF guaifenesin [Mucus Relief ER] 600 mg Tablet Extended Release 12hr 600 mg PO Q12HR PRN (Reason: Cough) Qty: 60 0RF furosemide [Lasix] 20 mg tablet 20 mg PO DAILY Qty: 30 0RF Continued tamsulosin [Flomax] 0.4 MG capsule,extended release 24hr 0.4 mg PO QDAY 7 Days Qty: 0 0RF carvedilol 25 mg tablet 37.5 mg PO BID warfarin 10 mg tablet 10 mg PO DAILY rosuvastatin [Crestor] 20 mg tablet 20 mg PO DAILY Patient Comments: Take one by mouth every day duloxetine 60 mg capsule,delayed release(DR/EC) 60 mg PO DAILY Patient Comments: TAKE ONE CAPSULE BY MOUTH ONE TIME DAILY FOR DEPRESSION OR CHRONIC PAIN furosemide 40 mg tablet 40 mg PO DAILY Patient Comments: TAKE ONE TABLET BY MOUTH ONE TIME DAILY risperidone 2 mg tablet 2 mg PO BID Patient Comments: TAKE ONE TABLET BY MOUTH TWICE DAILY cefuroxime axetil 500 mg tablet 500 mg PO BID Qty: 14 0RF (DME) Respironics Dreamstation CPAP Qty: 1 Dose Instruction: As directed Patient Comments: Pressure: 10-15 cmH2O DME: [facility] Instructions: As directed gabapentin 300 mg capsule 300 mg PO TID Follow up/Referrals: Eliu Guzmna MD [Primary Care Provider] - (when returns from rehab) Discharge Health Status Multidrug resistant organism: No MDRO Precautions: [place] Diet/Activity/Treatments Diet: Diet as Tolerated Liquid consistency: Normal/Thin Food texture: Regular Oxygen: as needed to maintain 94 percent Skin/Wound/Dressing Care Report to your healthcare provider any signs of infection, such as:: chills, fever and increased pain Visit Report/Discharge Packet Stand Alone Forms: Patient Portal/API Discharge Data Primary Care Provider: Eliu Guzman Quality VTE Deep Vein Thrombosis/Pulmonary Embolism Present on Admission: No
[2023-01-26] MEDS: guaiFENesin ER 600 MG TAB PO (09:26)
[2023-01-26] MEDS: FUROSEMIDE 20 MG TABLET PO (09:26)
--- NOTE | 2023-01-26 10:04 | PC.NURSE ---
0950 Rapid Covid Test collected from patient and tubed to lab.
--- NOTE | 2023-01-26 11:07 | OT.IPNOTE ---
Pt just got up with nursing aid, resting in the chair and not open to sponging off / showering at this time. Pt being discharged this PM to SNF. NO charge.
--- NOTE | 2023-01-26 11:27 | PT.IPTN ---
Current Diagnoses Heart failure, unspecified (01/23/23) Physical Therapy Treatment Note M2 PT-IP Current Condition Start: 01/25/23 09:23 Freq: NEEDED Status: Active Protocol: Document 01/25/23 09:20 DLM (Rec: 01/25/23 09:42 DLM [id number]) Physical Therapy Current Condition Current Condition Evaluation Date 01/25/23 Treatment Diagnosis CHF/PNA, impaired mobility/ gait Onset Date 01/23/23 M3 PT-IP Subjective Start: 01/25/23 09:23 Freq: NEEDED Status: Active Protocol: Document 01/26/23 11:51 TS (Rec: 01/26/23 12:19 TS [id number]) Subjective Physical Therapy Visit Type Type Treatment Note Visit Start Time 11:27 Visit Stop Time 11:50 Total Visit Minutes 23 Notes Spo2: 96% RA, 95% 1L during mobility. Number of TIRE MANAGER Visits 2 Physical Therapy Visit Comments Patient Comments Pt stood with nursing, transferred to chair. Reports he's not having any pain and feels good today, agreeable to PT. Patient Goals Get better, his wants him to be able to go home Therapy Pain Assessment Pain When Pain Assessed At Rest Pain Present Pain Present Denied Pain M4 PT-IP Mobility and Gait Start: 01/25/23 09:23 Freq: NEEDED Status: Active Protocol: Document 01/26/23 11:51 TS (Rec: 01/26/23 12:19 TS [id number]) PT-Transfer Assessment Sit to and From Stand Sit to and from Stand Maximum Assistance,1 Person Assistance,2 Person Assistance Equipment Transfer Assistive Device Gait Belt,Front Wheeled Walker Comments Mobility Comments Pt found resting in bed side chair, agreeable to PT session . Pt Spo2 96% on RA, increased to 1L during mobility. Pt required cues for BUE support to scoot up in chair SBA for sit to stand. He performed sit to stands x3 MaxA x1, provided cues for BUE support on arm rests of chair and weight forward. He could not come fully into standing, has flexed posture with heavy posterior lean and unable to transition both UEs to FWW before leaning back in chair. He performed sit to stand x1 MaxA x2, came fully into standing but still demonstrates flexed posture with posterior lean, stood ~15 secs before LE's fatigued. Pt was left in bedside chair, nursing staff present. Gait Assessment Comments Gait Comments Unable at this time Stair Climbing Assessment Comments Stair Climbing Comments ramp to enter house PT-Balance Assessment Sitting Balance and Reactions Static Sitting Balance Ability Good Dynamic Sitting Balance Ability Fair Standing Balance and Reactions Static Standing Balance Ability Poor Dynamic Standing Balance Ability Poor Device Used FWW Comments Other Balance Tests/Deviations/Treatment Pt maintains good midline : sitting in chair. His standing balance is poor, flexed posture with heavy posterior lean, fatigues quickly requiring rest breaks. M5 PT-IP Objective Assessments Start: 01/25/23 09:23 Freq: NEEDED Status: Active Protocol: Document 01/25/23 09:20 DLM (Rec: 01/25/23 09:42 DLM [id number]) Orientation Orientation/Cognition Level of Alertness Alert Orientation Name,Birthday,Place Language Function Ability No Deficits Noted Safety Awareness Decreased Safety Awareness Memory Description Short Term Impaired Comments He does not recall being at SNF rehab. He is able to follow simple instructions for mobility. He is pleasant and cooperative. His mental processing is slow but he can verbalize his needs. Gross Range of Motion Upper Extremity ROM Assessment Bilaterally Impaired Impairments end range stiffness, see OT eval for details Lower Extremity ROM Assessment Within Functional Limits Impairments pain right hip area with flexion Strength Upper Extremity Strength Assessment Bilaterally Impaired Shoulder see OT eval for details Lower Extremity Strength Assessment Right Impaired Hip flexion 3+/5 Knee 4/5 Ankle DF 5/5 Coordination Assessment Assessment Coordination Comments mild/mod bradykinetic, difficulty openning packages with hands Sensation Assessment Sensation Gross Sensation WNL Muscle Tone Muscle Tone WNL Yes M6 PT-IP Treatment Start: 01/25/23 09:23 Freq: NEEDED Status: Active Protocol: Document 01/26/23 11:51 TS (Rec: 01/26/23 12:19 [id number]) Physical Therapy Treatment Education Education Provided Safety M7 PT-IP Assessment and Plan Start: 01/25/23 09:23 Freq: NEEDED Status: Active Protocol: Document 01/26/23 11:51 TS (Rec: 01/26/23 12:19 TS [id number]) PT Summary Assessment and Plan Potential Rehabilitation Potential Good Status of Condition at Evaluation Evolving Summary Impairments Pain,ROM,Strength,Balance, Coordination,Cognition,Bed Mobility,Transfers,Gait, Activity Tolerance Assessment Summary Pt required MaxA x2 to come into full standing this session, previous session and with nursing stood with less assist, perhaps due to surface height of chair. He has flexed posture with heavy posterior lean and diffculty transitioning UE's to FWW, causing him to sit back in chair. Once in standing with MaxA x2 he stood ~15 secs before fatiguing and needing to sit back in chair. His O2 has progressed to 96% on RA, does require cues for not holding breath during mobilty, increased O2 to 1L 95%. PT continues to recommend SNF to increase strength, functional mobility, gait and activity tolerance. He is motivated to improve and to work with therapy. Goals Bed Mobility Goal Minimal Assistance Transfer Goal Contact Guard Assistance,Front Wheeled Walker Gait Goal Contact Guard Assistance,Front Wheel Walker Gait Distance 50 feet Days to Meet Goals 5 Frequency of Treatment Frequency Of Treatment Twice a Day Treatment Plan Physical Therapy Treatment Plan Bed Mobility Training,Transfer Training,Gait Training, Therapeutic Exercise,Balance Retraining,Discharge Planning, Neuromuscular Re-ed, Coordination Retraining Other Recommendations and Next Treatment he has an adjustable bed at [facility] Precautions Other Precautions fall risk due to cognitive impairments Recommendations To Nursing Amount of Assist Needed Total Assistance Discharge Recommendations PT Discharge Recommendations SNF Rehab Transportation Needs at Discharge Wheelchair/Cabulance
[2023-01-26 12:00] LABS: COVID19 -Nasal RAPID Negative (Negative)
--- NOTE | 2023-01-26 12:46 | CM.DPNOTE ---
Addendum entered by SHERRY Cifuentes 01/26/23 12:48: ADD: COVID PCR updated and Neg JW Original Note: DC Note Discharge to [facility] today. Discussed w/spouse Karen who remains agreeable to plan Confirmed w/Jennifer at [facility] that they are expecting patient for admission, [facility] has been arranged and paid for by spouse Karen Hernandez, [facility], completed the remainder of the coordination including faxing all completed and signed DC ppk and orders, med list and PASRR included Plan: DC to [facility] SNF via w/c katherin KHANNA
--- NOTE | 2023-01-26 12:54 | PC.NURSE ---
8360 Patient's has arrived. Condom catheter removed. IV removed. Catheter tip intact. Gauze, bandaid, and coban dressing applied.
--- NOTE | 2023-01-26 13:10 | PC.NURSE ---
1310 Called report to NOÉ Aguirre at [facility].
== END 2023-01-26 13:45 | DRG 291 ==
LOC: ED 17:34 → AC 17:35 → ICU 18:48
PROVIDERS: Admitting Provider Family Medicine; Emergency Provider Student in an Organized Health Care Education/Training Program; Family Provider Family Medicine; PCP Family Medicine; Referring Provider Student in an Organized Health Care Education/Training Program; Visit Provider Family Medicine
DX: I11.0 Hypertensive heart disease with heart failure (principal); J96.01 Acute respiratory failure with hypoxia; I47.20 Ventricular tachycardia, unspecified; I50.9 Heart failure, unspecified; I48.91 Unspecified atrial fibrillation; E78.5 Hyperlipidemia, unspecified; E87.6 Hypokalemia; F03.90 Unspecified dementia, unspecified severity, without behavioral disturbance, psychotic disturbance, mood disturbance, and anxiety; M35.3 Polymyalgia rheumatica; Z87.891 Personal history of nicotine dependence; Z87.01 Personal history of pneumonia (recurrent); Z66 Do not resuscitate; Z20.822 Contact with and (suspected) exposure to COVID-19; Z79.01 Long term (current) use of anticoagulants
CPT/HCPCS: 0241U; 36415; 71046; 80048; 80053; 81001; 82550; 83605; 83735; 83880; 84132; 84145; 84484; 85025; 85610; 87040; 87635; 93005; 93010; 93306; 94640; 94762; 96374; 97162; 97166; 97530; 99284; C9803; J1940; J7613

== ENCOUNTER → 2023-03-08 11:52 | Outpatient (CLI) | payer MEDICARE, OTHER, SELFPAY ==
[2023-01-23 19:00] VITALS: BMI 40.5
[2023-03-08 13:25] LABS: BUN Creatinine Ratio 29.3 (6-22); Blood Urea Nitrogen 27 mg/dL (9-20); Carbon Dioxide 34 mmol/L (22-32); Chloride 99 mmol/L (98-107); Estimated Glomerular Filt Rate > 60 mL/min (>60); Glucose 92 mg/dL (80-110); HEMOLYSIS 27 (0-50); Magnesium 2.1 mg/dL (1.6-2.3); Potassium 3.9 mmol/L (3.4-5.1); Sodium 139 mmol/L (137-145)
== END ==
PROVIDERS: Family Provider Family Medicine; PCP Family Medicine; Referring Provider Specialist; Visit Provider Specialist
DX: I48.20 Chronic atrial fibrillation, unspecified (principal)
CPT/HCPCS: 36415; 80048; 83735

== ENCOUNTER → 2023-06-14 09:57 | Outpatient (CLI) | payer MEDICARE, OTHER, SELFPAY ==
[2023-01-23 19:00] VITALS: BMI 40.5
[2023-06-14 11:21] LABS: Add Manual Diff / Slide Review NO; Basophils Absolute Auto 0 /uL (0-100); Basophils Percent Auto 0.5 % (0-2); Eosinophils Absolute Auto 100 /uL (0-450); Eosinophils Percent Auto 1.5 % (2-4); Hematocrit 42.4 % (41-53); Hemoglobin 14.4 g/dL (13.5-17.5); Lymphocytes Absolute Auto 900 /uL (1100-4500); Lymphocytes Percent Auto 17.1 % (25-40); Mean Corpuscular Hemoglobin 31.8 PG (26-34); Mean Corpuscular Volume 93.5 fL (80-100); Monocytes Absolute Auto 500 /uL (0-900); Monocytes Percent Auto 9.2 % (3-14); Neutrophils Absolute Auto 3700 /uL (1500-7000); Neutrophils Percent Auto 71.7 % (50-75); Platelet Count 109 X10^3/uL (150-400); Red Blood Cell Count 4.53 X10^6/uL (4.5-5.9); Red Cell Distribution Width 14.2 % (11.6-14.8); White Blood Cell Count 5.1 X10^3/uL (4.5-11.0)
[2023-06-14 11:49] LABS: Alanine Aminotransferase 15 IU/L (<50); Albumin 3.8 g/dL (3.5-5.0); Albumin Globulin Ratio 1.3 (1.0-2.8); Alkaline Phosphatase 110 U/L (38-126); Aspartate Aminotransferase 21 IU/L (17-59); BUN Creatinine Ratio 20.4 (6-22); Bilirubin Total 0.6 mg/dL (0.2-1.3); Blood Urea Nitrogen 19 mg/dL (9-20); Carbon Dioxide 35 mmol/L (22-32); Chloride 98 mmol/L (98-107); Estimated Glomerular Filt Rate > 60 mL/min (>60); Globulin 2.9 g/dL (1.7-4.1); Glucose 89 mg/dL (80-110); HEMOLYSIS < 15 (0-50); Magnesium 2.1 mg/dL (1.6-2.3); Potassium 3.7 mmol/L (3.4-5.1); Sodium 138 mmol/L (137-145); Total Protein 6.7 g/dL (6.3-8.2)
[2023-06-16 12:18] LABS: Cholesterol, Total 123 mg/dL (100-199); HDL-Cholesterol 44 mg/dL (>39); HDL-Particle (Total) 21.7 umol/L (>=30.5); LDL Particle 480 nmol/L (<1000); LDL-Cholsterol 60 mg/dL (0-99); LP-IR Score 36 (<=45); Small LDL- Particle 210 nmol/L (<=527); Triglycerides 102 mg/dL (0-149)
== END ==
PROVIDERS: Family Provider Family Medicine; PCP Family Medicine; Referring Provider Specialist; Visit Provider Specialist
DX: I48.21 Permanent atrial fibrillation (principal); E78.00 Pure hypercholesterolemia, unspecified; Z79.01 Long term (current) use of anticoagulants
CPT/HCPCS: 36415; 80053; 80061; 83704; 83735; 85025

== ENCOUNTER 2023-07-26 13:09 | Emergency (ER) | payer MEDICARE, OTHER, SELFPAY ==
[2023-01-23 19:00] VITALS: BMI 40.5
[2023-07-26] VITALS (14 sets, daily range): BP systolic 107–144; BP diastolic 57–77; PULSE 67–89; RESP 12–20; TEMP 36.6; O2SAT 77–98; BMI 42.5
--- NOTE | 2023-07-26 13:25 | DI.CT.S_ITS ---
PROCEDURE: CT HEAD/BRAIN WO CON INDICATIONS: weakness on coumadin TECHNIQUE: Noncontrast 4.5 mm thick angled axial sections acquired from the foramen magnum to the vertex, with coronal and sagittal reformats. For radiation dose reduction, the following was used: automated exposure control, adjustment of mA and/or kV according to patient size. COMPARISON: [facility], CT, CT HEAD/BRAIN WO CON, 05/27/2021, 14:57. FINDINGS: Image quality: Excellent. CSF spaces: Basal cisterns are patent. No extra-axial fluid collections. The ventricles are symmetric in size and shape. Brain: No intracranial bleeds or masses. There is cerebral volume loss for age, with resultant ventricular and sulcal prominence. There are periventricular and deep white matter chronic small vessel ischemic changes. There is intracranial internal carotid artery atherosclerosis. Skull and face: Calvarium and visualized facial bones appear intact, without suspicious lesions. Sinuses: Visualized sinuses and mastoids are clear. IMPRESSION: 1. No acute intracranial process. 2. Mild to moderate atrophy and chronic microvascular ischemic changes. Dictated by: Lauren Bedolla M.D. on 07/26/2023 at 13:57 Approved by: Lauren Bedolla M.D. on 07/26/2023 at 13:58
--- NOTE | 2023-07-26 13:31 | DI.CT.S_ITS ---
PROCEDURE: CT ANGIO CHEST ABDOMEN PELVIS INDICATIONS: Cyanotic legs with bruising on Coumadin TECHNIQUE: Precontrast 5 mm thick sections acquired from the lung apices to the iliac crests. After the administration of intravenous contrast, 2.5 mm thick sections again acquired from the lung apices to the iliac crests. Maximum intensity projection (MIP) oblique sagittal and coronal reformats were then acquired. For radiation dose reduction, the following was used: automated exposure control. COMPARISON: None. FINDINGS: Image quality: Portions of the lower pelvis are suboptimally evaluated secondary to metallic streak artifact from hip arthroplasty. AORTA: No areas of hemodynamically significant stenosis, vascular occlusion, aneurysmal dilation or dissection. CHEST: Lungs and pleura: No acute airspace opacities. No pleural effusions or pneumothorax. Central and peripheral airways are patent and normal in caliber. Mediastinum: Heart size is enlarged. No pericardial effusion. No mediastinal or hilar adenopathy by size criteria. Central pulmonary arteries are normal in size. Esophagus is normal in caliber. No hiatal hernias. Bones and chest wall: No axillary adenopathy by size criteria. Thyroid gland is unremarkable within visualized portions . No suspicious bony lesions. No vertebral body compression fractures. ABDOMEN: Vasculature: Celiac trunk and mesenteric arteries are patent. Renal arteries are also patent. Solid organs: Liver is normal in size and enhancement. Gallbladder demonstrates luminal stones without wall thickening. . Biliary system is non dilated. Pancreas enhances normally. Spleen is normal in size and enhancement. No adrenal nodules. Both kidneys are atrophic more prominent on the right. Nonobstructing calcifications are present on the right. Low-attenuation foci are present bilaterally likely cordage sales representative of simple cysts. Peritoneum and bowel: No free fluid or air. Bowel loops are normal in caliber and wall thickness. Colonic diverticula are present without inflammatory change. Nodes and vessels: No retroperitoneal or mesenteric adenopathy by size criteria. Inferior vena cava is normal in morphology. Miscellaneous: No ventral hernias. PELVIS: Genitourinary: Bladder wall thickness is normal. Prostate gland is enlarged. Miscellaneous: No inguinal hernias or adenopathy. No ventral hernias. Bones: No suspicious bony lesions. No vertebral body compression fractures. Right hip arthroplasty. IMPRESSION: Aorta demonstrates no areas of hemodynamically significant stenosis, vascular occlusion, aneurysmal dilation or dissection. Diverticulosis. Cholelithiasis without imaging appearance of cholecystitis. Dictated by: Lauren Bedolla M.D. on 07/26/2023 at 14:42 Approved by: Lauren Bedolla M.D. on 07/26/2023 at 14:46
[2023-07-26 13:34] LABS: Add Manual Diff / Slide Review NO; Basophils Absolute Auto 0 /uL (0-100); Basophils Percent Auto 0.1 % (0-2); Eosinophils Absolute Auto 100 /uL (0-450); Hematocrit 40.6 % (41-53); Hemoglobin 13.7 g/dL (13.5-17.5); Lymphocytes Absolute Auto 700 /uL (1100-4500); Lymphocytes Percent Auto 7.4 % (25-40); Mean Corpuscular HGB Conc 33.7 % (30-36); Mean Corpuscular Hemoglobin 31.4 PG (26-34); Mean Corpuscular Volume 93.2 fL (80-100); Monocytes Absolute Auto 1200 /uL (0-900); Monocytes Percent Auto 12.7 % (3-14); Neutrophils Absolute Auto 7700 /uL (1500-7000); Neutrophils Percent Auto 78.8 % (50-75); Platelet Count 125 X10^3/uL (150-400); Red Blood Cell Count 4.35 X10^6/uL (4.5-5.9); Red Cell Distribution Width 14.9 % (11.6-14.8); White Blood Cell Count 9.8 X10^3/uL (4.5-11.0)
[2023-07-26 13:37] LABS: Alanine Aminotransferase 19 IU/L (<50); Albumin 4.1 g/dL (3.5-5.0); Albumin Globulin Ratio 1.2 (1.0-2.8); Alkaline Phosphatase 93 U/L (38-126); Aspartate Aminotransferase 27 IU/L (17-59); BUN Creatinine Ratio 36.3 (6-22); Bilirubin Total 0.8 mg/dL (0.2-1.3); Blood Urea Nitrogen 33 mg/dL (9-20); Calcium 9.5 mg/dL (8.4-10.2); Carbon Dioxide 30 mmol/L (22-32); Chloride 100 mmol/L (98-107); Creatine Kinase 44 U/L (55-170); Estimated Glomerular Filt Rate > 60 mL/min (>60); Globulin 3.4 g/dL (1.7-4.1); Glucose 104 mg/dL (80-110); HEMOLYSIS 38 (0-50); Potassium 4.3 mmol/L (3.4-5.1); Sodium 140 mmol/L (137-145); Total Protein 7.5 g/dL (6.3-8.2)
--- NOTE | 2023-07-26 13:43 | ED_ITS ---
HPI - Weakness General Chief complaint: Weakness Stated complaint: weakness Time Seen by Provider: 07/26/23 13:25 Source: patient and EMS Mode of arrival: EMS History of Present Illness HPI Narrative: Patient is an 82-year-old male with multiple chronic medical problems including atrial fibrillation on warfarin, severe chronic venous stasis with cyanotic legs, hyperlipidemia, hypertension obesity presents today with generalized weakness. Patient is overall poor historian has vague complaint of just feeling weak and not well. He denies chest pain shortness of breath abdominal pain numbness tingling weakness. He is noted to have a superficial contusion on his abdomen sorry which he reports he is not sure how he got it. Reports that they have a home morning routine to get him up and out of bed including a walker and such. Today he was just not able to do it. Requiring an EMS transport. She reports that his legs are chronically blue as soon as he stands up and in the morning after being elevated at night they are pink. He has no pain in his legs. He denies any fall or injury. No fever. Related Data Home Medications Medication Instructions Recorded Confirmed Respironics Dreamstation CPAP #1 ea 05/02/19 01/23/23 carvedilol 25 mg tablet 37.5 mg PO BID 05/27/21 01/23/23 duloxetine 60 mg capsule,delayed 60 mg PO DAILY 05/27/21 01/23/23 release rosuvastatin 20 mg tablet (Crestor) 20 mg PO DAILY 05/27/21 01/23/23 warfarin 10 mg tablet 10 mg PO DAILY 05/27/21 01/23/23 gabapentin 300 mg capsule 300 mg PO TID 04/21/22 01/23/23 furosemide 40 mg tablet 40 mg PO DAILY 01/18/23 01/23/23 risperidone 2 mg tablet 2 mg PO BID 01/18/23 01/23/23 Previous Rx's Medication Instructions Recorded tamsulosin 0.4 mg capsule (Flomax) 0.4 mg PO QDAY 7 days #0 caps 07/23/16 cefuroxime axetil 500 mg tablet 500 mg PO BID #14 tabs 01/21/23 furosemide 20 mg tablet (Lasix) 20 mg PO DAILY #30 tabs 01/26/23 guaifenesin 600 mg tablet, 600 mg PO Q12HR PRN Cough #60 tabs 03/22/23 extended release 12 hr (Mucus Relief ER) potassium chloride 20 mEq 40 meq PO DAILYCC #30 tabs 01/26/23 tablet,extended release(part/cryst) (Klor-Con M) Allergies Allergy/AdvReac Type Severity Reaction Status Date / Time No Known Allergies Allergy Verified 10/14/22 13:44 Review of Systems Review of Systems ROS Unobtainable: All systems reviewed & are unremarkable except as noted in HPI and below Patient History Medical History Atrial fibrillation (Unknown) DDD (degenerative disc disease), lumbar (~2018) DJD (degenerative joint disease), lumbosacral (~2017) Hematuria Hip dislocation, right History of colon polyps Obesity (BMI 30-39.9) (Unknown) Obstructive sleep apnea of adult (~2006) Rectal bleeding Urinary retention UTI (urinary tract infection) Surgical History 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 Social History household members: spouse Smoking Status: Former smoker alcohol intake: current Smoking Status: Former smoker Substance Use Type: marijuana Exam Initial Vital Signs Initial Vital Signs: Vital Signs Temperature 97.8 F 07/26/23 13:18 Pulse Rate 67 07/26/23 13:18 Respiratory Rate 20 07/26/23 13:18 Blood Pressure 113/64 07/26/23 13:18 Pulse Oximetry 95 07/26/23 13:18 Oxygen Delivery Method Room Air 07/26/23 13:18 GENERAL: Chronically ill 82-year-old male and in no acute distress. HEENT: Head atraumatic,EOMI, pupils reactive, face symmetric, moist mucous membranes CARDIOVASCULAR: Irregularly irregular RESPIRATORY: Breath sounds equal bilaterally, no wheezes rales or rhonchi. ABDOMEN: Soft, nontender. Normoactive bowel sounds all 4 quadrants. No guarding or rebound. EXTREMITIES: Normal range of motion, no clubbing. +1 pitting edema Neurovascul eryn intact. Peripheral pulses felt in bilateral lower extremity feet and castañeda NEUROLOGICAL: Moving all extremities SKIN: Lower extremities cyanotic slightly cool, contusion left side of abdomen Course Orders Ordered: ED Orders 07/26/23 13:20 BNP [NT-proBNP (BNP-Adult 18+)] Stat Complete Blood Count AUTO DIFF Stat Comprehensive Metabolic Panel Stat Procalcitonin Stat Troponin & CK Cardiac Panel Stat 07/26/23 13:25 CT head/brain wo con Stat Covid-19 + FLU A/B + RSV - PCR Stat 07/26/23 13:31 CT angio chest abdomen pelvis Stat 07/26/23 14:10 Blood Culture Stat 07/26/23 14:30 Ictotest Urine Stat Urine Culture Stat Urine Culture Stat Urine Microscopic Stat 07/26/23 14:40 Lactate (Lactic Acid) Stat PTT Partial Thromboplastin Arnol Stat Prothrombin Time INR Stat 07/26/23 16:42 Trop I [Troponin I] Stat Discontinued Medications Furosemide (Furosemide 40 Mg/4 Ml Vial) 40 mg IV NOW ONE Stop: 07/26/23 16:26 Last Admin: 07/26/23 16:35 Dose: 40 mg Documented By: TRACY Vital Signs Vital signs: Vital Signs - 8 hr 07/26/23 13:18 07/26/23 13:47 07/26/23 14:00 Temperature 97.8 F Pulse Rate 67 74 75 Respiratory Rate 20 15 16 Blood Pressure 113/64 Pulse Oximetry 95 95 94 Oxygen Delivery Method Room Air 07/26/23 14:02 07/26/23 14:02 07/26/23 14:30 Temperature Pulse Rate 72 77 Respiratory Rate 15 19 Blood Pressure 125/66 Pulse Oximetry 94 94 Oxygen Delivery Method 07/26/23 14:47 07/26/23 14:47 07/26/23 15:00 Temperature Pulse Rate 77 Respiratory Rate 13 Blood Pressure 125/62 119/57 L Pulse Oximetry 94 Oxygen Delivery Method 07/26/23 15:00 07/26/23 15:30 07/26/23 15:30 Temperature Pulse Rate 75 79 Respiratory Rate 15 15 Blood Pressure 144/66 H Pulse Oximetry 94 77 L Oxygen Delivery Method 07/26/23 16:00 07/26/23 16:00 07/26/23 16:30 Temperature Pulse Rate 72 Respiratory Rate 17 Blood Pressure 136/70 144/63 H Pulse Oximetry 98 Oxygen Delivery Method 07/26/23 16:30 07/26/23 17:00 07/26/23 17:30 Temperature Pulse Rate 73 79 73 Respiratory Rate 12 18 16 Blood Pressure Pulse Oximetry 96 97 95 Oxygen Delivery Method 07/26/23 18:00 07/26/23 18:07 07/26/23 18:07 Temperature Pulse Rate 89 82 Respiratory Rate 17 16 Blood Pressure 107/77 Pulse Oximetry 91 95 Oxygen Delivery Method MDM - Weakness Lab Data 07/26/23 13:20 07/26/23 13:20 Labs: Lab Results 07/26/23 07/26/23 07/26/23 Range/Units 13:20 13:20 13:20 WBC 9.8 (4.5-11.0) X10^3/uL RBC 4.35 L (4.5-5.9) X10^6/uL Hgb 13.7 (13.5-17.5) g/dL Hct 40.6 L (41-53) % MCV 93.2 (80-100) fL MCH 31.4 (26-34) PG MCHC 33.7 (30-36) % RDW 14.9 H (11.6-14.8) % Plt Count 125 L (150-400) X10^3/uL Neut % (Auto) 78.8 H (50-75) % Lymph % (Auto) 7.4 L (25-40) % [place] % (Auto) 12.7 (3-14) % Eos % (Auto) 1.0 L (2-4) % Baso % (Auto) 0.1 (0-2) % Neut # (Auto) 7700 H (0696-8585) /uL Lymph # (Auto) 700 L (0366-9050) /uL [place] # (Auto) 1200 H (0-900) /uL Eos # (Auto) 100 (0-450) /uL Baso # (Auto) 0 (0-100) /uL PT (10.1-12.7) SECONDS INR (0.9-1.3) APTT (26-36) SECONDS Sodium 140 (137-145) mmol/L Potassium 4.3 (3.4-5.1) mmol/L Chloride 100 (98-107) mmol/L Carbon Dioxide 30 (22-32) mmol/L BUN 33 H (9-20) mg/dL Creatinine 0.91 (0.66-1.25) mg/dL Estimated GFR > 60 (>60) mL/min BUN/Creatinine Ratio 36.3 H (6-22) Glucose 104 (80-110) mg/dL Lactate (0.7-2.1) mmol/L Calcium 9.5 (8.4-10.2) mg/dL Total Bilirubin 0.8 (0.2-1.3) mg/dL AST 27 (17-59) IU/L ALT 19 (<50) IU/L Alkaline Phosphatase 93 (38-126) U/L Total Creatine Kinase 44 L (55-170) U/L Troponin I 0.022 (0.01-0.034) ng/mL NT-Pro-B Natriuret Pep 2230 H (<450) pg/mL Total Protein 7.5 (6.3-8.2) g/dL Albumin 4.1 (3.5-5.0) g/dL Globulin 3.4 (1.7-4.1) g/dL Albumin/Globulin Ratio 1.2 (1.0-2.8) Procalcitonin 0.25 (<0.5) ng/mL Urine Color Urine Appearance Urine pH Ur Specific [place] Urine Protein Urine Glucose (UA) Urine Ketones Urine Occult Blood Urine Nitrate Urine Bilirubin Ur Bilirubin Confirm (Negative) Urine Urobilinogen Ur Leukocyte Esterase Urine RBC (0-5/HPF) Urine WBC (0-5/HPF) Ur Squamous Epith Cells (0-5/HPF) Ur Transition Epith Cell Ur Renal Epithelial Cell Calcium Oxalate Crystal Uric Acid Crystals Triple Phos Crystals Other Crystals Amorphous Sediment Urine Bacteria (None) Hyaline Casts Granular Casts RBC Casts WBC Casts Other Casts Urine Mucus Urine Trichomonas Urine Yeast Urine Sperm Ur Culture Indicated? Micro UA Comment SARS-CoV-2 (PCR) (Negative) Influenza A (RT-PCR) (NEGATIVE) Influenza B (RT-PCR) (NEGATIVE) RSV (PCR) (Negative) 07/26/23 07/26/23 07/26/23 Range/Units 13:25 14:30 14:30 WBC (4.5-11.0) X10^3/uL RBC (4.5-5.9) X10^6/uL Hgb (13.5-17.5) g/dL Hct (41-53) % MCV (80-100) fL MCH (26-34) PG MCHC (30-36) % RDW (11.6-14.8) % Plt Count (150-400) X10^3/uL Neut % (Auto) (50-75) % Lymph % (Auto) (25-40) % [place] % (Auto) (3-14) % Eos % (Auto) (2-4) % Baso % (Auto) (0-2) % Neut # (Auto) (4087-3436) /uL Lymph # (Auto) (3736-1541) /uL [place] # (Auto) (0-900) /uL Eos # (Auto) (0-450) /uL Baso # (Auto) (0-100) /uL PT (10.1-12.7) SECONDS INR (0.9-1.3) APTT (26-36) SECONDS Sodium (137-145) mmol/L Potassium (3.4-5.1) mmol/L Chloride (98-107) mmol/L Carbon Dioxide (22-32) mmol/L BUN (9-20) mg/dL Creatinine (0.66-1.25) mg/dL Estimated GFR (>60) mL/min BUN/Creatinine Ratio (6-22) Glucose (80-110) mg/dL Lactate (0.7-2.1) mmol/L Calcium (8.4-10.2) mg/dL Total Bilirubin (0.2-1.3) mg/dL AST (17-59) IU/L ALT (<50) IU/L Alkaline Phosphatase (38-126) U/L Total Creatine Kinase (55-170) U/L Troponin I (0.01-0.034) ng/mL NT-Pro-B Natriuret Pep (<450) pg/mL Total Protein (6.3-8.2) g/dL Albumin (3.5-5.0) g/dL Globulin (1.7-4.1) g/dL Albumin/Globulin Ratio (1.0-2.8) Procalcitonin (<0.5) ng/mL Urine Color Urine Appearance Urine pH Ur Specific [place] Urine Protein Urine Glucose (UA) Urine Ketones Urine Occult Blood Urine Nitrate Urine Bilirubin Ur Bilirubin Confirm Negative (Negative) Urine Urobilinogen Ur Leukocyte Esterase Urine RBC 10-30/hpf H (0-5/HPF) Urine WBC 10-30/hpf H (0-5/HPF) Ur Squamous Epith Cells None seen (0-5/HPF) Ur Transition Epith Cell Ur Renal Epithelial Cell Calcium Oxalate Crystal Uric Acid Crystals Triple Phos Crystals Other Crystals Amorphous Sediment Urine Bacteria None seen (None) Hyaline Casts Granular Casts RBC Casts WBC Casts Other Casts Urine Mucus Urine Trichomonas Urine Yeast Urine Sperm Ur Culture Indicated? Specimen cultured Micro UA Comment SARS-CoV-2 (PCR) Negative (Negative) Influenza A (RT-PCR) Flu a negative (NEGATIVE) Influenza B (RT-PCR) Flu b negative (NEGATIVE) RSV (PCR) Negative (Negative) 07/26/23 07/26/23 07/26/23 Range/Units 14:30 14:40 14:40 WBC (4.5-11.0) X10^3/uL RBC (4.5-5.9) X10^6/uL Hgb (13.5-17.5) g/dL Hct (41-53) % MCV (80-100) fL MCH (26-34) PG MCHC (30-36) % RDW (11.6-14.8) % Plt Count (150-400) X10^3/uL Neut % (Auto) (50-75) % Lymph % (Auto) (25-40) % [place] % (Auto) (3-14) % Eos % (Auto) (2-4) % Baso % (Auto) (0-2) % Neut # (Auto) (4030-6520) /uL Lymph # (Auto) (6795-8560) /uL [place] # (Auto) (0-900) /uL Eos # (Auto) (0-450) /uL Baso # (Auto) (0-100) /uL PT 49.5 H (10.1-12.7) SECONDS INR 4.2 H (0.9-1.3) APTT 51 H (26-36) SECONDS Sodium (137-145) mmol/L Potassium (3.4-5.1) mmol/L Chloride (98-107) mmol/L Carbon Dioxide (22-32) mmol/L BUN (9-20) mg/dL Creatinine (0.66-1.25) mg/dL Estimated GFR (>60) mL/min BUN/Creatinine Ratio (6-22) Glucose (80-110) mg/dL Lactate 1.3 (0.7-2.1) mmol/L Calcium (8.4-10.2) mg/dL Total Bilirubin (0.2-1.3) mg/dL AST (17-59) IU/L ALT (<50) IU/L Alkaline Phosphatase (38-126) U/L Total Creatine Kinase (55-170) U/L Troponin I (0.01-0.034) ng/mL NT-Pro-B Natriuret Pep (<450) pg/mL Total Protein (6.3-8.2) g/dL Albumin (3.5-5.0) g/dL Globulin (1.7-4.1) g/dL Albumin/Globulin Ratio (1.0-2.8) Procalcitonin (<0.5) ng/mL Urine Color Cancelled Urine Appearance Cancelled Urine pH Cancelled Ur Specific [place] Cancelled Urine Protein Cancelled Urine Glucose (UA) Cancelled Urine Ketones Cancelled Urine Occult Blood Cancelled Urine Nitrate Cancelled Urine Bilirubin Cancelled Ur Bilirubin Confirm (Negative) Urine Urobilinogen Cancelled Ur Leukocyte Esterase Cancelled Urine RBC Cancelled (0-5/HPF) Urine WBC Cancelled (0-5/HPF) Ur Squamous Epith Cells Cancelled (0-5/HPF) Ur Transition Epith Cell Cancelled Ur Renal Epithelial Cell Cancelled Calcium Oxalate Crystal Cancelled Uric Acid Crystals Cancelled Triple Phos Crystals Cancelled Other Crystals Cancelled Amorphous Sediment Cancelled Urine Bacteria Cancelled (None) Hyaline Casts Cancelled Granular Casts Cancelled RBC Casts Cancelled WBC Casts Cancelled Other Casts Cancelled Urine Mucus Cancelled Urine Trichomonas Cancelled Urine Yeast Cancelled Urine Sperm Cancelled Ur Culture Indicated? Cancelled Micro UA Comment Cancelled SARS-CoV-2 (PCR) (Negative) Influenza A (RT-PCR) (NEGATIVE) Influenza B (RT-PCR) (NEGATIVE) RSV (PCR) (Negative) 07/26/23 Range/Units 16:42 WBC (4.5-11.0) X10^3/uL RBC (4.5-5.9) X10^6/uL Hgb (13.5-17.5) g/dL Hct (41-53) % MCV (80-100) fL MCH (26-34) PG MCHC (30-36) % RDW (11.6-14.8) % Plt Count (150-400) X10^3/uL Neut % (Auto) (50-75) % Lymph % (Auto) (25-40) % [place] % (Auto) (3-14) % Eos % (Auto) (2-4) % Baso % (Auto) (0-2) % Neut # (Auto) (1918-6155) /uL Lymph # (Auto) (1014-2713) /uL [place] # (Auto) (0-900) /uL Eos # (Auto) (0-450) /uL Baso # (Auto) (0-100) /uL PT (10.1-12.7) SECONDS INR (0.9-1.3) APTT (26-36) SECONDS Sodium (137-145) mmol/L Potassium (3.4-5.1) mmol/L Chloride (98-107) mmol/L Carbon Dioxide (22-32) mmol/L BUN (9-20) mg/dL Creatinine (0.66-1.25) mg/dL Estimated GFR (>60) mL/min BUN/Creatinine Ratio (6-22) Glucose (80-110) mg/dL Lactate (0.7-2.1) mmol/L Calcium (8.4-10.2) mg/dL Total Bilirubin (0.2-1.3) mg/dL AST (17-59) IU/L ALT (<50) IU/L Alkaline Phosphatase (38-126) U/L Total Creatine Kinase (55-170) U/L Troponin I 0.027 (0.01-0.034) ng/mL NT-Pro-B Natriuret Pep (<450) pg/mL Total Protein (6.3-8.2) g/dL Albumin (3.5-5.0) g/dL Globulin (1.7-4.1) g/dL Albumin/Globulin Ratio (1.0-2.8) Procalcitonin (<0.5) ng/mL Urine Color Urine Appearance Urine pH Ur Specific [place] Urine Protein Urine Glucose (UA) Urine Ketones Urine Occult Blood Urine Nitrate Urine Bilirubin Ur Bilirubin Confirm (Negative) Urine Urobilinogen Ur Leukocyte Esterase Urine RBC (0-5/HPF) Urine WBC (0-5/HPF) Ur Squamous Epith Cells (0-5/HPF) Ur Transition Epith Cell Ur Renal Epithelial Cell Calcium Oxalate Crystal Uric Acid Crystals Triple Phos Crystals Other Crystals Amorphous Sediment Urine Bacteria (None) Hyaline Casts Granular Casts RBC Casts WBC Casts Other Casts Urine Mucus Urine Trichomonas Urine Yeast Urine Sperm Ur Culture Indicated? Micro UA Comment SARS-CoV-2 (PCR) (Negative) Influenza A (RT-PCR) (NEGATIVE) Influenza B (RT-PCR) (NEGATIVE) RSV (PCR) (Negative) Urine Dip Bedside Urine Glucose Negative Bedside Urine Bilirubin + 1 Bedside Urine Ketone - Negative Urine Specific Garfield 1.015 Bedside Urine Occult Blood +++ Bedside Urine pH 6.0 Bedside Urine Protein + 30 Bedside Urine Urobilinogen - Negative Bedside Urine Nitrite - Negative Bedside Urine Leukocytes + [address] scan - head: Radiologist Impression: PROCEDURE:? CT HEAD/BRAIN WO CON ? INDICATIONS:? weakness on coumadin ? TECHNIQUE:? Noncontrast 4.5 mm thick angled axial sections acquired from the foramen magnum to the vertex, with coronal and sagittal reformats.? For radiation dose reduction, the following was used:? automated exposure control, adjustment of mA and/or kV according to patient size.? ? COMPARISON:? [facility], CT, CT HEAD/BRAIN WO CON, 05/27/2021, 14:57. ? FINDINGS:? Image quality:? Excellent.? ? CSF spaces:? Basal cisterns are patent.? No extra-axial fluid collections.? The ventricles are symmetric in size and shape.? ? Brain:? No intracranial bleeds or masses.? There is cerebral volume loss for age, with resultant ventricular and sulcal prominence.? There are periventricular and deep white matter chronic small vessel ischemic changes.? There is intracranial internal carotid artery atherosclerosis.? ? Skull and face:? Calvarium and visualized facial bones appear intact, without suspicious lesions.? ? Sinuses:? Visualized sinuses and mastoids are clear.? ? IMPRESSION:? ? 1. No acute intracranial process. ? 2. Mild to moderate atrophy and chronic microvascular ischemic changes. ? ? ? Dictated by: Lauren Bedolla M.D. on 07/26/2023 at 13:57 ?? CT scan - chest: Radiologist Impression: PROCEDURE:? CT ANGIO CHEST ABDOMEN PELVIS ? INDICATIONS:? Cyanotic legs with bruising on Coumadin ? TECHNIQUE:? Precontrast 5 mm thick sections acquired from the lung apices to the iliac crests.? After the administration of intravenous contrast, 2.5 mm thick sections again acquired from the lung apices to the iliac crests.? Maximum intensity projection (MIP) oblique sagittal and coronal reformats were then acquired.? For radiation dose reduction, the following was used:? automated exposure control.? ? COMPARISON:? None. ? FINDINGS:? Image quality:? Portions of the lower pelvis are suboptimally evaluated secondary to metallic streak artifact from hip arthroplasty. ? AORTA:? No areas of hemodynamically significant stenosis, vascular occlusion, aneurysmal dilation or dissection. ? CHEST:? Lungs and pleura:? No acute airspace opacities.? No pleural effusions or pneumothorax.? Central and peripheral airways are patent and normal in caliber.? ? Mediastinum:? Heart size is enlarged.? No pericardial effusion.? No mediastinal or hilar adenopathy by size criteria.? Central pulmonary arteries are normal in size.? Esophagus is normal in caliber.? No hiatal hernias.? ? Bones and chest wall:? No axillary adenopathy by size criteria.? Thyroid gland is unremarkable within visualized portions .? No suspicious bony lesions.? No vertebral body compression fractures.? ? ? ABDOMEN:? Vasculature:? Celiac trunk and mesenteric arteries are patent.? Renal arteries are also patent.? ? Solid organs:? Liver is normal in size and enhancement.? Gallbladder demonstrates luminal stones without wall thickening. .? Biliary system is non dilated.? Pancreas enhances normally.? Spleen is normal in size and enhancement.? No adrenal nodules.? Both kidneys are atrophic more prominent on the right.? Nonobstructing calcifications are present on the right.? Low-attenuation foci are present bilaterally likely membership sales representative of simple cysts. ? Peritoneum and bowel:? No free fluid or air.? Bowel loops are normal in caliber and wall thickness.? Colonic diverticula are present without inflammatory change. ? Nodes and vessels:? No retroperitoneal or mesenteric adenopathy by size criteria.? Inferior vena cava is normal in morphology.? ? Miscellaneous:? No ventral hernias.? ? ? PELVIS:? Genitourinary:? Bladder wall thickness is normal.? Prostate gland is enlarged. ? Miscellaneous:? No inguinal hernias or adenopathy.? No ventral hernias.? ? Bones:? No suspicious bony lesions.? No vertebral body compression fractures.? Right hip arthroplasty. ? ? IMPRESSION:? ? Aorta demonstrates no areas of hemodynamically significant stenosis, vascular occlusion, aneurysmal dilation or dissection. ? Diverticulosis. ? Cholelithiasis without imaging appearance of cholecystitis. ? Dictated by: Lauren Bedolla M.D. on 07/26/2023 at 14:42 ? ECG Data Interpretation: Atrial fibrillation rate [address] changes low voltage noted throughout similar to prior MDM Narrative Medical decision making narrative: Patient 82-year-old year old male presents today with generalized weakness. He is multiple comorbidities. He is no focal deficits head CT has been reviewed and is negative for intracranial hemorrhage. Blood work has been reviewed viral panel is negative no leukocytosis or anemia. INR is found to be 4.2. Negative troponin x 2. BNP is elevated at 2200 previously 800. He is not tachypneic or hypoxic no evidence of significant fluid overload. With previously admitted for pneumonia and congestive heart failure and January however states that he was seen by cardiology who disagrees with this diagnosis of congestive heart failure. At this time patient is complaining of generalized weakness without a cause. I have called and spoken to Dr. Guzman about his baseline health he reports that his legs are chronically cyanotic can his health at baseline is extremely poor trying to get home health care for him as outpatient. I spoke with about home health and caregivers she states that living [facility] makes getting home health care and caregiver very difficult. He is given 1 dose of Lasix in the ED help with some diuresis. Able to get up with some assistance and into a wheelchair in the ED. This seems to be baseline per Offered social work consultation to work but she also declined at this time. Discharge Plan Departure Patient Disposition: Home Clinical Impression: Weakness, CHF (congestive heart failure) Instructions: DI for Heart Failure Activity Restrictions/Additional Instructions: *You have been diagnosed with weakness, congestive heart failure *What to do: At this time no obvious cause of weakness. He might have a little bit of fluid retaining. *Continue to take medications as directed Increase furosemide 40 mg a.m. 20 mg at night for 2-3 days *Follow up with your primary care provider in 2-3 days or call [phone] *Return to ER if you should have increasing weakness falling confusion chest pain shortness of breath or any new, worsening or concerning symptoms Prescriptions: No Action tamsulosin [Flomax] 0.4 MG capsule,extended release 24hr 0.4 mg PO QDAY 7 Days Qty: 0 0RF potassium chloride [Klor-Con M20] 20 mEq Tablet,Er Particles/Crystals 40 meq PO DAILYCC Qty: 30 0RF guaifenesin [Mucus Relief ER] 600 mg Tablet Extended Release 12hr 600 mg PO Q12HR PRN (Reason: Cough) Qty: 60 0RF furosemide [Lasix] 20 mg tablet 20 mg PO DAILY Qty: 30 0RF carvedilol 25 mg tablet 37.5 mg PO BID warfarin 10 mg tablet 10 mg PO DAILY rosuvastatin [Crestor] 20 mg tablet 20 mg PO DAILY Patient Comments: Take one by mouth every day duloxetine 60 mg capsule,delayed release(DR/EC) 60 mg PO DAILY Patient Comments: TAKE ONE CAPSULE BY MOUTH ONE TIME DAILY FOR DEPRESSION OR CHRONIC PAIN furosemide 40 mg tablet 40 mg PO DAILY Patient Comments: TAKE ONE TABLET BY MOUTH ONE TIME DAILY risperidone 2 mg tablet 2 mg PO BID Patient Comments: TAKE ONE TABLET BY MOUTH TWICE DAILY cefuroxime axetil 500 mg tablet 500 mg PO BID Qty: 14 0RF (DME) Respironics Dreamstation CPAP Qty: 1 Dose Instruction: As directed Patient Comments: Pressure: 10-15 cmH2O DME: [facility] Instructions: As directed gabapentin 300 mg capsule 300 mg PO TID Referrals: Eliu Guzman MD [Primary Care Provider] - Stand Alone Forms: Patient Portal/API
[2023-07-26 13:49] LABS: Troponin I 0.022 ng/mL (0.01-0.034)
[2023-07-26 13:54] LABS: Procalcitonin 0.25 ng/mL (<0.5)
[2023-07-26 14:08] LABS: NT-proBNP (BNP-Adult 18+) 2230 pg/mL (<450)
[2023-07-26 14:45] LABS: Ictotest Urine Negative (Negative)
[2023-07-26 14:56] LABS: Influenza A - CEPHEID Flu A NEGATIVE (NEGATIVE); Influenza B - CEPHEID Flu B NEGATIVE (NEGATIVE); Respiratory Syncytial Virus Negative (Negative)
[2023-07-26 14:57] LABS: COVID-19 CEPHEID 4-PLEX PCR Negative (Negative)
[2023-07-26 15:02] LABS: RBC Urine 10-30/HPF (0-5/HPF)
[2023-07-26 15:03] LABS: Bacteria Urine None Seen; Culture Indicated Urine Specimen Cultured; Squamous Epithelial Cell Urine None Seen (0-5/HPF); WBC Urine 10-30/HPF (0-5/HPF)
[2023-07-26 15:13] LABS: INR 4.2 (0.9-1.3); Prothrombin Time 49.5 SECONDS (10.1-12.7)
[2023-07-26 15:15] LABS: PTT Partial Thromboplastin Tim 51 SECONDS (26-36)
[2023-07-26 15:19] LABS: Lactate (Lactic Acid) 1.3 mmol/L (0.7-2.1)
[2023-07-26] MEDS: FUROSEMIDE 40 MG/4 ML VIAL IV (16:35)
[2023-07-26 17:12] LABS: Troponin I 0.027 ng/mL (0.01-0.034)
== END 2023-07-26 18:37 | disposition home or self-care (01) ==
PROVIDERS: Emergency Provider Emergency Medicine; Family Provider Family Medicine; PCP Family Medicine
DX: I50.9 Heart failure, unspecified (principal); R53.1 Weakness; Z79.01 Long term (current) use of anticoagulants; Z79.899 Other long term (current) drug therapy; Z20.822 Contact with and (suspected) exposure to COVID-19
CPT/HCPCS: 0241U; 36415; 70450; 71275; 74174; 80053; 81003; 81015; 82550; 83605; 83880; 84145; 84484; 85025; 85610; 85730; 87040; 87077; 87086; 93005; 96374; 99284; J1940; Q9967

== ENCOUNTER → 2023-08-17 11:30 | Outpatient (CLI) | payer MEDICARE, OTHER, SELFPAY ==
[2023-01-23 19:00] VITALS: BMI 40.5
== END ==
PROVIDERS: Family Provider Family Medicine; PCP Family Medicine; Referring Provider Family Medicine; Visit Provider Surgery
DX: I87.2 Venous insufficiency (chronic) (peripheral) (principal); L97.812 Non-pressure chronic ulcer of other part of right lower leg with fat layer exposed; L97.822 Non-pressure chronic ulcer of other part of left lower leg with fat layer exposed; Z79.01 Long term (current) use of anticoagulants; R60.0 Localized edema; L98.8 Other specified disorders of the skin and subcutaneous tissue
CPT/HCPCS: 11042; 11045; 99213; 99214

== ENCOUNTER → 2023-11-18 16:11 | Outpatient (ROUT) | payer MEDICARE, OTHER, SELFPAY ==
[2023-01-23 19:00] VITALS: BMI 40.5
[2023-11-18 16:20] LABS: Add Manual Diff / Slide Review NO; Basophils Absolute Auto 0 /uL (0-100); Basophils Percent Auto 0.8 % (0-2); Eosinophils Absolute Auto 100 /uL (0-450); Eosinophils Percent Auto 2.7 % (2-4); Hematocrit 45.6 % (41-53); Hemoglobin 15.1 g/dL (13.5-17.5); Lymphocytes Absolute Auto 1000 /uL (1100-4500); Lymphocytes Percent Auto 25.4 % (25-40); Mean Corpuscular Hemoglobin 30.4 PG (26-34); Mean Corpuscular Volume 92.3 fL (80-100); Monocytes Absolute Auto 400 /uL (0-900); Monocytes Percent Auto 9.1 % (3-14); Neutrophils Absolute Auto 2400 /uL (1500-7000); Platelet Count 113 X10^3/uL (150-400); Red Blood Cell Count 4.95 X10^6/uL (4.5-5.9); Red Cell Distribution Width 15.8 % (11.6-14.8); White Blood Cell Count 3.9 X10^3/uL (4.5-11.0)
[2023-11-18 16:30] LABS: Alanine Aminotransferase 15 IU/L (<50); Albumin 4.2 g/dL (3.5-5.0); Albumin Globulin Ratio 1.2 (1.0-2.8); Alkaline Phosphatase 101 U/L (38-126); Aspartate Aminotransferase 24 IU/L (17-59); BUN Creatinine Ratio 24.5 (6-22); Bilirubin Total 0.8 mg/dL (0.2-1.3); Blood Urea Nitrogen 25 mg/dL (9-20); Calcium 9.8 mg/dL (8.4-10.2); Carbon Dioxide 33 mmol/L (22-32); Chloride 101 mmol/L (98-107); Cholesterol 121 mg/dL (140-199); Estimated Glomerular Filt Rate > 60 mL/min (>60); Globulin 3.6 g/dL (1.7-4.1); Glucose 100 mg/dL (80-110); HDL Cholesterol 42 mg/dL (40-60); HEMOLYSIS < 15 (0-50); LDL Cholesterol Calculated 59 mg/dL (<100); Magnesium 2.2 mg/dL (1.6-2.3); Potassium 4.1 mmol/L (3.4-5.1); Sodium 140 mmol/L (137-145); Total Protein 7.8 g/dL (6.3-8.2); Triglycerides 102 mg/dL (35-150)
== END ==
PROVIDERS: Family Provider Family Medicine; PCP Family Medicine; Visit Provider Specialist
DX: I27.20 Pulmonary hypertension, unspecified (principal); E78.00 Pure hypercholesterolemia, unspecified; I48.21 Permanent atrial fibrillation; Z79.01 Long term (current) use of anticoagulants
CPT/HCPCS: 80053; 80061; 83735; 85025

== ENCOUNTER → 2024-04-06 14:58 | Outpatient (ROUT) | payer MEDICARE, OTHER, SELFPAY ==
[2023-01-23 19:00] VITALS: BMI 40.5
[2024-04-06 15:25] LABS: Alanine Aminotransferase 12 IU/L (<50); Albumin 4.1 g/dL (3.5-5.0); Albumin Globulin Ratio 1.5 (1.0-2.8); Alkaline Phosphatase 91 U/L (38-126); Aspartate Aminotransferase 23 IU/L (17-59); BUN Creatinine Ratio 31.4 (6-22); Bilirubin Total 0.7 mg/dL (0.2-1.3); Blood Urea Nitrogen 33 mg/dL (9-20); Calcium 8.9 mg/dL (8.4-10.2); Carbon Dioxide 33 mmol/L (22-32); Chloride 103 mmol/L (98-107); Estimated Glomerular Filt Rate > 60 mL/min (>60); Globulin 2.7 g/dL (1.7-4.1); Glucose 108 mg/dL (80-110); HEMOLYSIS < 15 (0-50); Magnesium 2.5 mg/dL (1.6-2.3); Potassium 4.2 mmol/L (3.4-5.1); Sodium 140 mmol/L (137-145); Total Protein 6.8 g/dL (6.3-8.2)
== END ==
PROVIDERS: Family Provider Family Medicine; PCP Family Medicine; Visit Provider Specialist
DX: E78.00 Pure hypercholesterolemia, unspecified (principal); I48.21 Permanent atrial fibrillation
CPT/HCPCS: 80053; 83735

== ENCOUNTER 2024-07-25 12:57 | Inpatient (IN) | payer MEDICARE, OTHER, SELFPAY ==
[2023-01-23 19:00] VITALS: BMI 40.5
[2024-07-25] VITALS (34 sets, daily range): BP systolic 74–148; BP diastolic 43–89; PULSE 60–124; RESP 9–19; TEMP 35.5–36.4; O2SAT 89–100; BMI 37.5
--- NOTE | 2024-07-25 13:04 | EKG_ITS ---
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
--- NOTE | 2024-07-25 13:04 | DI.RAD.S_ITS ---
PROCEDURE: XR CHEST 1V INDICATIONS: chest pain TECHNIQUE: One view of the chest was acquired. COMPARISON: [facility], CR, XR CHEST 2V, 01/23/2023, 13:27. [facility], CR, XR CHEST 1V, 01/18/2023, 11:32. FINDINGS: Surgical changes and devices: Left chest wall generator with intravenous lead. Lungs and pleura: Lungs are clear. No pleural effusions or pneumothorax. Mediastinum: Mediastinal contours appear normal. Heart size is enlarged. Bones and chest wall: No suspicious bony lesions. Overlying soft tissues appear unremarkable. Healed right rib fractures. IMPRESSION: No acute cardiopulmonary abnormality is seen. Dictated by: Nacho Quinn M.D. on 07/25/2024 at 14:01 Approved by: Nacho Quinn M.D. on 07/25/2024 at 14:03
[2024-07-25] MEDS: SODIUM CHLORIDE 0.9% 1,000 ML 1000 ML IV (13:10)
[2024-07-25 13:19] LABS: Add Manual Diff / Slide Review NO; Basophils Absolute Auto 0 /uL (0-100); Basophils Percent Auto 0.7 % (0-2); Eosinophils Absolute Auto 100 /uL (0-450); Eosinophils Percent Auto 2.3 % (2-4); Hematocrit 40.9 % (41-53); Hemoglobin 13.6 g/dL (13.5-17.5); Lymphocytes Absolute Auto 900 /uL (1100-4500); Lymphocytes Percent Auto 22.5 % (25-40); Mean Corpuscular HGB Conc 33.1 % (30-36); Mean Corpuscular Hemoglobin 31.6 PG (26-34); Mean Corpuscular Volume 95.4 fL (80-100); Monocytes Absolute Auto 400 /uL (0-900); Monocytes Percent Auto 9.8 % (3-14); Neutrophils Absolute Auto 2500 /uL (1500-7000); Neutrophils Percent Auto 64.7 % (50-75); Platelet Count 104 X10^3/uL (150-400); Red Blood Cell Count 4.29 X10^6/uL (4.5-5.9); Red Cell Distribution Width 16.1 % (11.6-14.8); White Blood Cell Count 3.8 X10^3/uL (4.5-11.0)
--- NOTE | 2024-07-25 13:19 | DI.CT.S_ITS ---
PROCEDURE: CT HEAD/BRAIN WO CON INDICATIONS: altered, low bp, recent fall, ? hit head TECHNIQUE: Noncontrast 4.5 mm thick angled axial sections acquired from the foramen magnum to the vertex, with coronal and sagittal reformats. For radiation dose reduction, the following was used: automated exposure control, adjustment of mA and/or kV according to patient size. COMPARISON: [facility], CT, CT HEAD/BRAIN WO CON, 07/26/2023, 13:32. FINDINGS: Ventricles and cortical sulci are moderately dilated commonly represents a pattern of atrophy, unchanged. Moderate areas of low-attenuation in the periventricular and deep white matter commonly related to chronic small vessel ischemic changes, unchanged. No CT evidence of intracranial hemorrhage, mass lesion, mass effect, acute or subacute infarct Skull and face: Calvarium and visualized facial bones appear intact. Sinuses: Visualized sinuses and mastoids are clear. Image quality: Diagnostic. Right downward head tilt with left-sided head turn with oblique images which limits the normal orthogonal symmetry. IMPRESSION: Moderate pattern of atrophy, unchanged. Moderate chronic small vessel ischemic changes, unchanged. No CT evidence of intracranial hemorrhage. If symptoms persist or worsen, or there is high clinical suspicion of acute intracranial abnormality, MR brain could be performed . Dictated by: Bridger Valencia M.D. on 07/25/2024 at 14:44 Approved by: Bridger Valencia M.D. on 07/25/2024 at 14:54
--- NOTE | 2024-07-25 13:20 | ED.DIZZY ---
HPI - Dizziness General Chief Complaint: Dizziness Stated Complaint: weakness, hypotension. no trauma Time Seen by Provider: 07/25/24 13:03 Source: patient, family (), RN notes reviewed and old records reviewed Mode of arrival: EMS Limitations: no limitations History of Present Illness HPI Narrative: 83-year-old known history of atrial fibrillation on warfarin, severe chronic venous stasis with cyanotic legs, dyslipidemia, hypertension, obesity, ELIJAH uses CPAP, dementia with hallucinations at baseline who presents with complaint of generalized weakness. states he has been patient is a little bit off but this is not totally atypical. She reports no recent fevers, he did have a fall in the last day or so she is unsure if he hit his head. He is on warfarin. Patient has no complaints of chest pain or shortness of breath he denies any dizziness or lightheadedness currently. No syncope. He told EMS he felt dizzy. Patient denies abdominal back or flank pain. No reports of dysuria urgency frequency. states he is stooling regularly. No black or bloody stools. He does normally wear a brief when he urinates. No new changes with swelling of extremities. She states he was up all night hallucinating, does note that he was able to take his shirt off in bed and this morning she got it back on him but when she went to stand him up he was very weak and could not stand. No lateralizing weakness that she appreciated. Patient is noted to have a systolic blood pressure in the 70s with EMS, pulse was 1 20s but had quite a bit of artifact and actually looks like ventricularly was more of a slow rhythm. notes prior hip and knee replacement as well as repair of a leg fracture, no prior cardiac or lung surgeries. No known drug allergies. No tobacco, alcohol or recreational drugs. Dr. Guzman is his primary care physician. states he is DNR/DNI but open to interventions up to that point. Related Data Home Medications Medication Instructions Recorded Confirmed Respironics Dreamstation CPAP #1 ea 05/02/19 01/23/23 carvedilol 25 mg tablet 37.5 mg PO BID 05/27/21 01/23/23 duloxetine 60 mg capsule,delayed 60 mg PO DAILY 05/27/21 01/23/23 release rosuvastatin 20 mg tablet (Crestor) 20 mg PO DAILY 05/27/21 01/23/23 warfarin 10 mg tablet 10 mg PO DAILY 05/27/21 01/23/23 gabapentin 300 mg capsule 300 mg PO TID 04/21/22 01/23/23 furosemide 40 mg tablet 40 mg PO DAILY 01/18/23 01/23/23 risperidone 2 mg tablet 2 mg PO BID 01/18/23 01/23/23 Previous Rx's Medication Instructions Recorded tamsulosin 0.4 mg capsule (Flomax) 0.4 mg PO QDAY 7 days #0 caps 07/23/16 cefuroxime axetil 500 mg tablet 500 mg PO BID #14 tabs 01/21/23 furosemide 20 mg tablet (Lasix) 20 mg PO DAILY #30 tabs 01/26/23 guaifenesin 600 mg tablet, 600 mg PO Q12HR PRN Cough #60 tabs 01/26/23 extended release 12 hr (Mucus Relief ER) potassium chloride 20 mEq 40 meq (2 x 20 mEq) PO DAILYCC #30 01/26/23 tablet,extended tabs release(part/cryst) (Klor-Con M) Allergies Allergy/AdvReac Type Severity Reaction Status Date / Time No Known Allergies Allergy Verified 07/25/24 13:14 Review of Systems Review of Systems ROS Unobtainable: All systems reviewed & are unremarkable except as noted in HPI and below Patient History Medical History DJD (degenerative joint disease), lumbosacral (~2017) DDD (degenerative disc disease), lumbar (~2017) Atrial fibrillation (Unknown) Obesity (BMI 30-39.9) (Unknown) Obstructive sleep apnea of adult (~2006) Rectal bleeding History of colon polyps UTI (urinary tract infection) Urinary retention Hip dislocation, right Hematuria Surgical History 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 Social History household members: spouse Smoking Status: Former smoker alcohol intake: current Smoking Status: Former smoker Substance Use Type: marijuana Exam Narrative Exam Narrative: GEN: Obese male, alert and oriented x self, does answer questions, little slow to answer but clear speech,, patient appears to be in mild distress. HEENT: Atraumatic, pupils are equal round reactive to light, extraocular movements are intact, no nystagmus, nares are clear, there is no conjunctival pallor. Throat is clear without any exudates, erythema, tonsillar enlargement or uvular deviation HEART: Regular rate and rhythm without murmur, clicks, rubs. Pulses equal bilateral upper extremities. LUNGS:Lungs clear to auscultation, no wheezes, rales, crackles, chest moves symmetrically, no tachypnea accessory muscle use ABD:bowel sounds normal, soft, non-tender, no guarding, rebound, rigidity, no masses noted, no hepatosplenomegaly :No CVA tenderness MSCL: Non-tender, no muscle atrophy, patient has trace edema bilateral lower extremities. Peripheral pulses felt bilaterally. Patient does have chronic venous stasis changes with purplish discoloration bilaterally. NEURO:CN 2-12 intact, sensation normal. Initial Vital Signs Initial Vital Signs: Vital Signs Temperature 97.6 F 07/25/24 13:03 Pulse Rate 124 H 07/25/24 13:03 Respiratory Rate 15 07/25/24 13:03 Blood Pressure 74/43 L 07/25/24 13:03 Pulse Oximetry 95 07/25/24 13:03 Oxygen Delivery Method Room Air 07/25/24 13:03 Course Orders Ordered: ED Orders 07/25/24 12:45 Complete Blood Count AUTO DIFF Stat Comprehensive Metabolic Panel Stat Lactate (Lactic Acid) Stat Lipase Stat Magnesium Stat NT-proBNP (BNP-Adult 18+) Stat PTT Partial Thromboplastin Arnol Stat Procalcitonin Stat Prothrombin Time INR Stat Troponin & CK Cardiac Panel Stat 07/25/24 13:04 XR chest 1V Stat EKG-12 Lead Stat 07/25/24 13:19 CT head/brain wo con Stat 07/25/24 13:20 ABG [Arterial Blood Gas] STAT 07/25/24 13:30 Respiratory Panel (Film Array) Stat 07/25/24 13:56 Blood Culture Stat 07/25/24 15:17 Consult to METAL FINISH INSPECTOR - Compressor Assembler Stat 07/25/24 15:50 Troponin I Stat 07/25/24 16:11 UA Complete [Urinalysis and Microscopic] Stat Urine Culture Stat Discontinued Medications Sodium Chloride (Normal Saline 0.9%) 1,000 mls @ 1,000 mls/hr IV BOLUS ONE Stop: 07/25/24 14:05 Last Infusion: 07/25/24 14:30 Dose: Infused Documented By: Admin: 07/25/24 13:10 Dose: 1,000 mls/hr Documented By: YUE Ceftriaxone Sodium 1,000 mg/ (Sodium Chloride) 100 mls @ 200 mls/hr IV NOW ONE Stop: 07/25/24 17:01 Last Admin: 07/25/24 17:28 Dose: 200 mls/hr Documented By: YUE Vital Signs Vital signs: Vital Signs - 8 hr 07/25/24 13:03 07/25/24 13:11 07/25/24 13:11 Temperature 97.6 F Pulse Rate 124 H 62 Respiratory Rate 15 Blood Pressure 74/43 L 93/56 L Pulse Oximetry 95 Oxygen Delivery Method Room Air 07/25/24 13:18 07/25/24 13:18 07/25/24 13:20 Temperature Pulse Rate Respiratory Rate 15 12 Blood Pressure 98/55 L Pulse Oximetry 93 94 Oxygen Delivery Method 07/25/24 13:20 07/25/24 13:30 07/25/24 13:30 Temperature Pulse Rate 60 Respiratory Rate 16 Blood Pressure 101/60 101/56 L Pulse Oximetry 91 Oxygen Delivery Method 07/25/24 13:40 07/25/24 13:40 07/25/24 13:51 Temperature Pulse Rate 60 60 Respiratory Rate 12 11 L Blood Pressure 97/56 L Pulse Oximetry 91 92 Oxygen Delivery Method 07/25/24 13:51 07/25/24 14:00 07/25/24 14:00 Temperature Pulse Rate 60 Respiratory Rate 13 Blood Pressure 109/59 L 108/58 L Pulse Oximetry 89 L Oxygen Delivery Method 07/25/24 14:10 07/25/24 14:10 07/25/24 14:20 Temperature Pulse Rate 61 61 Respiratory Rate 16 16 Blood Pressure 117/56 L Pulse Oximetry 94 93 Oxygen Delivery Method 07/25/24 14:20 07/25/24 14:30 07/25/24 14:30 Temperature Pulse Rate 95 H Respiratory Rate 12 Blood Pressure 117/55 L 108/53 L Pulse Oximetry 94 Oxygen Delivery Method 07/25/24 14:40 07/25/24 14:40 07/25/24 14:51 Temperature Pulse Rate 61 60 Respiratory Rate 12 10 L Blood Pressure 117/59 L Pulse Oximetry 93 Oxygen Delivery Method 07/25/24 14:51 07/25/24 15:00 07/25/24 15:00 Temperature Pulse Rate 63 Respiratory Rate 11 L Blood Pressure 141/53 H 111/56 L Pulse Oximetry 92 Oxygen Delivery Method 07/25/24 15:10 07/25/24 15:10 07/25/24 15:20 Temperature Pulse Rate Respiratory Rate 15 12 Blood Pressure 117/64 Pulse Oximetry 91 94 Oxygen Delivery Method 07/25/24 15:20 07/25/24 15:30 07/25/24 15:30 Temperature Pulse Rate Respiratory Rate 11 L Blood Pressure 116/56 L 116/55 L Pulse Oximetry 94 Oxygen Delivery Method Room Air 07/25/24 15:40 07/25/24 15:40 07/25/24 15:50 Temperature Pulse Rate Respiratory Rate 13 Blood Pressure 114/56 L 111/59 L Pulse Oximetry 95 Oxygen Delivery Method 07/25/24 15:50 07/25/24 16:00 07/25/24 16:00 Temperature Pulse Rate 62 Respiratory Rate 12 14 Blood Pressure 127/57 L Pulse Oximetry 97 96 Oxygen Delivery Method 07/25/24 16:10 07/25/24 16:10 07/25/24 16:20 Temperature Pulse Rate Respiratory Rate 9 L 11 L Blood Pressure 126/61 Pulse Oximetry 96 95 Oxygen Delivery Method 07/25/24 16:20 07/25/24 16:30 07/25/24 16:30 Temperature Pulse Rate 60 Respiratory Rate 10 L Blood Pressure 111/59 L 115/58 L Pulse Oximetry 95 Oxygen Delivery Method MDM - Dizziness Lab Data 07/25/24 12:45 07/25/24 12:45 Labs: Lab Results 07/25/24 07/25/24 07/25/24 Range/Units 12:45 13:30 13:36 WBC 3.8 L (4.5-11.0) X10^3/uL RBC 4.29 L (4.5-5.9) X10^6/uL Hgb 13.6 (13.5-17.5) g/dL Hct 40.9 L (41-53) % MCV 95.4 (80-100) fL MCH 31.6 (26-34) PG MCHC 33.1 (30-36) % RDW 16.1 H (11.6-14.8) % Plt Count 104 L (150-400) X10^3/uL Neut % (Auto) 64.7 (50-75) % Lymph % (Auto) 22.5 L (25-40) % Knott % (Auto) 9.8 (3-14) % Eos % (Auto) 2.3 (2-4) % Baso % (Auto) 0.7 (0-2) % Neut # (Auto) 2500 (6323-8073) /uL Lymph # (Auto) 900 L (0036-5102) /uL Knott # (Auto) 400 (0-900) /uL Eos # (Auto) 100 (0-450) /uL Baso # (Auto) 0 (0-100) /uL PT 24.3 H (9.4-12.5) SECONDS INR 2.1 H (0.9-1.3) APTT 55 H (25.1-36.5) SECONDS ABG Sample Site Left radial ABG pH 7.34 L (7.35-7.45) ABG pCO2 56.0 H (35-45) mmHg ABG pO2 65 L (80-100) mmHg ABG HCO3 30 H (23-27) mmol/L ABG Total CO2 31 H (23-27) mmol/L ABG O2 Saturation 91 L (95-100) % ABG Base Excess 3.4 H (-2-3) mmol/L Hung Test Positive Sodium 139 (137-145) mmol/L Potassium 4.4 (3.4-5.1) mmol/L Chloride 100 (98-107) mmol/L Carbon Dioxide 33 H (22-32) mmol/L BUN 30 H (9-20) mg/dL Creatinine 1.14 (0.66-1.25) mg/dL Estimated GFR > 60 (>60) mL/min BUN/Creatinine Ratio 26.3 H (6-22) Glucose 89 (80-110) mg/dL Lactate 1.4 (0.7-2.1) mmol/L Calcium 9.6 (8.4-10.2) mg/dL Magnesium 2.3 (1.6-2.3) mg/dL Total Bilirubin 0.5 (0.2-1.3) mg/dL AST 34 (17-59) IU/L ALT 26 (<50) IU/L Alkaline Phosphatase 123 (38-126) U/L Total Creatine Kinase 37 L (55-170) U/L Troponin I 0.035 H (0.01-0.034) ng/mL NT-Pro-B Natriuret Pep 2610 H (<450) pg/mL Total Protein 7.0 (6.3-8.2) g/dL Albumin 4.0 (3.5-5.0) g/dL Globulin 3.0 (1.7-4.1) g/dL Albumin/Globulin Ratio 1.3 (1.0-2.8) Lipase 153 (23-300) U/L Procalcitonin 0.054 (<0.5) ng/mL Urine Color Urine Appearance Urine pH (4.5-8.0) Ur Specific Warren (1.000-1.035) Urine Protein (Negative) Urine Glucose (UA) (Negative) g/dL Urine Ketones (NEGATIVE) Urine Occult Blood (Negative) Urine Nitrate (Negative) Urine Bilirubin (NEGATIVE) Urine Urobilinogen (0.2) E.U./dL Ur Leukocyte Esterase (NEGATIVE) Urine RBC (0-5/HPF) Urine WBC (0-5/HPF) Ur Squamous Epith Cells (0-5/HPF) Urine Bacteria (None) Ur Culture Indicated? Vol Urine Centrifuged Chlamy pneumoniae PCR Not detected (Not Detect) Adenovirus (PCR) Not detected (Not Detect) B. pertussis DNA (PCR) Not detected (Not Detect) B.parapertussis DNA PCR Not detected (Not Detecte) Coronavirus OC43 (PCR) Not detected (Not Detect) Coronavirus HKU1 (PCR) Not detected (Not Detect) Coronavirus 229E (PCR) Not detected (Not Detect) SARS-CoV-2 (PCR) Not detected (Not Detecte) Coronavirus NL63 (PCR) Not detected (Not Detect) Human Metapneumovir PCR Not detected (Not Detect) Influenza Type A (PCR) Not detected (Not Detect) Influenza Type B (PCR) Not detected (Not Detect) M. pneumoniae (PCR) Not detected (Not Detect) Parainfluenza 1 (PCR) Not detected (Not Detect) Parainfluenza 2 (PCR) Not detected (Not Detect) Parainfluenza 3 (PCR) Not detected (Not Detect) Parainfluenza 4 (PCR) Not detected (Not Detect) RSV (PCR) Not detected (Not Detect) Entero/Rhino (PCR) Not detected (Not Detect) 07/25/24 07/25/24 Range/Units 15:50 16:11 WBC (4.5-11.0) X10^3/uL RBC (4.5-5.9) X10^6/uL Hgb (13.5-17.5) g/dL Hct (41-53) % MCV (80-100) fL MCH (26-34) PG MCHC (30-36) % RDW (11.6-14.8) % Plt Count (150-400) X10^3/uL Neut % (Auto) (50-75) % Lymph % (Auto) (25-40) % Knott % (Auto) (3-14) % Eos % (Auto) (2-4) % Baso % (Auto) (0-2) % Neut # (Auto) (2564-6291) /uL Lymph # (Auto) (1558-4834) /uL Knott # (Auto) (0-900) /uL Eos # (Auto) (0-450) /uL Baso # (Auto) (0-100) /uL PT (9.4-12.5) SECONDS INR (0.9-1.3) APTT (25.1-36.5) SECONDS ABG Sample Site ABG pH (7.35-7.45) ABG pCO2 (35-45) mmHg ABG pO2 (80-100) mmHg ABG HCO3 (23-27) mmol/L ABG Total CO2 (23-27) mmol/L ABG O2 Saturation (95-100) % ABG Base Excess (-2-3) mmol/L Hung Test Sodium (137-145) mmol/L Potassium (3.4-5.1) mmol/L Chloride (98-107) mmol/L Carbon Dioxide (22-32) mmol/L BUN (9-20) mg/dL Creatinine (0.66-1.25) mg/dL Estimated GFR (>60) mL/min BUN/Creatinine Ratio (6-22) Glucose (80-110) mg/dL Lactate (0.7-2.1) mmol/L Calcium (8.4-10.2) mg/dL Magnesium (1.6-2.3) mg/dL Total Bilirubin (0.2-1.3) mg/dL AST (17-59) IU/L ALT (<50) IU/L Alkaline Phosphatase (38-126) U/L Total Creatine Kinase (55-170) U/L Troponin I 0.034 (0.01-0.034) ng/mL NT-Pro-B Natriuret Pep (<450) pg/mL Total Protein (6.3-8.2) g/dL Albumin (3.5-5.0) g/dL Globulin (1.7-4.1) g/dL Albumin/Globulin Ratio (1.0-2.8) Lipase (23-300) U/L Procalcitonin (<0.5) ng/mL Urine Color Yellow Urine Appearance Clear Urine pH 5.5 (4.5-8.0) Ur Specific Warren 1.010 (1.000-1.035) Urine Protein 1+ H (Negative) Urine Glucose (UA) Negative (Negative) g/dL Urine Ketones Negative (NEGATIVE) Urine Occult Blood Negative (Negative) Urine Nitrate Negative (Negative) Urine Bilirubin Negative (NEGATIVE) Urine Urobilinogen 0.2 (0.2) E.U./dL Ur Leukocyte Esterase 2+ H (NEGATIVE) Urine RBC None seen (0-5/HPF) Urine WBC 10-30/hpf H (0-5/HPF) Ur Squamous Epith Cells 0-1 /hpf (0-5/HPF) Urine Bacteria Many (>30) H (None) Ur Culture Indicated? Specimen cultured Vol Urine Centrifuged 10ml (spun) Chlamy pneumoniae PCR (Not Detect) Adenovirus (PCR) (Not Detect) B. pertussis DNA (PCR) (Not Detect) B.parapertussis DNA PCR (Not Detecte) Coronavirus OC43 (PCR) (Not Detect) Coronavirus HKU1 (PCR) (Not Detect) Coronavirus 229E (PCR) (Not Detect) SARS-CoV-2 (PCR) (Not Detecte) Coronavirus NL63 (PCR) (Not Detect) Human Metapneumovir PCR (Not Detect) Influenza Type A (PCR) (Not Detect) Influenza Type B (PCR) (Not Detect) M. pneumoniae (PCR) (Not Detect) Parainfluenza 1 (PCR) (Not Detect) Parainfluenza 2 (PCR) (Not Detect) Parainfluenza 3 (PCR) (Not Detect) Parainfluenza 4 (PCR) (Not Detect) RSV (PCR) (Not Detect) Entero/Rhino (PCR) (Not Detect) ECG Data Attestation: I personally reviewed and interpreted this ECG as follows: Prior ECG tracings: available for review Interpretation: Ventricularly paced rhythm occasional PVC rate of 62 QRS of 158 QRS TC of 483, patient has prior from 07/26/2023 which shows AFib with PVCs occasional paced beats. MDM Narrative Medical decision making narrative: 83-year-old male presents with complaint of weakness he was hypotensive, reported tachycardic in the field but appears he was more of a paced rhythm but has a lot of tremor artifact on his EMS telemetry. In the department heart rates more the 60s paste as well blood pressure slightly improved nightly systolic. states normally 120 systolic pressure. Described as weak, mentation is a little bit off but states that has not atypical has known dementia at baseline. Patient complained to EMS he was dizzy but denies it here, no syncope, he denies any symptoms currently. Labs white count of 3.8 similar to prior from November hemoglobin of 13.6 platelets are low at 104 but patient appears to have chronic thrombocytopenia fairly close to baseline. Chemistry shows normal sodium, potassium and chloride, CO2 is 33 BUN 30 creatinine 1.14 glucose is 89 lactate 1.4 LFTs are negative, total CK is 37 troponin 0.035 repeat is trending down words 0.034, BNP is 2610, overall this is where patient normally runs although he had a BNP of 800 in January. Procalcitonin is negative. EKG shows ventricularly paced rhythm Head CT shows moderate pattern and atrophy moderate chronic small-vessel ischemic changes no evidence of intracranial bleed. Chest x-ray shows no acute change Urine positive for protein negative for nitrates, positive for leukocyte esterase no red cells, 10-30 white cells 1 squamous many bacteria. Seem consistent with UTI. Patient dose of Rocephin. Respiratory panel is negative ABG shows a pH of 7.3 pCO2 is 56 PO2 of 65 with a bicarb of 30. Patient has a little bit of respiratory acidosis but appears to have some metabolic compensation. Patient had 500 mL bolus, re-evaluation of blood pressure as patient has a known CHF. Patient's O2 sat was little bit low initially but appears to have improved. Generalized weakness in the setting of possible UTI patient was hypotensive but does not appear to be improved does have little bit of hypercapnia has been slightly elevated in the past but does also have history of ELIJAH. Otherwise does not meet septic criteria. Spoke with Dr. Dominguez, who accepts. Did review he does get hallucinations at time his states he does need his Risperdal at nighttime. Also reviewed that he has had lorazepam in the last 2 nights which has probably made him a little bit more agitated according to his . So we will try to avoid any benzos. Discharge Plan Departure Patient Disposition: Admitted as Observation Clinical Impression: Acute UTI, Weakness, Hypotension Admit Date/Time: 07/25/24 17:44 Admit Provider: Ritchie Dominguez
[2024-07-25 13:27] LABS: INR 2.1 (0.9-1.3); Prothrombin Time 24.3 SECONDS (9.4-12.5)
[2024-07-25 13:29] LABS: PTT Partial Thromboplastin Tim 55 SECONDS (25.1-36.5)
[2024-07-25 13:49] LABS: Lactate (Lactic Acid) 1.4 mmol/L (0.7-2.1)
[2024-07-25 13:50] LABS: Alanine Aminotransferase 26 IU/L (<50); Albumin Globulin Ratio 1.3 (1.0-2.8); Alkaline Phosphatase 123 U/L (38-126); Aspartate Aminotransferase 34 IU/L (17-59); BUN Creatinine Ratio 26.3 (6-22); Bilirubin Total 0.5 mg/dL (0.2-1.3); Blood Urea Nitrogen 30 mg/dL (9-20); Calcium 9.6 mg/dL (8.4-10.2); Carbon Dioxide 33 mmol/L (22-32); Chloride 100 mmol/L (98-107); Creatine Kinase 37 U/L (55-170); Estimated Glomerular Filt Rate > 60 mL/min (>60); Glucose 89 mg/dL (80-110); HEMOLYSIS < 15 (0-50); Lipase 153 U/L (23-300); Magnesium 2.3 mg/dL (1.6-2.3); Potassium 4.4 mmol/L (3.4-5.1); Sodium 139 mmol/L (137-145)
[2024-07-25 14:01] LABS: NT-proBNP (BNP-Adult 18+) 2610 pg/mL (<450); Troponin I 0.035 ng/mL (0.01-0.034)
[2024-07-25 14:07] LABS: Procalcitonin 0.054 ng/mL (<0.5)
[2024-07-25 14:31] LABS: Adenovirus Not Detected (Not Detect); B. parapertussis Not Detected (Not Detecte); Bordetella pertussis Not Detected (Not Detect); Chlamydophila pneumoniae Not Detected (Not Detect); Coronavirus 229E Not Detected (Not Detect); Coronavirus HKU1 Not Detected (Not Detect); Coronavirus NL 63 Not Detected (Not Detect); Coronavirus OC43 Not Detected (Not Detect); Human Metapneumovirus Not Detected (Not Detect); Human Rhinovirus/Enterovirus Not Detected (Not Detect); Influenza A Not Detected (Not Detect); Influenza B Not Detected (Not Detect); Mycoplasma pneumoniae Not Detected (Not Detect); Parainfluenza Virus 1 Not Detected (Not Detect); Parainfluenza Virus 2 Not Detected (Not Detect); Parainfluenza Virus 3 Not Detected (Not Detect); Parainfluenza Virus 4 Not Detected (Not Detect); Respiratory Syncytial Virus Not Detected (Not Detect); SARS- CoV-2 Not Detected (Not Detecte)
[2024-07-25 14:33] LABS: Allen Test for ABG Passed? Positive; Base Excess ABG 3.4 mmol/L (-2-3); Blood Gas Collection Site Left Radial; HCO3 ABG 30 mmol/L (23-27); Oxygen Saturation ABG 91 % (95-100); PO2 ABG 65 mmHg (80-100); TCO2 ABG 31 mmol/L (23-27); pH ABG 7.34 (7.35-7.45)
[2024-07-25 16:22] LABS: Troponin I 0.034 ng/mL (0.01-0.034)
[2024-07-25 16:25] LABS: Appearance Urine UA CLEAR; Bilirubin Urine UA NEGATIVE (NEGATIVE); Color Urine UA YELLOW; Glucose Urine UA NEGATIVE (Negative); Ketones Urine UA NEGATIVE (NEGATIVE); Leukocyte Esterase Urine UA 2+ (NEGATIVE); Nitrite Urine UA NEGATIVE (Negative); Occult Blood Urine UA NEGATIVE (Negative); Protein Urine UA 1+ (Negative); Urobilinogen Urine UA 0.2 E.U./dL (0.2); pH Urine UA 5.5 (4.5-8.0)
[2024-07-25 16:36] LABS: Urine Volume 10mL (spun)
[2024-07-25 16:37] LABS: Bacteria Urine Many (>30); Culture Indicated Urine Specimen Cultured; RBC Urine None Seen (0-5/HPF); Squamous Epithelial Cell Urine 0-1 /HPF (0-5/HPF); WBC Urine 10-30/HPF (0-5/HPF)
[2024-07-25] MEDS: cefTRIAXone 1,000 MG in SODIUM CHLORIDE 0.9% 100 ML 200 MG IV (17:28)
--- NOTE | 2024-07-25 17:50 | CM.IDA ---
Initial DCP Assessment Note Patient is 83 y/o male who presents to ED via EMS due to concern for increased weakness, inability to stand and follow commands, hypotensive and tachycardic upon presentation. Patient's PCP is Dr. Guzman, patient has Medicare and [facility] insurance. Patient has hx of Dementia, Afib, CHF, HALL, DJD, DDD and obstructed sleep apnea. Patient resides with spouse Karen on [facility]. Patient is A/O to self, person and location but believes it is September 1966. TEACHER OF THE EMOTIONALLY DISTURBED meets with patient's spouse, it is reported that she is the primary caregiver for patient and assists with ADLs, at baseline it is reported that patient can walk a few steps with gait belt, FWW and transfer to wheelchair, follow commands, put on clothing with assistance. Patient states that today patient would not stand up and presented with increase weakness and malaise. Patient has bedside commode, manual gilles lift, wheelchair, FWW, and grab bars. Patient's spouse states that she could not pick patient up if he falls due to his size and will often call the fire department for lift assist if her were to be on the ground, it is reported in the last two months, patient was found on the ground twice and spouse does not have explanation for how he got there. Spouse states that she has hired a caregiver for all day once a week on Fridays to assist with ADLs. Spouse states that patient has several family members in [place] and the exterminator goal would be to identify a memory care facility for patient in that area. It is reported that patient has been talking to himself in recent months having full conversations, and possibly seeing things on the berkowitz. Spouse's preference is SNF rehab for patient with primary preference of [facility]. TEACHER OF THE EMOTIONALLY DISTURBED provides Medicare choice list to review other options. Patient states that private pay is not an option for them. TEACHER OF THE EMOTIONALLY DISTURBED explains the Medicare Inpatient status requirement and spouse indicates understanding. TEACHER OF THE EMOTIONALLY DISTURBED discusses plan B of Home Health and [facility] would be the preference and only agency that serves [facility]. TEACHER OF THE EMOTIONALLY DISTURBED provides spouse with Senior resource guide. ED provider discusses patient with Dr. Dominguez and patient is admitted due to concern for Hypotension, Acute UTI and weakness. Dr. Dominguez did not report status of admission to ED provider so patient was admitted as OBS at this time. Patient would benefit from PT eval to determine SNF rehab referral. Plan: patient admitted to acute care for further treatment and evaluation. PT eval pending, Plan A: SNF rehab if inpatient status with preference of [facility], Plan B: [facility] referral, family to seek out exterminator care plan. STEFANIA Paniagua Discharge Planning/Care Management CM Discharge Assessment Start: 07/25/24 17:35 Freq: Status: Active Protocol: Document 07/25/24 17:37 LN (Rec: 07/25/24 17:41 LN [id number]) Discharge Planning Assessment Assigned Medical Equipment Sales STEFANIA Centeno Advance Directives? Yes Advance Directives on File No History Provided By Significant Other,Medical Record Has Patient been admitted in last 30 No days? Prior Living Arrangements House Household Members spouse Type of transporation used prior to Relies on Others admit Independent with ADL's No Is patient alert and oriented? No Needs Assistance With Bathing,Grooming,Meal Prep, Toileting,Managing Medications ,Home Chores / Shopping Caregiver for Another No DME Already Rented / Owned Wheelchair,FWW / Walker, Bedside Commode Comment Patient also has manual gilles lift. Patient/Family Preference Long-Term Facility Comment Weakness and dementia Discharge Plan Long-Term Facility Transportation Arrangement Family Referrals Initiated Other Additional Comment Will monitor closely, does not yet have P.T. orders as of yet If patient plan is home with home health No : Has signed face to face form been completed? If patient plan is SNF: Has PASSR been No completed? Medicare Choice List Provided Yes Medicare choice list reviewed on family electronic tablet with SNF/HH Preference Primary preference is [facility], patient's spouse is reviewing medicare choice list for other preferences. If HH, the only option is [facility] due to patient's residence. Has Agency SNF been contacted No Review Status In Process
--- NOTE | 2024-07-25 19:31 | PM.HP.1 ---
History of Present Illness History of Present Illness Date Patient Seen: 07/25/24 Time Patient Seen: 19:31 Chief complaint: weakness, hypotension. no trauma Narrative: CC: uti Presents to ED with via EMS. 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 Guzman as outpatient stays home with Marielle or caregiver Stephany Jacobs. Main issue is complaint of extreme weakness with systolic 70 in the field tachycardic to 120s reportedly. Did have some benzos the last couple nights. UTI found in ED along with notable increase in BNP as well as maybe some hypercapnea. is concerned as increased weakness. If placed would prefer [facility]. Reports more tired but normal appetite, compliant with all meds. [facility] Medical History DJD (degenerative joint disease), lumbosacral (~2017) DDD (degenerative disc disease), lumbar (~2017) Atrial fibrillation (Unknown) Obesity (BMI 30-39.9) (Unknown) Obstructive sleep apnea of adult (~2006) Rectal bleeding History of colon polyps UTI (urinary tract infection) Urinary retention Hip dislocation, right Hematuria Surgical History 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 Social History household members: spouse Smoking Status: Former smoker alcohol intake: never Meds Home Medications and Allergies Home Medications Medication Instructions Recorded Confirmed Type tamsulosin 0.4 mg capsule (Flomax) 0.4 mg PO QDAY 7 days #0 caps 07/23/16 07/25/24 Rx Respironics Dreamstation CPAP #1 ea 05/02/19 07/25/24 History carvedilol 25 mg tablet 37.5 mg PO BID 05/27/21 07/25/24 History duloxetine 60 mg capsule,delayed 60 mg PO DAILY 05/27/21 07/25/24 History release rosuvastatin 20 mg tablet (Crestor) 20 mg PO BEDTIME 05/27/21 07/25/24 History warfarin 10 mg tablet 5 mg PO DAILY 05/27/21 07/25/24 History gabapentin 300 mg capsule 900 mg PO TID 04/21/22 07/25/24 History furosemide 40 mg tablet 40 mg PO DAILY 01/18/23 07/25/24 History risperidone 2 mg tablet 2 mg PO BID 01/18/23 07/25/24 History furosemide 20 mg tablet (Lasix) 20 mg PO BEDTIME 07/25/24 07/25/24 History potassium chloride 20 mEq 40 meq PO BID 07/25/24 07/25/24 History tablet,extended release(part/cryst) (Klor-Con M) Allergies Allergy/AdvReac Type Severity Reaction Status Date / Time No Known Allergies Allergy Verified 07/25/24 13:14 Review of Systems Review of Systems Narrative: all systems reviewed and negative except as otherwise documented in HPI Exam Vital Signs (past 8 hours): - 07/25/24 13:03 07/25/24 13:11 07/25/24 13:11 Temperature 97.6 F Pulse Rate 124 H 62 Respiratory Rate 15 Blood Pressure 74/43 L 93/56 L Pulse Oximetry 95 Oxygen Delivery Method Room Air Oxygen Flow Rate 07/25/24 13:18 07/25/24 13:18 07/25/24 13:20 Temperature Pulse Rate Respiratory Rate 15 12 Blood Pressure 98/55 L Pulse Oximetry 93 94 Oxygen Delivery Method Oxygen Flow Rate 07/25/24 13:20 07/25/24 13:30 07/25/24 13:30 Temperature Pulse Rate 60 Respiratory Rate 16 Blood Pressure 101/60 101/56 L Pulse Oximetry 91 Oxygen Delivery Method Oxygen Flow Rate 07/25/24 13:40 07/25/24 13:40 07/25/24 13:51 Temperature Pulse Rate 60 60 Respiratory Rate 12 11 L Blood Pressure 97/56 L Pulse Oximetry 91 92 Oxygen Delivery Method Oxygen Flow Rate 07/25/24 13:51 07/25/24 14:00 07/25/24 14:00 Temperature Pulse Rate 60 Respiratory Rate 13 Blood Pressure 109/59 L 108/58 L Pulse Oximetry 89 L Oxygen Delivery Method Oxygen Flow Rate 07/25/24 14:10 07/25/24 14:10 07/25/24 14:20 Temperature Pulse Rate 61 61 Respiratory Rate 16 16 Blood Pressure 117/56 L Pulse Oximetry 94 93 Oxygen Delivery Method Oxygen Flow Rate 07/25/24 14:20 07/25/24 14:30 07/25/24 14:30 Temperature Pulse Rate 95 H Respiratory Rate 12 Blood Pressure 117/55 L 108/53 L Pulse Oximetry 94 Oxygen Delivery Method Oxygen Flow Rate 07/25/24 14:40 07/25/24 14:40 07/25/24 14:51 Temperature Pulse Rate 61 60 Respiratory Rate 12 10 L Blood Pressure 117/59 L Pulse Oximetry 93 Oxygen Delivery Method Oxygen Flow Rate 07/25/24 14:51 07/25/24 15:00 07/25/24 15:00 Temperature Pulse Rate 63 Respiratory Rate 11 L Blood Pressure 141/53 H 111/56 L Pulse Oximetry 92 Oxygen Delivery Method Oxygen Flow Rate 07/25/24 15:10 07/25/24 15:10 07/25/24 15:20 Temperature Pulse Rate Respiratory Rate 15 12 Blood Pressure 117/64 Pulse Oximetry 91 94 Oxygen Delivery Method Oxygen Flow Rate 07/25/24 15:20 07/25/24 15:30 07/25/24 15:30 Temperature Pulse Rate Respiratory Rate 11 L Blood Pressure 116/56 L 116/55 L Pulse Oximetry 94 Oxygen Delivery Method Room Air Oxygen Flow Rate 07/25/24 15:40 07/25/24 15:40 07/25/24 15:50 Temperature Pulse Rate Respiratory Rate 13 Blood Pressure 114/56 L 111/59 L Pulse Oximetry 95 Oxygen Delivery Method Oxygen Flow Rate 07/25/24 15:50 07/25/24 16:00 07/25/24 16:00 Temperature Pulse Rate 62 Respiratory Rate 12 14 Blood Pressure 127/57 L Pulse Oximetry 97 96 Oxygen Delivery Method Oxygen Flow Rate 07/25/24 16:10 07/25/24 16:10 07/25/24 16:20 Temperature Pulse Rate Respiratory Rate 9 L 11 L Blood Pressure 126/61 Pulse Oximetry 96 95 Oxygen Delivery Method Oxygen Flow Rate 07/25/24 16:20 07/25/24 16:30 07/25/24 16:30 Temperature Pulse Rate 60 Respiratory Rate 10 L Blood Pressure 111/59 L 115/58 L Pulse Oximetry 95 Oxygen Delivery Method Oxygen Flow Rate 07/25/24 16:40 07/25/24 16:40 07/25/24 16:50 Temperature Pulse Rate 61 61 Respiratory Rate 12 13 Blood Pressure 125/60 Pulse Oximetry 97 95 Oxygen Delivery Method Oxygen Flow Rate 07/25/24 16:50 07/25/24 17:00 07/25/24 17:00 Temperature Pulse Rate 60 Respiratory Rate 12 Blood Pressure 138/64 129/64 Pulse Oximetry 95 Oxygen Delivery Method Oxygen Flow Rate 07/25/24 17:10 07/25/24 17:10 07/25/24 17:20 Temperature Pulse Rate 60 60 Respiratory Rate 11 L 9 L Blood Pressure 137/61 Pulse Oximetry 95 97 Oxygen Delivery Method Oxygen Flow Rate 07/25/24 17:20 07/25/24 17:30 07/25/24 17:30 Temperature Pulse Rate 62 Respiratory Rate 10 L Blood Pressure 127/71 126/63 Pulse Oximetry 96 Oxygen Delivery Method Oxygen Flow Rate 07/25/24 17:40 07/25/24 17:40 07/25/24 17:50 Temperature Pulse Rate 61 60 Respiratory Rate 9 L 9 L Blood Pressure 129/60 Pulse Oximetry 95 95 Oxygen Delivery Method Room Air Oxygen Flow Rate 07/25/24 17:50 07/25/24 18:46 Temperature 95.9 F L Pulse Rate 63 Respiratory Rate 18 Blood Pressure 132/62 130/82 Pulse Oximetry 100 Oxygen Delivery Method Oxygen Flow Rate 0 Oxygen Delivery Method Room Air Oxygen Flow Rate 0 Narrative Exam Narrative: laying in hospital bed intermittently participatory HENMT Other: Normocephalic atraumatic Resp Other: crackles heard bibasilarly maybe some junky sounds too Cardio Other: tachycardic, s1/s2 GI Other: soft nontender active bowel sounds Neuro Other: disoriented. normal sensation reported. weak able to sit up only with difficulty and cuing. Extrem Other: Pitting edema 1+ Objective Labs 07/25/24 12:45 07/25/24 12:45 Labs: Laboratory Results - last 24 hr 07/25/24 07/25/24 07/25/24 12:45 13:30 13:36 WBC 3.8 L RBC 4.29 L Hgb 13.6 Hct 40.9 L MCV 95.4 MCH 31.6 MCHC 33.1 RDW 16.1 H Plt Count 104 L Neut % (Auto) 64.7 Lymph % (Auto) 22.5 L Ch[place] % (Auto) 9.8 Eos % (Auto) 2.3 Baso % (Auto) 0.7 Neut # (Auto) 2500 Lymph # (Auto) 900 L [place] # (Auto) 400 Eos # (Auto) 100 Baso # (Auto) 0 PT 24.3 H INR 2.1 H APTT 55 H ABG Sample Site Left radial ABG pH 7.34 L ABG pCO2 56.0 H ABG pO2 65 L ABG HCO3 30 H ABG Total CO2 31 H ABG O2 Saturation 91 L ABG Base Excess 3.4 H Hung Test Positive Sodium 139 Potassium 4.4 Chloride 100 Carbon Dioxide 33 H BUN 30 H Creatinine 1.14 Estimated GFR > 60 BUN/Creatinine Ratio 26.3 H Glucose 89 Lactate 1.4 Calcium 9.6 Magnesium 2.3 Total Bilirubin 0.5 AST 34 ALT 26 Alkaline Phosphatase 123 Total Creatine Kinase 37 L Troponin I 0.035 H NT-Pro-B Natriuret Pep 2610 H Total Protein 7.0 Albumin 4.0 Globulin 3.0 Albumin/Globulin Ratio 1.3 Lipase 153 Procalcitonin 0.054 Urine Color Urine Appearance Urine pH Ur Specific [place] Urine Protein Urine Glucose (UA) Urine Ketones Urine Occult Blood Urine Nitrate Urine Bilirubin Urine Urobilinogen Ur Leukocyte Esterase Urine RBC Urine WBC Ur Squamous Epith Cells Urine Bacteria Ur Culture Indicated? Vol Urine Centrifuged Chlamy pneumoniae PCR Not detected Adenovirus (PCR) Not detected B. pertussis DNA (PCR) Not detected B.parapertussis DNA PCR Not detected Coronavirus OC43 (PCR) Not detected Coronavirus HKU1 (PCR) Not detected Coronavirus 229E (PCR) Not detected SARS-CoV-2 (PCR) Not detected Coronavirus NL63 (PCR) Not detected Human Metapneumovir PCR Not detected Influenza Type A (PCR) Not detected Influenza Type B (PCR) Not detected M. pneumoniae (PCR) Not detected Parainfluenza 1 (PCR) Not detected Parainfluenza 2 (PCR) Not detected Parainfluenza 3 (PCR) Not detected Parainfluenza 4 (PCR) Not detected RSV (PCR) Not detected Entero/Rhino (PCR) Not detected 07/25/24 07/25/24 15:50 16:11 WBC RBC Hgb Hct MCV MCH MCHC RDW Plt Count Neut % (Auto) Lymph % (Auto) [place] % (Auto) Eos % (Auto) Baso % (Auto) Neut # (Auto) Lymph # (Auto) [place] # (Auto) Eos # (Auto) Baso # (Auto) PT INR APTT ABG Sample Site ABG pH ABG pCO2 ABG pO2 ABG HCO3 ABG Total CO2 ABG O2 Saturation ABG Base Excess Hung Test Sodium Potassium Chloride Carbon Dioxide BUN Creatinine Estimated GFR BUN/Creatinine Ratio Glucose Lactate Calcium Magnesium Total Bilirubin AST ALT Alkaline Phosphatase Total Creatine Kinase Troponin I 0.034 NT-Pro-B Natriuret Pep Total Protein Albumin Globulin Albumin/Globulin Ratio Lipase Procalcitonin Urine Color Yellow Urine Appearance Clear Urine pH 5.5 Ur Specific [place] 1.010 Urine Protein 1+ H Urine Glucose (UA) Negative Urine Ketones Negative Urine Occult Blood Negative Urine Nitrate Negative Urine Bilirubin Negative Urine Urobilinogen 0.2 Ur Leukocyte Esterase 2+ H Urine RBC None seen Urine WBC 10-30/hpf H Ur Squamous Epith Cells 0-1 /hpf Urine Bacteria Many (>30) H Ur Culture Indicated? Specimen cultured Vol Urine Centrifuged 10ml (spun) Chlamy pneumoniae PCR Adenovirus (PCR) B. pertussis DNA (PCR) B.parapertussis DNA PCR Coronavirus OC43 (PCR) Coronavirus HKU1 (PCR) Coronavirus 229E (PCR) SARS-CoV-2 (PCR) Coronavirus NL63 (PCR) Human Metapneumovir PCR Influenza Type A (PCR) Influenza Type B (PCR) M. pneumoniae (PCR) Parainfluenza 1 (PCR) Parainfluenza 2 (PCR) Parainfluenza 3 (PCR) Parainfluenza 4 (PCR) RSV (PCR) Entero/Rhino (PCR) Assessment & Plan Assessment & Plan narrative: #UTI treating with Rocephin and gentle hydration # acute on chronic diastolic congestive heart failure BNP widely elevated compared to previous he is taking Lasix 60 mg total oral dose we will give 40 mg IV tonight and track BNP #Atrial fibrillation on warfarin takes warfarin 2.5 mg on Wednesdays and Saturdays, 5 mg on Tuesdays and Sundays - Also takes coreg 25 mg twice a day Continue # dementia with agitation and hallucinations Taking risperidone 2 mg twice a day continue # benign prostatic hypertrophy with urinary obstruction Continue Flomax consider condom catheter #Mixed hyperlipidemia Stable continue rosuvastatin Dispo: Admit observation consider maybe rehab pending therapy evals MDM: Erika [phone] Code: DNR DNI PCP: Thomas Diet: Heart healthy bite size pieces Time-Based Coding :: [TOTAL MINUTES] spent with patient and on the chart (including review of chart, obtaining history, exam, reviewing outside data, placing orders, documenting exam and treatment plan, and counseling patient) on [DATE].
[2024-07-25] MEDS: SODIUM CHLORIDE 0.9% 1,000 ML 42 ML IV ×2 (20:11→23:58)
[2024-07-25] MEDS: FUROSEMIDE 40 MG/4 ML VIAL IV (20:12)
[2024-07-25] MEDS: ATORVASTATIN 20 MG TABLET 80 MG PO (20:17)
[2024-07-25] MEDS: MELATONIN 3 MG TABLET 9 MG PO (20:17)
[2024-07-25] MEDS: GABAPENTIN 300 MG CAPSULE 900 MG PO (20:18)
[2024-07-25] MEDS: risperiDONE 1 MG TABLET 2 MG PO (20:19)
[2024-07-25] MEDS: carvediloL 12.5 MG TABLET 25 MG PO (20:23)
[2024-07-26] VITALS (8 sets, daily range): BP systolic 102–133; BP diastolic 59–79; PULSE 60–72; RESP 16–18; TEMP 35.8–36.7; O2SAT 93–100
[2024-07-26 05:45] LABS: Add Manual Diff / Slide Review NO; Basophils Absolute Auto 0 /uL (0-100); Basophils Percent Auto 0.8 % (0-2); Eosinophils Absolute Auto 100 /uL (0-450); Eosinophils Percent Auto 1.5 % (2-4); Hematocrit 38.6 % (41-53); Hemoglobin 12.9 g/dL (13.5-17.5); Lymphocytes Absolute Auto 1000 /uL (1100-4500); Mean Corpuscular HGB Conc 33.4 % (30-36); Mean Corpuscular Hemoglobin 31.8 PG (26-34); Mean Corpuscular Volume 95.1 fL (80-100); Monocytes Absolute Auto 500 /uL (0-900); Monocytes Percent Auto 11.8 % (3-14); Neutrophils Absolute Auto 3000 /uL (1500-7000); Neutrophils Percent Auto 63.9 % (50-75); Platelet Count 92 X10^3/uL (150-400); Red Blood Cell Count 4.05 X10^6/uL (4.5-5.9); Red Cell Distribution Width 15.8 % (11.6-14.8); White Blood Cell Count 4.7 X10^3/uL (4.5-11.0)
[2024-07-26 05:54] LABS: Alanine Aminotransferase 22 IU/L (<50); Albumin 3.4 g/dL (3.5-5.0); Albumin Globulin Ratio 1.1 (1.0-2.8); Alkaline Phosphatase 115 U/L (38-126); Aspartate Aminotransferase 27 IU/L (17-59); BUN Creatinine Ratio 29.8 (6-22); Bilirubin Total 0.5 mg/dL (0.2-1.3); Blood Urea Nitrogen 31 mg/dL (9-20); Calcium 8.9 mg/dL (8.4-10.2); Carbon Dioxide 32 mmol/L (22-32); Chloride 102 mmol/L (98-107); Estimated Glomerular Filt Rate > 60 mL/min (>60); Glucose 75 mg/dL (80-110); HEMOLYSIS < 15 (0-50); Potassium 3.9 mmol/L (3.4-5.1); Sodium 136 mmol/L (137-145); Total Protein 6.4 g/dL (6.3-8.2)
[2024-07-26 06:02] LABS: NT-proBNP (BNP-Adult 18+) 1770 pg/mL (<450)
--- NOTE | 2024-07-26 07:24 | PC.NURSE ---
Patient admitted to room 207 last evening. Patient is A & O to name, birthday, and age. Patient denies pain. Does not remember to use call light. Found patient with IV pulled out and tubing ripped apart, pulled condom cath off, pulled tele leads off a few times, pulled cont. POX off repeatedly. Incontinent of a large amount of urine. Used urinal successfully x 1 this am. Slept very little. No attempts to get OOB. Bed alarm on.
[2024-07-26] MEDS: DULOXETINE 30 MG CAPSULE 60 MG PO (08:26)
[2024-07-26] MEDS: GABAPENTIN 300 MG CAPSULE 900 MG PO ×3 (08:26→20:44)
[2024-07-26] MEDS: WARFARIN 5 MG TABLET PO (08:26)
[2024-07-26] MEDS: risperiDONE 1 MG TABLET 2 MG PO ×2 (08:27→20:44)
[2024-07-26] MEDS: carvediloL 12.5 MG TABLET 25 MG PO ×2 (08:27→20:44)
[2024-07-26] MEDS: TAMSULOSIN 0.4 MG CAPSULE PO (08:27)
[2024-07-26] MEDS: SODIUM CHLORIDE 0.9% FLUSH 10 ML IV (08:28)
--- NOTE | 2024-07-26 11:54 | OT.IP.EVAL ---
Past Medical History (Last Reviewed 07/25/24 @ 13:23 by Radha Montalvo DO) Atrial fibrillation (Unknown) DDD (degenerative disc disease), lumbar (~2018) DJD (degenerative joint disease), lumbosacral (~2018) Hematuria Hip dislocation, right History of colon polyps Obesity (BMI 30-39.9) (Unknown) Obstructive sleep apnea of adult (~2006) Rectal bleeding Urinary retention UTI (urinary tract infection) Surgical History (Last Reviewed 07/25/24 @ 13:23 by Radha Montalvo DO) 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 Occupational Therapy Inpatient Evaluation/Re-Eval M1 PT/OT-IP Prior Functional Status Start: 07/26/24 09:59 Freq: NEEDED Status: Active Protocol: Document 07/26/24 13:42 [facility] (Rec: 07/26/24 14:03 [facility] [id number]) Medical Review Prior Functional Status Medical History Reviewed Yes Communication Unsure baseline diet and communication Mobility and Gait Baseline mobility is unclear, possibly up to w/c or possibly taking a few steps with walker, has and caregiver assistance Activities of Daily Living and IADL's Required assistance for all but pt insists that he is able to do his own for dressing needs. Social History Household Members spouse Living Arrangements House Number of Floors (Floors) One Floor Number of Stairs To Enter/Railing? Ramp to enter Home Environment Standard Height Toilet,Walk in Shower Home Equipment Front Wheel Walker,Manual Wheelchair,Shower Seat without Backrest,Grab Bars Near Toilet Employment Status Retired Additional Social History Comment Adjustable bed M2 OT-IP Current Condition Start: 07/26/24 13:42 Freq: Status: Active Protocol: Document 07/26/24 13:42 [facility] (Rec: 07/26/24 14:03 [facility] [id number]) Occupational Therapy Current Condition Current Condition Evaluation Date 07/26/24 Treatment Diagnosis UTI, ACute on Chronic diastolic CHF Diagnosis Onset Date 07/25/24 M3 OT- IP Subjective and Pain Start: 07/26/24 13:42 Freq: Status: Active Protocol: Document 07/26/24 13:42 [facility] (Rec: 07/26/24 14:03 [facility] [id number]) OT- Subjective Occupational Therapy Visit Type Type Initial Evaluation Visit Start Time 11:25 Visit Stop Time 11:54 Occupational Therapy Visit Comments Patient Comments Pt agreed to try to get up. Patient/Caregiver Goals Pt did not state. OT Pain Assessment Pain When Pain Assessed At Rest Pain Present Pain Present Denied Pain M4 OT- IP ADL's Start: 07/26/24 13:42 Freq: Status: Active Protocol: Document 07/26/24 13:42 [facility] (Rec: 07/26/24 14:03 [facility] [id number]) OT [id number] Comments OT Self-Feeding Comments Not at meal time. OT ADL-Grooming Comments OT Grooming Comments Not performed. OT ADL-Oral Care Comments Oral Care Comments Not performed. OT ADL-Dressing General Eval Lower Body Dressing Ability Total Assistance Comments OT Dressing Comments Assist for socks. OT ADL-Toileting General Evaluation Toileting Ability Total Assistance Comments OT Toileting Comments Pt has an external catheter on . OT ADL-Bathing Bathing Type Bathing Type Sponge Bath Comments OT Bathing Comments Sponging off more appropriate at this time. M5 OT- IP IADL's Start: 07/26/24 13:42 Freq: Status: Active Protocol: Document 07/26/24 13:42 [facility] (Rec: 07/26/24 14:03 [facility] [id number]) OT-Instrumental Activities of Daily Living Home Safety Awareness Home Safety Comments Pt has dementia at baseline and relies on his and caregiver for all his needs. Medication Management Medication Management Caregiver Administers Money Management Money Management Caregiver Provides Assistance Meal Preparation Meal Preparation Caregiver Provides Assist Can Vacuum Tester Can Vacuum Tester Caregiver Provides Assist M6 OT- IP Functional Cognition Start: 07/26/24 13:42 Freq: Status: Active Protocol: Document 07/26/24 13:42 [facility] (Rec: 07/26/24 14:03 [facility] [id number]) Cognitive Factors Limiting Selfcare Function Cognitive Ability Level of Alertness Alert,Confusional State Patient Orientation Name Attention Span Ability Capable of Focused Attention, Capable of Sustained Attention Ability to Follow Commands Able to Follow One Step Commands with Increased Time, Able to Follow One Step Commands with Repetition Memory Description Short Term Impaired,Retirement Impaired,Working Impaired Cognitive Comments Cognitive Assessment Comments Pt mainly just oriented to his name and able to state his 's name. Pt not able to recall his caregiver's name and thought it was 1968. OT- Vision and Hearing OT- Vision Assessment Visual Attentiveness WFL Occular Pursuits WFL M7 OT- IP Mobility and Balance Start: 07/26/24 13:42 Freq: Status: Active Protocol: Document 07/26/24 13:42 [facility] (Rec: 07/26/24 14:03 [facility] [id number]) OT- Bed Mobility Assessment Supine to Sit Supine to Sit Assist Moderate Assistance,2 Person Assistance,Bedrails Sit to Supine Sit to Supine Assist Maximum Assistance,Total Assistance OT-Transfer Assessment Sit to and From Stand Sit to and from Stand Maximum Assistance,2 Person Assistance Comments Mobility Comments MODA x2 to get to the edge of the bed and back to bed. MAX AX 2 to stand and right LE tend to externally roll outward when standing with FWW and needing physical assist to help with his standing and feet positioning needs. BP supine 99/58, sitting 118/ 70 and 124/71, standing 133/71 and after having to sit down BP drops to 112/48. OT- Balance Assessment Sitting Balance and Reactions Static Sitting Balance Ability Fair Dynamic Sitting Balance Ability Poor Standing Balance and Reactions Static Standing Balance Ability Poor Dynamic Standing Balance Ability Poor M8 OT- IP Objective Assessments Start: 07/26/24 13:42 Freq: Status: Active Protocol: Document 07/26/24 13:42 [facility] (Rec: 07/26/24 14:03 [facility] [id number]) OT Gross Range of Motion Upper Extremity Range of Motion ROM Impairments grossly WFL OT Strength Comments Strength Comments BUE 4/5 OT- Coordination Assessment Comments Coordination Comments slightly off for finger to nose and increased time for finger tapping M9 OT- IP Assessment and Plan Start: 07/26/24 13:42 Freq: Status: Active Protocol: Document 07/26/24 13:42 [facility] (Rec: 07/26/24 14:03 [facility] [id number]) OT Summary Assessment and Plan Potential Rehabilitation Potential Fair Analytic Complexity at Evaluation Moderate Summary OT Impairments Strength,Balance,Functional Mobility,Toilet Transfers, Shower Transfers Progress Towards Goals Slow Progress due to Medical Issues,Slow Progress due to Activity Tolerance,Slow Progress due to Cognition Assessment Summary Pt high complexity and main barriers are decreased balance , strength, and activity tolerance due to medical needs of weakness, UTI, and chronic CHF. Pending progress and baseline needs- pt to go home with 30/05 increased assist and home health versus skilled rehab versus LTC. Goals of care discussion may be beneficial at this time pending medical needs. Goals Self-Feeding Goal Standby Assistance Grooming Goal Standby Assistance Toilet Transfer Goal Minimal Assistance Shower Transfer Goal Moderate Assistance Days to Meet Goals 25 Frequency of Treatment Other frequency 5x/week Treatment Plan OT Treatment Plan ADL Training,Functional Mobility,Patient/Family Education,Discharge Planning Discharge Recommendations OT Discharge Recommendations Home with 30/05 Assist Available,Home Health,SNF Rehab,LTAC,Home vs SNF Transportation Needs at Discharge Wheelchair/Cabulance,Stretcher /Ambulance
--- NOTE | 2024-07-26 12:13 | PT.IIE ---
Surgical History (Last Reviewed 07/25/24 @ 13:23 by Radha Montalvo DO) 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 Medical History (Last Reviewed 07/25/24 @ 13:23 by Radha Montalvo DO) Atrial fibrillation (Unknown) DDD (degenerative disc disease), lumbar (~2018) DJD (degenerative joint disease), lumbosacral (~2018) Hematuria Hip dislocation, right History of colon polyps Obesity (BMI 30-39.9) (Unknown) Obstructive sleep apnea of adult (~2006) Rectal bleeding Urinary retention UTI (urinary tract infection) Physical Therapy Inpatient Evaluation/Re-Eval M1 PT/OT-IP Prior Functional Status Start: 07/26/24 09:59 Freq: NEEDED Status: Active Protocol: Document 07/26/24 11:35 MB (Rec: 07/26/24 12:13 MB [id number]) Medical Review Prior Functional Status Medical History Reviewed Yes Communication Unsure baseline diet and communication Mobility and Gait Baseline mobility is unclear, possibly up to w/c or possibly taking a few steps with walker, has and caregiver assistance Activities of Daily Living and IADL's Required assistance Social History Household Members spouse Living Arrangements House Number of Floors (Floors) One Floor Number of Stairs To Enter/Railing? Ramp to enter Home Environment Standard Height Toilet,Walk in Shower Home Equipment Front Wheel Walker,Manual Wheelchair,Shower Seat without Backrest,Grab Bars Near Toilet Employment Status Retired Additional Social History Comment Adjustable bed M2 PT-IP Current Condition Start: 07/26/24 09:59 Freq: NEEDED Status: Active Protocol: Document 07/26/24 11:35 MB (Rec: 07/26/24 12:13 MB [id number]) Physical Therapy Current Condition Current Condition Evaluation Date 07/26/24 Treatment Diagnosis Weakness, hypotension M3 PT-IP Subjective Start: 07/26/24 09:59 Freq: NEEDED Status: Active Protocol: Document 07/26/24 11:35 MB (Rec: 07/26/24 12:13 MB [id number]) Subjective Physical Therapy Visit Type Type Initial Evaluation Visit Start Time 11:35 Visit Stop Time 11:55 Number of EDGER FEEDER Visits 0 Physical Therapy Visit Comments Patient Comments Pt does not make spontaneous conversation. Therapy Pain Assessment Pain When Pain Assessed At Rest Pain Present Pain Present Denied Pain M4 PT-IP Mobility and Gait Start: 07/26/24 09:59 Freq: NEEDED Status: Active Protocol: Document 07/26/24 11:35 MB (Rec: 07/26/24 12:13 MB [id number]) PT-Bed Mobility Assessment Rolling Type of Rolling Roll to Left Level of Assist Moderate Assistance,2 Person Assistance Supine to Sit Supine to Sit Moderate Assistance,2 Person Assistance,Head of Bed Elevated,Bedrails Sit to Supine Sit to Supine Maximum Assistance,1 Person Assistance Scooting Scooting to Edge of Bed Minimal Assistance Scooting Up and Down in Bed Minimal Assistance PT-Transfer Assessment Sit to and From Stand Sit to and from Stand Maximum Assistance,2 Person Assistance,Use of Upper Extremities Equipment Transfer Assistive Device Gait Belt,Front Wheeled Walker Orthotic/Prosthetic Devices or Brace: No Comments Mobility Comments Pt with blank stare and decreased eye tracking occ during conversation, oculomotor testing is negative . LEs are edematous and red, right greater than left, in supine with legs elevated with horizontal line at proximal B shins equal levels each leg where skin discoloration stops and is more red below. With standing no more than 1', LEs become purplish and more swollen. Right hip in noticeable ER in supine and standing. BP and HR in LUE: hook lying 99/58, 65; sitting 118/70, 60; sitting 1' 124/71, 64; standing 133/79, 86 and pt's arm is gripping walker and he slowly moves to sitting again with assistance and BP drops to 112/48, 66. Gait Assessment Comments Gait Comments Unable to gait today PT-Balance Assessment Sitting Balance and Reactions Static Sitting Balance Ability Fair Dynamic Sitting Balance Ability Poor Standing Balance and Reactions Static Standing Balance Ability Poor Device Used RW and +2 heavy assistance M5 PT-IP Objective Assessments Start: 07/26/24 09:59 Freq: NEEDED Status: Active Protocol: Document 07/26/24 11:35 MB (Rec: 07/26/24 12:13 MB [id number]) Orientation Orientation/Cognition Level of Alertness Confusional State Orientation Name,Birthday Safety Awareness Decreased Safety Awareness Memory Description Short Term Impaired,Collections Technician Impaired Gross Range of Motion Upper Extremity ROM Impairments Defer to OT Lower Extremity ROM Assessment Bilaterally Impaired Impairments Poor ability to follow commands, B LEs weak and with decreased range and increased edema and girth and discoloration and no active great toe movement on the left Strength Lower Extremity Strength Assessment Bilaterally Impaired Comments Strength Comments B LE weakness and pt cannot follow MMT cues Coordination Assessment Gross Coordination Gross Coordination Impaired Sensation Assessment Comments Sensation Comments Pt does not follow sensory commands M6 PT-IP Treatment Start: 07/26/24 09:59 Freq: NEEDED Status: Active Protocol: Document 07/26/24 11:35 MB (Rec: 07/26/24 12:13 MB [id number]) Physical Therapy Treatment Exercises Exercises Ankle Pumps M7 PT-IP Assessment and Plan Start: 07/26/24 09:59 Freq: NEEDED Status: Active Protocol: Document 07/26/24 11:35 MB (Rec: 07/26/24 12:13 MB [id number]) PT Summary Assessment and Plan Potential Rehabilitation Potential Poor Status of Condition at Evaluation Unstable Summary Impairments ROM,Strength,Balance, Coordination,Cognition,Bed Mobility,Transfers,Gait, Activity Tolerance Progress Towards Goals Slow Progress - Other Assessment Summary Pt is an 83 y/o male presenting with history of dementia, a-fib and chronic venous stasis. He presents hypoverbal today during assessment and is only A&O to name and . Pt has trouble following all functional commands and presents with LE weakness, edema, profound discoloration, especially with legs in dependent position, and orthostasis. He requires 2 person assistance for safe mobility today and is only able to stand for 1' with assistance and RW. Cognitive presentation makes it very challenging for pt to participate with skilled PT. Spoke with SW about possible discussion of plan of care/ goals with pt's . Currently recommend OOB with total life and 24 hour total care at d/c. Unsure if he will be able to tolerate skilled PT or not. Will con't to monitor. Goals Bed Mobility Goal Contact Guard Assistance Transfer Goal Contact Guard Assistance,Front Wheeled Walker,Slide Board Gait Goal Contact Guard Assistance,Front Wheel Walker Gait Distance 25 Other Goals Pt will perform SPT to w/c or chair with no more than CGA. Can try with LRAD or SB. Pt may not progress to gait but can con't efforts. Days to Meet Goals 5 Frequency of Treatment Frequency Of Treatment Once a Day Treatment Plan Physical Therapy Treatment Plan Bed Mobility Training,Transfer Training,Gait Training, Therapeutic Exercise,Balance Retraining,Discharge Planning, Hot or Cold Pack,Neuromuscular Re-ed,Coordination Retraining ,Manual Therapy Precautions Other Precautions Orthostatic, confusion with baseline dementia Weight Bearing Status Allowed Weight Bearing Amount (enter % No limitations or #) (%) Recommendations To Nursing Amount of Assist Needed Mechanical Lift Discharge Recommendations Other Discharge Recommendations 24 hour total care at d/c Transportation Needs at Discharge Stretcher/Ambulance
--- NOTE | 2024-07-26 12:16 | PT.IIE ---
Surgical History (Last Reviewed 07/25/24 @ 13:23 by Radha Montalvo DO) 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 Medical History (Last Reviewed 07/25/24 @ 13:23 by Radha Montalvo DO) Atrial fibrillation (Unknown) DDD (degenerative disc disease), lumbar (~2018) DJD (degenerative joint disease), lumbosacral (~2018) Hematuria Hip dislocation, right History of colon polyps Obesity (BMI 30-39.9) (Unknown) Obstructive sleep apnea of adult (~2006) Rectal bleeding Urinary retention UTI (urinary tract infection) Physical Therapy Inpatient Evaluation/Re-Eval M1 PT/OT-IP Prior Functional Status Start: 07/26/24 09:59 Freq: NEEDED Status: Active Protocol: Document 07/26/24 11:35 MB (Rec: 07/26/24 12:13 MB [id number]) Medical Review Prior Functional Status Medical History Reviewed Yes Communication Unsure baseline diet and communication Mobility and Gait Baseline mobility is unclear, possibly up to w/c or possibly taking a few steps with walker, has and caregiver assistance Activities of Daily Living and IADL's Required assistance Social History Household Members spouse Living Arrangements House Number of Floors (Floors) One Floor Number of Stairs To Enter/Railing? Ramp to enter Home Environment Standard Height Toilet,Walk in Shower Home Equipment Front Wheel Walker,Manual Wheelchair,Shower Seat without Backrest,Grab Bars Near Toilet Employment Status Retired Additional Social History Comment Adjustable bed M2 PT-IP Current Condition Start: 07/26/24 09:59 Freq: NEEDED Status: Active Protocol: Document 07/26/24 11:35 MB (Rec: 07/26/24 12:13 MB [id number]) Physical Therapy Current Condition Current Condition Evaluation Date 07/26/24 Treatment Diagnosis Weakness, hypotension M3 PT-IP Subjective Start: 07/26/24 09:59 Freq: NEEDED Status: Active Protocol: Document 07/26/24 11:35 MB (Rec: 07/26/24 12:13 MB [id number]) Subjective Physical Therapy Visit Type Type Initial Evaluation Visit Start Time 11:35 Visit Stop Time 11:55 Number of LASTING ROOM SUPERVISOR Visits 0 Physical Therapy Visit Comments Patient Comments Pt does not make spontaneous conversation. Therapy Pain Assessment Pain When Pain Assessed At Rest Pain Present Pain Present Denied Pain M4 PT-IP Mobility and Gait Start: 07/26/24 09:59 Freq: NEEDED Status: Active Protocol: Document 07/26/24 11:35 MB (Rec: 07/26/24 12:13 MB [id number]) PT-Bed Mobility Assessment Rolling Type of Rolling Roll to Left Level of Assist Moderate Assistance,2 Person Assistance Supine to Sit Supine to Sit Moderate Assistance,2 Person Assistance,Head of Bed Elevated,Bedrails Sit to Supine Sit to Supine Maximum Assistance,1 Person Assistance Scooting Scooting to Edge of Bed Minimal Assistance Scooting Up and Down in Bed Minimal Assistance PT-Transfer Assessment Sit to and From Stand Sit to and from Stand Maximum Assistance,2 Person Assistance,Use of Upper Extremities Equipment Transfer Assistive Device Gait Belt,Front Wheeled Walker Orthotic/Prosthetic Devices or Brace: No Comments Mobility Comments Pt with blank stare and decreased eye tracking occ during conversation, oculomotor testing is negative . LEs are edematous and red, right greater than left, in supine with legs elevated with horizontal line at proximal B shins equal levels each leg where skin discoloration stops and is more red below. With standing no more than 1', LEs become purplish and more swollen. Right hip in noticeable ER in supine and standing. BP and HR in LUE: hook lying 99/58, 65; sitting 118/70, 60; sitting 1' 124/71, 64; standing 133/79, 86 and pt's arm is gripping walker and he slowly moves to sitting again with assistance and BP drops to 112/48, 66. Gait Assessment Comments Gait Comments Unable to gait today PT-Balance Assessment Sitting Balance and Reactions Static Sitting Balance Ability Fair Dynamic Sitting Balance Ability Poor Standing Balance and Reactions Static Standing Balance Ability Poor Device Used RW and +2 heavy assistance M5 PT-IP Objective Assessments Start: 07/26/24 09:59 Freq: NEEDED Status: Active Protocol: Document 07/26/24 11:35 MB (Rec: 07/26/24 12:13 MB [id number]) Orientation Orientation/Cognition Level of Alertness Confusional State Orientation Name,Birthday Safety Awareness Decreased Safety Awareness Memory Description Short Term Impaired,Sustainable Systems Analyst Impaired Gross Range of Motion Upper Extremity ROM Impairments Defer to OT Lower Extremity ROM Assessment Bilaterally Impaired Impairments Poor ability to follow commands, B LEs weak and with decreased range and increased edema and girth and discoloration and no active great toe movement on the left Strength Lower Extremity Strength Assessment Bilaterally Impaired Comments Strength Comments B LE weakness and pt cannot follow MMT cues Coordination Assessment Gross Coordination Gross Coordination Impaired Sensation Assessment Comments Sensation Comments Pt does not follow sensory commands M6 PT-IP Treatment Start: 07/26/24 09:59 Freq: NEEDED Status: Active Protocol: Document 07/26/24 11:35 MB (Rec: 07/26/24 12:13 MB [id number]) Physical Therapy Treatment Exercises Exercises Ankle Pumps M7 PT-IP Assessment and Plan Start: 07/26/24 09:59 Freq: NEEDED Status: Active Protocol: Document 07/26/24 11:35 MB (Rec: 07/26/24 12:13 MB [id number]) PT Summary Assessment and Plan Potential Rehabilitation Potential Poor Status of Condition at Evaluation Unstable Summary Impairments ROM,Strength,Balance, Coordination,Cognition,Bed Mobility,Transfers,Gait, Activity Tolerance Progress Towards Goals Slow Progress - Other Assessment Summary Pt is an 83 y/o male presenting with history of dementia, a-fib and chronic venous stasis. He presents hypoverbal today during assessment and is only A&O to name and . Pt has trouble following all functional commands and presents with LE weakness, edema, profound discoloration, especially with legs in dependent position, and orthostasis. He requires 2 person assistance for safe mobility today and is only able to stand for 1' with assistance and RW. Cognitive presentation makes it very challenging for pt to participate with skilled PT. Spoke with SW about possible discussion of plan of care/ goals with pt's . Currently recommend OOB with total lift and 24 hour total care at d/c. Unsure if he will be able to tolerate skilled PT or not. Will con't to monitor and d/c PT if pt is unable to participate or make functional gains. Goals Bed Mobility Goal Contact Guard Assistance Transfer Goal Contact Guard Assistance,Front Wheeled Walker,Slide Board Gait Goal Contact Guard Assistance,Front Wheel Walker Gait Distance 25 Other Goals Pt will perform SPT to w/c or chair with no more than CGA. Can try with LRAD or SB. Pt may not progress to gait but can con't efforts. Days to Meet Goals 5 Frequency of Treatment Frequency Of Treatment Once a Day Treatment Plan Physical Therapy Treatment Plan Bed Mobility Training,Transfer Training,Gait Training, Therapeutic Exercise,Balance Retraining,Discharge Planning, Hot or Cold Pack,Neuromuscular Re-ed,Coordination Retraining ,Manual Therapy Precautions Other Precautions Orthostatic, confusion with baseline dementia Weight Bearing Status Allowed Weight Bearing Amount (enter % No limitations or #) (%) Recommendations To Nursing Amount of Assist Needed Mechanical Lift Discharge Recommendations Other Discharge Recommendations 24 hour heavy assist at d/c, may need lift machine, possible PT consult at d/c Transportation Needs at Discharge Stretcher/Ambulance
--- NOTE | 2024-07-26 14:24 | CM.DPC ---
DCP Cont. Reviewed EMR and team rounds for status updates. Pt was admitted as OBS, UR will convert him to INPT on Tuesday, based on further evaluation. He has been unable to work with therapies-2 person max assist, has had a major decline over the last month, and therapies are stating that he's more appropriate for hospice services than for rehab, as he does not appear to be a SNF candidate based on inability to improve, yet this could change. Met with pt's and discussed at length the options, and she is open to hospice in the home. [facility] they will call her tomorrow for an info visit. Her son will be in town on Tuesday and will be able to help with planning needs. FLOOR TECH did explain that given that he has a UTI, we won't really be able to further assess his ability to improve or not until after he's been on antibiotics for at least 24-hours. FLOOR TECH will need to call her and update her tomorrow re: status, and if Dr. Dominguez agrees with the hospice plan, then we will need to determine together with hospice in regard to when DME can be delivered, as they live on [address].
[2024-07-26] MEDS: cefTRIAXone 1,000 MG in SODIUM CHLORIDE 0.9% 100 ML 200 MG IV (16:47)
--- NOTE | 2024-07-26 16:56 | P.PN_ITS ---
Subjective Subjective Date Patient Seen: 07/26/24 Time Patient Seen: 09:00 Interval history: CC: good morning He is reporting feeling ok this morning denies any pain endorses hunger. Still grossly disoriented. Infection is improving per labs will continue rocephin. Concerned for overall failure to thrive picture. Exam Vital Signs (past 8 hours): - 07/26/24 12:00 Temperature 97.0 F L Pulse Rate 62 Respiratory Rate 16 Blood Pressure 102/59 L Pulse Oximetry 93 Oxygen Delivery Method Room Air Oxygen Flow Rate 0 Narrative Exam Narrative: laying in bed alert Resp Other: moving air ok on room air maybe some crackles bibasilarly Cardio Other: regular rate s1 /s2 GI Other: soft nondistended active bowel sounds Neuro Other: disoriented but conversant moving all limbs. Extrem Other: minimal pedal edema Objective Labs 07/26/24 05:25 07/26/24 05:25 Labs: Laboratory Results - last 24 hr 07/26/24 05:25 WBC 4.7 RBC 4.05 L Hgb 12.9 L Hct 38.6 L MCV 95.1 MCH 31.8 MCHC 33.4 RDW 15.8 H Plt Count 92 L Neut % (Auto) 63.9 Lymph % (Auto) 22.0 L [place] % (Auto) 11.8 Eos % (Auto) 1.5 L Baso % (Auto) 0.8 Neut # (Auto) 3000 Lymph # (Auto) 1000 L [place] # (Auto) 500 Eos # (Auto) 100 Baso # (Auto) 0 Sodium 136 L Potassium 3.9 Chloride 102 Carbon Dioxide 32 BUN 31 H Creatinine 1.04 Estimated GFR > 60 BUN/Creatinine Ratio 29.8 H Glucose 75 L Calcium 8.9 Total Bilirubin 0.5 AST 27 ALT 22 Alkaline Phosphatase 115 NT-Pro-B Natriuret Pep 1770 H Total Protein 6.4 Albumin 3.4 L Globulin 3.0 Albumin/Globulin Ratio 1.1 [facility] Medical History DJD (degenerative joint disease), lumbosacral (~2017) DDD (degenerative disc disease), lumbar (~2018) Atrial fibrillation (Unknown) Obesity (BMI 30-39.9) (Unknown) Obstructive sleep apnea of adult (~2006) Rectal bleeding History of colon polyps UTI (urinary tract infection) Urinary retention Hip dislocation, right Hematuria Surgical History 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 Social History household members: spouse Smoking Status: Former smoker alcohol intake: never Assessment & Plan Assessment & Plan narrative: #UTI treating with Rocephin daily - today is day 2 - and gentle hydration # acute on chronic diastolic congestive heart failure BNP widely elevated compared to previous he is taking Lasix 60 mg total oral dose continue lasic 40 iv he is trending down #Atrial fibrillation on warfarin takes warfarin 2.5 mg on Wednesdays and Saturdays, 5 mg on Tuesdays and Sundays - pharmacy consult to manage Also takes coreg 25 mg twice a day, continue, pressures have looked ok since admission # dementia with agitation and hallucinations Taking risperidone 2 mg twice a day continue #failure to thrive worsening status at home needs constant prompting and is increasingly weak is not able to manage him at home by herself PT notes need for 24/7 heavy assist may be candidate for hospice # benign prostatic hypertrophy with urinary obstruction Continue Flomax consider condom catheter if he will tolerate #Mixed hyperlipidemia Stable continue rosuvastatin Dispo: consider rehab if he can get to inpatient criteria MDM: Tea James [phone] Code: DNR DNI PCP: Thomas Diet: Heart healthy bite size pieces Time-Based Coding :: [TOTAL MINUTES] spent with patient and on the chart (including review of chart, obtaining history, exam, reviewing outside data, placing orders, documenting exam and treatment plan, and counseling patient) on [DATE].
[2024-07-26] MEDS: ATORVASTATIN 20 MG TABLET 80 MG PO (20:44)
[2024-07-26] MEDS: MELATONIN 3 MG TABLET 9 MG PO (20:44)
[2024-07-26] MEDS: SODIUM CHLORIDE 0.9% 1,000 ML 42 ML IV (21:23)
[2024-07-27] VITALS (9 sets, daily range): BP systolic 99–147; BP diastolic 60–77; PULSE 60–82; RESP 14–19; TEMP 36.1–36.6; O2SAT 91–99
--- NOTE | 2024-07-27 05:17 | PC.NURSE ---
Addendum entered by She Bedolla R.N. 07/27/24 06:01: Pacemaker was placed at [facility], devops architect is MD Eliu Thomson per . Original Note: Discussed with MD Dominguez about interrogating pacemaker d/t episodes of bradycardia & run of vtach yesterday. No information available about type of pacemaker. Called (Karen Sanchez) who said it is 15 years old but unsure of type of pacemaker, but will call us back when she finds out. Updated MD Dominguez. Cont tele showing V-paced rhythm in 60's-70's.
[2024-07-27 05:50] LABS: Add Manual Diff / Slide Review NO; Basophils Absolute Auto 0 /uL (0-100); Basophils Percent Auto 0.5 % (0-2); Eosinophils Absolute Auto 100 /uL (0-450); Eosinophils Percent Auto 1.9 % (2-4); Hematocrit 36.9 % (41-53); Hemoglobin 12.3 g/dL (13.5-17.5); Lymphocytes Absolute Auto 1300 /uL (1100-4500); Lymphocytes Percent Auto 28.4 % (25-40); Mean Corpuscular HGB Conc 33.3 % (30-36); Mean Corpuscular Hemoglobin 31.8 PG (26-34); Mean Corpuscular Volume 95.4 fL (80-100); Monocytes Absolute Auto 500 /uL (0-900); Monocytes Percent Auto 12.3 % (3-14); Neutrophils Absolute Auto 2500 /uL (1500-7000); Neutrophils Percent Auto 56.9 % (50-75); Platelet Count 89 X10^3/uL (150-400); Red Blood Cell Count 3.87 X10^6/uL (4.5-5.9); Red Cell Distribution Width 15.9 % (11.6-14.8); White Blood Cell Count 4.4 X10^3/uL (4.5-11.0)
[2024-07-27 05:51] LABS: INR 2.3 (0.9-1.3); Prothrombin Time 26.1 SECONDS (9.4-12.5)
[2024-07-27 05:53] LABS: Alanine Aminotransferase 18 IU/L (<50); Albumin 3.4 g/dL (3.5-5.0); Albumin Globulin Ratio 1.3 (1.0-2.8); Alkaline Phosphatase 104 U/L (38-126); Aspartate Aminotransferase 25 IU/L (17-59); BUN Creatinine Ratio 28.6 (6-22); Bilirubin Total 0.5 mg/dL (0.2-1.3); Blood Urea Nitrogen 28 mg/dL (9-20); Carbon Dioxide 30 mmol/L (22-32); Chloride 105 mmol/L (98-107); Estimated Glomerular Filt Rate > 60 mL/min (>60); Globulin 2.6 g/dL (1.7-4.1); Glucose 90 mg/dL (80-110); HEMOLYSIS 16 (0-50); Potassium 4.2 mmol/L (3.4-5.1); Sodium 138 mmol/L (137-145)
--- NOTE | 2024-07-27 08:22 | PM.PN.1 ---
Subjective Subjective Date Patient Seen: 07/27/24 Time Patient Seen: 08:22 Interval history: Patient seen today in follow-up of acute on chronic congestive heart failure UTI dementia failure to thrive. Patient with better night last night. Seem to be more relaxed. Did not have as much issues. Patient has been taking his medicine not have any trouble swallowing. There has been no other change or complaint. Maybe slightly improved Exam Vital Signs (past 8 hours): - 07/27/24 01:33 07/27/24 05:00 Pulse Rate 82 Respiratory Rate 18 Pulse Oximetry 97 97 Oxygen Flow Rate 1 1 Oxygen Delivery Method Room Air Oxygen Flow Rate 1 Narrative Exam Narrative: Elderly male arousable but sleeping in no acute distress Lungs killer heart regular rate and rhythm abdomen soft positive bowel sounds nontender. Objective Labs 07/27/24 05:12 07/27/24 05:12 Labs: Laboratory Results - last 24 hr 07/27/24 05:12 WBC 4.4 L RBC 3.87 L Hgb 12.3 L Hct 36.9 L MCV 95.4 MCH 31.8 MCHC 33.3 RDW 15.9 H Plt Count 89 L Neut % (Auto) 56.9 Lymph % (Auto) 28.4 [place] % (Auto) 12.3 Eos % (Auto) 1.9 L Baso % (Auto) 0.5 Neut # (Auto) 2500 Lymph # (Auto) 1300 [place] # (Auto) 500 Eos # (Auto) 100 Baso # (Auto) 0 PT 26.1 H INR 2.3 H Sodium 138 Potassium 4.2 Chloride 105 Carbon Dioxide 30 BUN 28 H Creatinine 0.98 Estimated GFR > 60 BUN/Creatinine Ratio 28.6 H Glucose 90 Calcium 9.0 Total Bilirubin 0.5 AST 25 ALT 18 Alkaline Phosphatase 104 Total Protein 6.0 L Albumin 3.4 L Globulin 2.6 Albumin/Globulin Ratio 1.3 PFSH Medical History DJD (degenerative joint disease), lumbosacral (~2017) DDD (degenerative disc disease), lumbar (~2018) Atrial fibrillation (Unknown) Obesity (BMI 30-39.9) (Unknown) Obstructive sleep apnea of adult (~2006) Rectal bleeding History of colon polyps UTI (urinary tract infection) Urinary retention Hip dislocation, right Hematuria Surgical History 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 Social History household members: spouse Smoking Status: Former smoker alcohol intake: never Assessment & Plan Assessment & Plan narrative: Bradycardia. Looking into overall has had a paced rhythm. Seems to be doing well. We will continue to follow. Congestive heart failure. Left heart. Acute on chronic. Will recheck BNP tomorrow. Seems to be breathing well. Consider echo. Depends on whether or not he slowly improves a little bit. It looks like he is on the course to recovery. If that happens will obtain echo. Continue Lasix re-evaluate Hyponatremia. Mild yesterday. Improved today. Will continue to follow. Rechecked tomorrow. Hold IV hydration for now. Failure to thrive. Patient has been significant worse. Has not been doing as well at home has not been eating. I do not think he has had a stroke. Maybe a combination of congestive heart failure and possible infection. Certainly week. Will have to see how things go. We will continue treating above and see how he does. UTI. Culture negative at this time. If culture negative tomorrow. Will discontinue IV therapy. Weakness. Generalized. Does not appear to be one-sided. Patient with some difficulty due to his dementia in interacting with physical therapist. Had been doing well at home. There has been a big change. Etiology that changes somewhat unclear. Will continue working with PT and OT and follow from there. Dementia. Severe. Certainly not going to make significant change in this issue. But will see how it goes. Atrial fibrillation. Rate primarily paced Appears stable. Continue Coumadin. BPH. Continue Flomax seems to be doing okay. Hyperlipidemia. Stable. Will continue usual meds. Disposition. Question is whether or not we are going to be able to reverse whatever has change recently. If we see some reversal we can work towards rehab. If not have to begin discussion with hospice and will just have to see what the next few days does. Will discuss with today. Time-Based Coding :: [TOTAL MINUTES] spent with patient and on the chart (including review of chart, obtaining history, exam, reviewing outside data, placing orders, documenting exam and treatment plan, and counseling patient) on [DATE].
--- NOTE | 2024-07-27 10:52 | PT-IP ANOTE ---
Pt is not appropriate for PT at this time. He is not alert and will not wake up. PT will check on pt in the afternoon.
--- NOTE | 2024-07-27 13:04 | CM.DPC ---
Addendum entered by SHERRY Fisher 07/27/24 16:11: DCP discussed with pt spouse, Karen, response from [facility]. It is reported that her next preference will be for [facility] in [place] due to their rating on Medicare.gov. DCP reviewed care plan for SNF referrals with pt again who verbalized understanding. Also noted that this referral is sent after business hours so response might be limited. Per pt , requested to review Medicare SNF benefit again and discussed when pt's SNF benefit with Medicare will be activated. DCP sent referral to [facility], pending acceptance. RUBÉN Carlton Addendum entered by SHERRY Fisher 07/27/24 14:24: DCP Update: Per Jennifer at [facility], there are no available beds at their facility. They will continue to keep the referral in case something opens up early next week. DCP noted that pt will not be Medicare ready until 07/30. DCP to notify pt and discuss other referrals to send. RUBÉN Carlton Original Note: DCP Continued: Reviewed EMR and team rounds for pt?s medical status. Per rounds, pt being treated for UTI and has been converted to INPT status as of 07/27/24. At the beginning of the business day, the plan was for hospice services at home; [facility] Pt family requested to speak with DCP about plan of care. DCP met with pt spouse/Karen GENAO, and discussed at length previous conversations with interdisciplinary team about plan of care for pt. Per pt , she has been adamant about SNF Rehab for pt and did not agree with hospice right now. Pt explained that pt was able to ambulate and transfer on Tuesday, Pt identified preference for [facility] in [place], she confirmed with this DCP 3x that this is the only place I know. DCP still provided Medicare Choice List in case she wants to review for contingencies. DCP sent clinicals to [facility] for SNF Rehab referral via [employer], left a voice message with Admissions. DCP spoke with [facility] , cancelled referral. It was reported that Isamar also spoke with pt and discussed cancelling referral at this time. DCP discussed this with ETHYLBENZENE CONVERTER OPERATOR, OT, Dr. Guzman, and pt RN all verbalized understanding of plan for SNF Rehab, pending acceptance. Plan: Aiming for SNF Rehab at [facility], pending acceptance. CM Team will continue to follow for coordination of discharge plans. RUBÉN Carlton
[2024-07-27] MEDS: GABAPENTIN 300 MG CAPSULE 900 MG PO ×2 (14:45→20:36)
[2024-07-27] MEDS: WARFARIN 5 MG TABLET PO (16:23)
[2024-07-27] MEDS: cefTRIAXone 1,000 MG in SODIUM CHLORIDE 0.9% 100 ML 200 MG IV (16:24)
--- NOTE | 2024-07-27 16:30 | PT.IPTN ---
Current Diagnoses Urinary tract infection, site not specified (07/27/24) Physical Therapy Treatment Note M2 PT-IP Current Condition Start: 07/26/24 09:59 Freq: NEEDED Status: Active Protocol: Document 07/26/24 11:35 MB (Rec: 07/26/24 12:13 MB [id number]) Physical Therapy Current Condition Current Condition Evaluation Date 07/26/24 Treatment Diagnosis Weakness, hypotension M3 PT-IP Subjective Start: 07/26/24 09:59 Freq: NEEDED Status: Active Protocol: Document 07/27/24 16:30 TS (Rec: 07/28/24 08:38 TS [id number]) Subjective Physical Therapy Visit Type Type Treatment Note Visit Start Time 16:30 Visit Stop Time 17:00 Number of CLOTHES DRIER REPAIRER Visits 1 Physical Therapy Visit Comments Patient Comments Pt found alert laying bed, spouse in room, pt is agreeable to PT. M4 PT-IP Mobility and Gait Start: 07/26/24 09:59 Freq: NEEDED Status: Active Protocol: Document 07/27/24 16:30 TS (Rec: 07/28/24 08:38 TS [id number]) PT-Bed Mobility Assessment Rolling Type of Rolling Roll to Left Level of Assist Moderate Assistance,1 Person Assistance Scooting Scooting to Edge of Bed Minimal Assistance PT-Transfer Assessment Sit to and From Stand Sit to and from Stand Moderate Assistance,2 Person Assistance Equipment Transfer Assistive Device Gait Belt,Front Wheeled Walker Orthotic/Prosthetic Devices or Brace: No Comments Mobility Comments Supine to sit ModA x1 with assist form spouse and pt uses handrails to upright trunk. STSx2 ModA x2 with FWW, pt is unsteady on feet with some slight buckling of Le's. He performs stand step pivot to chair ModA x2 with FWW and cues for sequencing. Pt sat in chair, was left with OT in the room. Gait Assessment Gait Gait Assistance Required: Moderate Assistance,2 Person Assist Distance (Feet) 4 Assistive Devices Assistive Device Front Wheeled Walker Orthotic/Prosthetic Devices or Brace: No Gait Deviations General Gait Pattern Decreased Stride Length, Decreased Feet Clearance,Step- to Gait Factors Limiting Gait Function Factors Limiting Gait Function Decreased Activity Tolerance, Decreased Strength,Poor Balance,Poor Safety Awareness PT-Balance Assessment Sitting Balance and Reactions Static Sitting Balance Ability Good Dynamic Sitting Balance Ability Fair Standing Balance and Reactions Static Standing Balance Ability Poor Dynamic Standing Balance Ability Poor Device Used FWW M5 PT-IP Objective Assessments Start: 07/26/24 09:59 Freq: NEEDED Status: Active Protocol: Document 07/26/24 11:35 MB (Rec: 07/26/24 12:13 MB [id number]) Orientation Orientation/Cognition Level of Alertness Confusional State Orientation Name,Birthday Safety Awareness Decreased Safety Awareness Memory Description Short Term Impaired,Care Home Impaired Gross Range of Motion Upper Extremity ROM Impairments Defer to OT Lower Extremity ROM Assessment Bilaterally Impaired Impairments Poor ability to follow commands, B LEs weak and with decreased range and increased edema and girth and discoloration and no active great toe movement on the left Strength Lower Extremity Strength Assessment Bilaterally Impaired Comments Strength Comments B LE weakness and pt cannot follow MMT cues Coordination Assessment Gross Coordination Gross Coordination Impaired Sensation Assessment Comments Sensation Comments Pt does not follow sensory commands M6 PT-IP Treatment Start: 07/26/24 09:59 Freq: NEEDED Status: Active Protocol: Document 07/26/24 11:35 MB (Rec: 07/26/24 12:13 MB [id number]) Physical Therapy Treatment Exercises Exercises Ankle Pumps M7 PT-IP Assessment and Plan Start: 07/26/24 09:59 Freq: NEEDED Status: Active Protocol: Document 07/27/24 16:30 TS (Rec: 07/28/24 08:38 TS [id number]) PT Summary Assessment and Plan Potential Rehabilitation Potential Fair Summary Impairments ROM,Strength,Balance, Coordination,Cognition,Bed Mobility,Transfers,Gait, Activity Tolerance Progress Towards Goals Slow Progress - Other Assessment Summary Vinicio made some progress with his mobility but continues to be limited by weakness. He required decreased assist with bed mobility to x1PA with ModA. He progressed to stand step pivot transfer ModA x2 PA with use of FWW. He has some slight buckling in Le's and poor balance in standing. Pt was alert and followed instructions well this session . PT is recommending SNF at this time to improve strength and functional mobility before safe d/c home. Goals Bed Mobility Goal Contact Guard Assistance Transfer Goal Contact Guard Assistance,Front Wheeled Walker,Slide Board Gait Goal Contact Guard Assistance,Front Wheel Walker Gait Distance 25 Other Goals Pt will perform SPT to w/c or chair with no more than CGA. Can try with LRAD or SB. Pt may not progress to gait but can con't efforts. Days to Meet Goals 5 Frequency of Treatment Frequency Of Treatment Once a Day Treatment Plan Physical Therapy Treatment Plan Bed Mobility Training,Transfer Training,Gait Training, Therapeutic Exercise,Balance Retraining,Discharge Planning, Hot or Cold Pack,Neuromuscular Re-ed,Coordination Retraining ,Manual Therapy Precautions Other Precautions Orthostatic, confusion with baseline dementia Weight Bearing Status Allowed Weight Bearing Amount (enter % No limitations or #) (%) Recommendations To Nursing Amount of Assist Needed 2 Person Assist Discharge Recommendations Transportation Needs at Discharge Wheelchair/Cabulance
--- NOTE | 2024-07-27 17:00 | OT.IP.TRT ---
Current Diagnoses Urinary tract infection, site not specified (07/27/24) Occupational Therapy Treatment Note M2 OT-IP Current Condition Start: 07/26/24 13:42 Freq: Status: Active Protocol: Document 07/26/24 13:42 [facility] (Rec: 07/26/24 14:03 [facility] [id number]) Occupational Therapy Current Condition Current Condition Evaluation Date 07/26/24 Treatment Diagnosis UTI, ACute on Chronic diastolic CHF Diagnosis Onset Date 07/25/24 M3 OT- IP Subjective and Pain Start: 07/26/24 13:42 Freq: Status: Active Protocol: Document 07/27/24 16:30 [facility] (Rec: 07/27/24 17:21 [facility] [id number]) OT- Subjective Occupational Therapy Visit Type Type Treatment Note Visit Start Time 16:30 Visit Stop Time 17:00 Occupational Therapy Visit Comments Patient Comments Pt' present in the room. Patient/Caregiver Goals TO go to skilled rehab before going home. OT Pain Assessment Pain When Pain Assessed At Rest Pain Present Pain Present Denied Pain M4 OT- IP ADL's Start: 07/26/24 13:42 Freq: Status: Active Protocol: Document 07/27/24 16:30 [facility] (Rec: 07/27/24 17:21 [facility] [id number]) OT [id number] Comments OT Self-Feeding Comments Not at meal time. OT ADL-Grooming General Evaluation Areas Needing Assistance Retrieving/Set-up of Grooming Items Comments OT Grooming Comments While seated. OT ADL-Oral Care General Eval Oral Care Ability Standby Assistance Comments Oral Care Comments Cues to rinse his mouth with water. OT ADL-Dressing General Eval Lower Body Dressing Ability Maximum Assistance Areas Needing Assistance Shoes Comments OT Dressing Comments Assist to put on his velcro shoes on. OT ADL-Toileting General Evaluation Toileting Ability Total Assistance Areas Needing Assistance Empty Catheter or Colostomy Comments OT Toileting Comments Catheter in place. OT ADL-Bathing Comments OT Bathing Comments Sponge bath more appropriate at this time. M5 OT- IP IADL's Start: 07/26/24 13:42 Freq: Status: Active Protocol: Document 07/26/24 13:42 [facility] (Rec: 07/26/24 14:03 [facility] [id number]) OT-Instrumental Activities of Daily Living Home Safety Awareness Home Safety Comments Pt has dementia at baseline and relies on his and caregiver for all his needs. Medication Management Medication Management Caregiver Administers Money Management Money Management Caregiver Provides Assistance Meal Preparation Meal Preparation Caregiver Provides Assist [employer] Sergeant [employer] Sergeant Caregiver Provides Assist M6 OT- IP Functional Cognition Start: 07/26/24 13:42 Freq: Status: Active Protocol: Document 07/27/24 16:30 [facility] (Rec: 07/27/24 17:21 [facility] [id number]) Cognitive Factors Limiting Selfcare Function Cognitive Ability Level of Alertness Alert Patient Orientation Name Attention Span Ability Capable of Focused Attention Ability to Follow Commands Able to Follow One Step Commands with Increased Time, Able to Follow One Step Commands with Repetition Memory Description Short Term Impaired,Working Impaired Cognitive Comments Cognitive Assessment Comments Pt more alert and able to follow commands better for mobility needs. Pt's feel that pt still not back to his cognitive status yet. M7 OT- IP Mobility and Balance Start: 07/26/24 13:42 Freq: Status: Active Protocol: Document 07/27/24 16:30 [facility] (Rec: 07/27/24 17:21 [facility] [id number]) OT- Bed Mobility Assessment Supine to Sit Supine to Sit Assist Moderate Assistance,1 Person Assistance,Bedrails OT-Transfer Assessment Sit to and From Stand Sit to and from Stand Moderate Assistance,2 Person Assistance Transfers Transfer Ability Moderate Assistance,2 Person Assistance Technique Transfer Destination Bed,Chair Comments Mobility Comments Per pt usually gets up with the HOB up all the way and that she assist to get his RLE out to the edge of the bed and then has him pull on her arm to get upright. With the bed up MODA X 2 to stand to the barriatric walker- Pt's states will either have him push up or push down on the FWW to stand and she holds it in place. MODAX2 for transfer and to guide the FWW in place. Pt's RLE tends to externally rotate outwards per his at baseline. OT- Balance Assessment Sitting Balance and Reactions Static Sitting Balance Ability Good Dynamic Sitting Balance Ability Fair Standing Balance and Reactions Static Standing Balance Ability Poor Dynamic Standing Balance Ability Poor M8 OT- IP Objective Assessments Start: 07/26/24 13:42 Freq: Status: Active Protocol: Document 07/26/24 13:42 [facility] (Rec: 07/26/24 14:03 [facility] [id number]) OT Gross Range of Motion Upper Extremity Range of Motion ROM Impairments grossly WFL OT Strength Comments Strength Comments BUE 4/5 OT- Coordination Assessment Comments Coordination Comments slightly off fro finger to nose and increased time for finger tapping M9 OT- IP Assessment and Plan Start: 07/26/24 13:42 Freq: Status: Active Protocol: Document 07/27/24 16:30 [facility] (Rec: 07/27/24 17:21 [facility] [id number]) OT Summary Assessment and Plan Potential Rehabilitation Potential Good Analytic Complexity at Evaluation Moderate Summary OT Impairments Strength,Balance,Functional Mobility,Toilet Transfers, Shower Transfers Progress Towards Goals Progressing Toward Goals Assessment Summary Pt doing much better today and able to transfer with MODA X2 with barriatric FWW. Pt's present and able to talk able how she helps pt at home and states that he is much weaker now and wants pt ot go to skilled rehab prior to going home. ABle to touch base on possible equipment needs for pt in the future for transfer needs. Pt to go to skilled rehab when medically stable. Goals Self-Feeding Goal Standby Assistance Grooming Goal Standby Assistance Dressing Goal Moderate Assistance Toileting Goal Moderate Assistance Bathing Goal Moderate Assistance Toilet Transfer Goal Minimal Assistance Shower Transfer Goal Moderate Assistance Days to Meet Goals 25 Frequency of Treatment Other frequency 5x/week Treatment Plan OT Treatment Plan ADL Training,Functional Mobility,Patient/Family Education,Discharge Planning Discharge Recommendations OT Discharge Recommendations SNF Rehab Transportation Needs at Discharge Wheelchair/Cabulance
[2024-07-27] MEDS: ATORVASTATIN 20 MG TABLET 80 MG PO (20:35)
[2024-07-27] MEDS: carvediloL 12.5 MG TABLET 25 MG PO (20:36)
[2024-07-27] MEDS: MELATONIN 3 MG TABLET 9 MG PO (20:36)
[2024-07-27] MEDS: risperiDONE 1 MG TABLET 2 MG PO (20:36)
[2024-07-27] MEDS: SODIUM CHLORIDE 0.9% FLUSH 10 ML IV (20:38)
[2024-07-28] VITALS (8 sets, daily range): BP systolic 100–142; BP diastolic 65–92; PULSE 60–73; RESP 12–16; TEMP 35.7–36.6; O2SAT 92–99
[2024-07-28 05:12] LABS: Add Manual Diff / Slide Review NO; Basophils Absolute Auto 0 /uL (0-100); Basophils Percent Auto 0.7 % (0-2); Eosinophils Absolute Auto 100 /uL (0-450); Eosinophils Percent Auto 2.6 % (2-4); Hematocrit 36.8 % (41-53); Hemoglobin 12.3 g/dL (13.5-17.5); Lymphocytes Absolute Auto 1300 /uL (1100-4500); Lymphocytes Percent Auto 30.4 % (25-40); Mean Corpuscular HGB Conc 33.5 % (30-36); Mean Corpuscular Volume 95.4 fL (80-100); Monocytes Absolute Auto 600 /uL (0-900); Monocytes Percent Auto 13.5 % (3-14); Neutrophils Absolute Auto 2200 /uL (1500-7000); Neutrophils Percent Auto 52.8 % (50-75); Platelet Count 91 X10^3/uL (150-400); Red Blood Cell Count 3.86 X10^6/uL (4.5-5.9); Red Cell Distribution Width 16.1 % (11.6-14.8); White Blood Cell Count 4.1 X10^3/uL (4.5-11.0)
[2024-07-28 05:21] LABS: Prothrombin Time 23.6 SECONDS (9.4-12.5)
[2024-07-28 05:25] LABS: Alanine Aminotransferase 17 IU/L (<50); Albumin 3.4 g/dL (3.5-5.0); Albumin Globulin Ratio 1.3 (1.0-2.8); Alkaline Phosphatase 109 U/L (38-126); Aspartate Aminotransferase 24 IU/L (17-59); BUN Creatinine Ratio 23.8 (6-22); Bilirubin Total 0.6 mg/dL (0.2-1.3); Blood Urea Nitrogen 25 mg/dL (9-20); Calcium 9.2 mg/dL (8.4-10.2); Carbon Dioxide 33 mmol/L (22-32); Chloride 103 mmol/L (98-107); Estimated Glomerular Filt Rate > 60 mL/min (>60); Globulin 2.7 g/dL (1.7-4.1); Glucose 84 mg/dL (80-110); HEMOLYSIS < 15 (0-50); Sodium 138 mmol/L (137-145); Total Protein 6.1 g/dL (6.3-8.2)
[2024-07-28 06:20] LABS: NT-proBNP (BNP-Adult 18+) 2390 pg/mL (<450)
--- NOTE | 2024-07-28 08:43 | PC.NURSE ---
Addendum entered by Tom Carrillo R.N. 07/28/24 10:45: Held morning meds d.t. somnolence. Pt is a bit more awake now as of 10:00. But will discuss with MD when he arrives regarding care plan and concerns about swallowing safety. Original Note: Pt rouses only slightly with assessment. RR with apnea, BS clear as assessed. Bilateral feet edematous though non pitting at present. PT/OT for transfers via [facility].
[2024-07-28] MEDS: FUROSEMIDE 40 MG/4 ML VIAL IV (09:44)
[2024-07-28] MEDS: SODIUM CHLORIDE 0.9% FLUSH 10 ML IV ×2 (09:44→20:24)
--- NOTE | 2024-07-28 11:51 | PM.PN.1 ---
Subjective Subjective Date Patient Seen: 07/28/24 Time Patient Seen: 11:51 Interval history: Patient seen in follow-up of multiple issues including congestive heart failure hyponatremia weakness dementia. Patient is alert this morning. Not oriented. But complaining of no pain. Breathing comfortably. Has had no new changes or complaints. Exam Vital Signs (past 8 hours): - 07/28/24 04:00 07/28/24 08:00 07/28/24 09:39 Temperature 97.8 F 97.0 F L Pulse Rate 60 61 Respiratory Rate 14 16 Blood Pressure 100/74 116/65 Pulse Oximetry 93 92 92 Oxygen Delivery Method Nasal Cannula Oxygen Flow Rate 1 1 1 Fraction of Inspired Oxygen 24 Fraction of Inspired Oxygen 24 SaO2/FiO2 Ratio 383 Oxygen Delivery Method Nasal Cannula Oxygen Flow Rate 1 Narrative Exam Narrative: Alert male interacting moving all extremities. Lungs are clear heart is regular rate and rhythm neurologic exam patient is not oriented to place time day me. Does know that his is named Erika. Neurologically otherwise moving all extremities. Capable of responding Objective Labs 07/28/24 05:00 07/28/24 05:00 Labs: Laboratory Results - last 24 hr 07/28/24 05:00 WBC 4.1 L RBC 3.86 L Hgb 12.3 L Hct 36.8 L MCV 95.4 MCH 32.0 MCHC 33.5 RDW 16.1 H Plt Count 91 L Neut % (Auto) 52.8 Lymph % (Auto) 30.4 [place] % (Auto) 13.5 Eos % (Auto) 2.6 Baso % (Auto) 0.7 Neut # (Auto) 2200 Lymph # (Auto) 1300 [place] # (Auto) 600 Eos # (Auto) 100 Baso # (Auto) 0 PT 23.6 H INR 2.0 H Sodium 138 Potassium 4.0 Chloride 103 Carbon Dioxide 33 H BUN 25 H Creatinine 1.05 Estimated GFR > 60 BUN/Creatinine Ratio 23.8 H Glucose 84 Calcium 9.2 Total Bilirubin 0.6 AST 24 ALT 17 Alkaline Phosphatase 109 NT-Pro-B Natriuret Pep 2390 H Total Protein 6.1 L Albumin 3.4 L Globulin 2.7 Albumin/Globulin Ratio 1.3 PFSH Medical History DJD (degenerative joint disease), lumbosacral (~2018) DDD (degenerative disc disease), lumbar (~2018) Atrial fibrillation (Unknown) Obesity (BMI 30-39.9) (Unknown) Obstructive sleep apnea of adult (~2006) Rectal bleeding History of colon polyps UTI (urinary tract infection) Urinary retention Hip dislocation, right Hematuria Surgical History 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 Social History household members: spouse Smoking Status: Former smoker alcohol intake: never Assessment & Plan Assessment & Plan narrative: Congestive heart failure. BNP is still slightly elevated. He sounds good his original chest x-ray showed no evidence of significant fluid and I think at this point we will continue to give IV Lasix. Consider tomorrow switching over to oral. But overall he is doing well. Electrolytes look okay and were stable. Hyponatremia. Normalized. Will follow tomorrow morning to make sure stable. UTI. Culture was negative. I think we are going to discontinue antibiotics and recheck white count in the morning to make sure there was no change. There was no evidence of other infection that we can see. Bradycardia. He has not had any recurrence. Patient is paced and I do not think there is a major issue. Failure to thrive. Patient has had a significant change there was no evidence of stroke there is no evidence of definitive infection. Electrolyte abnormality could cause some of it but I think that is multifactorial. I am going to be difficult to definitively reverse. I do think there is a chance that we could make him stronger and more functional but the question is whether insight into the issue due to his dementia will be impacting him. Will have to see what PT things. And follow from there. Weakness generalized. See above. No real change from that. Dementia. Severe. Patient very disconnected. Does know as family. But that is about it. There was no other changes. Not treatable at this point will continue to follow Atrial fibrillation. He is seems to be stable. Paced rhythm. Continue Coumadin. BPH. Continue Flomax seems to be urinating well. Hyperlipidemia. Stable. No change in meds Disposition. had come in and discussed initially possibly hospice now feels like she would like to try rehabilitation. Certainly it is going to be very difficult for her to manage at home. Without help. Currently he has a 2 patient assist. Discussed with social service. The working on placement will see how things go continue rehab here. And addressing some of the small issues we have to tune up. 50 minutes spent with the patient social service nursing dictation orders Time-Based Coding :: [TOTAL MINUTES] spent with patient and on the chart (including review of chart, obtaining history, exam, reviewing outside data, placing orders, documenting exam and treatment plan, and counseling patient) on [DATE].
--- NOTE | 2024-07-28 13:45 | PT.IPTN ---
Current Diagnoses Urinary tract infection, site not specified (07/27/24) Physical Therapy Treatment Note M2 PT-IP Current Condition Start: 07/26/24 09:59 Freq: NEEDED Status: Active Protocol: Document 07/26/24 11:35 MB (Rec: 07/26/24 12:13 MB [id number]) Physical Therapy Current Condition Current Condition Evaluation Date 07/26/24 Treatment Diagnosis Weakness, hypotension M3 PT-IP Subjective Start: 07/26/24 09:59 Freq: NEEDED Status: Active Protocol: Document 07/28/24 14:14 TS (Rec: 07/28/24 14:25 TS [id number]) Subjective Physical Therapy Visit Type Type Treatment Note Visit Start Time 13:45 Visit Stop Time 14:10 Number of SENIOR INTEGRATION ARCHITECT Visits 2 Physical Therapy Visit Comments Patient Comments Pt found resting in bed, is confused, he is agreeable to PT. M4 PT-IP Mobility and Gait Start: 07/26/24 09:59 Freq: NEEDED Status: Active Protocol: Document 07/28/24 14:14 TS (Rec: 07/28/24 14:25 TS [id number]) PT-Bed Mobility Assessment Supine to Sit Supine to Sit Moderate Assistance,1 Person Assistance,Head of Bed Elevated,Bedrails Scooting Scooting to Edge of Bed Minimal Assistance PT-Transfer Assessment Sit to and From Stand Sit to and from Stand Moderate Assistance,1 Person Assistance Equipment Transfer Assistive Device Gait Belt,Front Wheeled Walker Orthotic/Prosthetic Devices or Brace: No Transfers Transfer Destination Chair Transfer Technique Stand Step Pivot Transfer Ability Level of Assist Moderate Assistance,1 Person Assistance Comments Mobility Comments Supine to sit ModA with BASEBALL HAND SEWER and max cues for use of handrail and sequencing. STS with FWW and bed raised ModA x1. Pt is unsteady in standing . He performs stand step pivot to chair ModA x1 with use of FWW and max cues for FWW management. Pt was left in chair, chair alarm on, all needs met. Gait Assessment Gait Gait Assistance Required: Moderate Assistance,1 Person Assist Distance (Feet) 4 Assistive Devices Assistive Device Gait Belt,Front Wheeled Walker Orthotic/Prosthetic Devices or Brace: No Gait Deviations General Gait Pattern Decreased Stride Length, Decreased Feet Clearance,Step- to Gait Factors Limiting Gait Function Factors Limiting Gait Function Decreased Activity Tolerance, Decreased Strength,Poor Balance,Poor Safety Awareness PT-Balance Assessment Sitting Balance and Reactions Static Sitting Balance Ability Good Dynamic Sitting Balance Ability Fair Standing Balance and Reactions Static Standing Balance Ability Poor Dynamic Standing Balance Ability Poor Device Used FWW M5 PT-IP Objective Assessments Start: 07/26/24 09:59 Freq: NEEDED Status: Active Protocol: Document 07/26/24 11:35 MB (Rec: 07/26/24 12:13 MB [id number]) Orientation Orientation/Cognition Level of Alertness Confusional State Orientation Name,Birthday Safety Awareness Decreased Safety Awareness Memory Description Short Term Impaired,Manager Billing Impaired Gross Range of Motion Upper Extremity ROM Impairments Defer to OT Lower Extremity ROM Assessment Bilaterally Impaired Impairments Poor ability to follow commands, B LEs weak and with decreased range and increased edema and girth and discoloration and no active great toe movement on the left Strength Lower Extremity Strength Assessment Bilaterally Impaired Comments Strength Comments B LE weakness and pt cannot follow MMT cues Coordination Assessment Gross Coordination Gross Coordination Impaired Sensation Assessment Comments Sensation Comments Pt does not follow sensory commands M6 PT-IP Treatment Start: 07/26/24 09:59 Freq: NEEDED Status: Active Protocol: Document 07/26/24 11:35 MB (Rec: 07/26/24 12:13 MB [id number]) Physical Therapy Treatment Exercises Exercises Ankle Pumps M7 PT-IP Assessment and Plan Start: 07/26/24 09:59 Freq: NEEDED Status: Active Protocol: Document 07/28/24 14:14 TS (Rec: 07/28/24 14:25 TS [id number]) PT Summary Assessment and Plan Summary Impairments ROM,Strength,Balance, Coordination,Cognition,Bed Mobility,Transfers,Gait, Activity Tolerance Progress Towards Goals Slow Progress - Other Assessment Summary Vinicio continues to make slow progress with his mobility. He requires max cueing for all mobility and safety. He continues to be unsteady in standing due to weakness. He is alert and following instructions well. PT continues to recommend SNF at this time. Goals Bed Mobility Goal Contact Guard Assistance Transfer Goal Contact Guard Assistance,Front Wheeled Walker,Slide Board Gait Goal Contact Guard Assistance,Front Wheel Walker Gait Distance 25 Other Goals Pt will perform SPT to w/c or chair with no more than CGA. Can try with LRAD or SB. Pt may not progress to gait but can con't efforts. Days to Meet Goals 5 Frequency of Treatment Frequency Of Treatment Once a Day Treatment Plan Physical Therapy Treatment Plan Bed Mobility Training,Transfer Training,Gait Training, Therapeutic Exercise,Balance Retraining,Discharge Planning, Hot or Cold Pack,Neuromuscular Re-ed,Coordination Retraining ,Manual Therapy Precautions Other Precautions fall risk due to cognitive impairments Weight Bearing Status Allowed Weight Bearing Amount (enter % No limitations or #) (%) Recommendations To Nursing Amount of Assist Needed 2 Person Assist,Mechanical Lift Discharge Recommendations PT Discharge Recommendations SNF Rehab Transportation Needs at Discharge Wheelchair/Cabulance
--- NOTE | 2024-07-28 15:15 | CM.DPC ---
DCP Cont: SW spoke to pt's spouse and she confirms she wants to attempt SNF rehab at this time. [place] [facility] [place] she was told they do have beds and requesting SW confirm. 2) Next preference is [facility] in [place]) [place]. [place] [facility] [place] confirmed only female beds available, no male, and now they have a few COVID+ residents. SW called [facility] twice and left msg requesting call back regarding their review of referral sent yesterday Tue. SW called [facility] cell phone and main line and left msg inquiring about bed availability and requesting review. SW faxed new referral to [facility]. Updated spouse via phone and she inquired how long pt could remain in the hospital if their preferred SNFs do not have a bed right away and SW discussed need for pt to d/c to lower level of care after Mon if no medical interventions needed requiring Hospital Level of care or concern for Medicare Fraud keeping pt longer than needed. Spouse acknowledged understanding. Discussed if pt accepted at SNF outside of [facility] then would be either private pay w/c van or family POV if pt safe for transport via private vehicle. Spouse confirms that she and family could transport if pt can tolerate private vehicle at d/c otherwise they would be willing to private pay if needed. PASRR needed if SNF accepts. Nancy Robison MSW
[2024-07-28] MEDS: GABAPENTIN 300 MG CAPSULE 900 MG PO ×2 (15:43→20:21)
[2024-07-28] MEDS: WARFARIN 5 MG TABLET PO (16:34)
[2024-07-28] MEDS: WARFARIN 2.5 MG TABLET PO (16:42)
[2024-07-28] MEDS: risperiDONE 1 MG TABLET 2 MG PO (20:21)
[2024-07-28] MEDS: ATORVASTATIN 20 MG TABLET 80 MG PO (20:21)
[2024-07-28] MEDS: carvediloL 12.5 MG TABLET 25 MG PO (20:21)
[2024-07-28] MEDS: MELATONIN 3 MG TABLET 9 MG PO (20:21)
[2024-07-29] VITALS (9 sets, daily range): BP systolic 96–129; BP diastolic 56–93; PULSE 61–77; RESP 12–16; TEMP 36.1–36.3; O2SAT 94–96
--- NOTE | 2024-07-29 04:56 | PC.NURSE ---
Addendum entered by Kike Jimenez R.N. 07/29/24 06:17: no new orders per MD, will continue to monitor. bowel meds requested as well, awaiting orders. Original Note: 0407 pt noted w/ 9beats vtach,nonsustained, pt in bed asleep, arousable to voice and touch, denies sx, no s/sx noted. vitals stable. Dr. Duran notified.
[2024-07-29 05:30] LABS: Add Manual Diff / Slide Review NO; Basophils Absolute Auto 0 /uL (0-100); Basophils Percent Auto 0.9 % (0-2); Eosinophils Absolute Auto 100 /uL (0-450); Eosinophils Percent Auto 2.5 % (2-4); Hemoglobin 12.9 g/dL (13.5-17.5); Lymphocytes Absolute Auto 1400 /uL (1100-4500); Lymphocytes Percent Auto 30.1 % (25-40); Mean Corpuscular HGB Conc 33.1 % (30-36); Mean Corpuscular Hemoglobin 31.9 PG (26-34); Mean Corpuscular Volume 96.3 fL (80-100); Monocytes Absolute Auto 600 /uL (0-900); Monocytes Percent Auto 13.4 % (3-14); Neutrophils Absolute Auto 2400 /uL (1500-7000); Neutrophils Percent Auto 53.1 % (50-75); Platelet Count 91 X10^3/uL (150-400); Red Blood Cell Count 4.05 X10^6/uL (4.5-5.9); White Blood Cell Count 4.5 X10^3/uL (4.5-11.0)
[2024-07-29 05:35] LABS: INR 1.8 (0.9-1.3); Prothrombin Time 21.1 SECONDS (9.4-12.5)
[2024-07-29 05:42] LABS: Alanine Aminotransferase 19 IU/L (<50); Albumin 3.7 g/dL (3.5-5.0); Albumin Globulin Ratio 1.4 (1.0-2.8); Alkaline Phosphatase 115 U/L (38-126); Aspartate Aminotransferase 25 IU/L (17-59); BUN Creatinine Ratio 24.5 (6-22); Bilirubin Total 0.8 mg/dL (0.2-1.3); Blood Urea Nitrogen 23 mg/dL (9-20); Calcium 9.1 mg/dL (8.4-10.2); Carbon Dioxide 34 mmol/L (22-32); Chloride 101 mmol/L (98-107); Estimated Glomerular Filt Rate > 60 mL/min (>60); Globulin 2.7 g/dL (1.7-4.1); Glucose 82 mg/dL (80-110); HEMOLYSIS < 15 (0-50); Potassium 3.7 mmol/L (3.4-5.1); Sodium 137 mmol/L (137-145); Total Protein 6.4 g/dL (6.3-8.2)
--- NOTE | 2024-07-29 09:29 | P.PN_ITS ---
Subjective Subjective Date Patient Seen: 07/29/24 Time Patient Seen: 09:29 Interval history: Patient seen in follow-up of congestive heart failure hyponatremia failure to thrive. Patient actually more alert today. Interactive. Still confused but does know it is his birthday today and basic family dynamics. Still confused at where he is at. But what was out other changes. Not complaining of pain. Exam Vital Signs (past 8 hours): - 07/29/24 04:00 07/29/24 07:40 07/29/24 08:00 Temperature 97.0 F L 97.3 F L Pulse Rate 61 61 Respiratory Rate 14 16 Blood Pressure 106/93 H 96/56 L Pulse Oximetry 96 96 96 Oxygen Delivery Method Nasal Cannula Oxygen Flow Rate 1 1 1 Fraction of Inspired Oxygen 24 07/29/24 09:11 Temperature Pulse Rate 61 Respiratory Rate Blood Pressure 96/56 L Pulse Oximetry Oxygen Delivery Method Oxygen Flow Rate Fraction of Inspired Oxygen Fraction of Inspired Oxygen SaO2/FiO2 Ratio 400 Oxygen Delivery Method Nasal Cannula Oxygen Flow Rate 1 Narrative Exam Narrative: Alert elderly male in no acute distress lying in bed Lungs are clear heart is regular rate rhythm abdomen is extremities with 1 to 2+ edema Objective Labs 07/29/24 05:11 07/29/24 05:11 Labs: Laboratory Results - last 24 hr 07/29/24 05:11 WBC 4.5 RBC 4.05 L Hgb 12.9 L Hct 39.0 L MCV 96.3 MCH 31.9 MCHC 33.1 RDW 16.0 H Plt Count 91 L Neut % (Auto) 53.1 Lymph % (Auto) 30.1 [place] % (Auto) 13.4 Eos % (Auto) 2.5 Baso % (Auto) 0.9 Neut # (Auto) 2400 Lymph # (Auto) 1400 [place] # (Auto) 600 Eos # (Auto) 100 Baso # (Auto) 0 PT 21.1 H INR 1.8 H Sodium 137 Potassium 3.7 Chloride 101 Carbon Dioxide 34 H BUN 23 H Creatinine 0.94 Estimated GFR > 60 BUN/Creatinine Ratio 24.5 H Glucose 82 Calcium 9.1 Total Bilirubin 0.8 AST 25 ALT 19 Alkaline Phosphatase 115 Total Protein 6.4 Albumin 3.7 Globulin 2.7 Albumin/Globulin Ratio 1.4 PFSH Medical History DJD (degenerative joint disease), lumbosacral (~2018) DDD (degenerative disc disease), lumbar (~2018) Atrial fibrillation (Unknown) Obesity (BMI 30-39.9) (Unknown) Obstructive sleep apnea of adult (~2006) Rectal bleeding History of colon polyps UTI (urinary tract infection) Urinary retention Hip dislocation, right Hematuria Surgical History 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 Social History household members: spouse Smoking Status: Former smoker alcohol intake: never Assessment & Plan Assessment & Plan narrative: Congestive heart failure. Patient seems to be stable lab work looks normal no electrolyte changes. Will switch from IV to p.o. Lasix own see how he does. Actually seems a lot brighter today and will see where it goes. Hyponatremia. Appears to be resolved. Will follow. UTI. Culture was negative. Antibiotics were discontinued. No evidence of infection at this point. Failure to thrive. Patient actually looks a little brighter. Could be combination of congestive heart failure and some electrolyte abnormalities but he certainly seems better today. Whether or not that will translate into improvement will have to see. Hopefully as he continues to become more awake and alert we can rehab better. Reviewed physical therapy's notes and it appears as if he is maybe slightly better is overall doing well. Hopefully we can get him to least transfer. Weakness. All part of all of this issue. Is a difficult thing because I think he is limited in his movement at home hopefully we can get that improved as time goes. Dementia. Pretty significant. Is our biggest limitation I think in his rehabilitation will have to see. Patient certainly better today. Atrial fibrillation. Stable. Paced rhythm. Bradycardia. No recurrence. BPH. Stable urinating well with condom cath Hyperlipidemia. Stable. Disposition. Still looking for possible placement. I do believe that given today's looks better that he can improve his strength. Whether or not he can understand what is needed beyond what the physical therapy works with his unclear. I think that is our biggest limitation is his insight. Will continue to follow. Recheck a.m.. Time-Based Coding :: [TOTAL MINUTES] spent with patient and on the chart (including review of chart, obtaining history, exam, reviewing outside data, placing orders, documenting exam and treatment plan, and counseling patient) on [DATE].
[2024-07-29] MEDS: risperiDONE 1 MG TABLET 2 MG PO ×2 (09:32→20:19)
[2024-07-29] MEDS: SENNOSIDES 8.6 MG TABLET PO ×2 (09:32→20:20)
[2024-07-29] MEDS: DULOXETINE 30 MG CAPSULE 60 MG PO (09:32)
[2024-07-29] MEDS: GABAPENTIN 300 MG CAPSULE 900 MG PO ×3 (09:32→20:20)
[2024-07-29] MEDS: TAMSULOSIN 0.4 MG CAPSULE PO (09:32)
[2024-07-29] MEDS: SODIUM CHLORIDE 0.9% FLUSH 10 ML IV ×2 (09:33→20:27)
[2024-07-29] MEDS: FUROSEMIDE 40 MG TABLET PO (09:41)
--- NOTE | 2024-07-29 11:04 | PT.IPTN ---
Current Diagnoses Urinary tract infection, site not specified (07/27/24) Physical Therapy Treatment Note M2 PT-IP Current Condition Start: 07/26/24 09:59 Freq: NEEDED Status: Active Protocol: Document 07/26/24 11:35 MB (Rec: 07/26/24 12:13 MB [id number]) Physical Therapy Current Condition Current Condition Evaluation Date 07/26/24 Treatment Diagnosis Weakness, hypotension M3 PT-IP Subjective Start: 07/26/24 09:59 Freq: NEEDED Status: Active Protocol: Document 07/29/24 10:30 MB (Rec: 07/29/24 11:04 MB [id number]) Subjective Physical Therapy Visit Type Type Treatment Note Visit Start Time 10:30 Visit Stop Time 10:25 Number of LIQUID HYDROGEN PLANT OPERATOR Visits 3 Physical Therapy Visit Comments Patient Comments Pt hook lying in bed and agreeable to PT. Therapy Pain Assessment Pain When Pain Assessed At Rest Pain Present Pain Present Pain Reported Location Left great toe Intensity 4 Scale Used Luis (Faces) M4 PT-IP Mobility and Gait Start: 07/26/24 09:59 Freq: NEEDED Status: Active Protocol: Document 07/29/24 10:30 MB (Rec: 07/29/24 11:04 MB [id number]) PT-Bed Mobility Assessment Supine to Sit Supine to Sit Contact Guard Assistance,1 Person Assistance,Head of Bed Elevated,Bedrails Sit to Supine Sit to Supine Moderate Assistance,1 Person Assistance,Bedrails Scooting Scooting to Edge of Bed Contact Guard Assistance Scooting Up and Down in Bed Contact Guard Assistance PT-Transfer Assessment Sit to and From Stand Sit to and from Stand Moderate Assistance,Maximum Assistance,1 Person Assistance ,Use of Upper Extremities Equipment Transfer Assistive Device Gait Belt,Front Wheeled Walker Orthotic/Prosthetic Devices or Brace: No Comments Mobility Comments PT cues pt for hand placement on HOB rails and occ tactile assistance to use rails to help sit up and scoot in bed once supine. BP and HR in LUE: hook lying 109/66, 60; sitting 106/73, 68; sitting 1' 100/66, 62; sitting after brief standing 115/55, 71. Three STS trials today and requiring mod to max A and max A and bariatric RW to maintain standing balance and third attempt as CLERK SECRETARY assists with changing brief Gait Assessment Comments Gait Comments Unable to gait train today PT-Balance Assessment Sitting Balance and Reactions Static Sitting Balance Ability Good Dynamic Sitting Balance Ability Fair Standing Balance and Reactions Static Standing Balance Ability Poor Dynamic Standing Balance Ability Poor Device Used Bariatric RW M5 PT-IP Objective Assessments Start: 07/26/24 09:59 Freq: NEEDED Status: Active Protocol: Document 07/26/24 11:35 MB (Rec: 07/26/24 12:13 MB [id number]) Orientation Orientation/Cognition Level of Alertness Confusional State Orientation Name,Birthday Safety Awareness Decreased Safety Awareness Memory Description Short Term Impaired,Passenger Attendant Impaired Gross Range of Motion Upper Extremity ROM Impairments Defer to OT Lower Extremity ROM Assessment Bilaterally Impaired Impairments Poor ability to follow commands, B LEs weak and with decreased range and increased edema and girth and discoloration and no active great toe movement on the left Strength Lower Extremity Strength Assessment Bilaterally Impaired Comments Strength Comments B LE weakness and pt cannot follow MMT cues Coordination Assessment Gross Coordination Gross Coordination Impaired Sensation Assessment Comments Sensation Comments Pt does not follow sensory commands M6 PT-IP Treatment Start: 07/26/24 09:59 Freq: NEEDED Status: Active Protocol: Document 07/26/24 11:35 MB (Rec: 07/26/24 12:13 MB [id number]) Physical Therapy Treatment Exercises Exercises Ankle Pumps M7 PT-IP Assessment and Plan Start: 07/26/24 09:59 Freq: NEEDED Status: Active Protocol: Document 07/29/24 10:30 MB (Rec: 07/29/24 11:04 MB [id number]) PT Summary Assessment and Plan Potential Rehabilitation Potential Poor Status of Condition at Evaluation Evolving Summary Impairments ROM,Strength,Balance, Coordination,Cognition,Bed Mobility,Transfers,Gait, Activity Tolerance Progress Towards Goals Slow Progress - Other Assessment Summary Pt moves better in the bed today with use of HOB and bed rails and tactile and verbal cues. Trouble tracking with eyes to look for rail when cued and this appears to be a cognitive issue. Mod to max A of one for STS transfers x3 today and use of bariatric rolling walker. Recommend OOB with total lift. Goals Bed Mobility Goal Standby Assistance Transfer Goal Standby Assistance,Front Wheeled Walker,Slide Board Gait Goal Contact Guard Assistance,Front Wheel Walker Gait Distance 15 Other Goals Pt will perform SPT to w/c or chair with no more than CGA. Can try with LRAD or SB. Pt may not progress to gait but can con't efforts. Days to Meet Goals 5 Frequency of Treatment Frequency Of Treatment Once a Day Treatment Plan Physical Therapy Treatment Plan Bed Mobility Training,Transfer Training,Gait Training, Therapeutic Exercise,Balance Retraining,Discharge Planning, Hot or Cold Pack,Neuromuscular Re-ed,Coordination Retraining ,Manual Therapy Precautions Other Precautions Falls, vascular issues in legs , dementia Weight Bearing Status Allowed Weight Bearing Amount (enter % No limitations or #) (%) Recommendations To Nursing Amount of Assist Needed 2 Person Assist,Mechanical Lift Discharge Recommendations Other Discharge Recommendations 24 hour total care at d/c Transportation Needs at Discharge Wheelchair/Cabulance,Stretcher /Ambulance
--- NOTE | 2024-07-29 11:19 | CM.DPC ---
DCP Cont. Reviewed EMR and team rounds for status updates. Did not hear back from [facility] rehab today, left another message and requested a return call Monday 07/30 in the am to confirm if they have reviewed his referral for rehab. Monitoring closely. [facility] is not an option due to no beds and high Covid numbers.
[2024-07-29] MEDS: carvediloL 12.5 MG TABLET 25 MG PO (20:19)
[2024-07-29] MEDS: ATORVASTATIN 20 MG TABLET 80 MG PO (20:20)
[2024-07-29] MEDS: MELATONIN 3 MG TABLET 9 MG PO (20:20)
[2024-07-30] VITALS (9 sets, daily range): BP systolic 111–165; BP diastolic 70–94; PULSE 66–75; RESP 12–18; TEMP 35.9–37.1; O2SAT 90–99
--- NOTE | 2024-07-30 08:26 | PM.PN.1 ---
Subjective Subjective Date Patient Seen: 07/30/24 Time Patient Seen: 08:26 Interval history: Patient seen in follow-up of multiple issues including congestive heart failure, failure to thrive, hyponatremia, dementia. Actually continues to be a little brighter. More alert. Appears to be feeling better. Otherwise no new changes or issue. Exam Vital Signs (past 8 hours): - 07/30/24 02:30 07/30/24 04:00 07/30/24 08:00 Temperature 97.7 F 97.7 F Pulse Rate 75 67 Respiratory Rate 16 16 Blood Pressure 134/94 H 120/70 Pulse Oximetry 97 93 93 Oxygen Flow Rate 1 1 1 Fraction of Inspired Oxygen 24 SaO2/FiO2 Ratio 400 Oxygen Delivery Method Nasal Cannula Oxygen Flow Rate 1 Narrative Exam Narrative: Alert male much more interactive. No acute distress. Lungs are clear heart is regular rate and rhythm abdomen was obese condom cath with small amount of blood. Objective Labs 07/29/24 05:11 07/29/24 05:11 [facility] Medical History DJD (degenerative joint disease), lumbosacral (~2017) DDD (degenerative disc disease), lumbar (~2018) Atrial fibrillation (Unknown) Obesity (BMI 30-39.9) (Unknown) Obstructive sleep apnea of adult (~2006) Rectal bleeding History of colon polyps UTI (urinary tract infection) Urinary retention Hip dislocation, right Hematuria Surgical History 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 Social History household members: spouse Smoking Status: Former smoker alcohol intake: never Assessment & Plan Assessment & Plan narrative: Failure to thrive. Actually seems to be moving forward. PT feels like he is moving better at least in bed. Has made some improvement. Although slow. Labs have normalized. Eating better. Congestive heart failure seems to be improved. I think things are moved into a better place. I think this all was a combination of multiple things which have improved. Probably small things making large changes. I think as though things improve and continue to improve he will do better. Although clearly we are not going to fix his insight into issues. Blood in condom cath. I do not see any evidence of urine changes. Probably some local trauma. There going to be changing the code and catheterization today will see what that shows. If any question will re-evaluate with urine and we will follow for whether or not it continues Congestive heart failure. On oral Lasix seems to be doing well. Breathing well. Will continue 40 a day. Will need electrolytes checked in a couple of weeks. Hyponatremia. Resolved. UTI. No culture developed. Antibiotics have been discontinued. No evidence of further infection. Weakness. Slowly improving. I think this was a combination of multiple things and now that they have been slowly wrote righted he is improving. Going to take time. But maybe we can get him up at least to transfer. Ambulation unclear. Dementia. Stable. Severe. Biggest issue in his recovery will be understanding goals. Will see how things go. Atrial fibrillation paced Bradycardia no recurrence. BPH stable. Hyperlipidemia no change Code status DNR. Disposition. Discussed with social service. Still looking for placement. He does actually seem to be slowly improving and I think rehab is possible to be more functional at home. Maybe not ambulation but at least transfer into chairs which would be good. Will see how things go. Hopefully we can get placement in the next few days. It really is what we are looking for. 40 minutes spent this morning with social service nursing patient dictation orders Time-Based Coding :: [TOTAL MINUTES] spent with patient and on the chart (including review of chart, obtaining history, exam, reviewing outside data, placing orders, documenting exam and treatment plan, and counseling patient) on [DATE].
--- NOTE | 2024-07-30 08:57 | CM.DPC ---
Addendum entered by SHERRY Patel 07/30/24 15:22: ADD: Per [facility], they can transport now around [address]. SW [address] Dr. Guzman and he states he will not be working tomorrow and Dr. Castellanos will be covering and cannot d/c in time for that early transport. Only other time for transport tomorrow is 1415 and SW secured this transport time for tomorrow . Dr. Guzman confirms that he is hopeful pt just had a clot and his urine will clear for discharge tomorrow but will confirm in the AM. SW spoke to RN and HELMET HAT SWEATBAND PUNCHER and pt now with bloody urine and was sent for labs and they confirm that pt was sitting up in bedside chair for 3 hours today so they feel he could safely transport to [place] via w/c van and PT/OT gone for the day and not available to confirm with them. SW spoke to spouse and updated on above and she is agreeable with pt transport time tomorrow and cost and aware of potential pt might not be stable for d/c tomorrow pending urine. BF Addendum entered by SHERRY Patel 07/30/24 14:12: ADD: Per [facility], they decline due to pt having too high care needs. Per [facility] [place] admissions Dawna, they can accept pt but not until tomorrow as their RN called in sick today. Request pt to arrive by 1200 tomorrow if possible. SW called [facility] transport per spouse request and confirmed that they can transport pt tomorrow 07/31 around 1045 private pay with quote around $365 and they will call spouse now to confirm if pt's w/c is bedside and to give her the quote and receive payment from spouse. SW called spouse and updated on acceptance at [facility] and she is very appreciative and confirms she will talk to [facility] transport today regarding cost for transport and about w/c. SW left msg at Dr. Guzman's office with update on discharge to SNF tomorrow around 1000. BF Original Note: DCP COnt: SW called [facility] and spoke to admissions counselor and she confirmed no admissions staff on the weekend and she will look for the faxed referral and prioritize reviewing and discussing with their RN to confirm if they can accept or not and SW updated her that pt medically stable to d/c to SNF today. SW called [facility] admissions and confirmed they see the faxed referral and they will review now and determine if they can accept pt for SNF. TYLER spoke to pt's spouse and updated on above and she confirms that preference remains [facility] as first preference. Spouse already called [facility] transport to see if they have availability today but currently are full but put pt on their schedule for tomorrow in case no cancellations today. TYLER updated MD and he will follow to determine if SNF can accept pt today (or at all if pending if he is skillable and has dx that can be accepted). PASRR done, no signature needed as pt on risperidone and duloxetine for dementia with hallucinations and musculoskeletal pain from Degenerative Disc Disease. SHERRY Patel
[2024-07-30] MEDS: GABAPENTIN 300 MG CAPSULE 900 MG PO ×2 (09:54→20:43)
[2024-07-30] MEDS: SENNOSIDES 8.6 MG TABLET PO ×2 (09:54→20:44)
[2024-07-30] MEDS: FUROSEMIDE 40 MG TABLET PO (09:54)
[2024-07-30] MEDS: carvediloL 12.5 MG TABLET 25 MG PO ×2 (09:55→20:44)
[2024-07-30] MEDS: TAMSULOSIN 0.4 MG CAPSULE PO (09:55)
[2024-07-30] MEDS: risperiDONE 1 MG TABLET 2 MG PO ×2 (09:55→20:43)
[2024-07-30] MEDS: DULOXETINE 30 MG CAPSULE 60 MG PO (09:55)
[2024-07-30] MEDS: SODIUM CHLORIDE 0.9% FLUSH 10 ML IV ×2 (09:55→20:44)
--- NOTE | 2024-07-30 11:04 | PC.NURSE ---
Patient up and worked with physical therapy, her blood pressure went down to 90/40s, she is getting a bolus of Normal Saline at this time. Patient did feel slightly faint so we put her back into bed. She is resting now and denies discomfort. Patient is getting tylenol and ibuprofen for discomfort.
--- NOTE | 2024-07-30 11:09 | OT.IP.TRT ---
Current Diagnoses Urinary tract infection, site not specified (07/27/24) Occupational Therapy Treatment Note M2 OT-IP Current Condition Start: 07/26/24 13:42 Freq: Status: Active Protocol: Document 07/26/24 13:42 [facility] (Rec: 07/26/24 14:03 [facility] [id number]) Occupational Therapy Current Condition Current Condition Evaluation Date 07/26/24 Treatment Diagnosis UTI, ACute on Chronic diastolic CHF Diagnosis Onset Date 07/25/24 M3 OT- IP Subjective and Pain Start: 07/26/24 13:42 Freq: Status: Active Protocol: Document 07/30/24 11:11 CGR (Rec: 07/30/24 11:19 CGR [id number]) OT- Subjective Occupational Therapy Visit Type Type Treatment Note Visit Start Time 10:54 Visit Stop Time 11:09 Notes Partial co-treat with P.T. OT Pain Assessment Pain When Pain Assessed At Rest Pain Present Pain Present Denied Pain M4 OT- IP ADL's Start: 07/26/24 13:42 Freq: Status: Active Protocol: Document 07/30/24 11:11 CGR (Rec: 07/30/24 11:19 CGR [id number]) OT [id number] Comments OT Self-Feeding Comments not meal time OT ADL-Grooming General Evaluation Grooming Ability Standby Assistance Areas Needing Assistance Retrieving/Set-up of Grooming Items,Face Washing Comments OT Grooming Comments with warm wash cloth while seated in chair. OT ADL-Oral Care General Eval Oral Care Ability Standby Assistance Areas of Assistance Brushing Teeth,Retrieving/Set- Up of Items Comments Oral Care Comments seated in chair with set up. OT ADL-Dressing General Eval Lower Body Dressing Ability Total Assistance Areas Needing Assistance Shoes OT ADL-Toileting Comments OT Toileting Comments condom cath with noted blood, checked with nursing and she states that the blood was there when she came on shift. OT ADL-Bathing Comments OT Bathing Comments not performed M5 OT- IP IADL's Start: 07/26/24 13:42 Freq: Status: Active Protocol: Document 07/26/24 13:42 [facility] (Rec: 07/26/24 14:03 [facility] [id number]) OT-Instrumental Activities of Daily Living Home Safety Awareness Home Safety Comments Pt has dementia at baseline and relies on his and caregiver for all his needs. 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 Tanker Truck Driver Caregiver Provides Assist M6 OT- IP Functional Cognition Start: 07/26/24 13:42 Freq: Status: Active Protocol: Document 07/30/24 11:11 CGR (Rec: 07/30/24 11:19 CGR [id number]) Cognitive Factors Limiting Selfcare Function Cognitive Ability Level of Alertness Alert,Confusional State Patient Orientation Name,Birthday,Day of Week Attention Span Ability Unable to Focus,Unable to Sustain Attention Ability to Follow Commands Able to Follow One Step Commands with Increased Time, Able to Follow One Step Commands with Repetition Cognitive Comments Cognitive Assessment Comments Pt is able to follow commands but with noted dementia. M7 OT- IP Mobility and Balance Start: 07/26/24 13:42 Freq: Status: Active Protocol: Document 07/30/24 11:11 CGR (Rec: 07/30/24 11:19 CGR [id number]) OT-Transfer Assessment Sit to and From Stand Sit to and from Stand Total Assistance,2 Person Assistance Comments Mobility Comments Attemped to see patient for sit to stand with P.T. but pt was unable to clear chair with sit to stand and total x2 assist as the chair is a lower surface. OT- Balance Assessment Sitting Balance and Reactions Static Sitting Balance Ability Good Dynamic Sitting Balance Ability Fair M8 OT- IP Objective Assessments Start: 07/26/24 13:42 Freq: Status: Active Protocol: Document 07/26/24 13:42 [facility] (Rec: 07/26/24 14:03 [facility] [id number]) OT Gross Range of Motion Upper Extremity Range of Motion ROM Impairments grossly WFL OT Strength Comments Strength Comments BUE 4/5 OT- Coordination Assessment Comments Coordination Comments slightly off fro finger to nose and increased time for finger tapping M9 OT- IP Assessment and Plan Start: 07/26/24 13:42 Freq: Status: Active Protocol: Document 07/30/24 11:11 CGR (Rec: 07/30/24 11:19 R [id number]) OT Summary Assessment and Plan Potential Rehabilitation Potential Good Analytic Complexity at Evaluation Moderate Summary OT Impairments Strength,Balance,Functional Mobility,Toilet Transfers, Shower Transfers Progress Towards Goals Progressing Toward Goals Assessment Summary Pt participated in ADLs seated in chair and attempted sit to stand from chair but was unable with 2 person assist. Pt appears confused but pleasantly so. Pt may continue to benefit from therapy services but he may also be near a new baseline. Will continue to follow. Goals Self-Feeding Goal Standby Assistance Grooming Goal Standby Assistance Dressing Goal Moderate Assistance Toileting Goal Moderate Assistance Bathing Goal Moderate Assistance Toilet Transfer Goal Minimal Assistance Shower Transfer Goal Moderate Assistance Days to Meet Goals 25 Frequency of Treatment Frequency Of Treatment Once a Day Other frequency 5x/week Treatment Plan OT Treatment Plan ADL Training,Functional Mobility,Patient/Family Education,Discharge Planning Discharge Recommendations OT Discharge Recommendations SNF Rehab Transportation Needs at Discharge Wheelchair/Cabulance
--- NOTE | 2024-07-30 11:24 | PT.IPTN ---
Current Diagnoses Urinary tract infection, site not specified (07/27/24) Physical Therapy Treatment Note M2 PT-IP Current Condition Start: 07/26/24 09:59 Freq: NEEDED Status: Active Protocol: Document 07/26/24 11:35 MB (Rec: 07/26/24 12:13 MB [id number]) Physical Therapy Current Condition Current Condition Evaluation Date 07/26/24 Treatment Diagnosis Weakness, hypotension M3 PT-IP Subjective Start: 07/26/24 09:59 Freq: NEEDED Status: Active Protocol: Document 07/30/24 11:00 MB (Rec: 07/30/24 11:24 MB [id number]) Subjective Physical Therapy Visit Type Type Treatment Note Visit Start Time 11:00 Visit Stop Time 11:15 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 He does not make spontaneous conversation but is agreeable to PT. M4 PT-IP Mobility and Gait Start: 07/26/24 09:59 Freq: NEEDED Status: Active Protocol: Document 07/30/24 11:00 MB (Rec: 07/30/24 11:24 MB [id number]) PT-Transfer Assessment Comments Mobility Comments Unable to stand pt from chair despite gait belt, 2 person heavy assistance and RW. Pt is unable to scoot self forward in chair. Blood noted in catheter today and nsg to check PT-Balance Assessment Sitting Balance and Reactions Static Sitting Balance Ability Fair Dynamic Sitting Balance Ability Poor M5 PT-IP Objective Assessments Start: 07/26/24 09:59 Freq: NEEDED Status: Active Protocol: Document 07/26/24 11:35 MB (Rec: 07/26/24 12:13 MB [id number]) Orientation Orientation/Cognition Level of Alertness Confusional State Orientation Name,Birthday Safety Awareness Decreased Safety Awareness Memory Description Short Term Impaired,Alf Impaired Gross Range of Motion Upper Extremity ROM Impairments Defer to OT Lower Extremity ROM Assessment Bilaterally Impaired Impairments Poor ability to follow commands, B LEs weak and with decreased range and increased edema and girth and discoloration and no active great toe movement on the left Strength Lower Extremity Strength Assessment Bilaterally Impaired Comments Strength Comments B LE weakness and pt cannot follow MMT cues Coordination Assessment Gross Coordination Gross Coordination Impaired Sensation Assessment Comments Sensation Comments Pt does not follow sensory commands M6 PT-IP Treatment Start: 07/26/24 09:59 Freq: NEEDED Status: Active Protocol: Document 07/30/24 11:00 MB (Rec: 07/30/24 11:24 MB [id number]) Physical Therapy Treatment Other Treatments Other Treatment Performed Sitting in chair, pt cannot perform heel raises but does perform toe raises x15 reps, he performs LAQs through 50% range and similar with marches in sitting x10 reps M7 PT-IP Assessment and Plan Start: 07/26/24 09:59 Freq: NEEDED Status: Active Protocol: Document 07/30/24 11:00 MB (Rec: 07/30/24 11:24 MB [id number]) PT Summary Assessment and Plan Potential Rehabilitation Potential Poor Status of Condition at Evaluation Evolving Summary Impairments ROM,Strength,Balance, Coordination,Cognition,Bed Mobility,Transfers,Gait, Activity Tolerance Progress Towards Goals Slow Progress - Other Assessment Summary Unable to stand pt from lower surface of chair and he will require total lift to get back to bed. He tolerates partial LE exercises in sitting. Overall, pt con't to have low ability to tolerate and participate with PT. Recommend 24 hour total care at d/c. Goals Bed Mobility Goal Standby Assistance Transfer Goal Standby Assistance,Front Wheeled Walker,Slide Board Gait Goal Contact Guard Assistance,Front Wheel Walker Gait Distance 15 Other Goals Pt will perform SPT to w/c or chair with no more than CGA. Can try with LRAD or SB. Pt may not progress to gait but can con't efforts. Days to Meet Goals 5 Frequency of Treatment Frequency Of Treatment Once a Day Treatment Plan Physical Therapy Treatment Plan Bed Mobility Training,Transfer Training,Gait Training, Therapeutic Exercise,Balance Retraining,Discharge Planning, Hot or Cold Pack,Neuromuscular Re-ed,Coordination Retraining ,Manual Therapy Precautions Other Precautions Falls, vascular issues in legs , dementia Weight Bearing Status Allowed Weight Bearing Amount (enter % No limitations or #) (%) Recommendations To Nursing Amount of Assist Needed 2 Person Assist,Mechanical Lift Discharge Recommendations Other Discharge Recommendations 24 hour total care at d/c Transportation Needs at Discharge Wheelchair/Cabulance,Stretcher /Ambulance
--- NOTE | 2024-07-30 15:18 | PC.NURSE ---
Addendum entered by Ayla Miguel R.N. 07/30/24 16:17: Patient took off his hand mits, he has kept in the second srivastava catheter placed and there is dark colored urine flowing through his tube. Up now and trying to have a bm on the commode. Patient will sit up for his dinner. Original Note: Patient pulled out his first srivastava catheter that was put in, he now has a second srivastava (non-latex) placed, no urine out but patient just previously voided 700cc of dark bloody urine. is aware, he also orderd a urine culture, and to d/c his coumadin. He is visiting with his and children now, and we did put some hand mits on him so that he would not put out his srivastava catheter. 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
[2024-07-30] MEDS: cefTRIAXone 1,000 MG in SODIUM CHLORIDE 0.9% 100 ML 200 MG IV (17:21)
--- NOTE | 2024-07-30 18:32 | PM.CN ---
History of Present Illness Consult details Date Patient Seen: 07/30/24 Time Patient Seen: 18:00 Chief complaint: weakness, hypotension. no trauma Reason for consult: gross hematuria Narrative: 84 y/o M currently admitted for management of multiple medical conditions to include failure to thrive, congestive heart failure, hyponatremia and concern for a UTI was noted to have blood within his condom catheter earlier today, therefore, a post-void residual was obtained which was concerning for incomplete bladder emptying. A 16Fr srivastava catheter was placed with immediate drainage of red urine. Unfortunately, he traumatically removed his srivastava catheter a few hours later with the balloon intact. A new 16Fr srivastava catheter was placed and he was noted to have several concerning blood clots, therefore, Urology was consulted for further evaluation and management. He admits to a h/o bladder cancer that was treated on multiple occasions in the past, he believes the most recent procedure was 5 years ago down in [place]. He is somewhat of a poor historian and will state I removed the srivastava catheter because I thought we didn't need it anymore and at other times will state I didn't remove the srivastava catheter. Of note, does have a h/o AFib that is treated with anticoagulation. Meds Home Medications and Allergies Home Medications Medication Instructions Recorded Confirmed Type tamsulosin 0.4 mg capsule (Flomax) 0.4 mg PO QDAY 7 days #0 caps 07/23/16 07/25/24 Rx Respironics Dreamstation CPAP #1 ea 05/02/19 07/25/24 History carvedilol 25 mg tablet 37.5 mg PO BID 05/27/21 07/25/24 History duloxetine 60 mg capsule,delayed 60 mg PO DAILY 05/27/21 07/25/24 History release rosuvastatin 20 mg tablet (Crestor) 20 mg PO BEDTIME 05/27/21 07/25/24 History warfarin 10 mg tablet 5 mg PO DAILY 05/27/21 07/25/24 History gabapentin 300 mg capsule 900 mg PO TID 04/21/22 07/25/24 History furosemide 40 mg tablet 40 mg PO DAILY 01/18/23 07/25/24 History risperidone 2 mg tablet 2 mg PO BID 01/18/23 07/25/24 History furosemide 20 mg tablet (Lasix) 20 mg PO BEDTIME 07/25/24 07/25/24 History potassium chloride 20 mEq 40 meq PO BID 07/25/24 07/25/24 History tablet,extended release(part/cryst) (Klor-Con M) Allergies Allergy/AdvReac Type Severity Reaction Status Date / Time No Known Allergies Allergy Verified 07/25/24 13:14 Review of Systems Review of Systems Narrative: CONSTITUTIONAL: Denies weight loss, fevers, chills. HEENT: Denies change in vision, hearing. RESP: Denies SOB, cough. CV: Denies palpations, CP. GI: Denies abodminal pain, nausea, vomiting, diarrhea. MSK: Denies myalgia, joint pain. SKIN: Denies rash, pruritus. NEURO: Denies headache, syncope. PSYCH: Denies recent change in mood, anxiety, depression. Exam Vital Signs (past 8 hours): - 07/30/24 12:00 07/30/24 16:00 Temperature 96.7 F L 96.7 F L Pulse Rate 66 73 Respiratory Rate 16 13 Blood Pressure 111/71 125/73 Pulse Oximetry 99 96 Oxygen Flow Rate 1 0 Fraction of Inspired Oxygen 24 SaO2/FiO2 Ratio 387 Oxygen Delivery Method Nasal Cannula Oxygen Flow Rate 0 Narrative Exam Narrative: GEN: Alert and oriented X3. No acute distress. Well-nourished. EYES: PERRLA, EOMI. HENT: Moist mucus membranes, no scleral icterus, normal neck ROM. RESP: Unlabored breathing, equal rise and fall of chest bilaterally, no cyanosis appreciated. CV: Unremarkable heart rate. ABD: Soft, non-tender, non-distended, no palpable masses. : Srivastava catheter secured and draining light red urine with intermittent passage of blood clots. Catheter was easily flushed with sterile water and several moderate sized blood clots were evacuated. EXT: No edema, clubbing or cyanosis. SKIN: No rashes or lesions. NEURO: No focal neurologic deficits, CN II-XII grossly intact. PSYCH: Cooperative, appropriate mood and affect. 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 A srivastava catheter was inserted for management of incomplete bladder emptying and he traumatically removed it a few hours later with his balloon intact. A subsequent srivastava catheter was placed and he has had light red urine draining with intermittent passage of blood clots. Srivastava catheter flushed this evening and several moderate sized blood clots were manually evacuated from his bladder. His catheter now has clear efflux. Will place in soft-restraints given that he removed the catheter earlier today as well as his mitts and appears somewhat confused. Ultimately, will need an outpatient cystoscopy to evaluate his bladder given his history of bladder cancer. Time-Based Coding :: [TOTAL MINUTES] spent with patient and on the chart (including review of chart, obtaining history, exam, reviewing outside data, placing orders, documenting exam and treatment plan, and counseling patient) on [DATE]. PROFEE Charge Codes Inpatient or Observation consultation: [id number]
[2024-07-30] MEDS: MELATONIN 3 MG TABLET 9 MG PO (20:43)
[2024-07-30] MEDS: ATORVASTATIN 20 MG TABLET 80 MG PO (20:43)
--- NOTE | 2024-07-30 21:53 | PC.NURSE ---
pt is extremely distressed and agitated with the soft restraints that are in place. pt is loudly screaming for help and that he wants to leave. pt is only oriented to himself and currently thinks he is at the bar. notified and aware. 0.5 mg ativan IV Q6H PRN ordered.
[2024-07-30] MEDS: LORazepam 2 MG/ML INJ 0.5 MG IV (22:05)
[2024-07-31] MEDS: LORazepam 2 MG/ML INJ 0.5 MG IV (05:20)
[2024-07-31 05:21] LABS: Add Manual Diff / Slide Review NO; Basophils Absolute Auto 0 /uL (0-100); Basophils Percent Auto 0.9 % (0-2); Eosinophils Absolute Auto 100 /uL (0-450); Eosinophils Percent Auto 2.3 % (2-4); Hematocrit 38.7 % (41-53); Hemoglobin 12.7 g/dL (13.5-17.5); Lymphocytes Absolute Auto 1100 /uL (1100-4500); Lymphocytes Percent Auto 21.6 % (25-40); Mean Corpuscular HGB Conc 32.8 % (30-36); Mean Corpuscular Hemoglobin 31.7 PG (26-34); Mean Corpuscular Volume 96.4 fL (80-100); Monocytes Absolute Auto 600 /uL (0-900); Monocytes Percent Auto 12.8 % (3-14); Neutrophils Absolute Auto 3100 /uL (1500-7000); Neutrophils Percent Auto 62.4 % (50-75); Platelet Count 93 X10^3/uL (150-400); Red Blood Cell Count 4.01 X10^6/uL (4.5-5.9); Red Cell Distribution Width 15.7 % (11.6-14.8)
[2024-07-31 05:30] LABS: INR 1.3 (0.9-1.3); Prothrombin Time 15.4 SECONDS (9.4-12.5)
[2024-07-31 05:34] LABS: Alanine Aminotransferase 20 IU/L (<50); Albumin 3.5 g/dL (3.5-5.0); Albumin Globulin Ratio 1.3 (1.0-2.8); Alkaline Phosphatase 114 U/L (38-126); Aspartate Aminotransferase 29 IU/L (17-59); BUN Creatinine Ratio 28.9 (6-22); Bilirubin Total 0.7 mg/dL (0.2-1.3); Blood Urea Nitrogen 26 mg/dL (9-20); Carbon Dioxide 33 mmol/L (22-32); Chloride 101 mmol/L (98-107); Estimated Glomerular Filt Rate > 60 mL/min (>60); Globulin 2.8 g/dL (1.7-4.1); Glucose 98 mg/dL (80-110); HEMOLYSIS < 15 (0-50); Potassium 3.7 mmol/L (3.4-5.1); Sodium 138 mmol/L (137-145); Total Protein 6.3 g/dL (6.3-8.2)
[2024-07-31 08:00] VITALS: BP 119/44; PULSE 61; RESP 14; TEMP 36.3; O2SAT 95
--- NOTE | 2024-07-31 09:04 | CM.DPC ---
[facility]. Reviewed EMR and met with inpt team for updates. Pt had a difficult night last night, became highly agitated, was yelling and disoriented, and had tariq blood in his catheter bag. He was given PRN Ativan with good benefit, however he did pull out his Baez catheter with the balloon full. He was placed in soft restraints overnight, will remain in soft restraints, per Dr. Castellanos, until his catheter will drain clear urine. Urology consulted and recommended an OP cystoscropy based on his hx of bladder cancer, and that he's possibly having a recurrence. Called [facility] and cancelled the placement. Pt cannot have PRN Ativan for 48-hours, per state law. Plan is to monitor him for his ability to improve, or whether he will continue to decline. 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 Castellanos agreed that he would be a better candidate for hospice services.
--- NOTE | 2024-07-31 10:12 | PM.CN ---
History of Present Illness Consult details Date Patient Seen: 07/31/24 Time Patient Seen: 08:00 Chief complaint: weakness, hypotension. no trauma Reason for consult: gross hematuria Narrative: 84 y/o M currently admitted for management of multiple medical conditions to include failure to thrive, congestive heart failure, hyponatremia and concern for a UTI was noted to have blood within his condom catheter on 30 Jul 2024, therefore, a post-void residual was obtained which was concerning for incomplete bladder emptying. A 16Fr srivastava catheter was placed with immediate drainage of red urine. Unfortunately, he traumatically removed his srivastava catheter a few hours later with the balloon intact. A new 16Fr srivastava catheter was placed and he was noted to have several concerning blood clots, therefore, Urology was consulted for further evaluation and management. He admits to a h/o bladder cancer that was treated on multiple occasions in the past, he believes the most recent procedure was 5 years ago down in [place]. He is somewhat of a poor historian and will state I removed the srivastava catheter because I thought we didn't need it anymore and at other times will state I didn't remove the srivastava catheter. Of note, does have a h/o AFib that is treated with anticoagulation. Meds Home Medications and Allergies Home Medications Medication Instructions Recorded Confirmed Type tamsulosin 0.4 mg capsule (Flomax) 0.4 mg PO QDAY 7 days #0 caps 07/23/16 07/25/24 Rx Respironics Dreamstation CPAP #1 ea 05/02/19 07/25/24 History carvedilol 25 mg tablet 37.5 mg PO BID 05/27/21 07/25/24 History duloxetine 60 mg capsule,delayed 60 mg PO DAILY 05/27/21 07/25/24 History release rosuvastatin 20 mg tablet (Crestor) 20 mg PO BEDTIME 05/27/21 07/25/24 History warfarin 10 mg tablet 5 mg PO DAILY 05/27/21 07/25/24 History gabapentin 300 mg capsule 900 mg PO TID 04/21/22 07/25/24 History furosemide 40 mg tablet 40 mg PO DAILY 01/18/23 07/25/24 History risperidone 2 mg tablet 2 mg PO BID 01/18/23 07/25/24 History furosemide 20 mg tablet (Lasix) 20 mg PO BEDTIME 07/25/24 07/25/24 History potassium chloride 20 mEq 40 meq PO BID 07/25/24 07/25/24 History tablet,extended release(part/cryst) (Klor-Con M) Allergies Allergy/AdvReac Type Severity Reaction Status Date / Time No Known Allergies Allergy Verified 07/25/24 13:14 Review of Systems Review of Systems Narrative: CONSTITUTIONAL: Denies weight loss, fevers, chills. HEENT: Denies change in vision, hearing. RESP: Denies SOB, cough. CV: Denies palpations, CP. GI: Denies abodminal pain, nausea, vomiting, diarrhea. MSK: Denies myalgia, joint pain. SKIN: Denies rash, pruritus. NEURO: Denies headache, syncope. PSYCH: Denies recent change in mood, anxiety, depression. Exam Vital Signs (past 8 hours): - 07/31/24 08:00 Temperature 97.3 F L Pulse Rate 61 Respiratory Rate 14 Blood Pressure 119/44 L Pulse Oximetry 95 Fraction of Inspired Oxygen 24 SaO2/FiO2 Ratio 387 Oxygen Delivery Method Nasal Cannula Oxygen Flow Rate 0 Narrative Exam Narrative: GEN: Appears confused. No acute distress. Well-nourished. EYES: PERRLA, EOMI. HENT: Moist mucus membranes, no scleral icterus, normal neck ROM. RESP: Unlabored breathing, equal rise and fall of chest bilaterally, no cyanosis appreciated. CV: Unremarkable heart rate. ABD: Soft, non-tender, non-distended, no palpable masses. : Srivastava catheter secured and draining light red urine with intermittent passage of blood clots. Catheter was easily flushed with sterile water and several moderate sized blood clots were evacuated. EXT: No edema, clubbing or cyanosis. SKIN: No rashes or lesions. NEURO: No focal neurologic deficits, CN II-XII grossly intact. PSYCH: Cooperative, appropriate mood and affect. Objective Labs 07/31/24 05:05 07/31/24 05:05 Labs: Laboratory Results - last 24 hr 07/31/24 05:05 WBC 5.0 RBC 4.01 L Hgb 12.7 L Hct 38.7 L MCV 96.4 MCH 31.7 MCHC 32.8 RDW 15.7 H Plt Count 93 L Neut % (Auto) 62.4 Lymph % (Auto) 21.6 L [place] % (Auto) 12.8 Eos % (Auto) 2.3 Baso % (Auto) 0.9 Neut # (Auto) 3100 Lymph # (Auto) 1100 [place] # (Auto) 600 Eos # (Auto) 100 Baso # (Auto) 0 PT 15.4 H D INR 1.3 Sodium 138 Potassium 3.7 Chloride 101 Carbon Dioxide 33 H BUN 26 H Creatinine 0.90 Estimated GFR > 60 BUN/Creatinine Ratio 28.9 H Glucose 98 Calcium 9.0 Total Bilirubin 0.7 AST 29 ALT 20 Alkaline Phosphatase 114 Total Protein 6.3 Albumin 3.5 Globulin 2.8 Albumin/Globulin Ratio 1.3 [facility] Medical History DJD (degenerative joint disease), lumbosacral (~2017) DDD (degenerative disc disease), lumbar (~2017) Atrial fibrillation (Unknown) Obesity (BMI 30-39.9) (Unknown) Obstructive sleep apnea of adult (~2006) Rectal bleeding History of colon polyps UTI (urinary tract infection) Urinary retention Hip dislocation, right Hematuria Surgical History 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 A srivastava catheter was inserted for management of incomplete bladder emptying and he traumatically removed it a few hours later with his balloon intact. A subsequent srivastava catheter was placed and he has had light red urine draining with intermittent passage of blood clots. Srivastava catheter has been flushed twice daily by myself and several moderate sized blood clots were manually evacuated from his bladder. His catheter now has clear efflux. Will continue with soft-restraints at the moment given that he is very high-risk to remove his srivastava catheter again. Ultimately, will need an outpatient cystoscopy to evaluate his bladder given his history of bladder cancer. Anticipate that his srivastava catheter could be removed on the morning of 02 Aug 2024 at the earliest with a voiding trial, vs possibly on the morning of 03 Aug 2024. Will continue to flush his catheter twice daily. Time-Based Coding :: [TOTAL MINUTES] spent with patient and on the chart (including review of chart, obtaining history, exam, reviewing outside data, placing orders, documenting exam and treatment plan, and counseling patient) on [DATE]. PROFEE Charge Codes Inpatient or Observation consultation: 11359
--- NOTE | 2024-07-31 10:59 | PT-IP ANOTE ---
Per RN pt is not appropriate for PT at this time. Will attempt to see later in the day.
--- NOTE | 2024-07-31 11:09 | OT.IPNOTE ---
Per nursing, hold pt for therapy today.
--- NOTE | 2024-07-31 11:26 | PC.NURSE ---
Addendum entered by Laura Hudson R.N. 07/31/24 18:52: Pt awake and interactive. Calm and cooperative. Denies pain or shortness of breath. Bedding changed, barrier cream applied to bottom. Pt able to eat 100% of his dinner. SCD's on and running, bed alarm on for safety. Pt denies needs at this time. Addendum entered by Laura Hudson R.N. 07/31/24 11:46: Pt resting in bed, snoring at times. Respirations are even and unlabored. Pt appears comfortable. Call light in reach, scd's on and running, bed alarm on for safety. BLE elevated on 2 pillows to reduce pedal swelling. Original Note: 0830 Pt is somnolent at this time. Restraints were removed at 0830. Repositioned Pt and Pt remained sleeping during moving and vitals. Resps are even and unlabored. Will continue to monitor.
[2024-07-31 12:00] VITALS: BP 111/70; PULSE 64; RESP 10; TEMP 36.1; O2SAT 93
--- NOTE | 2024-07-31 13:49 | P.PN_ITS ---
Subjective Subjective Date Patient Seen: 07/31/24 Time Patient Seen: 13:50 Interval history: Patient seen in [facility] for Dr. Guzman Reviewed evaluation and discuss with Dr. Corcoran from Urology Met with patient's , Erika and son Frank and [id number], 30 minute conference Met with patient Patient was very agitated yelling fighting did not want anybody to touch him last night. He received 2 separate doses of lorazepam. The last was at 5:20 a.m. and he has been very somnolent since then. He has not awakened for medications or eating today. Otherwise review of systems negative Patient currently with indwelling catheter and urine appears to have cleared Patient on anticoagulation for atrial fibrillation and this was stopped yesterday due to hematuria. Exam Vital Signs (past 8 hours): - 07/31/24 08:00 07/31/24 12:00 Temperature 97.3 F L 97 F L Pulse Rate 61 64 Respiratory Rate 14 10 L Blood Pressure 119/44 L 111/70 Pulse Oximetry 95 93 Oxygen Flow Rate 0 Fraction of Inspired Oxygen 24 SaO2/FiO2 Ratio 387 Oxygen Delivery Method Nasal Cannula Oxygen Flow Rate 0 Narrative Exam Narrative: Patient is somnolent. Moves feet with sternal rub. Does not wake up or follow commands Afebrile vital signs are stable. Patient does appear to have sleep apnea with some desaturations with deep sleep. But overall stable 90 mid 90s on room air HEENT shows mucous membranes moist and pink no lesions Neck is supple without adenopathy or thyromegaly Chest: Clear to auscultation without wheezes rhonchi or crackles some decreased breath sounds in the bases Cor: Regular rate and rhythm without murmur Abdomen: Obese, positive bowel sounds, soft, nontender, nondistended Extremities: 2+ pitting edema bilateral lower extremities to the knees Patient with poor hygiene of his feet with dystrophic long nails with onychomycosis Objective Labs 07/31/24 05:05 07/31/24 05:05 Labs: Laboratory Results - last 24 hr 07/31/24 05:05 WBC 5.0 RBC 4.01 L Hgb 12.7 L Hct 38.7 L MCV 96.4 MCH 31.7 MCHC 32.8 RDW 15.7 H Plt Count 93 L Neut % (Auto) 62.4 Lymph % (Auto) 21.6 L [place] % (Auto) 12.8 Eos % (Auto) 2.3 Baso % (Auto) 0.9 Neut # (Auto) 3100 Lymph # (Auto) 1100 [place] # (Auto) 600 Eos # (Auto) 100 Baso # (Auto) 0 PT 15.4 H D INR 1.3 Sodium 138 Potassium 3.7 Chloride 101 Carbon Dioxide 33 H BUN 26 H Creatinine 0.90 Estimated GFR > 60 BUN/Creatinine Ratio 28.9 H Glucose 98 Calcium 9.0 Total Bilirubin 0.7 AST 29 ALT 20 Alkaline Phosphatase 114 Total Protein 6.3 Albumin 3.5 Globulin 2.8 Albumin/Globulin Ratio 1.3 PFSH Medical History DJD (degenerative joint disease), lumbosacral (~2017) DDD (degenerative disc disease), lumbar (~2017) Atrial fibrillation (Unknown) Obesity (BMI 30-39.9) (Unknown) Obstructive sleep apnea of adult (~2006) Rectal bleeding History of colon polyps UTI (urinary tract infection) Urinary retention Hip dislocation, right Hematuria Surgical History 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 Social History household members: spouse Smoking Status: Former smoker alcohol intake: never Assessment & Plan Assessment & Plan narrative: 84-year-old male admitted with multiple medical problems including failure to thrive, poor mobility, congestive heart failure, possible UTI and now hematuria. Assessment 1. Failure to thrive. Patient had improved yesterday and plan was to transfer to skilled care facility. Now patient is sedated from receiving lorazepam last night due to severe agitation. Assessment 2. Congestive heart failure seems to be improved. Will continue 40 mg Lasix daily. Will recheck labs in a.m.. Will start gentle IV fluids if patient does not awakened and start taking in p.o. Assessment 3. Hematuria: Repeat urine culture negative. Patient with history of bladder cancer. Urology was consulted yesterday. Coumadin was stopped. Catheter was placed due to postvoid residual inpatient pulled it out with the balloon inflated. Certainly this is likely contributing to problem. Catheter was reinserted without difficulty and patient has left it in overnight in part with help of sedation. The plan will be to leave this in for 48 hours until urine clears and then will remove. Will discuss possibility of having cystoscopy inpatient with Urology as this would be very helpful moving forward in terms of how to treat patient if he does have recurrent cancer. Assessment number for Hyponatremia. Resolved. Will recheck tomorrow Assessment 5. UTI. No culture developed. Antibiotics have been discontinued. No evidence of further infection. Due to hematuria Dr. Guzman restarted ceftriaxone. Will give 1 more dose. Culture is negative. Then we will discontinue Assessment 6. Weakness. Unable to assess today. Patient was improving yesterday and the plan was go to skilled care. Assessment 7. Dementia. Stable. Severe. Patient on Risperdal. Were unable to give this to him because he has not awake enough. Will give this at the time he wakes up. The has further agitation we may try Haldol instead of lorazepam. Assessment 8. Atrial fibrillation rate is well-controlled. Will continue with carvedilol. Will give IV if he is unable to take oral later. Will continue to hold Coumadin due to acute hematuria. Assessment 9. BPH stable. Assessment 10. Hyperlipidemia no change Code status DNR. 65 minutes was spent with patient discussing with Dr. Guzman and Dr. Bai as well as nursing staff and social and political studies professor and conference with patient's and son and [id number], formulating a plan and documentation Time-Based Coding :: [TOTAL MINUTES] spent with patient and on the chart (including review of chart, obtaining history, exam, reviewing outside data, placing orders, documenting exam and treatment plan, and counseling patient) on [DATE].
[2024-07-31 16:00] VITALS: BP 113/77; PULSE 62; RESP 18; TEMP 35.7; O2SAT 95
[2024-07-31] MEDS: cefTRIAXone 1,000 MG in SODIUM CHLORIDE 0.9% 100 ML 200 MG IV (16:02)
[2024-07-31 19:00] VITALS: BP 140/76; PULSE 88; RESP 18; TEMP 36.2; O2SAT 96
[2024-07-31 20:59] VITALS: BP 140/76; PULSE 88
[2024-07-31] MEDS: risperiDONE 1 MG TABLET 2 MG PO (20:59)
[2024-07-31] MEDS: carvediloL 12.5 MG TABLET 25 MG PO (20:59)
[2024-07-31] MEDS: ATORVASTATIN 20 MG TABLET 80 MG PO (21:00)
[2024-07-31] MEDS: MELATONIN 3 MG TABLET 9 MG PO (21:00)
[2024-07-31] MEDS: GABAPENTIN 300 MG CAPSULE 900 MG PO (21:01)
[2024-07-31] MEDS: SENNOSIDES 8.6 MG TABLET PO (21:01)
[2024-07-31] MEDS: SODIUM CHLORIDE 0.9% FLUSH 10 ML IV (21:03)
[2024-08-01 07:00] VITALS: BP 116/68; PULSE 64; RESP 21; TEMP 36.2; O2SAT 96
[2024-08-01] MEDS: FUROSEMIDE 40 MG TABLET PO (09:57)
[2024-08-01] MEDS: DULOXETINE 30 MG CAPSULE 60 MG PO (09:57)
[2024-08-01] MEDS: GABAPENTIN 300 MG CAPSULE 900 MG PO ×3 (09:57→20:08)
[2024-08-01] MEDS: carvediloL 12.5 MG TABLET 25 MG PO ×2 (09:58→20:08)
[2024-08-01] MEDS: SENNOSIDES 8.6 MG TABLET PO ×2 (09:58→20:08)
[2024-08-01] MEDS: risperiDONE 1 MG TABLET 2 MG PO ×2 (09:58→20:08)
[2024-08-01] MEDS: TAMSULOSIN 0.4 MG CAPSULE PO (09:58)
--- NOTE | 2024-08-01 10:13 | PT.IPTN ---
Current Diagnoses Urinary tract infection, site not specified (07/27/24) Gross hematuria (07/27/24) Physical Therapy Treatment Note M2 PT-IP Current Condition Start: 07/26/24 09:59 Freq: NEEDED Status: Active Protocol: Document 07/26/24 11:35 MB (Rec: 07/26/24 12:13 MB [id number]) Physical Therapy Current Condition Current Condition Evaluation Date 07/26/24 Treatment Diagnosis Weakness, hypotension M3 PT-IP Subjective Start: 07/26/24 09:59 Freq: NEEDED Status: Active Protocol: Document 08/01/24 10:40 TS (Rec: 08/01/24 10:52 TS [id number]) Subjective Physical Therapy Visit Type Type Treatment Note Visit Start Time 10:13 Visit Stop Time 10:37 Number of PICTURE FRAMES INSPECTOR Visits 5 Physical Therapy Visit Comments Patient Comments Pt found resting in bed, he is alert and agreeable to PT. M4 PT-IP Mobility and Gait Start: 07/26/24 09:59 Freq: NEEDED Status: Active Protocol: Document 08/01/24 10:40 TS (Rec: 08/01/24 10:52 TS [id number]) PT-Bed Mobility Assessment Supine to Sit Supine to Sit Maximum Assistance,1 Person Assistance,Head of Bed Elevated,Bedrails Scooting Scooting to Edge of Bed Moderate Assistance PT-Transfer Assessment Sit to and From Stand Sit to and from Stand Maximum Assistance,2 Person Assistance Equipment Transfer Assistive Device Gait Belt,Front Wheeled Walker Orthotic/Prosthetic Devices or Brace: No Transfers Transfer Destination Chair Transfer Technique Stand Step Pivot Transfer Ability Level of Assist Maximum Assistance,2 Person Assistance Comments Mobility Comments Supine to sit MaxA x1 for uprighting trunk, pt requires cues for moving of LE's. STS x2 MaxA x2 with FWW, pt has a posterior lean and flexed posture. He performs stand step pivot to chair MaxA x2 with FWW, pt requries cues for step sequencing. Pt was left with nursing tending to needs. Gait Assessment Comments Gait Comments stand step pivot PT-Balance Assessment Sitting Balance and Reactions Static Sitting Balance Ability Good Dynamic Sitting Balance Ability Fair Standing Balance and Reactions Static Standing Balance Ability Poor Dynamic Standing Balance Ability Poor Device Used Bariatric RW M5 PT-IP Objective Assessments Start: 07/26/24 09:59 Freq: NEEDED Status: Active Protocol: Document 07/26/24 11:35 MB (Rec: 07/26/24 12:13 MB [id number]) Orientation Orientation/Cognition Level of Alertness Confusional State Orientation Name,Birthday Safety Awareness Decreased Safety Awareness Memory Description Short Term Impaired,Harbor Engineer Impaired Gross Range of Motion Upper Extremity ROM Impairments Defer to OT Lower Extremity ROM Assessment Bilaterally Impaired Impairments Poor ability to follow commands, B LEs weak and with decreased range and increased edema and girth and discoloration and no active great toe movement on the left Strength Lower Extremity Strength Assessment Bilaterally Impaired Comments Strength Comments B LE weakness and pt cannot follow MMT cues Coordination Assessment Gross Coordination Gross Coordination Impaired Sensation Assessment Comments Sensation Comments Pt does not follow sensory commands M6 PT-IP Treatment Start: 07/26/24 09:59 Freq: NEEDED Status: Active Protocol: Document 07/30/24 11:00 MB (Rec: 07/30/24 11:24 MB [id number]) Physical Therapy Treatment Other Treatments Other Treatment Performed Sitting in chair, pt cannot perform heel raises but does perform toe raises x15 reps, he performs LAQs through 50% range and similar with marches in sitting x10 reps M7 PT-IP Assessment and Plan Start: 07/26/24 09:59 Freq: NEEDED Status: Active Protocol: Document 08/01/24 10:40 TS (Rec: 08/01/24 10:52 TS [id number]) PT Summary Assessment and Plan Potential Rehabilitation Potential Poor Summary Impairments ROM,Strength,Balance, Coordination,Cognition,Bed Mobility,Transfers,Gait, Activity Tolerance Progress Towards Goals Slow Progress - Other Assessment Summary Pt is alert today and participating with physical therapy. He requires MaxA for bed mobility and 2 person assist for pivot transfer to the chair. He is confused but follows cues well for mobility . PT is recommending SNF at this time to improve strength and functional mobility before d/c home. Will require 30/05 assist care. Goals Bed Mobility Goal Standby Assistance Transfer Goal Standby Assistance,Front Wheeled Walker,Slide Board Gait Goal Contact Guard Assistance,Front Wheel Walker Gait Distance 15 Other Goals Pt will perform SPT to w/c or chair with no more than CGA. Can try with LRAD or SB. Pt may not progress to gait but can con't efforts. Days to Meet Goals 5 Frequency of Treatment Frequency Of Treatment Once a Day Treatment Plan Physical Therapy Treatment Plan Bed Mobility Training,Transfer Training,Gait Training, Therapeutic Exercise,Balance Retraining,Discharge Planning, Hot or Cold Pack,Neuromuscular Re-ed,Coordination Retraining ,Manual Therapy Other Recommendations and Next Treatment transfers, bed mobility. Focus Precautions Other Precautions Falls, vascular issues in legs , dementia Weight Bearing Status Allowed Weight Bearing Amount (enter % No limitations or #) (%) Recommendations To Nursing Amount of Assist Needed Mechanical Lift Discharge Recommendations Other Discharge Recommendations 24 hour total care at d/c Transportation Needs at Discharge Wheelchair/Cabulance
--- NOTE | 2024-08-01 10:38 | OT.IP.TRT ---
Current Diagnoses Urinary tract infection, site not specified (07/27/24) Gross hematuria (07/27/24) Occupational Therapy Treatment Note M2 OT-IP Current Condition Start: 07/26/24 13:42 Freq: Status: Active Protocol: Document 07/26/24 13:42 [facility]3] (Rec: 07/26/24 14:03 [facility]3] [id number]) Occupational Therapy Current Condition Current Condition Evaluation Date 07/26/24 Treatment Diagnosis UTI, ACute on Chronic diastolic CHF Diagnosis Onset Date 07/25/24 M3 OT- IP Subjective and Pain Start: 07/26/24 13:42 Freq: Status: Active Protocol: Document 08/01/24 10:45 [facility]3] (Rec: 08/01/24 10:53 [facility]3] [id number]) OT- Subjective Occupational Therapy Visit Type Type Treatment Note Visit Start Time 10:10 Visit Stop Time 10:38 Occupational Therapy Visit Comments Patient Comments Pt agreed to get up. Patient/Caregiver Goals Pt's wanting pt to go to skilled rehab prior to going home. OT Pain Assessment Pain When Pain Assessed At Rest Pain Present Pain Present Denied Pain M4 OT- IP ADL's Start: 07/26/24 13:42 Freq: Status: Active Protocol: Document 08/01/24 10:45 [facility]3] (Rec: 08/01/24 10:53 [facility]3] [id number]) OT PDO-Mlej-Xuraknq Comments OT Self-Feeding Comments not meal time OT ADL-Grooming General Evaluation Grooming Ability Standby Assistance Areas Needing Assistance Retrieving/Set-up of Grooming Items,Face Washing Comments OT Grooming Comments Pt states washed his face earlier. OT ADL-Oral Care Comments Oral Care Comments Not performed. OT ADL-Dressing General Eval Lower Body Dressing Ability Total Assistance Areas Needing Assistance Shoes Comments OT Dressing Comments Assist to put on his velcro shoes on. OT ADL-Toileting General Evaluation Toileting Ability Total Assistance Comments OT Toileting Comments Total assist for hygiene and brief management needs. OT ADL-Bathing Comments OT Bathing Comments Pt able to assist to wash his chest and under his arms after set-up. M5 OT- IP IADL's Start: 07/26/24 13:42 Freq: Status: Active Protocol: Document 07/26/24 13:42 [facility]3] (Rec: 07/26/24 14:03 [facility]3] [id number]) OT-Instrumental Activities of Daily Living Home Safety Awareness Home Safety Comments Pt has dementia at baseline and relies on his and caregiver for all his needs. 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 Production Machine Operator Caregiver Provides Assist M6 OT- IP Functional Cognition Start: 07/26/24 13:42 Freq: Status: Active Protocol: Document 08/01/24 10:45 [facility]3] (Rec: 08/01/24 10:53 [facility]3] [id number]) Cognitive Factors Limiting Selfcare Function Cognitive Ability Level of Alertness Alert Patient Orientation Name Attention Span Ability Capable of Focused Attention Ability to Follow Commands Able to Follow One Step Commands with Increased Time, Able to Follow One Step Commands with Repetition Memory Description Short Term Impaired,Working Impaired Cognitive Comments Cognitive Assessment Comments Pt alert and able to follow commands for ADL and mobility needs. Pt is very cooperative. M7 OT- IP Mobility and Balance Start: 07/26/24 13:42 Freq: Status: Active Protocol: Document 08/01/24 10:45 [facility]3] (Rec: 08/01/24 10:53 [facility]3] [id number]) OT- Bed Mobility Assessment Supine to Sit Supine to Sit Assist Maximum Assistance,1 Person Assistance,Head of Bed Elevated,Bedrails OT-Transfer Assessment Sit to and From Stand Sit to and from Stand Maximum Assistance,2 Person Assistance Transfers Transfer Ability Maximum Assistance,2 Person Assistance Comments Mobility Comments MAXAX 1 to get to the edge of the bed with increased time and vc for safety and process. MAX AX 2 to stand to the FWW from high bed and able to transfer to the recliner. Assist to help move the FWW and for his balance. OT- Balance Assessment Sitting Balance and Reactions Static Sitting Balance Ability Good Dynamic Sitting Balance Ability Fair Standing Balance and Reactions Static Standing Balance Ability Poor Dynamic Standing Balance Ability Poor M8 OT- IP Objective Assessments Start: 07/26/24 13:42 Freq: Status: Active Protocol: Document 07/26/24 13:42 [facility]3] (Rec: 07/26/24 14:03 [facility]3] [id number]) OT Gross Range of Motion Upper Extremity Range of Motion ROM Impairments grossly WFL OT Strength Comments Strength Comments BUE 4/5 OT- Coordination Assessment Comments Coordination Comments slightly off fro finger to nose and increased time for finger tapping M9 OT- IP Assessment and Plan Start: 07/26/24 13:42 Freq: Status: Active Protocol: Document 08/01/24 10:45 [facility]3] (Rec: 08/01/24 10:53 [facility]3] [id number]) OT Summary Assessment and Plan Potential Rehabilitation Potential Good Analytic Complexity at Evaluation Moderate Summary OT Impairments Strength,Balance,Functional Mobility,Toilet Transfers, Shower Transfers Progress Towards Goals Progressing Toward Goals Assessment Summary Pt much more alert today and able to actively participate in sponging off and transfer to the recliner. Pt will benefit from skilled rehab to improve his mobility needs to baseline which was one person assist from his . Goals Self-Feeding Goal Standby Assistance Grooming Goal Standby Assistance Dressing Goal Moderate Assistance Toileting Goal Moderate Assistance Bathing Goal Moderate Assistance Toilet Transfer Goal Minimal Assistance Shower Transfer Goal Moderate Assistance Days to Meet Goals 25 Frequency of Treatment Other frequency 5x/week Treatment Plan OT Treatment Plan ADL Training,Functional Mobility,Patient/Family Education,Discharge Planning Discharge Recommendations OT Discharge Recommendations SNF Rehab Transportation Needs at Discharge Wheelchair/Cabulance
[2024-08-01 13:30] LABS: Add Manual Diff / Slide Review NO; Basophils Absolute Auto 0 /uL (0-100); Basophils Percent Auto 0.5 % (0-2); Eosinophils Absolute Auto 100 /uL (0-450); Hematocrit 39.8 % (41-53); Hemoglobin 13.2 g/dL (13.5-17.5); Lymphocytes Absolute Auto 900 /uL (1100-4500); Lymphocytes Percent Auto 16.4 % (25-40); Mean Corpuscular HGB Conc 33.2 % (30-36); Mean Corpuscular Hemoglobin 31.8 PG (26-34); Mean Corpuscular Volume 95.9 fL (80-100); Monocytes Absolute Auto 600 /uL (0-900); Monocytes Percent Auto 12.1 % (3-14); Neutrophils Absolute Auto 3700 /uL (1500-7000); Platelet Count 94 X10^3/uL (150-400); Red Blood Cell Count 4.15 X10^6/uL (4.5-5.9); Red Cell Distribution Width 16.1 % (11.6-14.8); White Blood Cell Count 5.4 X10^3/uL (4.5-11.0)
--- NOTE | 2024-08-01 13:52 | P.PN_ITS ---
Subjective Subjective Date Patient Seen: 08/01/24 Time Patient Seen: 13:52 Interval history: Patient awakened last evening was eating without any difficulty had an unremarkable night. Patient is sitting up at bedside. He worked with physical therapy although difficulty because he has difficulty following commands but he did participate. PT is recommending skilled care facility for further PT to improve strength and mobility. Patient is taking in food and water no difficulty. He denies any abdominal pain. He is having normal urine output. Catheter was removed last night and he has not had any urinary retention at this time. He has a condom catheter and there has not been any evidence of any blood. He denies any significant shortness of breath or chest pain. Twelve point review of systems is otherwise negative Exam Vital Signs (past 8 hours): - 08/01/24 07:00 Temperature 97.2 F L Pulse Rate 64 Respiratory Rate 21 Blood Pressure 116/68 Pulse Oximetry 96 Fraction of Inspired Oxygen 24 SaO2/FiO2 Ratio 387 Oxygen Delivery Method Nasal Cannula Oxygen Flow Rate 0 Narrative Exam Narrative: Afebrile vital signs are stable Patient is alert but not oriented to person place or time. Patient's describes a superficial abrasion on his hand that a woman came in and try to wrinkle him up and take him to [place]. She put nails in his hand and that is why he has a rd on his hand. He states it is not painful. Patient also states that he has not here for healing purposes but is here just for lunch HEENT is unremarkable. Oral mucosa is unremarkable. Evidence of rosacea diffusely on his face and nose Neck: Supple Chest: Clear to auscultation without wheezes rhonchi or crackles. Slight crackles left base Cor: Regular rate and rhythm without a murmur Abdomen: Positive bowel sounds, soft, nontender Extremities slight improvement in his lower extremity edema Neurologic exam nonfocal other than patient not being oriented to person place or time. Patient was unarousable yesterday but today is alert answering questions as best he can. Objective Labs 08/01/24 13:24 07/31/24 05:05 Labs: Laboratory Results - last 24 hr 08/01/24 13:24 WBC 5.4 RBC 4.15 L Hgb 13.2 L Hct 39.8 L MCV 95.9 MCH 31.8 MCHC 33.2 RDW 16.1 H Plt Count 94 L Neut % (Auto) 69.0 Lymph % (Auto) 16.4 L [place] % (Auto) 12.1 Eos % (Auto) 2.0 Baso % (Auto) 0.5 Neut # (Auto) 3700 Lymph # (Auto) 900 L [place] # (Auto) 600 Eos # (Auto) 100 Baso # (Auto) 0 PFSH Medical History DJD (degenerative joint disease), lumbosacral (~2017) DDD (degenerative disc disease), lumbar (~2018) Atrial fibrillation (Unknown) Obesity (BMI 30-39.9) (Unknown) Obstructive sleep apnea of adult (~2006) Rectal bleeding History of colon polyps UTI (urinary tract infection) Urinary retention Hip dislocation, right Hematuria Surgical History 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 Social History household members: spouse Smoking Status: Former smoker alcohol intake: never Assessment & Plan Assessment & Plan narrative: 84-year-old male admitted with multiple medical problems including failure to thrive, poor mobility, congestive heart failure, possible UTI and now hematuria. Assessment 1. Failure to thrive. Patient had improved yesterday and plan was to transfer to skilled care facility. Patient is now awake he is tolerating p.o. without difficulty he has not needed any further sedation. He had an unremarkable night. He participated with physical therapy. If he continues in current state the plan will be to transfer to skilled care facility tomorrow. Assessment 2. Congestive heart failure seems to be improved. Will continue 40 mg Lasix daily. Will recheck labs in a.m. labs are pending because he refused this morning. Suspect he is slightly dry as he had no intake and no IV yesterday for approximately 12 hours. He is drinking water every time his bottle is filled up. We will assess renal function reassess tomorrow and watch carefully for fluid overload. Assessment 3. Hematuria: Repeat urine culture negative. Patient received 2 doses of IV ceftriaxone this was discontinued because urine culture was negative. Hematuria has resolved grossly with cessation of Coumadin and INR has normalized. Appreciate neurology's help. Patient is urinating with out catheter in no evidence of obstruction. We will proceed with cystoscopy knowing that this may not be an adequate cystoscopy due to recent bleeding and he may have clots in there that preclude full visualization but at least would be able to see if there is a large tumor. Will do this today for able to discuss with his and message was left with her if not will do tomorrow. This will help with disposition and further planning. Certainly if he did have recurrent bladder cancer this would probably change goals of treatment Assessment number for Hyponatremia. Resolved. Will recheck tomorrow Assessment 5. UTI. Your urine culture negative Antibiotics have been discontinued. No evidence of further infection. Status post 2 doses of ceftriaxone. Will continue off ceftriaxone Assessment 6. Weakness. Continue with PT and plan for discharge to skilled care facility Assessment 7. Dementia. Stable. Severe. Patient on Risperdal. Will continue with same Risperdal and if patient has increased agitation will use this versus Haldol. Will not use lorazepam as this was too sedating. Assessment 8. Atrial fibrillation rate is well-controlled. Will continue with carvedilol. Will continue to hold Coumadin due to acute hematuria. Will check INR in a.m. Assessment 9. BPH stable. Assessment 10. Hyperlipidemia no change Code status DNR. 56 minutes was spent with patient discussing with Dr. Corcoran as well as nursing staff and child welfare social worker and conference with patient's and son and [id number], formulating a plan and documentation Time-Based Coding :: [TOTAL MINUTES] spent with patient and on the chart (including review of chart, obtaining history, exam, reviewing outside data, placing orders, documenting exam and treatment plan, and counseling patient) on [DATE].
[2024-08-01 14:18] LABS: Alanine Aminotransferase 26 IU/L (<50); Albumin 3.4 g/dL (3.5-5.0); Albumin Globulin Ratio 1.1 (1.0-2.8); Alkaline Phosphatase 113 U/L (38-126); Aspartate Aminotransferase 59 IU/L (17-59); BUN Creatinine Ratio 27.5 (6-22); Bilirubin Total 0.6 mg/dL (0.2-1.3); Blood Urea Nitrogen 25 mg/dL (9-20); Calcium 9.2 mg/dL (8.4-10.2); Carbon Dioxide 38 mmol/L (22-32); Chloride 99 mmol/L (98-107); Estimated Glomerular Filt Rate > 60 mL/min (>60); Glucose 116 mg/dL (80-110); HEMOLYSIS < 15 (0-50); Potassium 3.8 mmol/L (3.4-5.1); Sodium 137 mmol/L (137-145); Total Protein 6.4 g/dL (6.3-8.2)
--- NOTE | 2024-08-01 14:33 | CM.DPC ---
DCP Cont. Reviewed EMR and team rounds for status updates. Pt has significantly improved since yesterday, he does not have a srivastava catheter in, he's awake and interactive, has been able to eat full meals, and was able to work with PT. The last PRN Ativan he had was yesterday, 08/01. He is going to have a cystoscopy either this evening or tomorrow, after which the new plan is to d/c to [facility]. CM will resubmit referral with new clinicals on , he will need to have not been on any PRN Ativan for 48-hours before he can be eligible for placement. NOÉ Morillo is calling Dr. Castellanos to request that change. Monitoring closely.
--- NOTE | 2024-08-01 16:34 | DIET.CONS ---
Dietary Consultation Note Admission Date: 07/27/2024 08:21 Assessment: 84 y M presented with weakness and hypotension. Nutrition screened for LOS. EMR reviewed. PMH of dementia and CHF. 75-100% recent recorded po intakes, avg recorded po intakes during admission 85%. DFM reviewed for meal composition. Per H&P- pt with normal appetite. No nutritional interventions needed at this time. Ht: 190.5 cm Wt: 136.078 kg BMI: 37.5 UBW: 154.221 kg on 07/26/23 (12% weight loss in 1 yr, non-severe) Last BM: 07/30/24 (07/30/24 16:34) MNA: 12 Jordan Score: 15 Diet: 07/26/24 Breakfast Heart Healthy Diet Diet Modifications: bite sized portions Sodium Level: No Added Salt Nutrition Percent Meal Consumed 100% 08/01/24 12:39 Percent Meal Consumed 100% 07/31/24 18:00 Percent Meal Consumed 100% 07/31/24 17:38 Percent Meal Consumed 100% 07/30/24 18:00 Labs: RBC 4.15 X10^6/uL (4.5-5.9) L 08/01/24 13:24 Hgb 13.2 g/dL (13.5-17.5) L 08/01/24 13:24 Hct 39.8 % (41-53) L 08/01/24 13:24 Creatinine 0.91 mg/dL (0.66-1.25) 08/01/24 14:06 Lactate 1.4 mmol/L (0.7-2.1) 07/25/24 12:45 NT-Pro-B Natriuret Pep 2390 pg/mL (<450) H 07/28/24 05:00 Electronically Signed by: Selena Ortiz 08/01/24 16:34 Clinical Dietitian [address] [address]
--- NOTE | 2024-08-01 17:42 | P.CONS_ITS ---
History of Present Illness Consult details Date Patient Seen: 08/01/24 Time Patient Seen: 11:00 Chief complaint: weakness, hypotension. no trauma Reason for consult: gross hematuria, concern for bladder cancer Narrative: 84 y/o M currently admitted for management of multiple medical conditions to include failure to thrive, congestive heart failure, hyponatremia and concern for a UTI was noted to have blood within his condom catheter on 30 Jul 2024, therefore, a post-void residual was obtained which was concerning for incomplete bladder emptying. A 16Fr srivastava catheter was placed with immediate drainage of red urine. Unfortunately, he traumatically removed his srivastava catheter a few hours later with the balloon intact. A new 16Fr srivastava catheter was placed and he was noted to have several concerning blood clots, therefore, Urology was consulted for further evaluation and management. He admits to a h/o bladder cancer that was treated on multiple occasions in the past, he believes the most recent procedure was 5 years ago down in [place]. He is somewhat of a poor historian and will state I removed the srivastava catheter because I thought we didn't need it anymore and at other times will state I didn't remove the srivastava catheter. Of note, does have a h/o AFib that is treated with anticoagulation. His srivastava catheter was ultimately removed yesterday as it was feared that he may traumatically remove it again, he has been able to urinate since that time and his urine has remained dark yellow in color. Meds Home Medications and Allergies Home Medications Medication Instructions Recorded Confirmed Type tamsulosin 0.4 mg capsule (Flomax) 0.4 mg PO QDAY 7 days #0 caps 07/23/16 07/25/24 Rx Respironics Dreamstation CPAP #1 ea 05/02/19 07/25/24 History carvedilol 25 mg tablet 37.5 mg PO BID 05/27/21 07/25/24 History duloxetine 60 mg capsule,delayed 60 mg PO DAILY 05/27/21 07/25/24 History release rosuvastatin 20 mg tablet (Crestor) 20 mg PO BEDTIME 05/27/21 07/25/24 History warfarin 10 mg tablet 5 mg PO DAILY 05/27/21 07/25/24 History gabapentin 300 mg capsule 900 mg PO TID 04/21/22 07/25/24 History furosemide 40 mg tablet 40 mg PO DAILY 01/18/23 07/25/24 History risperidone 2 mg tablet 2 mg PO BID 01/18/23 07/25/24 History furosemide 20 mg tablet (Lasix) 20 mg PO BEDTIME 07/25/24 07/25/24 History potassium chloride 20 mEq 40 meq PO BID 07/25/24 07/25/24 History tablet,extended release(part/cryst) (Klor-Con M) Allergies Allergy/AdvReac Type Severity Reaction Status Date / Time No Known Allergies Allergy Verified 07/25/24 13:14 Review of Systems Review of Systems Narrative: CONSTITUTIONAL: Denies weight loss, fevers, chills. HEENT: Denies change in vision, hearing. RESP: Denies SOB, cough. CV: Denies palpations, CP. GI: Denies abodminal pain, nausea, vomiting, diarrhea. MSK: Denies myalgia, joint pain. SKIN: Denies rash, pruritus. NEURO: Denies headache, syncope. PSYCH: Denies recent change in mood, anxiety, depression. Exam Vital Signs (past 8 hours): Fraction of Inspired Oxygen 24 SaO2/FiO2 Ratio 387 Oxygen Delivery Method Nasal Cannula Oxygen Flow Rate 0 Narrative Exam Narrative: GEN: Appears confused. No acute distress. Well-nourished. EYES: PERRLA, EOMI. HENT: Moist mucus membranes, no scleral icterus, normal neck ROM. RESP: Unlabored breathing, equal rise and fall of chest bilaterally, no cyanosis appreciated. CV: Unremarkable heart rate. ABD: Soft, non-tender, non-distended, no palpable masses. EXT: No edema, clubbing or cyanosis. SKIN: No rashes or lesions. NEURO: No focal neurologic deficits, CN II-XII grossly intact. PSYCH: Cooperative, appropriate mood and affect. Objective Labs 08/01/24 13:24 08/01/24 14:06 Labs: Laboratory Results - last 24 hr 08/01/24 08/01/24 13:24 14:06 WBC 5.4 RBC 4.15 L Hgb 13.2 L Hct 39.8 L MCV 95.9 MCH 31.8 MCHC 33.2 RDW 16.1 H Plt Count 94 L Neut % (Auto) 69.0 Lymph % (Auto) 16.4 L [place] % (Auto) 12.1 Eos % (Auto) 2.0 Baso % (Auto) 0.5 Neut # (Auto) 3700 Lymph # (Auto) 900 L [place] # (Auto) 600 Eos # (Auto) 100 Baso # (Auto) 0 Sodium 137 Potassium 3.8 Chloride 99 Carbon Dioxide 38 H BUN 25 H Creatinine 0.91 Estimated GFR > 60 BUN/Creatinine Ratio 27.5 H Glucose 116 H Calcium 9.2 Total Bilirubin 0.6 AST 59 ALT 26 Alkaline Phosphatase 113 Total Protein 6.4 Albumin 3.4 L Globulin 3.0 Albumin/Globulin Ratio 1.1 [facility] Medical History DJD (degenerative joint disease), lumbosacral (~2017) DDD (degenerative disc disease), lumbar (~2017) Atrial fibrillation (Unknown) Obesity (BMI 30-39.9) (Unknown) Obstructive sleep apnea of adult (~2006) Rectal bleeding History of colon polyps UTI (urinary tract infection) Urinary retention Hip dislocation, right Hematuria Surgical History 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 A srivastava catheter was inserted for management of incomplete bladder emptying and he traumatically removed it a few hours later with his balloon intact. A subsequent srivastava catheter was placed and he has had light red urine draining with intermittent passage of blood clots. The srivastava catheter was removed on the evening of 31 Jul 2024 due to fear that he would traumatically remove it again and he has been able to urinate on his own with dark yellow urine. Attempted to contact his multiple times throughout the day as it was kindly requested that we perform a cystoscopy at bedside prior to discharge given his history of bladder cancer. Once we get ahold of her, will plan on performing tomorrow prior to discharge. Time-Based Coding :: [TOTAL MINUTES] spent with patient and on the chart (including review of chart, obtaining history, exam, reviewing outside data, placing orders, documenting exam and treatment plan, and counseling patient) on [DATE]. PROFEE Charge Codes Inpatient or Observation consultation: 16410
[2024-08-01 20:00] VITALS: BP 121/67; PULSE 67; RESP 12; TEMP 36.2; O2SAT 98
[2024-08-01 20:08] VITALS: BP 121/67; PULSE 66
[2024-08-01] MEDS: MELATONIN 3 MG TABLET 9 MG PO (20:08)
[2024-08-01] MEDS: ATORVASTATIN 20 MG TABLET 80 MG PO (20:08)
[2024-08-02 04:00] VITALS: BP 144/83; PULSE 63; RESP 14; TEMP 36.2; O2SAT 92
[2024-08-02 05:03] LABS: Add Manual Diff / Slide Review NO; Basophils Absolute Auto 0 /uL (0-100); Basophils Percent Auto 0.7 % (0-2); Eosinophils Absolute Auto 100 /uL (0-450); Eosinophils Percent Auto 1.9 % (2-4); Hemoglobin 12.2 g/dL (13.5-17.5); Lymphocytes Absolute Auto 1000 /uL (1100-4500); Lymphocytes Percent Auto 21.1 % (25-40); Mean Corpuscular HGB Conc 33.1 % (30-36); Mean Corpuscular Hemoglobin 31.7 PG (26-34); Monocytes Absolute Auto 700 /uL (0-900); Monocytes Percent Auto 15.2 % (3-14); Neutrophils Absolute Auto 3000 /uL (1500-7000); Neutrophils Percent Auto 61.1 % (50-75); Platelet Count 93 X10^3/uL (150-400); Red Blood Cell Count 3.85 X10^6/uL (4.5-5.9); Red Cell Distribution Width 15.8 % (11.6-14.8); White Blood Cell Count 4.9 X10^3/uL (4.5-11.0)
[2024-08-02 05:16] LABS: INR 1.1 (0.9-1.3); Prothrombin Time 12.8 SECONDS (9.4-12.5)
[2024-08-02 05:31] LABS: BUN Creatinine Ratio 33.7 (6-22); Blood Urea Nitrogen 29 mg/dL (9-20); Calcium 9.1 mg/dL (8.4-10.2); Carbon Dioxide 33 mmol/L (22-32); Chloride 101 mmol/L (98-107); Estimated Glomerular Filt Rate > 60 mL/min (>60); Glucose 91 mg/dL (80-110); HEMOLYSIS < 15 (0-50); Sodium 137 mmol/L (137-145)
[2024-08-02 08:00] VITALS: BP 109/65; PULSE 62; RESP 16; TEMP 36.1; O2SAT 92
[2024-08-02] MEDS: DULOXETINE 30 MG CAPSULE 60 MG PO (08:53)
[2024-08-02 08:54] VITALS: BP 109/65; PULSE 66
[2024-08-02] MEDS: SENNOSIDES 8.6 MG TABLET PO (08:54)
[2024-08-02] MEDS: FUROSEMIDE 40 MG TABLET PO (08:54)
[2024-08-02] MEDS: risperiDONE 1 MG TABLET 2 MG PO (08:54)
[2024-08-02] MEDS: TAMSULOSIN 0.4 MG CAPSULE PO (08:54)
[2024-08-02] MEDS: GABAPENTIN 300 MG CAPSULE 900 MG PO (08:54)
[2024-08-02] MEDS: carvediloL 12.5 MG TABLET 25 MG PO (08:54)
--- NOTE | 2024-08-02 08:54 | CM.DPC ---
Addendum entered by SHERRY Patel 08/02/24 13:49: ADD: Per Urologist, completed cystoscopy and no mass or concerns and per MD medically stable to discharge. Kimberly at [facility] CC confirms they can accept today and CC Mary kindly faxed d/c summ, signed med list, no scripts needed, PASRR to review. SW spoke to pt's spouse and updated on above and she remains in agreement with discharge today and will call [facility] transport now to privately pay for transport to [facility]. Updated sweater designer, CHEMICAL DEPENDENCY ATTENDANT, RN and provided number to call report. BF Original Note: DCP Cont: Per Dr. Dominguez, following up with Urologist today regarding the cystoscopy towards confirming pt medically stable to d/c to SNF today. Last dose of Ativan was more than 48 hrs ago on 07/31/24 at 0500 and pt has been able to work with therapies and no restraints. SW called [facility] admissions and spoke to Kimberly and updated on above and faxed updated clinicals (MD, consult note, PT/OT, RN note) from last two days to review and currently they have open male beds and can likely accept today. SW called [facility] transport and they have a 1400 transport time available. SW secured that time in anticipation of d/c to SNF today. Plan: SW to follow closely for MD and Urologist to confirm pt stable for discharge today and review from [facility] SNF today. SHERRY Patel
--- NOTE | 2024-08-02 13:43 | P.DS_ITS ---
History of Present Illness History of Present Illness Date Patient Seen: 08/02/24 Time Patient Seen: 09:30 Chief complaint: weakness, hypotension. no trauma Narrative: s/p bedside cystoscopy c/o Dr. Corcoran looks ok for discharge to SNF he is eating drinking like usual pretty much back to current baseline calm on current med slate with no use of benzos for 48 hours i recommend keeping it that way. Discharge Providers Provider Date of admission: 07/27/24 08:21 Discharge Date: 08/02/24 Primary care physician: Eliu Guzman MD Consults: 07/25/24 15:17 Consult to [facility] [place] - [facility] [employer] Stat Comment: [employer] Consult needed for:: Other reason (Comment) 07/25/24 19:27 Consult to Occupational Therapy Evaluate & Treat Comment: Physician Instructions: Evaluate and treat Consult to Physical Therapy Evaluate & Treat Comment: Physician Instructions: Evaluate and Treat 07/30/24 16:49 Consult to Urology Routine Comment: Consulting Provider: Chandana Corcoran Reason for consultation: blood in urine Has provider been notified: Yes Discharge provider: Ritchie Dominguez MD Summary Hospital Course Discharge Diagnosis: #Failure to thrive #Congestive heart failure #Hematuria #Hyponatremia #UTI #Weakness #Dementia, severe #Atrial fibrillation #BPH #Hyperlipidemia Hospital Course: Presents to ED with via EMS. 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 Guzman as outpatient stays home with Marielle or caregiver Stephany Jacobs. Main issue is complaint of extreme weakness with systolic 70 in the field tachycardic to 120s reportedly. Did have some benzos the last couple nights. UTI found in ED along with notable increase in BNP as well as maybe some hypercapnea. Emerging issue is and caregiver are unable to manage him with assists at home. Various issues resolved with treatment - during diuresis there was some concern for possible hematuria - he did pull out a srivastava catheter with inflated ballon had some after that - Dr. Corcoran urology was able to conduct a bedside cystoscopy and ensure there were no structural issues or masses. Plan is to discharge to SNF on home regimens. Status at Discharge Cognitive/behavioral status at discharge: at baseline, confused and calm Overall status at discharge: patient is back to baseline Exam Vital Signs (past 8 hours): - 08/02/24 08:00 08/02/24 08:54 Temperature 97.0 F L Pulse Rate 62 66 Respiratory Rate 16 Blood Pressure 109/65 109/65 Pulse Oximetry 92 Oxygen Flow Rate 0 Fraction of Inspired Oxygen 24 SaO2/FiO2 Ratio 387 Oxygen Delivery Method Nasal Cannula Oxygen Flow Rate 0 Narrative Exam Narrative: sitting in hospital bed with eyes closed easily roused Const Other: well developed well nourished Resp Other: clear to auscultation bilaterally Cardio Other: regular rate, well perfused, mild pitting edema of both feet GI Other: soft nontender active bowel sounds Neuro Other: alert conversant grossly disoriented Objective Labs 08/02/24 04:41 08/02/24 04:41 Labs: Laboratory Results - last 24 hr 08/01/24 08/02/24 14:06 04:41 WBC 4.9 RBC 3.85 L Hgb 12.2 L Hct 37.0 L MCV 96.0 MCH 31.7 MCHC 33.1 RDW 15.8 H Plt Count 93 L Neut % (Auto) 61.1 Lymph % (Auto) 21.1 L [place] % (Auto) 15.2 H Eos % (Auto) 1.9 L Baso % (Auto) 0.7 Neut # (Auto) 3000 Lymph # (Auto) 1000 L [place] # (Auto) 700 Eos # (Auto) 100 Baso # (Auto) 0 PT 12.8 H INR 1.1 Sodium 137 137 Potassium 3.8 4.0 Chloride 99 101 Carbon Dioxide 38 H 33 H BUN 25 H 29 H Creatinine 0.91 0.86 Estimated GFR > 60 > 60 BUN/Creatinine Ratio 27.5 H 33.7 H Glucose 116 H 91 Calcium 9.2 9.1 Total Bilirubin 0.6 AST 59 ALT 26 Alkaline Phosphatase 113 Total Protein 6.4 Albumin 3.4 L Globulin 3.0 Albumin/Globulin Ratio 1.1 [facility] Medical History DJD (degenerative joint disease), lumbosacral (~2017) DDD (degenerative disc disease), lumbar (~2018) Atrial fibrillation (Unknown) Obesity (BMI 30-39.9) (Unknown) Obstructive sleep apnea of adult (~2006) Rectal bleeding History of colon polyps UTI (urinary tract infection) Urinary retention Hip dislocation, right Hematuria Surgical History 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 #Failure to thrive Planning discharge to SNF - no benzos for over 48 hours he does not tolerate them well. #Congestive heart failure stable continue 40 mg Lasix daily. #Hematuria Complex issue - resolved with cessation of coumadin, did receive several doses of rocephin then stopped after negative urine culture. He did pull his srivastava out inflated with some hematuria- cystoscopy today at bedside did not reveal any identifiable issues today. Repeat urine culture negative. #Hyponatremia Resolved. #UTI No evidence of further infection. Status post 2 doses of ceftriaxone. Will continue off ceftriaxone #Weakness Continue with PT and plan for discharge to skilled care facility #Dementia, severe Grossly disoriented needs constant prompting, doing ok on risperdal 2mg bid. Advise do not use lorazepam as this was too sedating. #Atrial fibrillation Rate is well-controlled. Will continue with carvedilol. coumadin held due to hematuria - cystoscopy ok, see urology notes, ok to resume coumadin on dc #BPH stable continue #Hyperlipidemia stable continue dispo: dc to SNF Code status: DNR MDM: Discharge Plan Discharge Plan Patient Disposition: SNF Other facility: [facility] Discharge orders & Medications Prescriptions: Continued tamsulosin [Flomax] 0.4 MG capsule,extended release 24hr 0.4 mg PO QDAY 7 Days Qty: 0 0RF potassium chloride [Klor-Con M20] 20 mEq tablet,ER particles/crystals 40 meq PO BID furosemide [Lasix] 20 mg tablet 20 mg PO BEDTIME carvedilol 25 mg tablet 37.5 mg PO BID warfarin 10 mg tablet 5 mg PO DAILY Rx Instructions: WED & SAT 2.5 mg and 5 mg once a day the other days rosuvastatin [Crestor] 20 mg tablet 20 mg PO BEDTIME Patient Comments: Take one by mouth every day duloxetine 60 mg capsule,delayed release(DR/EC) 60 mg PO DAILY Patient Comments: TAKE ONE CAPSULE BY MOUTH ONE TIME DAILY FOR DEPRESSION OR CHRONIC PAIN furosemide 40 mg tablet 40 mg PO DAILY Patient Comments: TAKE ONE TABLET BY MOUTH ONE TIME DAILY risperidone 2 mg tablet 2 mg PO BID Patient Comments: TAKE ONE TABLET BY MOUTH TWICE DAILY (DME) Respironics Dreamstation CPAP Qty: 1 Dose Instruction: As directed Patient Comments: Pressure: 10-15 cmH2O DME: [facility] Rx Instructions: As directed gabapentin 300 mg capsule 900 mg PO TID Follow up/Referrals: Eliu Guzman MD [Primary Care Provider] - Visit Report/Discharge Packet Stand Alone Forms: Patient Portal/API Discharge Data Primary Care Provider: Eliu Guzman
--- NOTE | 2024-08-02 14:43 | P.CONS_ITS ---
History of Present Illness Consult details Date Patient Seen: 08/02/24 Time Patient Seen: 13:00 Chief complaint: weakness, hypotension. no trauma Reason for consult: gross hematuria, concern for bladder cancer Narrative: 84 y/o M currently admitted for management of multiple medical conditions to include failure to thrive, congestive heart failure, hyponatremia and concern for a UTI was noted to have blood within his condom catheter on 30 Jul 2024, therefore, a post-void residual was obtained which was concerning for incomplete bladder emptying. A 16Fr srivastava catheter was placed with immediate drainage of red urine. Unfortunately, he traumatically removed his srivastava catheter a few hours later with the balloon intact. A new 16Fr srivastava catheter was placed and he was noted to have several concerning blood clots, therefore, Urology was consulted for further evaluation and management. He admits to a h/o bladder cancer that was treated on multiple occasions in the past, he believes the most recent procedure was 5 years ago down in [place]. He is somewhat of a poor historian and will state I removed the srivastava catheter because I thought we didn't need it anymore and at other times will state I didn't remove the srivastava catheter. Of note, does have a h/o AFib that is treated with anticoagulation. His srivastava catheter was ultimately removed on 31 Jul 2024 as it was feared that he may traumatically remove it again, he has been able to urinate since that time and his urine has remained dark yellow in color. I spoke extensively with his regarding his h/o bladder cancer and she strongly desired a repeat cystoscopy to evaluate for recurrence of his bladder cancer. Meds Home Medications and Allergies Home Medications Medication Instructions Recorded Confirmed Type tamsulosin 0.4 mg capsule (Flomax) 0.4 mg PO QDAY 7 days #0 caps 07/23/16 07/25/24 Rx Respironics Dreamstation CPAP #1 ea 05/02/19 07/25/24 History carvedilol 25 mg tablet 37.5 mg PO BID 05/27/21 07/25/24 History duloxetine 60 mg capsule,delayed 60 mg PO DAILY 05/27/21 07/25/24 History release rosuvastatin 20 mg tablet (Crestor) 20 mg PO BEDTIME 05/27/21 07/25/24 History warfarin 10 mg tablet 5 mg PO DAILY 05/27/21 07/25/24 History gabapentin 300 mg capsule 900 mg PO TID 04/21/22 07/25/24 History furosemide 40 mg tablet 40 mg PO DAILY 01/18/23 07/25/24 History risperidone 2 mg tablet 2 mg PO BID 01/18/23 07/25/24 History furosemide 20 mg tablet (Lasix) 20 mg PO BEDTIME 07/25/24 07/25/24 History potassium chloride 20 mEq 40 meq PO BID 07/25/24 07/25/24 History tablet,extended release(part/cryst) (Klor-Con M) Allergies Allergy/AdvReac Type Severity Reaction Status Date / Time No Known Allergies Allergy Verified 07/25/24 13:14 Review of Systems Review of Systems Narrative: CONSTITUTIONAL: Denies weight loss, fevers, chills. HEENT: Denies change in vision, hearing. RESP: Denies SOB, cough. CV: Denies palpations, CP. GI: Denies abodminal pain, nausea, vomiting, diarrhea. : Denies dysuria, inability to void. MSK: Denies myalgia, joint pain. SKIN: Denies rash, pruritus. NEURO: Denies headache, syncope. PSYCH: Denies recent change in mood, anxiety, depression. Exam Vital Signs (past 8 hours): - 08/02/24 08:00 08/02/24 08:54 Temperature 97.0 F L Pulse Rate 62 66 Respiratory Rate 16 Blood Pressure 109/65 109/65 Pulse Oximetry 92 Oxygen Flow Rate 0 Fraction of Inspired Oxygen 24 SaO2/FiO2 Ratio 387 Oxygen Delivery Method Nasal Cannula Oxygen Flow Rate 0 Narrative Exam Narrative: GEN: Appears confused. No acute distress. Well-nourished. EYES: PERRLA, EOMI. HENT: Moist mucus membranes, no scleral icterus, normal neck ROM. RESP: Unlabored breathing, equal rise and fall of chest bilaterally, no cyanosis appreciated. CV: Unremarkable heart rate. ABD: Soft, non-tender, non-distended, no palpable masses. : Penis unremarkable, no urethral discharge, no meatal stenosis. EXT: No edema, clubbing or cyanosis. SKIN: No rashes or lesions. NEURO: No focal neurologic deficits, CN II-XII grossly intact. PSYCH: Cooperative, appropriate mood and affect. Procedure: Cystoscopy: CPT Code 07368 Indication: 84 y/o M w/ h/o bladder cancer (do not have pathology details) who completed an unknown duration of intravesical BCG and is in need of his surveillance cystoscopy. Following informed consent, proper positioning and standard sterile prep technique, 10cc of topical lidocaine gel was inserted into the urethra and a penile clamp was placed to allow for local anesthetic. The 16Fr flexible cystoscope was inserted into his urethra and easily advanced into his bladder. He was noted to have bilateral coaptating lateral prostatic lobes with a moderate sized intravesical median lobe. Complete cystoscopy was then performed and no concerning masses or lesions were noted. Bilateral ureteral orifices were noted to be orthotopic in nature. He was noted to have grade 4 trabeculations throughout his bladder. A small stone (< 1cm in greatest diameter) was noted to be adherent to a blood clot in the dependent portion of his bladder, the blood clot hampered the overall visibility of his cystoscopy. The cystoscope was then removed from his bladder/urethra. He tolerated the procedure well without any complications and was able to urinate following the procedure. Objective Labs 08/02/24 04:41 08/02/24 04:41 Labs: Laboratory Results - last 24 hr 08/02/24 04:41 WBC 4.9 RBC 3.85 L Hgb 12.2 L Hct 37.0 L MCV 96.0 MCH 31.7 MCHC 33.1 RDW 15.8 H Plt Count 93 L Neut % (Auto) 61.1 Lymph % (Auto) 21.1 L [place] % (Auto) 15.2 H Eos % (Auto) 1.9 L Baso % (Auto) 0.7 Neut # (Auto) 3000 Lymph # (Auto) 1000 L [place] # (Auto) 700 Eos # (Auto) 100 Baso # (Auto) 0 PT 12.8 H INR 1.1 Sodium 137 Potassium 4.0 Chloride 101 Carbon Dioxide 33 H BUN 29 H Creatinine 0.86 Estimated GFR > 60 BUN/Creatinine Ratio 33.7 H Glucose 91 Calcium 9.1 [facility] Medical History DJD (degenerative joint disease), lumbosacral (~2017) DDD (degenerative disc disease), lumbar (~2017) Atrial fibrillation (Unknown) Obesity (BMI 30-39.9) (Unknown) Obstructive sleep apnea of adult (~2006) Rectal bleeding History of colon polyps UTI (urinary tract infection) Urinary retention Hip dislocation, right Hematuria Surgical History 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 A srivastava catheter was inserted for management of incomplete bladder emptying and he traumatically removed it a few hours later with his balloon intact. A subsequent srivastava catheter was placed and he has had light red urine draining with intermittent passage of blood clots. The srivastava catheter was removed on the evening of 31 Jul 2024 due to fear that he would traumatically remove it again and he has been able to urinate on his own with dark yellow urine. (2) History of bladder cancer: Status: Acute Plan: Performed his cystoscopy today after obtaining informed consent from his POA, his . Discussed that although the visibility of the cystoscopy was somewhat limited given his blood clot within his bladder, I did not see any obvious lesions concerning for recurrence of bladder cancer. Time-Based Coding :: [TOTAL MINUTES] spent with patient and on the chart (including review of chart, obtaining history, exam, reviewing outside data, placing orders, documenting exam and treatment plan, and counseling patient) on [DATE]. PROFEE Charge Codes Inpatient or Observation consultation: [id number]
--- NOTE | 2024-08-02 15:30 | PC.NURSE ---
Patient is very lethargic this a.m. OX1. He awakens briefly and answers that he has no pain. VSS, afebrile on RA. He denies wanting breakfast. He has a cystocopy at approximately 1230 this afternoon at the bedside with MD Corcoran. He is awake and calm through procedure, aware of soft wrist restraints to prevent disruption of procedure and removed approximately 20 minutes later. He has a large incontinent void, slight hematuria afterwards. He is very restful denies pain after procedure. He is cleared for discharge to SNF by MD Dominguez. Report called to Damien at [facility] ([phone]). at bedside collects all of patient belongings at the bedside and the discharge packet to bring to facility. He denies pain at time of discharge and is transported at approximately 1420 this afternoon by carry-me via w/ch.
== END 2024-08-02 14:20 | DRG 291 ==
LOC: ED 17:44 → AC 17:46
PROVIDERS: Family Medicine; Admitting Provider Family Medicine; Emergency Provider Emergency Medicine; Family Provider Family Medicine; PCP Family Medicine; Referring Provider Emergency Medicine; Visit Provider Family Medicine
DX: I11.0 Hypertensive heart disease with heart failure (principal); I50.33 Acute on chronic diastolic (congestive) heart failure; N39.0 Urinary tract infection, site not specified; E87.1 Hypo-osmolality and hyponatremia; N13.8 Other obstructive and reflux uropathy; F03.C2 Unspecified dementia, severe, with psychotic disturbance; F03.C11 Unspecified dementia, severe, with agitation; I48.91 Unspecified atrial fibrillation; G47.33 Obstructive sleep apnea (adult) (pediatric); N40.1 Benign prostatic hyperplasia with lower urinary tract symptoms; E78.2 Mixed hyperlipidemia; R62.7 Adult failure to thrive; R00.1 Bradycardia, unspecified; R31.0 Gross hematuria; Z66 Do not resuscitate; Z87.891 Personal history of nicotine dependence; Z68.37 Body mass index [BMI] 37.0-37.9, adult; Z79.01 Long term (current) use of anticoagulants; Z85.51 Personal history of malignant neoplasm of bladder
CPT/HCPCS: 36415; 36600; 51798; 52000; 70450; 71045; 80048; 80053; 81001; 82550; 82805; 83605; 83690; 83735; 83880; 84145; 84484; 85025; 85610; 85730; 87040; 87077; 87086; 87633; 93005; 94762; 96361; 96365; 97161; 97167; 97530; 97535; 99232; 99233; 99285; G0378; J0696; J1940; J2060